=== PATIENT | female | born 1940 | race Caucasian/White ===

== ENCOUNTER → 2018-09-05 | Outpatient (CLI) | payer MEDICARE ==
[~2018-09-05] MED LIST: ASPI-586 PO; CATHETER FLUSH 10 ML SYR IV PRN; KETO10TA PO; ONDA4TAB8 PO; SULF1TAB35 PO
[2018-09-05 09:27] VITALS: BP 158/68
--- NOTE | 2018-09-05 15:13 | STRESS TEST ---
DATE OF SERVICE: 09/05/2018 AN EXERCISE MYOVIEW STRESS TEST REPORT Baseline heart rate is 63. Baseline blood pressure is 151/83. Baseline EKG is sinus rhythm with no ischemic changes. In summary, the patient was injected with 9.12 mCi of technetium-99 Myoview and the resting images were obtained. Then, the patient started exercising with a baseline heart rate, blood pressure and EKG mentioned above. The patient was able to exercise for 4 minutes on a standard Wong protocol. With peak exercise level, EKG was showing artifact with mild irregularity and no significant ischemia was noted on EKG. During recovery, heart rate and blood pressure returned to baseline. EKG returned to baseline. The resting and stress images were reviewed and compared in the short axis, horizontal long axis and vertical long axis views. Review of the images showed decreased uptake involving the whole apical area, anteroapical and inferoapical area with extracardiac attenuation affecting the quality of the images. SSS is 14 and SDS S8. TID value 0.84. On the gated images, the left ventricle appeared to be in normal size with normal contractility. Calculated ejection fraction is 66%. CONCLUSION: 1. Good exercise tolerance, total of 4 minutes on standard Wong protocol achieving 82% of maximum expected heart rate. 2. Appropriate heart rate and blood pressure response to exercise returned to baseline during recovery. 3. Minimal nondiagnostic EKG changes with exercise returned to baseline during recovery. 4. A fixed defect involving the true apex with mild ischemia involving the mid to apical anterior wall and mid to apical inferior wall. 5. Normal left ventricular size with normal contractility. Calculated ejection fraction is 66%. Job ID: [id number] DocumentID: [id number] Dictated Date: 09/05/2018 14:46:42 Sustainability Officer Date: 09/05/2018 15:12:17 Dictated By: DON SALDAÑA MD
== END ==
LOC: CARD 07:20
PROVIDERS: ATTEND Internal Medicine Cardiovascular Disease
DX: R07.89 Other chest pain (principal); R94.31 Abnormal electrocardiogram [ECG] [EKG]
CPT/HCPCS: 78452; 93017

== ENCOUNTER 2018-09-12 08:17 | Day surgery (SDC) | payer MEDICARE ==
[2018-09-12] VITALS (7 sets, daily range): BP systolic 115–143; BP diastolic 65–98
[~2018-09-12] VITALS: Ht 154.9 cm; Wt 47.6 kg
[~2018-09-12 08:17] MED LIST changes: -CATHETER FLUSH 10 ML SYR IV PRN
[2018-09-12] MEDS ORDERED: HEParin (CATH LAB) 2,000 ML IV ONE (08:29)
[2018-09-12] MEDS ORDERED: NS IV 1000 ML 1,000 ML ONE (08:29)
[2018-09-12] MEDS ORDERED: NS IV 1000 ML 1,000 ML IV SCH ×2 (08:44→13:29)
--- OUTSIDE RECORDS SUMMARY | 2018-09-12 08:51 | XMS REPORT | Continuity of Care Document ---
Author Author [facility] Organization [facility] Address Unknown Phone Unavailable Allergies Active Description Code Type Severity Reaction Onset Reported/Identified Relationship to Patient Clinical Status Yes No Known Drug Allergies [id number] Drug Allergy Unknown N/A 03/30/2016 Medications There is no data. Problems Date Dx Coded Attending Type Code Diagnosis Diagnosed By 03/30/2016 RAUDEL TAVERA DO Ot K57.93 DVTRCLI OF INTEST, PART UNSP, W/O PERF O 03/30/2016 AYSE DO RAUDEL K Ot K59.00 CONSTIPATION, UNSPECIFIED 03/30/2016 AYSE DO RAUDEL K Ot N20.1 CALCULUS OF URETER 03/30/2016 AYSE DO RAUDEL K Ot R93.5 ABN FINDINGS ON DX IMAGING OF ABD REGION 04/01/2016 AYSE DO RAUDEL K Ot K57.93 DVTRCLI OF INTEST, PART UNSP, W/O PERF O 04/01/2016 AYSE DO RAUDEL K Ot K59.00 CONSTIPATION, UNSPECIFIED 04/01/2016 AYSE DO, RAUDEL K Ot N20.1 CALCULUS OF URETER 04/01/2016 AYSE DO RAUDEL K Ot R93.5 ABN FINDINGS ON DX IMAGING OF ABD REGION 04/13/2016 RANDA FRANCE MD Ot N20.1 CALCULUS OF URETER 05/04/2016 RANDA FRANCE MD Ot N20.1 CALCULUS OF URETER 05/06/2016 AYSE DOELIZABETHA K Ot K57.93 DVTRCLI OF INTEST, PART UNSP, W/O PERF O 05/06/2016 AYSE DO RAUDEL K Ot K59.00 CONSTIPATION, UNSPECIFIED 05/06/2016 AYSE DO RAUDEL K Ot N20.1 CALCULUS OF URETER 05/06/2016 AYSE DO RAUDEL K Ot R93.5 ABN FINDINGS ON DX IMAGING OF ABD REGION 05/18/2016 EDILMA MD, RANDA A Ot N20.1 CALCULUS OF URETER 09/03/2018 RANDA FRANCE MD Ot N20.1 CALCULUS OF URETER 09/06/2018 DON SALDAÑA MD Ot R07.89 OTHER CHEST PAIN 09/06/2018 DON SALDAÑA MD Ot R94.31 ABNORMAL ELECTROCARDIOGRAM [ECG] [EKG] Procedures There is no data. Results There is no data. Encounters ACCT No. Visit Date/Time Discharge Status Pt. Type Provider Facility Loc./Unit Complaint [id number] 09/05/2018 07:20:00 09/05/2018 23:59:59 CLS Outpatient DON SALDAÑA MD [facility] CARD ANTERIOR CHEST WALL PAIN [id number] 04/07/2016 12:01:00 04/07/2016 23:59:59 CLS Outpatient RANDA FRANCE MD [facility] RAD LT UVJ STONE [id number] 03/30/2016 07:04:00 03/30/2016 10:16:00 DIS Emergency AYSE DORAUDEL [facility] ER LEFT FLANK PAIN [id number] 04/15/2013 08:08:00 04/15/2013 23:59:59 CLS Outpatient [id number] 04/08/2013 12:51:00 04/08/2013 23:59:59 CLS Outpatient [id number] 09/12/2018 11:00:00 PEN Preadmit DON SALDAÑA MD [facility] CATH ABN STRESS TEST,CHEST PAIN,HTN
--- NOTE | 2018-09-12 09:14 | Diagnostic Imaging Report ---
INDICATION: Evaluation prior to heart catheterization, abnormal myocardial imaging. TECHNIQUE: Single view chest 8:59 AM. CORRELATION STUDY: 03/30/2016 FINDINGS: The heart size, mediastinal configuration and pulmonary vascularity are within normal limits. Chronic-appearing change in the lung parenchyma without evidence for infiltrate. IMPRESSION: 1. No radiographic findings to suggest acute abnormality of the chest. Dictated by: Dictated on workstation # [id number]
[2018-09-12 09:21] LABS: HEMOGLOBIN 17.1 G/DL (11.5-16.0); MEAN PLATELET VOLUME 10.3 FL (7.4-10.4); RED BLOOD COUNT 5.25 10^6/uL (4.35-5.85); RED CELL DISTRIBUTION WIDTH 12.9 % (10.0-14.5); WHITE BLOOD COUNT 7.1 10^3/uL (4.3-11.0)
[2018-09-12 09:34] LABS: PROTHROMBIN TIME PATIENT 12.7 SEC (12.2-14.7)
[2018-09-12 09:43] LABS: ALANINE AMINOTRANSFERASE 25 U/L (0-55); ALBUMIN 5.1 GM/DL (3.2-4.5); ALKALINE PHOSPHATASE 109 U/L (40-136); BILIRUBIN,TOTAL 1.1 MG/DL (0.1-1.0); BUN/CREATININE RATIO 17; CALCIUM 10.6 MG/DL (8.5-10.1); CARBON DIOXIDE 23 MMOL/L (21-32); CHLORIDE 103 MMOL/L (98-107); CHOLESTEROL 246 MG/DL (< 200); CREATININE SERUM 1.03 MG/DL (0.60-1.30); GFR ESTIMATED 52; GLUCOSE 111 MG/DL (70-105); HDL CHOLESTEROL 91 MG/DL (40-60); POTASSIUM 4.7 MMOL/L (3.6-5.0); SODIUM 138 MMOL/L (135-145); TOTAL PROTEIN 8.8 GM/DL (6.4-8.2); TRIGLYCERIDES 74 MG/DL (<150); VLDL CHOLESTEROL 15 MG/DL (5-40)
[2018-09-12] MEDS ORDERED: LIDOCAINE 1% INJ 20 ML 20 ML VIAL ONE (10:43)
--- NOTE | 2018-09-12 12:04 | Cardiac Procedure Note-CS/ASA ---
Pre-Procedure Note Pre-Op Procedure Note H&P Reviewed The H&P was reviewed, patient examined and no changes noted. Date H&P Reviewed: Sep 12, 2018 Time H&P Reviewed: 12:04 Conscious Sedation Pre-Proced Time 12:04 ASA Score 3 For ASA 3 and 4: Consider anesthesia and medical clearance. Also, for patients with a history of failed moderate sedation consider anesthesia. Airway Lungs Heart ASA score ASA 1: a normal healthy patient ASA 2: a patient with a mild systemic disease (mid diabetes, controlled hypertension, obesity x ASA 3: a patient with a severe systemic disease that limits activity (angina , COPD, prior Myocardial infarction) ASA 4: a patient with an incapacitating disease that is a constant threat to life (CHF, renal failure) ASA 5: a moribund patient not expected to survive 24 hrs. (ruptured aneurysm) ASA 6: a declared brain patient whose organs are being harvested. For emergent operations, add the letter E after the classification Mallampati Classification Grade 3 Sedation Plan Analgesia, Amnesia, Plan communicated to team members, Discussed options with patient/fam, Discussed risks with patient/fam The patient is an appropriate candidate to undergo the planned procedure, sedation, and anesthesia. The patient immediately re-assessed prior to indication. DON SALDAÑA MD Sep 12, 2018 12:04
[2018-09-12] MEDS ORDERED: MIDAZOLAM 5 MG/5 ML (VERSED) VIAL ONE (12:16)
[2018-09-12] MEDS ORDERED: fentaNYL INJECTION 100 MCG/2 ML AMP ONE (12:16)
[2018-09-12] MEDS ORDERED: ADENOSINE 6 MG/2 ML (ADENOCARD) VIAL IV ONE ×2 (12:56→12:59)
[2018-09-12] MEDS ORDERED: meTOprolol 5 MG/5 ML (LOPRESSOR) VIAL ONE ×2 (12:59→13:08)
[2018-09-12] MEDS ORDERED: NITROGLYCERIN 0.4 MG SL TABS BTL 25'S SL ONE (13:08)
--- NOTE | 2018-09-12 13:28 | Cardiac Cath Report ---
Cardiac Cath Report Physician (s)/Fast Food Crew Lead (s) Physician DON SALDAÑA MD Pre-Procedure Diagnosis Pre-Procedure Diagnosis: Coronary artery disease Post-Procedure Note Procedure Start Date: Sep 12, 2018 Name of Procedure: Left heart catheterization Left ventriculogram Aortic arch angiogram Findings/Procedure Note PROCEDURE NOTE: After explaining the procedure to the patient, all pros and cons were explained , all questions were answered. The patient signed the consent and then she was placed on the cardiac catheterization laboratory. Groin was prepped SL fashion local anesthesia was used. Sheath placed in the right femoral artery. Anitra right and left catheter were used to access the coronary system. Pigtail was used to access the left ventricular cavity. Left ventriculogram was done, patient became tachycardic with supraventricular tachycardia, pullback LV to aorta was done, aortic arch angiogram was done then patient was given a Rin 6 mg IV then multiple doses of Lopressor IV, start Chest pain, given sublingual nitroglycerin At the end of the procedure the sheath was removed. Closure device was used FINDINGS: Hemodynamics LV 127/13, end-diastolic pressure of 13 Aorta 126/80 mean of 99 ANATOMY: Left Main is calcified with mild disease Left Anterior Descending is heavily calcified with severe stenosis at the long segment at the proximal and mid with 2 area of subtotal occlusion involving the first and second diagonal branches Left Circumflex is heavily calcified with mild to moderate disease Right Coronory Artery is heavily calcified with moderate disease at the midportion, severe disease of the right PDA LV Gram was done showing normal left ventricle size and systolic function estimated ejection fraction 60 percent Aorta evaluation showed heavily calcified thoracic aorta, hypertensive changes, no dissection or aneurysm, origin of the great neck vessels were normal CONCLUSION: 1. Severe multivessel coronary artery disease 2. Normal left ventricular size and systolic function estimated ejection fraction 60 percent 3. Hypertensive changes in the thoracic aorta DISCUSSION AND RECOMMENDATION: Patient will be transferred for evaluation for CABG Hospital course: Patient underwent cardiac catheterization showing multivessel coronary artery disease had transient episode of superventricular tachycardia, given 6 mg of IV adenosine which was successful then patient returned to sinus tachycardia, started to have chest pain, given 5 mg of IV Lopressor and 3 sublingual nitroglycerin then another 5 mg of IV Lopressor which relieved her chest pain. Arrangement to transfer the patient to [facility] for evaluation for CABG was made. Anesthesia Type: Conscious Sedation Estimated blood loss (mL): 20 ml Contrast Amount: 85 ml Total Radiation Dose: 253 mGy Post-Procedure Diagnosis Post-operative diagnosis: Unstable angina Coronary artery disease Hypertension Hyperlipidemia DON SALDAÑA MD Sep 12, 2018 13:28
[2018-09-12] MEDS ORDERED: PATIENT MAY USE OWN MEDS, ALL PO SCH (13:30)
--- NOTE | 2018-09-12 13:30 | Discharge Inst-Post CATH ---
Discharge Inst-CATH Post Cardiac Cath D/C Inst Follow Up/Plan Appointment with Dr. Feliciano's office in 4 weeks CARDIAC CATH DISCHARGE INSTRUCTIONS *Hold Metformin for 48 hours post heart cath. ACTIVITY * Go Home directly and rest. * Limit activity of the leg (or wrist if it was used) for 7 days including aerobics, swimming, jogging, bicycling, etc. * Restrict stair-climbing for 7 days if possible, if not, climb up with your non -cath leg, then bring together on the same step. * Avoid lifting, pushing, pulling or excessive movement of the affected extremity for 7 days. * Customary sexual activity may be resumed after 2 days-use caution not to use a position that strains or causes pain to the affected extremity. * No driving for 24 hours. * NO SMOKING. * Avoid straining for bowel movements for 7 days. * Gentle walking on level ground is allowed. * Returning to work will depend on the type of procedure and the results. Your doctor will discuss this with you. CALL YOUR DOCTOR FOR ANY OF THE FOLLOWING: *If bleeding from the puncture site occurs- Apply gentle pressure to site with clean cloth and call your doctor or EMS. * If a knot or lump forms under the skin, increases in size, or causes pain. * If bruising appears to be worsening or moving further down your leg instead of disappearing. * Temperature above 101 F. CARE OF YOUR GROIN INCISION; * Bruising or purple discoloration of the skin near the puncture site is common. * You may shower only, no bathtub bathing for 5 days. Be careful to avoid slipping as your leg may feel stiff. * If a closure device was used on your femoral artery, please see the attached guide regarding care of the device and your leg. * Leave the dressing on, until removed by office staff. CARE OF YOUR WRIST INCISION; * Bruising or purple discoloration of the skin near the puncture site is common. * You may shower. * DO NOT submerge wrist. * Leave dressing on, until removed by office staff.. DON FELICIANO MD Sep 12, 2018 13:30
[2018-09-12] MEDS ORDERED: ONDANSETRON 4 MG/2 ML (SDV) Z0FRAN ONE (13:32)
== END 2018-09-12 15:36 | disposition short-term general hospital (02) ==
LOC: CATH 08:17 → ICU 13:36 → CATH 15:36
PROVIDERS: ATTEND Internal Medicine Cardiovascular Disease
DX: I25.110 Atherosclerotic heart disease of native coronary artery with unstable angina pectoris (principal); I10 Essential (primary) hypertension; E78.5 Hyperlipidemia, unspecified; R07.89 Other chest pain; R94.39 Abnormal result of other cardiovascular function study; Z82.49 Family history of ischemic heart disease and other diseases of the circulatory system
CPT/HCPCS: 36221; 36415; 71045; 80053; 80061; 85027; 85610; 85730; 87081; 93458

== ENCOUNTER 2019-01-28 10:13 | Outpatient (RCR) | payer MEDICARE | END 2019-02-05 | disposition home or self-care (01) | LOC: CR 10:13 | PROVIDERS: ATTEND Internal Medicine Cardiovascular Disease | DX: Z48.812 Encounter for surgical aftercare following surgery on the circulatory system (principal); Z95.1 Presence of aortocoronary bypass graft | CPT/HCPCS: 93798 ==

== ENCOUNTER → 2019-07-02 | Outpatient (CLI) | payer MEDICARE | LOC: CARD 09:57 | PROVIDERS: ATTEND Physician Assistant | DX: I25.10 Atherosclerotic heart disease of native coronary artery without angina pectoris (principal); I10 Essential (primary) hypertension; E78.2 Mixed hyperlipidemia | CPT/HCPCS: 93306 ==

== ENCOUNTER → 2019-07-03 | Outpatient (CLI) | payer MEDICARE ==
[~2019-07-03] MED LIST changes: +CATHETER FLUSH 10 ML SYR IV PRN
[2019-07-03 09:12] VITALS: BP 138/86
--- NOTE | 2019-07-03 16:10 | STRESS TEST ---
DATE OF SERVICE: 07/03/2019 EXERCISE MYOVIEW STRESS TEST REPORT REFERRING PHYSICIAN: Dr. Hanley. Baseline heart rate is 47. Baseline blood pressure 149/83. Baseline EKG is sinus rhythm with no ischemic changes. In summary, the patient was injected with 10.74 mCi of technetium-99 Myoview and the resting images were obtained. Then, the patient started exercising with a baseline heart rate, blood pressure and EKG mentioned above. The patient was able to exercise for a total of 7 minutes on standard Wong protocol. With peak exercise level, EKG was showing no ischemic changes. Blood pressure was 173/73. During recovery, heart rate and blood pressure returned to baseline. EKG returned to baseline. The resting and stress images were reviewed and compared in the short axis, horizontal long axis, and vertical long axis views. Review of the images showed breast attenuation affecting the quality of the images. There was no significant ischemia or infarction. SSS is 0. TID value 0.91. On the gated images, the left ventricle appeared to be normal size with normal contractility. Calculated ejection fraction 74%. IN CONCLUSION: 1. Fair exercise tolerance, a total of 7 minutes on standard Wong protocol, 8.5 METS achieving 87% of maximum expected heart rate. 2. Minimal nondiagnostic EKG changes with exercise returned to baseline during recovery. 3. Breast attenuation with typical female pattern with no ischemia or infarction on SPECT images. 4. Normal left ventricular size with normal contractility. Calculated ejection fraction 74%. Job ID: [id number] DocumentID: [id number] Dictated Date: 07/03/2019 15:59:13 Firmware Developer Date: 07/03/2019 16:09:25 Dictated By: DON SALDAÑA MD
== END ==
LOC: CARD 07:18
PROVIDERS: ATTEND Physician Assistant
DX: I25.10 Atherosclerotic heart disease of native coronary artery without angina pectoris (principal); I10 Essential (primary) hypertension; E78.2 Mixed hyperlipidemia
CPT/HCPCS: 78452; 93017

== ENCOUNTER 2019-07-25 11:25 | Emergency (ER) | payer MEDICARE ==
[~2019-07-25] VITALS: Ht 157 cm; Wt 47.0 kg
[~2019-07-25 11:25] MED LIST changes: -CATHETER FLUSH 10 ML SYR IV PRN
--- NOTE | 2019-07-25 11:43 | ED General ---
General Chief Complaint: Fever-Adult/Adol Stated Complaint: FEVER Nursing Triage Note: FEVER STARTING YESTERDAY. DENIES ANY OTHER SX Nursing Sepsis Screen: No Definite Risk Source of Information: Patient Exam Limitations: No Limitations History of Present Illness Date Seen by Provider: Jul 25, 2019 Time Seen by Provider: 11:41 Initial Comments To ER with fever starting yesterday, fever was up to 101 at primary care office this morning, she presented there for nausea and poor appetite rhinorrhea sore throat. Timing/Duration: 1-2 Days Severity: Moderate Associated Systoms: Fever/Chills, Malaise, Nausea/Vomiting Allergies and Home Medications Allergies Coded Allergies: No Known Drug Allergies (Unverified , 03/30/16) Patient Home Medication List Home Medication List Reviewed: Yes Review of Systems Review of Systems Constitutional: see HPI, chills, fever, malaise, weakness EENTM: see HPI, nose congestion, throat pain Respiratory: no symptoms reported Cardiovascular: no symptoms reported Genitourinary: no symptoms reported Musculoskeletal: no symptoms reported Skin: no symptoms reported Psychiatric/Neurological: No Symptoms Reported Hematologic/Lymphatic: No Symptoms Reported Immunological/Allergic: no symptoms reported Past Yibfznk-Clnkfg-Kgdunc Hx Patient Social History Alcohol Use: Denies Use Recreational Drug Use: No Smoking Status: Never a Smoker Recent Foreign Travel: No Contact w/Someone Who Travel: No Recent Infectious Disease Expo: No Immunizations Up To Date Date of Pneumonia Vaccine: Aug 30, 2016 Date of Influenza Vaccine: Jul 30, 2018 Past Medical History Surgeries: Yes (ECTOPIC ) Abdominal Respiratory: No Currently Using CPAP: No Currently Using BIPAP: No Cardiac: No Neurological: No Reproductive Disorders: Yes (ECTOPIC ) 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 0.0oz. 47.008976gt; 19.00 BMI Method:Stated General Appearance: No Apparent Distress, WD/WN Eyes: Bilateral Eye Normal Inspection, Bilateral Eye PERRL, Bilateral Eye EOMI HEENT: PERRL/EOMI, TMs Normal Neck: Full Range of Motion, Normal Inspection Respiratory: Normal Breath Sounds, No Accessory Muscle Use, No Respiratory Distress Cardiovascular: Regular Rate, Rhythm, Normal Peripheral Pulses Gastrointestinal: Normal Bowel Sounds, Non Tender, Soft Extremity: Normal Capillary Refill, Normal Inspection Neurologic/Psychiatric: Alert, Oriented x3 Skin: Normal Color, Warm/Dry Progress/Results/Core Measures Suspected Sepsis Recent Fever Within 48 Hours: Yes Infection Criteria Present: Suspected New Infection New/Unexplained Altered Menta: No Sepsis Screen: No Definite Risk SIRS Temperature: Pulse: 76 Respiratory Rate: 16 Laboratory Tests 07/25/19 11:52: White Blood Count 11.4H Blood Pressure 159 /83 Mean: 108 Laboratory Tests 07/25/19 11:52: Creatinine 1.02, Platelet Count 240, Total Bilirubin 1.8H Results/Orders Lab Results Laboratory Tests Test 07/25/19 11:52 07/25/19 12:35 Range/Units White Blood Count 11.4 H 4.3-11.0 10^3/uL Red Blood Count 4.25 L 4.35-5.85 10^6/uL Hemoglobin 13.7 11.5-16.0 G/DL Hematocrit 40 35-52 % Mean Corpuscular Volume 95 80-99 FL Mean Corpuscular Hemoglobin 32 25-34 PG Mean Corpuscular Hemoglobin Concent 34 32-36 G/DL Red Cell Distribution Width 12.7 10.0-14.5 % Platelet Count 240 130-400 10^3/uL Mean Platelet Volume 9.5 7.4-10.4 FL Neutrophils (%) (Auto) 79 H 42-75 % Lymphocytes (%) (Auto) 14 12-44 % Monocytes (%) (Auto) 7 0-12 % Eosinophils (%) (Auto) 0 0-10 % Basophils (%) (Auto) 0 0-10 % Neutrophils # (Auto) 9.0 H 1.8-7.8 X 10^3 Lymphocytes # (Auto) 1.6 1.0-4.0 X 10^3 Monocytes # (Auto) 0.7 0.0-1.0 X 10^3 Eosinophils # (Auto) 0.0 0.0-0.3 10^3/uL Basophils # (Auto) 0.0 0.0-0.1 10^3/uL Sodium Level 132 L 135-145 MMOL/L Potassium Level 4.5 3.6-5.0 MMOL/L Chloride Level 101 98-107 MMOL/L Carbon Dioxide Level 26 21-32 MMOL/L Anion Gap 5 5-14 MMOL/L Blood Urea Nitrogen 12 7-18 MG/DL Creatinine 1.02 0.60-1.30 MG/DL Estimat Glomerular Filtration Rate 52 BUN/Creatinine Ratio 12 Glucose Level 135 H 70-105 MG/DL Calcium Level 9.3 8.5-10.1 MG/DL Corrected Calcium 9.1 8.5-10.1 MG/DL Total Bilirubin 1.8 H 0.1-1.0 MG/DL Aspartate Amino Transf (AST/SGOT) 28 5-34 U/L Alanine Aminotransferase (ALT/SGPT) 23 0-55 U/L Alkaline Phosphatase 75 40-136 U/L Total Protein 6.9 6.4-8.2 GM/DL Albumin 4.3 3.2-4.5 GM/DL Urine Color TATE H Urine Clarity CLEAR Urine pH 6 5-9 Urine Specific Orr 1.020 1.016-1.022 Urine Protein 2+ H NEGATIVE Urine Glucose (UA) NEGATIVE NEGATIVE Urine Ketones 1+ H NEGATIVE Urine Nitrite NEGATIVE NEGATIVE Urine Bilirubin NEGATIVE NEGATIVE Urine Urobilinogen NORMAL NORMAL MG/DL Urine Leukocyte Esterase 1+ H NEGATIVE Urine RBC (Auto) 2+ H NEGATIVE Urine RBC 25-50 H /HPF Urine WBC 2-5 /HPF Urine Squamous Epithelial Cells 2-5 /HPF Urine Crystals NONE /LPF Urine Bacteria FEW H /HPF Urine Casts NONE /LPF Urine Mucus MODERATE H /LPF Urine Culture Indicated NO Micro Results Microbiology 07/25/19 Influenza Types A,B Antigen (TEJAL) - Final, Complete My Orders Orders - MARY KAY DIAZ BROADCAST NEWS PRODUCER Cbc With Automated Diff (07/25/19 11:27) Ua Culture If Indicated (07/25/19 11:27) Comprehensive Metabolic Panel (07/25/19 11:27) Ed Iv/Invasive Line Start (07/25/19 11:27) Chest Pa/Lat (2 View) (07/25/19 11:27) Influenza A And B Antigens (07/25/19 11:27) Ibuprofen Tablet (Motrin Tablet) (07/25/19 11:45) Ns Iv 500 Ml (Sodium Chloride 0.9%) (07/25/19 13:00) Medications Given in ED Current Medications Medications Dose Ordered Sig/Allen Route Start Time Stop Time Status Last Admin Dose Admin Ibuprofen 800 mg ONCE ONCE PO 07/25/19 11:45 07/25/19 11:46 DC 07/25/19 12:10 800 MG Vital Signs/I&O 07/25/19 11:25 Temp 37.9 Pulse 76 Resp 16 B/P (MAP) 159/83 (108) Pulse Ox 99 O2 Delivery Room Air Capillary Refill : Less Than 3 Seconds Blood Pressure Mean: 108 Departure Communication (Admissions) [id number] to determine the cause of fever here, suspect influenza though her flu swab was negative. Patient is allowed to go home and she is agreeable with this plan as is the daughter. Impression Primary Impression: Fever Qualified Codes: R50.9 - Fever, unspecified Additional Impression: Influenza-like symptoms Disposition: HOME, SELF-CARE Condition: Stable Departure-Patient Inst. Decision time for Depature: 13:17 Referrals: DAPHNEY PAINTER MD (PCP/Family) Primary Care Physician Patient Instructions: Fever, Adult (DC) Add. Discharge Instructions: 1. Tylenol and ibuprofen for fever control 2. Return to ER for any concerns 3. Follow-up with your primary care provider later this week for recheck. All discharge instructions reviewed with patient and/or family. Voiced understanding. MARY KAY DIAZ APRN Jul 25, 2019 11:43
[2019-07-25] MEDS ORDERED: IBUPROFEN 800 MG (MOTRIN) TAB PO ONE (11:45)
[2019-07-25 11:58] LABS: BASOPHILS % (AUTO) 0 % (0-10); EOSINOPHILS % (AUTO) 0 % (0-10); HEMATOCRIT 40 % (35-52); HEMOGLOBIN 13.7 G/DL (11.5-16.0); LYMPHOCYTES # (AUTO) 1.6 X 10^3 (1.0-4.0); LYMPHOCYTES % (AUTO) 14 % (12-44); MEAN CORPUSCULAR HEMOGLOBIN 32 PG (25-34); MEAN CORPUSCULAR HGB CONC 34 G/DL (32-36); MEAN CORPUSCULAR VOLUME 95 FL (80-99); MEAN PLATELET VOLUME 9.5 FL (7.4-10.4); MONOCYTES # (AUTO) 0.7 X 10^3 (0.0-1.0); MONOCYTES % (AUTO) 7 % (0-12); NEUTROPHILS % (AUTO) 79 % (42-75); PLATELET COUNT 240 10^3/uL (130-400); RED CELL DISTRIBUTION WIDTH 12.7 % (10.0-14.5); WHITE BLOOD COUNT 11.4 10^3/uL (4.3-11.0)
[2019-07-25 12:15] LABS: ALBUMIN 4.3 GM/DL (3.2-4.5); BILIRUBIN,TOTAL 1.8 MG/DL (0.1-1.0); CALCIUM 9.3 MG/DL (8.5-10.1); CREATININE SERUM 1.02 MG/DL (0.60-1.30); POTASSIUM 4.5 MMOL/L (3.6-5.0); TOTAL PROTEIN 6.9 GM/DL (6.4-8.2)
--- NOTE | 2019-07-25 12:19 | Diagnostic Imaging Report ---
INDICATION: Fever. TIME OF EXAM: 12:01 p.m. Correlation is made with prior chest from 09/12/2018. FINDINGS: Changes of median sternotomy are noted. The heart size is stable. The lungs are clear. No infiltrate or effusion is seen. There is no pneumothorax. IMPRESSION: No acute cardiopulmonary process is detected. Dictated by: Dictated on workstation # [id number]
[2019-07-25 12:40] LABS: BILIRUBIN,URINE NEGATIVE (NEGATIVE); CLARITY,URINE CLEAR; COLOR,URINE AMBER; GLUCOSE, URINE (UA) NEGATIVE (NEGATIVE); KETONES,URINE 1+ (NEGATIVE); LEUKOCYTE ESTERASE ,URINE 1+ (NEGATIVE); NITRITE,URINE NEGATIVE (NEGATIVE); PH,URINE 6 (5-9); PROTEIN,URINE 2+ (NEGATIVE); UROBILINOGEN,URINE NORMAL (NORMAL)
[2019-07-25 12:47] LABS: BACTERIA,URINE FEW /HPF; RBC,URINE 25-50 /HPF
[2019-07-25] MEDS ORDERED: NS IV 500 ML 500 ML IV SCH (13:00)
[2019-07-25 13:43] VITALS: BP 145/86
[2019-07-26] MEDS ORDERED: RAMI2.5C2 PO (09:45)
[2019-07-26] MEDS ORDERED: ATOR10TA66 PO (09:45)
[2019-07-26] MEDS ORDERED: CARV3.122 PO (09:45)
[2019-07-26] MEDS ORDERED: CLOP75TA28 (09:45)
[2019-07-26] MEDS ORDERED: BROM5DRO3 (09:45)
== END 2019-07-25 13:45 | disposition home or self-care (01) ==
LOC: EDUNIT# 11:25 → ER 11:26
DX: R50.9 Fever, unspecified (principal); R09.89 Other specified symptoms and signs involving the circulatory and respiratory systems; Z87.442 Personal history of urinary calculi; Z82.49 Family history of ischemic heart disease and other diseases of the circulatory system
CPT/HCPCS: 36415; 71046; 80053; 81000; 85025; 87804

== ENCOUNTER 2019-07-26 09:10 | Observation (INO) | payer MEDICARE ==
[~2019-07-26] VITALS: Ht 147 cm; Wt 47.0 kg
[2019-07-26] MEDS ORDERED: RAMI2.5C2 PO (09:45)
[2019-07-26] MEDS ORDERED: BROM5DRO3 (09:45)
[2019-07-26] MEDS ORDERED: CLOP75TA28 (09:45)
[2019-07-26] MEDS ORDERED: ATOR10TA66 PO (09:45)
[2019-07-26] MEDS ORDERED: CARV3.122 PO (09:45)
--- NOTE | 2019-07-26 10:16 | ED General ---
General Chief Complaint: Fever-Adult/Adol Stated Complaint: N/V;WEAKNESS Nursing Triage Note: PT TO ROOM 5 PT CO OF FEVER, N/V/D, PT WAS SEEN IN ED YESTERDAY FOR SAME CO Nursing Sepsis Screen: Possible Sepsis Risk Source of Information: Patient, Family Exam Limitations: No Limitations History of Present Illness Date Seen by Provider: Jul 26, 2019 Time Seen by Provider: 10:13 Initial Comments This 78-year-old white female returns emergency department with continuation of her complaints for which she was evaluated yesterday. Patient has had vomiting and diarrhea with associated weakness and general malaise. Yesterday no distinct pathology was identified. The patient was instructed on a conservative course of home which has not improved the patient's symptoms. Patient returns with continued vomiting and diarrhea. There is been no blood in the emesis or stool. Patient denies severe or localized abdominal pain. Cindy ent has had no associated cough or shortness of breath. She denies chest pain or palpitations. She's had no triad of headache stiff neck and photophobia. Past medical history includes previous cardiac stents. Allergies and Home Medications Allergies Coded Allergies: No Known Drug Allergies (Unverified , 07/25/19) Patient Home Medication List Home Medication List Reviewed: Yes Review of Systems Review of Systems Constitutional: fever, malaise, weakness EENTM: No ear pain, No vision loss Respiratory: No cough, No short of breath Cardiovascular: No chest pain, No palpitations Gastrointestinal: No abdominal pain; diarrhea, nausea, vomiting Genitourinary: No dysuria, No frequency : No Musculoskeletal: No back pain Skin: No rash Psychiatric/Neurological: No Symptoms Reported Hematologic/Lymphatic: No Symptoms Reported Immunological/Allergic: no symptoms reported Past Pcqxtdy-Jchdza-Shybis Hx Past Med/Social Hx: Reviewed Nursing Past Med/Soc Hx Patient Social History Alcohol Use: Denies Use Recreational Drug Use: No Smoking Status: Never a Smoker Recent Foreign Travel: No Contact w/Someone Who Travel: No Recent Infectious Disease Expo: No Recent Hopitalizations: No Immunizations Up To Date Date of Pneumonia Vaccine: Aug 30, 2016 Date of Influenza Vaccine: Jul 30, 2018 Past Medical History Surgeries: Yes (ECTOPIC ) Abdominal Respiratory: No Currently Using CPAP: No Currently Using BIPAP: No Cardiac: No Neurological: No Reproductive Disorders: Yes (ECTOPIC ) 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 0.0oz. 47.517004kp; 21.00 BMI Method:Stated General Appearance: No Apparent Distress, WD/WN HEENT: Normal ENT Inspection Neck: Full Range of Motion, Normal Inspection, Non Tender, Supple Respiratory: Lungs Clear, Normal Breath Sounds Cardiovascular: Regular Rate, Rhythm, No Murmur Gastrointestinal: Normal Bowel Sounds, Non Tender, Soft Back: Normal Inspection Extremity: Normal Inspection, Normal Range of Motion Neurologic/Psychiatric: Alert, Oriented x3, No Motor/Sensory Deficits, Normal Mood/Affect Skin: Normal Color, Warm/Dry; No Rash Focused Exam Lactate Level 07/26/19 09:20: Lactic Acid Level 1.90 Lactic Acid Level Laboratory Tests Test 07/26/19 09:20 Lactic Acid Level 1.90 MMOL/L (0.50-2.00) Progress/Results/Core Measures Suspected Sepsis Recent Fever Within 48 Hours: Yes Infection Criteria Present: Suspected New Infection New/Unexplained Altered Menta: No Sepsis Screen: Possible Sepsis Risk SIRS Temperature: Pulse: 118 Respiratory Rate: 18 Laboratory Tests 07/26/19 09:20: White Blood Count 11.3H Blood Pressure 170 /102 Mean: 124 07/26/19 09:20: Lactic Acid Level 1.90 Laboratory Tests 07/26/19 09:20: Creatinine 0.99, Platelet Count 206, Total Bilirubin 1.7H Results/Orders Lab Results Laboratory Tests Test 07/26/19 09:20 Range/Units White Blood Count 11.3 H 4.3-11.0 10^3/uL Red Blood Count 4.13 L 4.35-5.85 10^6/uL Hemoglobin 13.5 11.5-16.0 G/DL Hematocrit 40 35-52 % Mean Corpuscular Volume 96 80-99 FL Mean Corpuscular Hemoglobin 33 25-34 PG Mean Corpuscular Hemoglobin Concent 34 32-36 G/DL Red Cell Distribution Width 12.7 10.0-14.5 % Platelet Count 206 130-400 10^3/uL Mean Platelet Volume 10.3 7.4-10.4 FL Neutrophils (%) (Auto) 86 H 42-75 % Lymphocytes (%) (Auto) 10 L 12-44 % Monocytes (%) (Auto) 4 0-12 % Eosinophils (%) (Auto) 0 0-10 % Basophils (%) (Auto) 0 0-10 % Neutrophils # (Auto) 9.7 H 1.8-7.8 X 10^3 Lymphocytes # (Auto) 1.1 1.0-4.0 X 10^3 Monocytes # (Auto) 0.5 0.0-1.0 X 10^3 Eosinophils # (Auto) 0.0 0.0-0.3 10^3/uL Basophils # (Auto) 0.0 0.0-0.1 10^3/uL Sodium Level 132 L 135-145 MMOL/L Potassium Level 4.2 3.6-5.0 MMOL/L Chloride Level 101 98-107 MMOL/L Carbon Dioxide Level 21 21-32 MMOL/L Anion Gap 10 5-14 MMOL/L Blood Urea Nitrogen 17 7-18 MG/DL Creatinine 0.99 0.60-1.30 MG/DL Estimat Glomerular Filtration Rate 54 BUN/Creatinine Ratio 17 Glucose Level 141 H 70-105 MG/DL Lactic Acid Level 1.90 0.50-2.00 MMOL/L Calcium Level 9.3 8.5-10.1 MG/DL Corrected Calcium 9.1 8.5-10.1 MG/DL Total Bilirubin 1.7 H 0.1-1.0 MG/DL Aspartate Amino Transf (AST/SGOT) 31 5-34 U/L Alanine Aminotransferase (ALT/SGPT) 23 0-55 U/L Alkaline Phosphatase 61 40-136 U/L Total Protein 6.8 6.4-8.2 GM/DL Albumin 4.3 3.2-4.5 GM/DL Lipase 49 8-78 U/L Micro Results Microbiology 07/26/19 Influenza Types A,B Antigen (TEJAL) - Final, Complete My Orders Orders - LINDA JACKSON MD Cbc With Automated Diff (07/26/19 10:10) Comprehensive Metabolic Panel (07/26/19 10:10) Ua Culture If Indicated (07/26/19 10:10) Blood Culture (07/26/19 10:10) Ct Abdomen/Pelvis W (07/26/19 10:10) Lipase (07/26/19 10:10) Lactic Acid Analyzer (07/26/19 10:10) Ns Iv 1000 Ml (Sodium Chloride 0.9%) (07/26/19 10:30) Ondansetron Injection (Zofran Injectio (07/26/19 10:30) Acetaminophen Tablet/Caplet (Tylenol T (07/26/19 10:30) Iohexol Injection (Omnipaque 350 Mg/Ml 1 (07/26/19 10:30) Received Contrast (Hold Metformin- Contr (07/26/19 10:30) Ns (Ivpb) (Sodium Chloride 0.9% Ivpb Bag (07/26/19 10:30) Influenza A And B Antigens (07/26/19 10:27) Chest 1 View, Ap/Pa Only (07/26/19 10:53) Medications Given in ED Current Medications Medications Dose Ordered Sig/Allen Route Start Time Stop Time Status Last Admin Dose Admin Acetaminophen 650 mg ONCE ONCE PO 07/26/19 10:30 07/26/19 10:31 DC 07/26/19 10:45 650 MG Iohexol 100 ml ONCE ONCE IV 07/26/19 10:30 07/26/19 10:31 DC 07/26/19 10:32 66 ML Ondansetron HCl 4 mg ONCE ONCE IVP 07/26/19 10:30 07/26/19 10:31 DC 07/26/19 10:53 4 MG Sodium Chloride 100 ml ONCE ONCE IV 07/26/19 10:30 07/26/19 10:31 DC 07/26/19 10:33 80 ML Vital Signs/I&O 07/26/19 09:20 Temp 39.9 Pulse 118 Resp 18 B/P (MAP) 170/102 (124) Pulse Ox 99 Capillary Refill : Less Than 3 Seconds Blood Pressure Mean: 124 Progress Note : Time: 10:58 Progress Note Patient's laboratory evaluation failed to demonstrate evidence of source for the patient's vomiting and diarrhea. Total without sedation was undertaken with Dr. Orantes who was kind enough to admit the patient to an observation bed for further evaluation. Departure Communication (Admissions) Time/Spoke to Admitting Phy: 10:59 Dr. Eastman. Impression Primary Impression: Fever Qualified Codes: R50.9 - Fever, unspecified Additional Impression: Vomiting and diarrhea Disposition: ADMITTED INPATIENT Condition: Improved Admissions Decision to Admit Reason: Admit from ER (General) Decision to Admit/Date: Jul 26, 2019 Time/Decision to Admit Time: 11:00 Departure-Patient Inst. Referrals: DAPHNEY PAINTER MD (PCP/Family) Primary Care Physician LINDA JACKSON MD Jul 26, 2019 10:16
[2019-07-26 10:24] LABS: BASOPHILS % (AUTO) 0 % (0-10); EOSINOPHILS % (AUTO) 0 % (0-10); HEMATOCRIT 40 % (35-52); HEMOGLOBIN 13.5 G/DL (11.5-16.0); LYMPHOCYTES # (AUTO) 1.1 X 10^3 (1.0-4.0); LYMPHOCYTES % (AUTO) 10 % (12-44); MEAN CORPUSCULAR HEMOGLOBIN 33 PG (25-34); MEAN CORPUSCULAR HGB CONC 34 G/DL (32-36); MEAN CORPUSCULAR VOLUME 96 FL (80-99); MEAN PLATELET VOLUME 10.3 FL (7.4-10.4); MONOCYTES # (AUTO) 0.5 X 10^3 (0.0-1.0); MONOCYTES % (AUTO) 4 % (0-12); NEUTROPHILS # (AUTO) 9.7 X 10^3 (1.8-7.8); NEUTROPHILS % (AUTO) 86 % (42-75); PLATELET COUNT 206 10^3/uL (130-400); RED CELL DISTRIBUTION WIDTH 12.7 % (10.0-14.5); WHITE BLOOD COUNT 11.3 10^3/uL (4.3-11.0)
--- NOTE | 2019-07-26 10:26 | NUR ---
DAUGHTER STATES HAS BEEN A LITTLE CONFUSED TODAY
[2019-07-26] MEDS ORDERED: NS IV 1000 ML 1,000 ML IV SCH (10:30)
[2019-07-26] MEDS ORDERED: HOLD METFORMIN - RECEIVED CONTRAST 20 ML VIAL IV SCH (10:30)
[2019-07-26] MEDS ORDERED: NS 100 ML (IVPB) BAG IV ONE (10:30)
[2019-07-26] MEDS ORDERED: ACETAMINOPHEN 325 MG TABLET PO ONE (10:30)
[2019-07-26] MEDS ORDERED: IOHEXOL 350 MG/ML 100 ML (OMNIPAQUE 350) VIAL IV ONE (10:30)
[2019-07-26] MEDS ORDERED: ONDANSETRON 4 MG/2 ML (SDV) Z0FRAN IVP ONE (10:30)
[2019-07-26 10:38] LABS: ALBUMIN 4.3 GM/DL (3.2-4.5); BILIRUBIN,TOTAL 1.7 MG/DL (0.1-1.0); CALCIUM 9.3 MG/DL (8.5-10.1); CREATININE SERUM 0.99 MG/DL (0.60-1.30); POTASSIUM 4.2 MMOL/L (3.6-5.0); TOTAL PROTEIN 6.8 GM/DL (6.4-8.2)
--- NOTE | 2019-07-26 10:59 | Diagnostic Imaging Report ---
PROCEDURE: CT abdomen and pelvis with contrast. TECHNIQUE: Multiple contiguous axial images were obtained through the abdomen and pelvis after administration of intravenous contrast. Auto Exposure Controls were utilized during the CT exam to meet ALARA standards for radiation dose reduction. INDICATION: Fever. COMPARISON: 04/07/2016 FINDINGS: Included portions of the lung bases show background air trapping consistent with underlying emphysematous disease. CT abdomen: There are a few scattered colonic diverticuli, but no CT evidence of acute diverticulitis. Small bowel loops are nondistended. Normal appendix cannot be adequately identified, but there is no pericecal inflammation. The kidneys show benign cyst on the right. Otherwise, kidneys, adrenal glands, spleen, pancreas, and liver have a normal CT appearance. There is no loculated fluid collection, free fluid, nor free air within the abdomen. No abnormal mesenteric or retroperitoneal adenopathy is seen. There is mild scattered calcified aortic and arterial atherosclerosis. Osseous structures show no acute abnormalities. CT pelvis: Urinary bladder is grossly unremarkable. Calcified uterine fibroid is noted. There is no loculated fluid collection, free fluid, nor free air within the pelvis. No abnormal lymph nodes are identified. Osseous structures show no acute abnormalities. IMPRESSION: 1. No acute abnormalities are seen within the abdomen or pelvis. 2. Colonic diverticulosis, but no CT evidence of acute diverticulitis. 3. Other nonemergent findings as described above. Dictated by: Dictated on workstation # [id number]
[2019-07-26 11:08] LABS: BILIRUBIN,URINE NEGATIVE (NEGATIVE); CLARITY,URINE CLEAR; COLOR,URINE YELLOW; GLUCOSE, URINE (UA) NEGATIVE (NEGATIVE); KETONES,URINE 2+ (NEGATIVE); LEUKOCYTE ESTERASE ,URINE NEGATIVE (NEGATIVE); NITRITE,URINE NEGATIVE (NEGATIVE); PH,URINE 7 (5-9); PROTEIN,URINE 2+ (NEGATIVE); UROBILINOGEN,URINE NORMAL (NORMAL)
[2019-07-26 11:14] LABS: WBC,URINE 0-2 /HPF
[2019-07-26 11:15] LABS: BACTERIA,URINE TRACE /HPF
[2019-07-26] MEDS: NS IV 1000 ML 1,000 ML IV SCH ×2 (12:15→21:43)
[2019-07-26] MEDS ORDERED: CATHETER FLUSH 10 ML SYR IV PRN (12:15)
[2019-07-26] MEDS ORDERED: ONDANSETRON 4 MG/2 ML (SDV) Z0FRAN IV PRN ×2 (12:15→20:00)
--- NOTE | 2019-07-26 12:15 | NUR ---
DACIA MENARD admitted to room 404-1, with an admitting diagnosis of N/V/D AND DEHYDRATION , on 07/26/19 from ED via W/C, accompanied by DAUGHTER AND ED STAFF. DACIA MENARD introduced to surroundings, call light, bed controls, phone, TV, temperature control, lights, meal times, smoking policy, visitor policy, side rail policy, bathrooms and showers. Patient Rights given to patient in the handbook. DACIA MENARD verbalizes understanding that [facility] is not responsible for the loss or damage to any personal effects or valuables that are kept in the patients possession during their hospitalization.
--- NOTE | 2019-07-26 12:47 | Diagnostic Imaging Report ---
CLINICAL INDICATION: Patient with fever. Possible pneumonia. EXAM: Portable chest x-ray, upright view. COMPARISONS: Chest x-ray dated 07/25/2019. FINDINGS: There is interval development of subtle airspace opacities involving the left upper lobe and right mid lung field region. Otherwise, lungs are clear. There is no pleural effusion or pneumothorax. Pulmonary vasculature and cardiac silhouette are within normal limits. Stable postop changes to the chest with sternotomy wires and mediastinal clips. There are degenerative spurs involving the thoracic spine. There is right curvature of the lumbar spine. IMPRESSION: 1: There is development of subtle airspace opacities in the left upper lobe and right mid lung field. This may represent lung infiltrates. Follow-up chest x-ray in 2-4 weeks is suggested to evaluate for interval resolution of this finding. 2: The remainder of this exam shows no significant interval change compared to the prior study of comparison. Dictated by: Dictated on workstation # [id number]
--- NOTE | 2019-07-26 15:02 | History & Physical-Hospitalist ---
History of Present Illness HPI/Chief Complaint Pt is a 78yoCF with a PMH of CAD s/p CABG who presented to the ER due to fever. She states she was seen in the ER yesterday for fever and diarrhea. She was tested for the flu and was sent home as it was negative. She continued to have fevers and this morning felt weak and overall just did not feel well. She returned for evaluation and was found to have a temp of 39.9. UA, CXR, and rapid flu were repeated and negative. She had a CT of her abdomen due to diarrhea which was also negative for infectious source. She was admitted for observation due to persistent fever. Her last BM was yesterday and her nausea has improved and she would like to order food. Source: patient Exam Limitations: no limitations Date Seen 07/26/19 Time Seen by a Provider: 14:57 Attending Physician Piedad Eastman MD PCP Taco Hanley MD Referring Physician Date of Admission Jul 26, 2019 at 11:08 Home Medications & Allergies Home Medications Reviewed patient Home Medication Reconciliation performed by pharmacy medication reconciliations career guidance technician and/or nursing. Patients Allergies have been reviewed. Allergies Allergies Coded Allergies No Known Drug Allergies (Unverified07/25/19) Past Phbbixr-Qxgcgg-Bvdhmb Hx Past Med/Social Hx: Reviewed Nursing Past Med/Soc Hx Patient Social History Alcohol Use: Denies Use Recreational Drug Use: No Smoking Status: Never a Smoker Recent Foreign Travel: No Contact w/other who traveled: No Recent Hopitalizations: No Recent Infectious Disease Expo: No Immunizations Up To Date Date of Pneumonia Vaccine: Aug 30, 2016 Date of Influenza Vaccine: Jul 30, 2018 Past Medical History Surgeries: Abdominal, CABG Currently Using CPAP: No Currently Using BIPAP: No Cardiac: Coronary Artery Disease, Hypertension Reproductive: Yes (ECTOPIC ) Menopausal Genitourinary: Kidney Stones History of Blood Disorders: No Family History Reviewed Nursing Family Hx No Pertinent Family Hx, CVA Review of Systems Constitutional: fever, malaise, weakness EENTM: no symptoms reported Respiratory: No cough, No phlegm, No short of breath Cardiovascular: No chest pain, No palpitations Gastrointestinal: No abdominal pain; diarrhea; No loss of appetite; nausea, vomiting Musculoskeletal: muscle weakness Skin: no symptoms reported Psychiatric/Neurological: No Symptoms Reported Physical Exam Physical Exam Vital Signs Vital Signs - First Documented 07/26/19 09:20 Temp 39.9 Pulse 118 Resp 18 B/P (MAP) 170/102 (124) Pulse Ox 99 Capillary Refill : Less Than 3 Seconds Height, Weight, BMI Height: 5'1.00" Weight: 105lbs. 0.0oz. 47.057861ov; 21.00 BMI Method:Stated General Appearance: No Apparent Distress, WD/WN HEENT: Moist Mucous Membranes; No Scleral Icterus (L), No Scleral Icterus (R) Neck: Normal Inspection, Supple Respiratory: Lungs Clear, No Accessory Muscle Use, No Respiratory Distress Cardiovascular: Regular Rate, Rhythm, No Murmur Gastrointestinal: Normal Bowel Sounds, Non Tender, Soft Extremity: Normal Capillary Refill, No Calf Tenderness, No Pedal Edema Neurologic/Psychiatric: Alert, Oriented x3, Normal Mood/Affect Skin: Normal Color, Warm/Dry Results Results/Procedures Labs Laboratory Tests 07/26/19 09:20 Patient resulted labs reviewed. Imaging: Reviewed Imaging Report Assessment/Plan Admission Diagnosis Fever Admission Status: Observation Assessment and Plan Fever Likely viral etiology Await cultures C diff and stool cultures ordered if she has another loose stool Symptomatic management Likely can DC home tomorrow if symptoms improved CAD s/p CABG Not on ASA or Plavix as a baseline? Continue home meds as BP tolerates Diagnosis/Problems Diagnosis/Problems (1) Fever Status: Acute Qualifiers: Fever type: unspecified Qualified Codes: R50.9 - Fever, unspecified (2) Vomiting and diarrhea Status: Acute (3) CAD (coronary artery disease) Status: Chronic Qualifiers: Coronary Disease-Associated Artery/Lesion type: bypass graft [place] vs. transplanted heart: [place] heart Associated angina: without angina Qualified Codes: I25.810 - Atherosclerosis of coronary artery bypass graft(s) without angina pectoris (4) Essential (primary) hypertension Status: Chronic Clinical Quality Measures DVT/VTE Risk/Contraindication: Risk Factor Score Per Nursin RFS Level Per Nursing on Admit: 4+=Very High PIEDAD EASTMAN MD Jul 26, 2019 15:02
[2019-07-26 15:31] VITALS: BP 116/53
[2019-07-26 19:57] VITALS: BP 101/46
[2019-07-26] MEDS ORDERED: MELATONIN 3 MG TABLET PO PRN (20:00)
[2019-07-26] MEDS ORDERED: MILK OF MAGNESIA 400 MG/5 ML 30 ML UDC PO PRN (20:00)
[2019-07-26] MEDS ORDERED: ANTACID SUSP 30 ML UDC (MYLANTA) PO PRN (20:00)
[2019-07-26 23:50] VITALS: BP 131/49
[2019-07-27 04:26] VITALS: BP 138/61
[2019-07-27 05:00] LABS: BASOPHILS % (AUTO) 0 % (0-10); EOSINOPHILS % (AUTO) 0 % (0-10); HEMATOCRIT 34 % (35-52); HEMOGLOBIN 11.4 G/DL (11.5-16.0); LYMPHOCYTES # (AUTO) 1.5 X 10^3 (1.0-4.0); LYMPHOCYTES % (AUTO) 15 % (12-44); MEAN CORPUSCULAR HEMOGLOBIN 33 PG (25-34); MEAN CORPUSCULAR HGB CONC 34 G/DL (32-36); MEAN CORPUSCULAR VOLUME 97 FL (80-99); MEAN PLATELET VOLUME 10.5 FL (7.4-10.4); MONOCYTES # (AUTO) 0.9 X 10^3 (0.0-1.0); MONOCYTES % (AUTO) 9 % (0-12); NEUTROPHILS # (AUTO) 7.4 X 10^3 (1.8-7.8); NEUTROPHILS % (AUTO) 76 % (42-75); PLATELET COUNT 172 10^3/uL (130-400); RED CELL DISTRIBUTION WIDTH 12.9 % (10.0-14.5); WHITE BLOOD COUNT 9.7 10^3/uL (4.3-11.0)
[2019-07-27 05:22] LABS: ALANINE AMINOTRANSFERASE 16 U/L (0-55); ALBUMIN 3.3 GM/DL (3.2-4.5); ALKALINE PHOSPHATASE 54 U/L (40-136); BILIRUBIN,TOTAL 1.2 MG/DL (0.1-1.0); BUN/CREATININE RATIO 15; CALCIUM 8.1 MG/DL (8.5-10.1); CARBON DIOXIDE 20 MMOL/L (21-32); CHLORIDE 109 MMOL/L (98-107); CREATININE SERUM 0.87 MG/DL (0.60-1.30); GFR ESTIMATED > 60; GLUCOSE 128 MG/DL (70-105); POTASSIUM 3.6 MMOL/L (3.6-5.0); SODIUM 137 MMOL/L (135-145); TOTAL PROTEIN 5.2 GM/DL (6.4-8.2)
[2019-07-27 07:45] VITALS: BP 144/74
[2019-07-27] MEDS: ACETAMINOPHEN 325 MG TABLET PO PRN (08:08)
--- NOTE | 2019-07-27 09:15 | Diagnostic Imaging Report ---
Indication: Fever. Comparison made with prior examination of 07/26/2019. Findings: Heart size is normal. There is mild venous congestion. There has been a previous median sternotomy. Mediastinum is unremarkable. No pleural effusion or pneumothorax. Impression: Mild central pulmonary venous congestion. Dictated by: Dictated on workstation # [id number]
[2019-07-27] MEDS ORDERED: KETOROLAC 30 MG/ML VIAL IVP ONE (09:30)
--- NOTE | 2019-07-27 10:19 | Progress Note - Hospitalist ---
Subjective HPI/CC On Admission Date Seen by Provider: Jul 27, 2019 Time Seen by Provider: 10:18 Pt is a 78yoCF with a PMH of CAD s/p CABG who presented to the ER due to fever. She states she was seen in the ER yesterday for fever and diarrhea. She was tested for the flu and was sent home as it was negative. She continued to have fevers and this morning felt weak and overall just did not feel well. She returned for evaluation and was found to have a temp of 39.9. UA, CXR, and rapid flu were repeated and negative. She had a CT of her abdomen due to diarrhea which was also negative for infectious source. She was admitted for observation due to persistent fever. Her last BM was yesterday and her nausea has improved and she would like to order food. Subjective/Events-last exam Pt reports still not feeling well. Has headache. Focused Exam Lactate Level 07/26/19 09:20: Lactic Acid Level 1.90 Objective Exam Vital Signs Vital Signs Date Time Temp Pulse Resp B/P (MAP) Pulse Ox O2 Delivery O2 Flow Rate FiO2 07/27/19 08:08 38.7 07/27/19 08:00 Room Air 07/27/19 07:45 55 20 144/74 (97) 94 Capillary Refill : Less Than 3 Seconds General Appearance: No Apparent Distress, Thin Respiratory: Lungs Clear, No Accessory Muscle Use, No Respiratory Distress Cardiovascular: Regular Rate, Rhythm, No Murmur Gastrointestinal: Normal Bowel Sounds, Non Tender, Soft Neurologic/Psychiatric: Alert, Oriented x3, Normal Mood/Affect Results/Procedures Lab Laboratory Tests 07/27/19 04:22 Patient resulted labs reviewed. Imaging: Reviewed Imaging Report Assessment/Plan Assessment and Plan Assess & Plan/Chief Complaint Fever Likely viral etiology Cultures NGTD Symptomatic management Still intermittently febrile, continue symptomatic management CAD s/p CABG Not on ASA or Plavix as a baseline? Continue home meds as BP tolerates Diagnosis/Problems Diagnosis/Problems (1) Fever Status: Acute Qualifiers: Fever type: unspecified Qualified Codes: R50.9 - Fever, unspecified (2) Vomiting and diarrhea Status: Acute (3) CAD (coronary artery disease) Status: Chronic Qualifiers: Coronary Disease-Associated Artery/Lesion type: bypass graft [place] vs. transplanted heart: [place] heart Associated angina: without angina Qualified Codes: I25.810 - Atherosclerosis of coronary artery bypass graft(s) without angina pectoris (4) Essential (primary) hypertension Status: Chronic Clinical Quality Measures DVT/VTE Risk/Contraindication: Risk Factor Score Per Nursin RFS Level Per Nursing on Admit: 4+=Very High PIEDAD LOZA MD Jul 27, 2019 10:19
[2019-07-27] MEDS ORDERED: PATIENT MAY USE OWN MEDS, ALL MC SCH (10:30)
[2019-07-27] MEDS ORDERED: IBUPROFEN 600 MG (MOTRIN) TAB PO PRN (10:30)
[2019-07-27 11:25] VITALS: BP 126/65
[2019-07-27 15:31] VITALS: BP 134/65
[2019-07-27 19:23] VITALS: BP 128/72
[2019-07-27] MEDS ORDERED: CARVEDILOL 3.125 MG (COREG) TABLET PO SCH (21:00)
--- NOTE | 2019-07-27 21:51 | NUR ---
held Coreg 3.125mg at HS due to pulse 56
[2019-07-28] VITALS: BP 151/65
[2019-07-28 05:32] LABS: BASOPHILS % (AUTO) 0 % (0-10); EOSINOPHILS % (AUTO) 0 % (0-10); HEMATOCRIT 36 % (35-52); HEMOGLOBIN 12.2 G/DL (11.5-16.0); LYMPHOCYTES # (AUTO) 1.3 X 10^3 (1.0-4.0); LYMPHOCYTES % (AUTO) 16 % (12-44); MEAN CORPUSCULAR HEMOGLOBIN 32 PG (25-34); MEAN CORPUSCULAR HGB CONC 34 G/DL (32-36); MEAN CORPUSCULAR VOLUME 94 FL (80-99); MEAN PLATELET VOLUME 10.6 FL (7.4-10.4); MONOCYTES % (AUTO) 13 % (0-12); NEUTROPHILS # (AUTO) 5.8 X 10^3 (1.8-7.8); NEUTROPHILS % (AUTO) 72 % (42-75); PLATELET COUNT 184 10^3/uL (130-400); RED CELL DISTRIBUTION WIDTH 12.4 % (10.0-14.5); WHITE BLOOD COUNT 8.1 10^3/uL (4.3-11.0)
[2019-07-28 06:08] LABS: BUN/CREATININE RATIO 12; CALCIUM 8.1 MG/DL (8.5-10.1); CARBON DIOXIDE 20 MMOL/L (21-32); CHLORIDE 105 MMOL/L (98-107); CREATININE SERUM 0.82 MG/DL (0.60-1.30); GFR ESTIMATED > 60; GLUCOSE 93 MG/DL (70-105); POTASSIUM 3.1 MMOL/L (3.6-5.0); SODIUM 133 MMOL/L (135-145)
[2019-07-28 07:45] VITALS: BP 155/70
[2019-07-28] MEDS: RAMIPRIL 2.5 MG (ALTACE) CAP PO SCH (10:21)
--- NOTE | 2019-07-28 11:17 | Consultation-Cardiology ---
HPI-Cardiology Cardiology Consultation: Date of Consultation 07/28/19 Date of Admission Attending Physician Nelsy Eastman MD Admitting Physician Taco Hanley MD Consulting Physician Annamaria ALLEN MD HPI: Time Seen by a Provider: 10:30 Chief Complaint: Bradycardia This is a 78-year-old lady with history of CAD, CABG. She follows with Dr. Feliciano. She presented to the ER on 07/26/2019 with fever. She also complains of diarrhea. Flu was negative. She is significant febrile. She denies any cardiac complaints. She has occasional dizziness. She was found to be in bradycardia. Carvedilol has been held however heart rate is still in the 40s and 50s. Review of Systems-Cardiology Review of Systems Constitutional: As described under HPI; No As described under HPI, No no symptoms reported, No chills; fever; No lightheadedness Eyes: No As described under HPI, No no symptoms reported, No blindness, No blurred vision, No contact lenses, No drainage, No decreased acuity, No foreign body sensation, No pain, No vision change Ears/Nose/Throat: No As described under HPI, No no symptoms reported, No chronic hearing loss, No ear discharge, No ear pain, No nasal drainage, No ulcerations Respiratory: No no symptoms reported; As described under HPI; No As described under HPI, No cough, No orthopnea, No shortness of breath, No SOB with excertion Cardiovascular: No no symptoms reported; As described under HPI; No As described under HPI, No chest pain, No edema, No irregular heart rate, No lightheadedness, No palpitations Gastrointestinal: No no symptoms reported, No As described under HPI, No abdomen distended, No abdominal pain, No blood streaked bowels, No constipation, No diarrhea, No nausea, No vomiting; nausea/vomiting/diarrhea; No stool coloration changes Genitourinary: No As described under HPI, No burning, No dysuria, No discharge, No frequency, No flank pain, No hematuria, No urgency : No Skin: No rash, No skin related problems, No ulcerations Psychiatric/Neurological: No anxiety, No depression, No seizure, No focal weakness, No syncope Hematologic: No bleeding abnormalities MGP-Eknmu[place] Hx Patient Social History Alcohol Use: Denies Use Recreational Drug Use: No Smoking Status: Never a Smoker Recent Foreign Travel: No Recent Infectious Disease Expo: No Hospitalization with Isolation: Denies Immunizations Up To Date Date of Pneumonia Vaccine: Aug 30, 2016 Date of Influenza Vaccine: Jul 30, 2018 Past Medical History PMH As described under Assessment. Allergies and Home Medications Allergies Coded Allergies: No Known Drug Allergies (Unverified , 07/25/19) Home Medications Atorvastatin Calcium 10 Mg Tablet, 10 MG PO HS, (Reported) Carvedilol 3.125 Mg Tablet, 3.125 MG PO BID, (Reported) Ramipril 2.5 Mg Capsule, 2.5 MG PO DAILY, (Reported) Patient Home Medication List Home Medication List Reviewed: Yes Physical Exam-Cardiology Physical Exam Vital Signs/I&O 07/28/19 07/28/19 07:45 08:00 Temp 38.1 Pulse 48 Resp 20 B/P (MAP) 155/70 (98) Pulse Ox 94 O2 Delivery Room Air Room Air 07/28/19 00:00 Intake Total 2550 ml Output Total 450 ml Balance 2100 ml Capillary Refill : Less Than 3 Seconds Constitutional: appears stated age, AAO x 3; No apparent distress; well- developed, well-nourished HEENT: PERRL; No discharge; hearing is well preserved, oral hygience is good; No ulceration, No xanthelasmas are seen Neck: No carotid bruit; carotid pulses are 2 + bilaterally Respiratory: chest is bilaterally symmetric, lungs clear to auscultation Cardiovascular: regular rate-rhythm, bradycardia, S1 and S2 Gastrointestinal: soft, round, audible bowel sounds; No spleenomegaly Rectal: deferred Extremities: normal range of motion, non-tender, normal inspection; No clubbing, No cyanosis; no lower extremity edema bilateral; No significant edema Neurologic/Psychiatric: no motor/sensory deficits, alert, normal mood/affect, power is 5/5 both on sides Skin: normal color, warm/dry; No rash, No ulcerations Data Review Labs Laboratory Tests 07/28/19 04:35: Sodium Level 133L, Potassium Level 3.1L, Chloride Level 105, Carbon Dioxide Level 20L, Anion Gap 8, Blood Urea Nitrogen 10, Creatinine 0.82, Estimat Glomerular Filtration Rate > 60, BUN/Creatinine Ratio 12, Glucose Level 93, Calcium Level 8.1L 07/28/19 04:55: White Blood Count 8.1, Red Blood Count 3.79L, Hemoglobin 12.2, Hematocrit 36, Mean Corpuscular Volume 94, Mean Corpuscular Hemoglobin 32, Mean Corpuscular Hemoglobin Concent 34, Red Cell Distribution Width 12.4, Platelet Count 184, Mean Platelet Volume 10.6H, Neutrophils (%) (Auto) 72, Lymphocytes (%) (Auto) 16, Monocytes (%) (Auto) 13H, Eosinophils (%) (Auto) 0, Basophils (%) (Auto) 0, Neutrophils # (Auto) 5.8, Lymphocytes # (Auto) 1.3, Monocytes # (Auto) 1.0, Eosinophils # (Auto) 0.0, Basophils # (Auto) 0.0 Microbiology 07/26/19 Blood Culture - Preliminary, Resulted No growth 07/26/19 Influenza Types A,B Antigen (TEJAL) - Final, Complete A/P-Cardiology Assessment/Admission Diagnosis Fever, diarrhea, viral illness, CAD, CABG, Bradycardia Plan - Defer treatment of fever and diarrhea to Dr. Eastman. - CAD/CABG, continue atorvastatin, aspirin. Hold beta sheldon. - Sinus bradycardia, beta sheldon held for over 24 hours. Heart rate still in the late 40s and 50s. Patient will likely require an event monitor as an outpatient. Dr. Feliciano to take over care tomorrow. Thank you for your consultation. Please call me if you have any questions. Isacc Allen MD, FACP, FACC, FSCAI, FHRS, CCDS Interventional Cardiology Cardiac Electrophysiology Vascular Medicine and Endovascular Interventions Clinical Quality Measures DVT/VTE Risk/Contraindication: Risk Factor Score Per Nursin RFS Level Per Nursing on Admit: 4+=Very High Annamaria ALLEN MD Jul 28, 2019 11:17
--- NOTE | 2019-07-28 12:54 | Progress Note - Hospitalist ---
Subjective HPI/CC On Admission Date Seen by Provider: Jul 28, 2019 Time Seen by Provider: 11:30 Pt is a 78yoCF with a PMH of CAD s/p CABG who presented to the ER due to fever. She states she was seen in the ER yesterday for fever and diarrhea. She was tested for the flu and was sent home as it was negative. She continued to have fevers and this morning felt weak and overall just did not feel well. She returned for evaluation and was found to have a temp of 39.9. UA, CXR, and rapid flu were repeated and negative. She had a CT of her abdomen due to diarrhea which was also negative for infectious source. She was admitted for observation due to persistent fever. Her last BM was yesterday and her nausea has improved and she would like to order food. Subjective/Events-last exam Pt reports still not feeling well. Has developed bradycardia despite coreg being held. Febrile this AM as well. Focused Exam Lactate Level 07/26/19 09:20: Lactic Acid Level 1.90 Objective Exam Vital Signs Vital Signs Date Time Temp Pulse Resp B/P (MAP) Pulse Ox O2 Delivery O2 Flow Rate FiO2 07/28/19 08:00 Room Air 07/28/19 07:45 38.1 48 20 155/70 (98) 94 Capillary Refill : Less Than 3 Seconds General Appearance: No Apparent Distress, WD/WN Respiratory: Lungs Clear, No Accessory Muscle Use, No Respiratory Distress Cardiovascular: No Murmur, Bradycardia Gastrointestinal: Normal Bowel Sounds, Soft Neurologic/Psychiatric: Alert, Oriented x3 Results/Procedures Lab Laboratory Tests 07/28/19 04:35 07/28/19 04:55 Patient resulted labs reviewed. Imaging: Reviewed Imaging Report Assessment/Plan Assessment and Plan Assess & Plan/Chief Complaint Fever- persistent Likely viral etiology Cultures NGTD Still intermittently febrile, continue symptomatic management Bradycardia Persistent despite not BB since before admission Cardiology consulted, appreciate recs Discussed with Dr Allen who will see today and evaluate for potential pacemaker if symptomatic with ambulation CAD s/p CABG Not on ASA or Plavix as a baseline? Continue home meds as BP/heart rate tolerate Diagnosis/Problems Diagnosis/Problems (1) Fever Status: Acute Qualifiers: Fever type: unspecified Qualified Codes: R50.9 - Fever, unspecified (2) Vomiting and diarrhea Status: Resolved Resolution Date/Time: 07/28/19 @ 12:53 (3) CAD (coronary artery disease) Status: Chronic Qualifiers: Coronary Disease-Associated Artery/Lesion type: bypass graft [place] vs. transplanted heart: [place] heart Associated angina: without angina Qualified Codes: I25.810 - Atherosclerosis of coronary artery bypass graft(s) without angina pectoris (4) Essential (primary) hypertension Status: Chronic (5) Bradycardia Status: Acute Clinical Quality Measures DVT/VTE Risk/Contraindication: Risk Factor Score Per Nursin RFS Level Per Nursing on Admit: 4+=Very High PIEDAD LOZA MD Jul 28, 2019 12:54
[2019-07-28 15:35] VITALS: BP 135/73
[2019-07-28] MEDS: ACETAMINOPHEN 325 MG TABLET PO PRN (20:58)
[2019-07-29] VITALS: BP 145/72
[2019-07-29 07:58] LABS: BUN/CREATININE RATIO 12; CALCIUM 8.4 MG/DL (8.5-10.1); CARBON DIOXIDE 21 MMOL/L (21-32); CHLORIDE 108 MMOL/L (98-107); CREATININE SERUM 0.78 MG/DL (0.60-1.30); GFR ESTIMATED > 60; GLUCOSE 93 MG/DL (70-105); MAGNESIUM 2.1 MG/DL (1.6-2.4); POTASSIUM 3.1 MMOL/L (3.6-5.0); SODIUM 138 MMOL/L (135-145)
[2019-07-29 08:00] VITALS: BP 127/71
--- NOTE | 2019-07-29 09:02 | Cardiology Progress Note ---
Subjective Date Seen by Provider: Jul 29, 2019 Time Seen by Provider: 13:10 Subjective/Events-last exam Patient was seen and evaluated, sitting in a chair, visiting with her family, no chest pain. Review of Systems General: No Chills, No Night Sweats, No Fatigue, No Malaise, No Appetite, No Other HEENT: No Head Aches, No Visual Changes, No Eye Pain, No Ear Pain, No Dysphasia, No Sinus Congestion, No Post Nasal Drip, No Sore Throat, No Other Pulmonary: No Dyspnea, No Cough, No Pleuritic Chest Pain, No Other Cardiovascular: No: Chest Pain, Palpitations, Orthopnea, Paroxysmal Noc. Dyspnea, Edema, Lt Headedness, Other Focused Exam Lactate Level Objective-Cardiology Exam Last Set of Vital Signs Vital Signs 07/29/19 08:00 Temp 36.2 Pulse 68 Resp 16 B/P (MAP) 127/71 (89) Pulse Ox 98 O2 Delivery Room Air Capillary Refill : Less Than 3 Seconds I&O Intake and Output 07/29/19 00:00 Intake Total 1190 ml Output Total 1375 ml Balance -185 ml Intake Oral 1190 ml Output Urine Total 1375 ml # Voids 2 General: Alert, Oriented X3, Cooperative HEENT: Atraumatic, PERRLA Neck: Supple, No JVD, No Thyromegaly Lungs: Clear to Auscultation, Normal Air Movement Heart: Regular Rate, Normal S1, Normal S2, No Murmurs Abdomen: Normal Bowel Sounds, Soft, No Tenderness, No Hepatosplenomegaly, No Masses Extremities: No Clubbing, No Cyanosis, No Edema, Normal Pulses, No Tenderne ss/Swelling Skin: No Rashes, No Breakdown, No Significant Lesion Neuro: Normal Gait, Normal Speech, Strength at 5/5 X4 Ext, Normal Tone, Sensation Intact Psych/Mental Status: Mental Status NL, Mood NL Results Lab Laboratory Tests 07/29/19 07:30 A/P-Cardiology Admission Diagnosis Fever and diarrhea Bradycardia CAD HTN Assessment/Plan Fever/diarrhea, likely viral etiology, Dr. Eastman managing, continue to monitor. Bradycardia, asymptomatic. Coreg discontinued over 48 hours ago, still having HR in the 40's and 50's, asymptomatic. Consider event monitor as outpatient. Coronary artery disease, cardiac catheterization done on September 12, 2018, had CABG 2 done on September 14, 2018 using MCCONNELL to LAD and vein graft to the right coronary artery. Stress test and 2D Echo done Jun 2019 revealed no ischemia or infarct with normal EF. Hypokalemia- replace and continue to monitor. Hypertension, controlled, continue to monitor blood pressure/heart rate. Hyperlipidemia, controlled, lipid/LFTs due again in February 2020 Family history of heart disease Patient was seen and evaluated, denied any chest pain, radiating to go home, on examination lungs were clear to auscultation, heart is regular EKG showed no acute abnormality, discussed the findings of her cardiac catheterization, reporting improvement, we'll continue to monitor, she is asymptomatic with her bradycardia. Clinical Quality Measures DVT/VTE Risk/Contraindication: Risk Factor Score Per Nursin RFS Level Per Nursing on Admit: 4+=Very High MAHSA HA Jul 29, 2019 9:02 am DON SALDAÑA MD Jul 29, 2019 1:11 pm
[2019-07-29] MEDS ORDERED: KCL 20 MEQ TAB (K-DUR) PO NR (09:15)
[2019-07-29] MEDS: RAMIPRIL 2.5 MG (ALTACE) CAP PO SCH (10:46)
--- NOTE | 2019-07-29 11:25 | Physical Therapy Evaluation ---
PT Evaluation-General Medical Diagnosis Admission Date Jul 26, 2019 at 11:08 Medical Diagnosis: fever, vomiting Onset Date: Jul 26, 2019 Therapy Diagnosis Therapy Diagnosis: debility/weakness Height/Weight Height (Feet): 5 Height (Inches): 1.00 Weight (Pounds): 105 Weight (Ounces): 0.0 Precautions Precautions/Isolations: Standard Precautions Weight Bear Status Right Lower Extremity: Right Weight Bearing/Tolerated Left Lower Extremity: Left Weight Bearing/Tolerated Referral Physician: Riaz Reason for Referral: Evaluation/Treatment Medical History Pertinent Medical History: CABG, CAD, HTN Current History ER with fever, N/V Reviewed History: Yes Social History Home: Single Level Current Living Status: Alone Entry Into Home: Stairs With Railing PT Steps Into Home: 3 Prior/Core FIM Prior Level of Function Therapy Code Descriptions/Definitions Functional [place] Measure: 0=Not Assessed/NA 4=Minimal Assistance 1=Total Assistance 5=Supervision or Setup 2=Maximal Assistance 6=Modified [place] 3=Moderate Assistance 7=Complete [place] Therapy Quality Codes: 6 Independent with activity with or without an assistive device 5 Patient requires set up or clean up by helper. Patient completes activity by themselves 4 Supervision or touching assist (CGA). [place] provide cues , steadying assist 3 The helper provides less than half the effort to complete the activity 2 The helper provides more than half the effort to complete the activity 1 Dependent. The helper does all the effort to complete an activity 7 Patient refused to complete or attempt activity 9 The patient did not perform the activity before the current illness or injury 88 Not attempted due to Medical conditions or safety concerns Functional Abilities and Goals: Independent: Patient completed the activities by him/herself, with or without an assistive device, with no assistance from a helper. Needed Some Help: Patient needed partial assistance from another person to complete activities. Dependent: A helper completed the activities for the patient. Unknown: Not Applicable: Bed Mobility: 7 Transfers (B,C,W/C) (FIM): 7 Gait: 7 Stairs: 7 Indoor Mobility (Ambulation): Independent Stairs: Independent Prior Devices Use: None PT Evaluation-Current Subjective Patient agrees to PT. She c/o fatigue Pain Numeric Pain Scale: 0-No Pain Location: No Pain Reported Objective Patient Orientation: Normal For Age Problem Solving: Good ROM/Strength ROM Lower Extremities bilateral LE WFL Strength Lower Extremities 4/5 grossly bilateral LE Integumentary/Posture Integumentary refer to nursing notes Bowel Incontinence: No Bladder Incontinence: No Posture WFL Neuromuscular (Tone, Coordination, Reflexes) grossly intact Sensory Vision: Functional Hearing: Functional Sensation Right Lower Extremit: Intact Sensation Left Lower Extremity: Intact Transfers Therapy Code Descriptions/Definitions Functional [place] Measure: 0=Not Assessed/NA 4=Minimal Assistance 1=Total Assistance 5=Supervision or Setup 2=Maximal Assistance 6=Modified [place] 3=Moderate Assistance 7=Complete [place] Transfers (B, C, W/C) (FIM): 7 Scootin Rollin Supine to/from Sit: 7 Sit to/from Stand: 7 Gait Mode of Locomotion: Walk Anticipated Mode of Locomotion: Walk Gait (FIM): 7 Distance (FIM): 3=150 ft Distance: 300' x 2 Gait Level of Assist: 7 Gait Assistive Device: None Comments/Gait Description safe and functional Stairs Stairs (FIM): 2 #of Steps: 3 Level of Assist: 5 Balance Sitting Static: Normal Sitting Dynamic: Normal Standing Static: Normal Standing Dynamic: Normal Assessment/Needs 78 y.o. female, is currently at [facility] with all gross motor skills and does not require skilled therapy intervention at this time. Thank you for this referral. Rehab Potential: Fair PT Plan Treatment/Plan Treatment Plan: Discontinue PT, goals met Treatment Plan: Other Treatment Duration: Jul 29, 2019 Frequency: 1 time per week Estimated Hrs Per Day: .25 hour per day Patient and/or Family Agrees t: Yes Discharge Recommendations Therapy Discharge Recommendati: Post Acute PT (home health) Time/GCodes Time In: 1025 Time Out: 1034 Total Billed Treatment Time: 9 Total Billed Treatment 1 visit EVLowC 9 min LI RITCHIE PT Jul 29, 2019 11:25
--- NOTE | 2019-07-29 12:33 | Discharge Summary ---
Discharge Summary Hospital Course Problems/Dx: (1) Fever Status: Acute Qualifiers: Qualified Codes: R50.9 - Fever, unspecified (2) Vomiting and diarrhea Status: Resolved (3) CAD (coronary artery disease) Status: Chronic Qualifiers: Qualified Codes: I25.810 - Atherosclerosis of coronary artery bypass graft(s) without angina pectoris (4) Essential (primary) hypertension Status: Chronic (5) Bradycardia Status: Acute Hospital Course Date of Admission: Jul 26, 2019 at 11:08 Admission Diagnosis : Viral gastroenteritis Family Physician/Provider: Taco Hanley MD Date of Discharge: 07/29/19 Discharge Diagnosis: Viral gastroenteritis Hospital Course: Debbie Nieto is a 78yoF who presented with fever, vomiting, and diarrhea and was admitted with viral gastroenteritis. Her symptoms resolved with supportive care. During her stay she also had asymptomatic bradycardia in the 40s. Cardiology was consulted and her bradycardia persisted despite discontinuation of her Coreg. She will follow up with cardiology as an outpatient in about two weeks. Labs and Pending Lab Test: Laboratory Tests 07/29/19 07:30: Sodium Level 138, Potassium Level 3.1L, Chloride Level 108H, Carbon Dioxide Level 21, Anion Gap 9, Blood Urea Nitrogen 9, Creatinine 0.78, Estimat Glomerular Filtration Rate > 60, BUN/Creatinine Ratio 12, Glucose Level 93, Calcium Level 8.4L, Magnesium Level 2.1 Microbiology 07/26/19 Blood Culture - Preliminary, Resulted No growth 07/26/19 Influenza Types A,B Antigen (TEJAL) - Final, Complete Home Meds Active Reported Atorvastatin Calcium 10 Mg Tablet 10 Mg PO HS Carvedilol 3.125 Mg Tablet 3.125 Mg PO BID Ramipril 2.5 Mg Capsule 2.5 Mg PO DAILY Assessment/Pt Instructions Take medications as prescribed. Stop taking Coreg. Follow up with cardiology in about two weeks. Discharge Planning: <30 minutes discharge planning Discharge Instructions Discharge Diet: No Restrictions Activity as Tolerated: Yes Consultations Cardiology Discharge Physical Examination Vital Signs Vital Signs Date Time Temp Pulse Resp B/P (MAP) Pulse Ox O2 Delivery O2 Flow Rate FiO2 07/29/19 08:00 36.2 68 16 127/71 (89) 98 Room Air General Appearance: No Apparent Distress, WD/WN HEENT: PERRL/EOMI, Pharynx Normal Respiratory: Lungs Clear, Normal Breath Sounds, No Respiratory Distress Cardiovascular: Regular Rate, Rhythm, No Edema, No Murmur Gastrointestinal: Normal Bowel Sounds, Non Tender, Soft Extremity: Normal Inspection, No Pedal Edema Skin: Normal Color, Warm/Dry Neurologic/Psychiatric: Alert, Oriented x3, Normal Mood/Affect Allergies: Coded Allergies: No Known Drug Allergies (Unverified , 07/25/19) Discharge Summary Date of Admission Jul 26, 2019 at 11:08 Date of Discharge Discharge Date: Jul 29, 2019 Discharge Time: 09:30 Admission Diagnosis Fever Consults/Procedures Consulations Cardiology Discharge Diagnosis (1) Fever Status: Acute Qualifiers: Qualified Codes: R50.9 - Fever, unspecified (2) Vomiting and diarrhea Status: Resolved (3) CAD (coronary artery disease) Status: Chronic Qualifiers: Qualified Codes: I25.810 - Atherosclerosis of coronary artery bypass graft(s) without angina pectoris (4) Essential (primary) hypertension Status: Chronic (5) Bradycardia Status: Acute Clinical Quality Measures DVT/VTE Risk/Contraindication: Risk Factor Score Per Nursin RFS Level Per Nursing on Admit: 4+=Very High MARIEL SHOEMAKER MD Jul 29, 2019 12:33
--- NOTE | 2019-07-29 12:39 | D/C HH Face to Face Order ---
D/C Face to Face Orders Reconcile Patient Problems Problems Reviewed?: Yes Instructions for Patient [employer], Patient Instructions/FollowUp: Take medications as precribed. Follow up with cardiology in about two weeks. Physician to follow Patient: Dayan Discharge Diet for Home: No Restrictions Patient Data-Allergies,Ht & Wt Patient Allergies: Coded Allergies: No Known Drug Allergies (Unverified , 07/25/19) Height (Feet): 5 Height (Inches): 1.00 Weight (Pounds): 105 Weight (Ounces): 0.0 Home Health Need/Face to Face Date of Face to Face: Jul 29, 2019 Clinical Findings: Instability, Muscle weakness, Unsteady gait I have seen Pt [id number]: Yes Discharged To: Home Diagnosis/Conditions: Debility Patient is Homebound due to: Ellie fall risk due to instabilty, Muscle weakness Homebound Status Due to the above stated illness, injury or surgical procedure (medical condition or diagnosis) and associated clinical findings, the patient is homebound because of his/her inability to leave home except with aid of a supportive device and/or person AND leaving the home requires a considerable and taxing effort or is medically contraindicated. Pt req the following assistanc: Aid of another person, Walker Home Health Nursing Orders Home Health Services Order: Nursing Services, Physical Therapy-Evaluate & Treat Home Health Infusion Therapy Line Start Date: Jul 27, 2019 Therapy Orders Therapy Orders: Physical Therapy, PT to assess for OT Therapy Specific Orders: Eval assistive deivces, Gait training, Increase strength/endurance Certify Stmt I certify that this patient is under my care and that I, a nurse practitioner or a physician; a surgical dental assistant working with me, had a face to face encounter that - meets the physician face to face encounter requirements with this patient as dated. MARIEL SHOEMAKER MD Jul 29, 2019 12:39
--- NOTE | 2019-07-29 13:38 | Occupational Therapy Eval ---
OT Evaluation-General/PLF Medical Diagnosis Admission Date Jul 26, 2019 at 11:08 Medical Diagnosis: fever, vomiting Onset Date: Jul 26, 2019 Therapy Diagnosis Therapy Diagnosis: impaired ADLs and mobility Height/Weight Height (Feet): 5 Height (Inches): 1.00 Weight (Pounds): 105 Weight (Ounces): 0.0 Precautions Precautions/Isolations: Standard Precautions Safety Interventions: None Referral Physician: Riaz Referral Reason: Activity Tolerance, Self Care, Evaluation/Treatment, Strengthening/ROM Medical History Pertinent Medical History: CABG, CAD, HTN Current History Per H&P: "Pt is a 78yoCF with a PMH of CAD s/p CABG who presented to the ER due to fever. She states she was seen in the ER yesterday for fever and diarrhea. She was tested for the flu and was sent home as it was negative. She continued to have fevers and this morning felt weak and overall just did not feel well. Valentín lindo returned for evaluation and was found to have a temp of 39.9. UA, CXR, and rapid flu were repeated and negative. She had a CT of her abdomen due to diarrhea which was also negative for infectious source. She was admitted for observation due to persistent fever. Her last BM was yesterday and her nausea has improved and she would like to order food." Reviewed History: Yes Social History Home: Single Level Current Living Status: Alone Entry Into Home: Stairs With Railing Steps Into Home: 3 ADL-Prior Level of Function Therapy Code Descriptions/Definitions Functional [place] Measure: 0=Not Assessed/NA 4=Minimal Assistance 1=Total Assistance 5=Supervision or Setup 2=Maximal Assistance 6=Modified [place] 3=Moderate Assistance 7=Complete [place] Therapy Quality Codes: 6 Independent with activity with or without an assistive device 5 Patient requires set up or clean up by helper. Patient completes activity by themselves 4 Supervision or touching assist (CGA). Aulander provide cues , steadying assist 3 The helper provides less than half the effort to complete the activity 2 The helper provides more than half the effort to complete the activity 1 Dependent. The helper does all the effort to complete an activity 7 Patient refused to complete or attempt activity 9 The patient did not perform the activity before the current illness or injury 88 Not attempted due to Medical conditions or safety concerns Functional Abilities and Goals: Independent: Patient completed the activities by him/herself, with or without an assistive device, with no assistance from a helper. Needed Some Help: Patient needed partial assistance from another person to complete activities. Dependent: A helper completed the activities for the patient. Unknown: Not Applicable: ADL PLOF Comments pt reports she was independent with ADLs prior to hospitalization, pt denied using any AE for ADLs. Self Care: Independent Functional Cognition: Independent DME/Equipment: Tub/Shower (Pt takes baths, seated at the bottom of bath tub.) DME/Equipment Comments none Drive Self: Yes OT Current Status Subjective Pt upright in recliner during session, providing information for OT evaluation. Pt did not report any pain this tx. Mental Status/Objective Patient Orientation: Person, Place, Time, Situation Current Glasses/Contacts: Yes Hearing Aids: No Dentures/Partials: No Hand Dominance: Right Upper Extremity ROM WFL BUE Upper Extremity Coordination WFL thumb opposition to each finger BUE Upper Extremity Sensation intact to light touch BUE Upper Extremity Strength 4/5 MMT BUE Edema: none noted ADL-Treatment Therapy Code Descriptions/Definitions Functional [place] Measure: 0=Not Assessed/NA 4=Minimal Assistance 1=Total Assistance 5=Supervision or Setup 2=Maximal Assistance 6=Modified [place] 3=Moderate Assistance 7=Complete [place] Therapy Quality Codes: 6 Independent with activity with or without an assistive device 5 Patient requires set up or clean up by helper. Patient completes activity by themselves 4 Supervision or touching assist (CGA). Aulander provide cues , steadying assist 3 The helper provides less than half the effort to complete the activity 2 The helper provides more than half the effort to complete the activity 1 Dependent. The helper does all the effort to complete an activity 7 Patient refused to complete or attempt activity 9 The patient did not perform the activity before the current illness or injury 88 Not attempted due to Medical conditions or safety concerns Lower Body Dressing (FIM): 7 (Pt doffed/donned BLE shoes without assistance, no LOB noted.) Other Treatments Pt seated in recliner this session, provided information for OT evaluation. Pt denied any concerns about her current level of function, stating she thinks she will be okay when she goes home. Pt doffed/donned bilateral shoes independently. OT encouraged pt to perform functional mobility, pt pleasantly declined task. Post OT session, pt seated upright in recliner, call light in reach and all needs met. Education OT Patient Education: Correct positioning, Energy conservation, Modified ADL techniques Teaching Recipient: Patient Teaching Methods: Demonstration Response to Teaching: Verbalize Understanding OT Short Term Goals Short Term Goals 1=Demonstrate adherence to instructed precautions during ADL tasks. 2=Patient will verbalize/demonstrate understanding of assistive devices/modifications for ADL. 3=Patient will improve strength/tolerance for activity to enable patient to perform ADL's. OT Telemetry Registered Nurse Goals Telemetry Registered Nurse Goals 1=Demonstrate adherence to instructed precautions during ADL tasks. 2=Patient will verbalize/demonstrate understanding of assistive devices/modifications for ADL. 3=Patient will improve strength/tolerance for activity to enable patient to perform ADL's. OT Education/Plan Problem List/Assessment Assessment: No Skilled OT Needs ID'd No skilled OT services indicated at this time secondary to pt's report of being at independent PLOF. Per PT report and pt, pt is independent in ambulation/functional mobility, pt stated she has no concerns and that she is at PLOF. d/c OT at this time secondary to pt being at PLOF. Discharge Recommendations Plan/Recommendations: Discharge/Goals Met Treatment Plan/Plan of Care Treatment,Training & Education: Yes Treatment Duration: Jul 29, 2019 Frequency: 1 time per week (eval only) Estimated Hrs Per Day: .25 hour per day (eval only) Agreement: Yes Rehab Potential: Fair Time/GCodes Start Time: 12:35 Stop Time: 12:43 Total Time Billed (hr/min): 8 Billed Treatment Time 1, EVL x8min JEANE JOHNSON OT Jul 29, 2019 13:38
--- NOTE | 2019-07-29 14:10 | NUR ---
LAST/EDUARDO spoke with patient and patients daughter about having Home Health services set up. The patient states she agrees and has not had Home Health previously in the home. LAST/SS gave the patient and daughter information on Home Health companies in the area. The patient chose [facility] and choice form was signed. [facility] was contacted and medical records have been sent over. No other needs at this time. Addendum: 07/29/19 at 1415 by RACHEL FERNANDEZ reviewed / approved
[2019-07-29 16:00] VITALS: BP 122/68
[2019-07-29 16:10] VITALS: BP 122/68
--- NOTE | 2019-07-29 16:11 | NUR ---
DACIA MENARD demonstrates understanding of discharge instructions and accurately returns instructions upon questioning. Copy of Post-Discharge Instructions and Medication Discharge Instructions given to patient and family. DACIA MENARD is able to manage continuing needs after discharge. Patients belongings returned to patient. Skin dry and intact; no breakdown noted. Patient discharged from 404-1 on at 1612. DACIA MENARD left floor via wheelchair, accompanied by staff.
== END 2019-07-29 12:28 | disposition home health service (06) ==
LOC: EDUNIT# 09:10 → ER 09:11 → UNDOADMOB 11:08 → 4TH 11:08 → UNDODISOB 07-29 16:08
PROVIDERS: ADMIT Family Medicine; ATTEND Family Medicine
DX: R50.9 Fever, unspecified (principal); I25.810 Atherosclerosis of coronary artery bypass graft(s) without angina pectoris; I10 Essential (primary) hypertension; R19.7 Diarrhea, unspecified; R00.1 Bradycardia, unspecified
CPT/HCPCS: 36415; 71045; 74177; 80048; 80053; 81000; 83605; 83690; 83735; 85025; 87040; 87804; 93005; 96361; 96374; G0378

== ENCOUNTER 2020-10-24 11:47 | Inpatient (IN) | payer MEDICARE ==
[~2020-10-24] VITALS: Ht 155 cm; Wt 62.4 kg
[~2020-10-24 11:47] MED LIST changes: +ATOR10TA66 PO; +BROM5DRO3; +CARV3.122 PO; +CLOP75TA28; +RAMI2.5C2 PO
[2020-10-24] MEDS ORDERED: LACTATED RINGERS 1,000 ML IV ONE (11:55)
[2020-10-24] MEDS ORDERED: NOREPINEPHRINE 4 MG/250 ML 0 ML IV ONE (11:55)
[2020-10-24] MEDS ORDERED: fentaNYL INJECTION 100 MCG/2 ML AMP ONE ×2 (12:02→15:26)
[2020-10-24] MEDS: fentaNYL INJECTION 100 MCG/2 ML AMP IVP PRN (12:04)
--- NOTE | 2020-10-24 12:28 | ED General ---
General Stated Complaint: SOA Source of Information: EMS Exam Limitations: No Limitations History of Present Illness Date Seen by Provider: Oct 24, 2020 Time Seen by Provider: 12:23 Initial Comments To ER by EMS with reports with oxygen saturation of 70% on room air upon EMS arrival. She began feeling short of breath last night and significantly more so this morning. She has not had fevers or chills. When asked about CODE STATUS she states that she does not want to be resuscitated if her heart stops unexpectedly. She does report abdominal pain. Timing/Duration: 1-2 Days Severity: Severe Allergies and Home Medications Allergies Coded Allergies: No Known Drug Allergies (Unverified , 07/25/19) Home Medications Atorvastatin Calcium 10 Mg Tablet, 10 MG PO HS, (Reported) Ramipril 2.5 Mg Capsule, 2.5 MG PO DAILY, (Reported) Patient Home Medication List Home Medication List Reviewed: Yes Review of Systems Review of Systems Constitutional: see HPI EENTM: see HPI Respiratory: see HPI, short of breath Cardiovascular: no symptoms reported Gastrointestinal: abdominal pain, nausea, vomiting Musculoskeletal: no symptoms reported Skin: no symptoms reported Psychiatric/Neurological: No Symptoms Reported Past Ymhwxqu-Cyxkeo-Libnhr Hx Patient Social History Recent Hopitalizations: No Immunizations Up To Date Date of Pneumonia Vaccine: Aug 30, 2016 Date of Influenza Vaccine: Jul 30, 2018 Past Medical History Surgeries: Yes (ECTOPIC ) Abdominal, CABG Respiratory: No Currently Using CPAP: No Currently Using BIPAP: No Cardiac: No Coronary Artery Disease, Hypertension Neurological: No Reproductive Disorders: Yes (ECTOPIC ) DOPEMAN History: Menopausal Kidney Stones Gastrointestinal: No Musculoskeletal: No Endocrine: No Cancer: No Psychosocial: No Integumentary: No Blood Disorders: No Family Medical History No Pertinent Family Hx, CVA Physical Exam Vital Signs Vital Signs - First Documented 10/24/20 11:48 Temp 34.6 Pulse 107 Resp 31 B/P (MAP) 139/109 (119) Pulse Ox 100 O2 Delivery OxyMask O2 Flow Rate 15.00 Capillary Refill : Height, Weight, BMI Height: 5'1.00" Weight: 105lbs. 0.0oz. 47.148242tt; 21.75 BMI Method:Stated General Appearance: Thin (frail, unable to obtain blood pressure. There is no palpable radial or brachial pulse. She does have a palpable femoral pulse. Heart rate is 110 sinus, oxygen using a nose clip is 100% on nonrebreather. Respiratory rate is 16. Extremities are mottled.) Respiratory: No Accessory Muscle Use, No Respiratory Distress, Decreased Breath Sounds Cardiovascular: Regular Rate, Rhythm, Normal Peripheral Pulses Gastrointestinal: Non Tender, Soft Extremity: Other (Extremities are mottled and cyanotic) Neurologic/Psychiatric: Alert, Oriented x3 Skin: Normal Color, Warm/Dry Focused Exam Lactate Level 10/24/20 12:13: Lactic Acid Level 10.14*H Lactic Acid Level Laboratory Tests Test 10/24/20 12:13 Lactic Acid Level 10.14 MMOL/L (0.50-2.00) *H Procedures/Interventions Lumen: triple Position: internal jugular (R) Anesthesia: local Volume Anesthetic (ccs): 5 Post Position: sutured, good blood return, position confirmed w/ CXR Progress/Results/Core Measures Suspected Sepsis SIRS Temperature: Pulse: Respiratory Rate: Laboratory Tests 10/24/20 12:13: White Blood Count 18.3H Blood Pressure / Mean: 10/24/20 12:13: Lactic Acid Level 10.14*H Laboratory Tests 10/24/20 12:13: Creatinine 1.80H, Platelet Count 181, Total Bilirubin 1.0 Results/Orders Lab Results Laboratory Tests Test 10/24/20 11:58 10/24/20 12:13 10/24/20 12:20 10/24/20 12:21 Range/Units Coronavirus 2019 (TINY) Negative Negative White Blood Count 18.3 H 4.3-11.0 10^3/uL Red Blood Count 5.52 H 3.80-5.11 10^6/uL Hemoglobin 18.0 H 11.5-16.0 g/dL Hematocrit 55 H 35-52 % Mean Corpuscular Volume 100 H 80-99 fL Mean Corpuscular Hemoglobin 33 25-34 pg Mean Corpuscular Hemoglobin Concent 33 32-36 g/dL Red Cell Distribution Width 12.8 10.0-14.5 % Platelet Count 181 130-400 10^3/uL Mean Platelet Volume 11.0 9.0-12.2 fL Immature Granulocyte % (Auto) 1 % Neutrophils (%) (Auto) 86 H 42-75 % Lymphocytes (%) (Auto) 8 L 12-44 % Monocytes (%) (Auto) 6 0-12 % Eosinophils (%) (Auto) 0 0-10 % Basophils (%) (Auto) 0 0-10 % Neutrophils # (Auto) 15.6 H 1.8-7.8 10^3/uL Lymphocytes # (Auto) 1.4 1.0-4.0 10^3/uL Monocytes # (Auto) 1.0 0.0-1.0 10^3/uL Eosinophils # (Auto) 0.0 0.0-0.3 10^3/uL Basophils # (Auto) 0.0 0.0-0.1 10^3/uL Immature Granulocyte # (Auto) 0.1 0.0-0.1 10^3/uL Neutrophils % (Manual) 77 % Lymphocytes % (Manual) 8 % Monocytes % (Manual) 3 % Band Neutrophils 12 % Toxic Granulation 1+ Blood Morphology Comment NORMAL D-Dimer 5.40 H 0.00-0.49 UG/ML Sodium Level 140 135-145 MMOL/L Potassium Level 3.9 3.6-5.0 MMOL/L Chloride Level 106 98-107 MMOL/L Carbon Dioxide Level 12 L 21-32 MMOL/L Anion Gap 22 H 5-14 MMOL/L Blood Urea Nitrogen 26 H 7-18 MG/DL Creatinine 1.80 H 0.60-1.30 MG/DL Estimat Glomerular Filtration Rate 27 BUN/Creatinine Ratio 14 Glucose Level 301 H 70-105 MG/DL Lactic Acid Level 10.14 *H 0.50-2.00 MMOL/L Calcium Level 8.8 8.5-10.1 MG/DL Corrected Calcium 9.0 8.5-10.1 MG/DL Total Bilirubin 1.0 0.1-1.0 MG/DL Aspartate Amino Transf (AST/SGOT) 32 5-34 U/L Alanine Aminotransferase (ALT/SGPT) 20 0-55 U/L Alkaline Phosphatase 89 40-136 U/L Troponin I < 0.028 <0.028 NG/ML Total Protein 6.4 6.4-8.2 GM/DL Albumin 3.7 3.2-4.5 GM/DL Urine Color YELLOW Urine Clarity CLEAR Urine pH 6.0 5-9 Urine Specific [place] 1.025 H 1.016-1.022 Urine Protein 1+ H NEGATIVE Urine Glucose (UA) TRACE H NEGATIVE Urine Ketones NEGATIVE NEGATIVE Urine Nitrite NEGATIVE NEGATIVE Urine Bilirubin NEGATIVE NEGATIVE Urine Urobilinogen 0.2 < = 1.0 MG/DL Urine Leukocyte Esterase NEGATIVE NEGATIVE Urine RBC (Auto) NEGATIVE NEGATIVE Urine RBC NONE /HPF Urine WBC NONE /HPF Urine Crystals NONE /LPF Urine Bacteria NEGATIVE /HPF Urine Casts NONE /LPF Urine Mucus NEGATIVE /LPF Urine Culture Indicated NO Blood Gas Puncture Site LFT RAD Blood Gas Patient Temperature 94.2 Arterial Blood pH 7.31 *L 7.37-7.43 Arterial Blood Partial Pressure CO2 25 L 35-45 MMHG Arterial Blood Partial Pressure O2 240 H 79-93 MMHG Arterial Blood HCO3 12 *L 23-27 MMOL/L Arterial Blood Total CO2 13.3 L 21.0-31.0 MMOL/L Arterial Blood Oxygen Saturation 100 94-100 % Arterial Blood Base Excess -13.1 L -2.5-2.5 MMOL/L Magnus Test POS Blood Gas Ventilator Setting NO Blood Gas Inspired Oxygen 15L My Orders Orders - MARY KAY DIAZ APRN Cbc With Automated Diff (10/24/20 12:22) Comprehensive Metabolic Panel (10/24/20 12:22) Ua Culture If Indicated (10/24/20 12:22) Fibrin Degradation Products (10/24/20 12:22) Blood Culture (10/24/20 12:22) Lactic Acid Analyzer (10/24/20 12:22) Ct Chest/Abdomen/Pelvis Wo (10/24/20 12:22) Chest 1 View, Ap/Pa Only (10/24/20 12:22) Arterial Blood Gas (10/24/20 12:26) Ekg Tracing (10/24/20 12:28) Troponin I (10/24/20 12:28) Lipase (10/24/20 12:28) Fentanyl Injection (Sublimaze Injection (10/24/20 12:45) Manual Differential (10/24/20 12:13) Labetalol Injection (Normodyne Injection (10/24/20 13:00) Lactated Ringers (Lr 1000 Ml Iv Solution (10/24/20 13:00) Piperacillin Sodium/Tazobactam (Zosyn Vi (10/24/20 13:45) Fentanyl Injection (Sublimaze Injection (10/24/20 13:45) Fentanyl Injection (Sublimaze Injection (10/24/20 13:45) Consult Hospitalist (10/24/20 14:05) Medications Given in ED Current Medications Medications Dose Ordered Sig/Allen Route Start Time Stop Time Status Last Admin Dose Admin Fentanyl Citrate 25 mcg ONCE PRN IVP 10/24/20 12:45 10/24/20 12:04 25 MCG Fentanyl Citrate 50 mcg ONCE ONCE IVP 10/24/20 13:45 10/24/20 13:47 DC 10/24/20 12:42 50 MCG Fentanyl Citrate 50 mcg ONCE ONCE IVP 10/24/20 13:45 10/24/20 13:47 DC 10/24/20 13:42 50 MCG Piperacillin Sod/ Tazobactam Sod 4.5 gm/Sodium Chloride 100 ml @ 200 mls/hr ONCE ONCE IV 10/24/20 13:45 10/24/20 14:14 10/24/20 14:07 200 MLS/HR Vital Signs/I&O 10/24/20 11:48 Temp 34.6 Pulse 107 Resp 31 B/P (MAP) 139/109 (119) Pulse Ox 100 O2 Delivery OxyMask O2 Flow Rate 15.00 Capillary Refill : Diagnostic Imaging Diagonstic Imaging: Xray Plain Films/CT/US/NM/MRI: chest Comments NAME: DACIA MENARD [facility] REC#: [id number] PT STATUS: REG ER : 1940 PHYSICIAN: MARY KAY DIAZ APRN ADMIT DATE: 10/24/20/ER Draft Date of Exam:10/24/20 CHEST 1 VIEW, AP/PA ONLY EXAMINATION: Chest radiograph, portable AP view. DATE: 10/24/2020 12:32 PM INDICATION: 80-year-old female, shortness of breath. COMPARISON: July 27, 2019. FINDINGS: There is a right-sided central venous line with tip near the level of the cavoatrial junction. Stable overall appearance of the cardia mediastinal silhouette. There is no identified pneumothorax. There is no large pleural effusion. There is no identified focal airspace consolidation. IMPRESSION: 1. Newly placed right internal jugular central venous line tip is at the level of the cavoatrial junction. 2. No identified interval acute cardiopulmonary abnormality. Dictated on workstation # [id number] Dict: 10/24/20 1235 Trans: 10/24/20 1240 [facility] [id number] Interpreted by: BRIAN WEST MD Electronically signed by: NAME: DACIA MENARD [facility] REC#: [id number] PT STATUS: REG ER : 1940 PHYSICIAN: MARY KAY DIAZ APRN ADMIT DATE: 10/24/20/ER Draft Date of Exam:10/24/20 CT CHEST/ABDOMEN/PELVIS WO PROCEDURE: CT chest, abdomen, and pelvis without contrast. TECHNIQUE: Multiple contiguous axial images were obtained through the chest, abdomen, and pelvis without the use of intravenous contrast. Auto Exposure Controls were utilized during the CT exam to meet ALARA standards for radiation dose reduction. DATE: October 24, 2020. COMPARISON: Chest radiograph October 24, 2020. CT abdomen pelvis July 26, 2019. INDICATION: 80-year-old female, abdominal pain. Low oxygen saturations. FINDINGS: There are limitations for evaluation of the abdominal organs, neoplastic processes, abscess, and limited evaluation of the vasculature relating to the lack of intravenous contrast. There is mild dependent atelectasis in the right lower lobe. There is a 3 mm left lower lobe noncalcified nodule on axial image 33. There is no lung mass. There is no additional focal airspace consolidation. There is no pneumothorax. There is no pleural effusion. The central airways are patent. The heart is not enlarged. There are coronary artery calcifications and additional areas of atherosclerotic disease. There is no pericardial effusion. There is no identified abnormally enlarged mediastinal or axillary lymph node meeting CT size criteria for adenopathy. The liver is unremarkable in size and contour. There is a 6 mm low-attenuation lesion in the left lobe of the liver on axial image 47 which is too small to characterize. There is abnormal high attenuation in the gallbladder which may relate to stones, sludge, or vicarious excretion of recently administered contrast. There is no identified biliary ductal dilation. The main pancreatic duct is not grossly dilated. There is limited evaluation of the pancreas given the noncontrast imaging technique as well as presence of moderate to large volume ascites. There is no clearly identified disruption of pancreatic parenchymal architecture. The spleen is normal in size. The adrenal glands are unremarkable. There is a low-attenuation right renal lesion on axial image 62 measuring 1.8 cm in size with internal attenuation diagnostic for a benign cyst. The urinary collecting systems are not distended. There is no identified renal or ureteral stone. There is a Galeano catheter in the urinary bladder. There is no obvious urinary bladder wall thickening. There is calcified intrauterine lesion compatible with a degenerating uterine leiomyoma included in the calcifications adjacent to the uterus likely relating to an exophytic degenerating uterine leiomyoma. There is diverticulosis without evidence to suggest acute diverticulitis. There does appear to be nonspecific wall thickening of the second portion of duodenum. There is prominent abnormal wall thickening of the distal esophagus. There is additional abnormal small bowel wall thickening. There are no distended segments of the intestinal tract. There is no identified free intraperitoneal air. There is no identified focal drainable fluid collection. There are atherosclerotic calcifications. There is no identified abnormally enlarged lymph node in the abdomen or pelvis meeting CT size criteria for adenopathy. There are median sternotomy wires. There is no identified acute bony abnormality. There is scoliosis. IMPRESSION: CT CHEST, ABDOMEN, AND PELVIS. 1. Moderate to large volume ascites of uncertain exact cause of etiology. 2. Abnormal wall thickening of the distal esophagus which could relate to esophagitis or malignancy. 3. Nonspecific areas of abnormal small bowel wall thickening including involvement of the duodenum and additional small bowel segments. Considerations would include a nonspecific enteritis. Infiltrative processes of bowel would also be in the differential diagnosis although perhaps less likely. 4. The pancreas is poorly evaluated on this study. 5. No identified acute cardiopulmonary abnormality. Dictated on workstation # [id number] Dict: 10/24/20 1329 Trans: 10/24/20 1357 [facility] [id number] Interpreted by: BRIAN WEST MD Electronically signed by: Departure Communication (Admissions) Time/Spoke to Admitting Phy: 14:05 Lung sounds are diminished throughout. Oxygen saturation 100% on nose clamp. Unable to obtain blood pressure or IV access so started a central line. IV fluids infusing. 1259-the radial pulses are palpable bilaterally now but they are very very faint. Despite this her pressure continues to rise currently at 191/131. This has been consistent amongst blood pressure checks from both arms. 1402-with Dr. Díaz, he will be on to take patient to the operating room. Current blood pressure 184/124 heart rate 112 oxygen is 99% on room air. Her o xygen has been turned off. This is using a nose clip to measure and now that we have the oximeter on some tissue that is being perfused her oxygen is fine. I suspect that EMS initial hypoxia was related to poor perfusion of the fingertips which were cyanotic. I did discuss the case with the patient's daughter Liban at [phone]. She is appreciative of the phone call and would like any updates we can offer. Impression Primary Impression: Severe sepsis Additional Impression: Perforated abdominal viscus Disposition: ADMITTED INPATIENT Condition: Critical Admissions Decision to Admit Reason: Admit from ER (General) Decision to Admit/Date: Oct 24, 2020 Time/Decision to Admit Time: 13:41 Departure-Patient Inst. Referrals: DAPHNEY PAINTER MD (PCP/Family) Primary Care Physician MARY KAY DIAZ APRN Oct 24, 2020 12:27
[2020-10-24 12:36] LABS: ABG BASE EXCESS -13.1 MMOL/L (-2.5-2.5); ABG OXYGEN SATURATION 100 % (94-100); ABG PCO2 25 MMHG (35-45); ABG PO2 240 MMHG (79-93); ABG TCO2 13.3 MMOL/L (21.0-31.0)
[2020-10-24 12:39] LABS: BILIRUBIN,URINE NEGATIVE (NEGATIVE); CLARITY,URINE CLEAR; COLOR,URINE YELLOW; GLUCOSE, URINE (UA) TRACE (NEGATIVE); KETONES,URINE NEGATIVE (NEGATIVE); LEUKOCYTE ESTERASE ,URINE NEGATIVE (NEGATIVE); NITRITE,URINE NEGATIVE (NEGATIVE); PROTEIN,URINE 1+ (NEGATIVE)
[2020-10-24 12:40] LABS: ABG PH 7.31 (7.37-7.43)
[2020-10-24 12:40] LABS: BASOPHILS % (AUTO) 0 % (0-10); EOSINOPHILS % (AUTO) 0 % (0-10); HEMATOCRIT 55 % (35-52); LYMPHOCYTES # (AUTO) 1.4 10^3/uL (1.0-4.0); LYMPHOCYTES % (AUTO) 8 % (12-44); MEAN CORPUSCULAR HEMOGLOBIN 33 pg (25-34); MEAN CORPUSCULAR HGB CONC 33 g/dL (32-36); MEAN CORPUSCULAR VOLUME 100 fL (80-99); MONOCYTES % (AUTO) 6 % (0-12); NEUTROPHILS # (AUTO) 15.6 10^3/uL (1.8-7.8); NEUTROPHILS % (AUTO) 86 % (42-75); PLATELET COUNT 181 10^3/uL (130-400); WHITE BLOOD COUNT 18.3 10^3/uL (4.3-11.0)
--- NOTE | 2020-10-24 12:40 | Diagnostic Imaging Report ---
EXAMINATION: Chest radiograph, portable AP view. DATE: 10/24/2020 12:32 PM INDICATION: 80-year-old female, shortness of breath. COMPARISON: July 27, 2019. FINDINGS: There is a right-sided central venous line with tip near the level of the cavoatrial junction. Stable overall appearance of the cardia mediastinal silhouette. There is no identified pneumothorax. There is no large pleural effusion. There is no identified focal airspace consolidation. IMPRESSION: 1. Newly placed right internal jugular central venous line tip is at the level of the cavoatrial junction. 2. No identified interval acute cardiopulmonary abnormality. Dictated by: Dictated on workstation # [id number]
[2020-10-24 12:41] LABS: ALLENS TEST POS; INSPIRED O2 15L; PATIENT TEMP 94.2; VENTILATOR NO
--- NOTE | 2020-10-24 12:42 | NUR ---
50 mcg of fentanyl given at this time
[2020-10-24 12:46] LABS: BACTERIA,URINE NEGATIVE /HPF
[2020-10-24 12:49] LABS: BAND NEUTROPHILS 12 %; LYMPHOCYTES % (MANUAL) 8 %; MONOCYTES % (MANUAL) 3 %; NEUTROPHILS % (MANUAL) 77 %; RBC MORPH NORMAL
[2020-10-24 12:50] LABS: ALBUMIN 3.7 GM/DL (3.2-4.5); CHLORIDE 106 MMOL/L (98-107); POTASSIUM 3.9 MMOL/L (3.6-5.0); SODIUM 140 MMOL/L (135-145); TOXIC GRANULATION/VACUOLAZATIO 1+
[2020-10-24 12:51] LABS: CALCIUM 8.8 MG/DL (8.5-10.1)
[2020-10-24 12:53] LABS: GLUCOSE 301 MG/DL (70-105); TOTAL PROTEIN 6.4 GM/DL (6.4-8.2)
[2020-10-24 12:54] LABS: CARBON DIOXIDE 12 MMOL/L (21-32)
[2020-10-24 12:56] LABS: ALKALINE PHOSPHATASE 89 U/L (40-136); GFR ESTIMATED 27
[2020-10-24 12:57] LABS: BUN/CREATININE RATIO 14
[2020-10-24 12:59] LABS: ALANINE AMINOTRANSFERASE 20 U/L (0-55)
[2020-10-24] MEDS ORDERED: LACTATED RINGERS 1,000 ML IV SCH (13:00)
[2020-10-24] MEDS ORDERED: LABETALOL HCL 20 MG/4 ML VIAL IV ONE (13:00)
[2020-10-24] MEDS ORDERED: PIPERACILLIN SODIUM/TAZOBACTAM 4.5 GM in NS (IVPB) 100 ML IV ONE (13:45)
[2020-10-24] MEDS ORDERED: fentaNYL INJECTION 100 MCG/2 ML AMP IVP ONE ×2 (13:45)
--- NOTE | 2020-10-24 13:57 | Diagnostic Imaging Report ---
PROCEDURE: CT chest, abdomen, and pelvis without contrast. TECHNIQUE: Multiple contiguous axial images were obtained through the chest, abdomen, and pelvis without the use of intravenous contrast. Auto Exposure Controls were utilized during the CT exam to meet ALARA standards for radiation dose reduction. DATE: October 24, 2020. COMPARISON: Chest radiograph October 24, 2020. CT abdomen pelvis July 26, 2019. INDICATION: 80-year-old female, abdominal pain. Low oxygen saturations. FINDINGS: There are limitations for evaluation of the abdominal organs, neoplastic processes, abscess, and limited evaluation of the vasculature relating to the lack of intravenous contrast. There is mild dependent atelectasis in the right lower lobe. There is a 3 mm left lower lobe noncalcified nodule on axial image 33. There is no lung mass. There is no additional focal airspace consolidation. There is no pneumothorax. There is no pleural effusion. The central airways are patent. The heart is not enlarged. There are coronary artery calcifications and additional areas of atherosclerotic disease. There is no pericardial effusion. There is no identified abnormally enlarged mediastinal or axillary lymph node meeting CT size criteria for adenopathy. The liver is unremarkable in size and contour. There is a 6 mm low-attenuation lesion in the left lobe of the liver on axial image 47 which is too small to characterize. There is abnormal high attenuation in the gallbladder which may relate to stones, sludge, or vicarious excretion of recently administered contrast. There is no identified biliary ductal dilation. The main pancreatic duct is not grossly dilated. There is limited evaluation of the pancreas given the noncontrast imaging technique as well as presence of moderate to large volume ascites. There is no clearly identified disruption of pancreatic parenchymal architecture. The spleen is normal in size. The adrenal glands are unremarkable. There is a low-attenuation right renal lesion on axial image 62 measuring 1.8 cm in size with internal attenuation diagnostic for a benign cyst. The urinary collecting systems are not distended. There is no identified renal or ureteral stone. There is a Galeano catheter in the urinary bladder. There is no obvious urinary bladder wall thickening. There is calcified intrauterine lesion compatible with a degenerating uterine leiomyoma included in the calcifications adjacent to the uterus likely relating to an exophytic degenerating uterine leiomyoma. There is diverticulosis without evidence to suggest acute diverticulitis. There does appear to be nonspecific wall thickening of the second portion of duodenum. There is prominent abnormal wall thickening of the distal esophagus. There is additional abnormal small bowel wall thickening. There are no distended segments of the intestinal tract. There is no identified free intraperitoneal air. There is no identified focal drainable fluid collection. There are atherosclerotic calcifications. There is no identified abnormally enlarged lymph node in the abdomen or pelvis meeting CT size criteria for adenopathy. There are median sternotomy wires. There is no identified acute bony abnormality. There is scoliosis. IMPRESSION: CT CHEST, ABDOMEN, AND PELVIS. 1. Moderate to large volume ascites of uncertain exact cause of etiology. 2. Abnormal wall thickening of the distal esophagus which could relate to esophagitis or malignancy. 3. Nonspecific areas of abnormal small bowel wall thickening including involvement of the duodenum and additional small bowel segments. Considerations would include a nonspecific enteritis. Infiltrative processes of bowel would also be in the differential diagnosis although perhaps less likely. 4. The pancreas is poorly evaluated on this study. 5. No identified acute cardiopulmonary abnormality. Dictated by: Dictated on workstation # [id number]
[2020-10-24] MEDS ORDERED: proPOfol 200 MG/20 ML (DIPRIVAN) VIAL IV ONE (14:42)
[2020-10-24] MEDS ORDERED: LIDOCAINE PF 2% 5 ML (XYLOCAINE) VIAL ONE (14:42)
[2020-10-24] MEDS ORDERED: LIDOCAINE/EPI 1%-1:100,000 (XYLOCAINE) 50 ML ONE (14:49)
--- NOTE | 2020-10-24 14:53 | Consultation - Surgery ---
History of Present Illness History of Present Illness Patient Consulted On(minesh/time) 10/24/20 14:46 Time Seen by Provider: 14:21 History of Present Illness Surgery asked to consult regarding abd pain. HPI per ED: To ER by EMS with reports with oxygen saturation of 70% on room air upon EMS arrival. She began feeling short of breath last night and significantly more so this morning. She has not had fevers or chills. When asked about CODE STATUS she states that she does not want to be resuscitated if her heart stops unexpectedly. She does report abdominal pain. Timing/Duration: 1-2 Days Severity: Severe When I spoke to pt I had received more info on pt; she was septic, cool extremities and CT showed large amount of free fluid and small amount of free air. Pt appeared comfortable and was able to answer most of my questions; she did have some confusion and couldn't answer all questions. She stated she was having trouble breathing and thought she was getting the flu; but her abdomen started last night. Now her pain is maybe a 4-5 out of 10. She has never had anything like this before and can't remember when she had colonoscopy. Movement makes pain worse and she has not been hungry. Movement makes pain worse and laying still makes it better. Allergies and Home Medications Allergies Coded Allergies: No Known Drug Allergies (Unverified , 07/25/19) Home Medications Atorvastatin Calcium 10 Mg Tablet, 10 MG PO HS, (Reported) Ramipril 2.5 Mg Capsule, 2.5 MG PO DAILY, (Reported) Patient Home Medication List Home Medication List Reviewed: Yes Past Nxwnvlv-[id number]-[id number] Hx Patient Social History Alcohol Use: Denies Use Recreational Drug Use: No Smoking Status: Never a Smoker Recent Foreign Travel: No Contact w/Someone Who Travel: No Recent Infectious Disease Expo: No Recent Hopitalizations: No Immunizations Up To Date Tetanus Booster (TDap): Unknown Date of Pneumonia Vaccine: Aug 30, 2016 Date of Influenza Vaccine: Jul 30, 2018 Surgeries History of Surgeries: Yes (ECTOPIC ) Surgeries: Abdominal, CABG Respiratory History of Respiratory Disorde: No Cardiovascular History of Cardiac Disorders: Yes Cardiac Disorders: Coronary Artery Disease, Hypertension Neurological History of Neurological Disord: No Reproductive System : No Hx Reproductive Disorders: Yes (ECTOPIC ) 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 Genitourinary History of Genitourinary Disor: Yes Genitourinary Disorders: Kidney Stones Gastrointestinal History of Gastrointestinal Di: No Musculoskeletal History of Musculoskeletal Dis: No Endocrine History of Endocrine Disorders: No HEENT Loss of Vision: Denies Hearing Impairment: Hard of Hearing Cancer History of Cancer: No Psychosocial History of Psychiatric Problem: No Integumentary History of Skin or Integumenta: No Blood Transfusions History of Blood Disorders: No Family Medical History Significant Family History: Heart Disease (both parents), Cancer (Denies any cancer in her family), CVA Review of Systems-General Constitutional: chills, dizziness, malaise, weakness EENTM: No blurred vision, No mouth pain, No mouth swelling, No epistaxis, No throat swelling Respiratory: dyspnea on exertion; No hemoptysis, No phlegm; short of breath Cardiovascular: No chest pain, No edema; Hx of Intervention; No palpitations Gastrointestinal: abdominal pain; No hematemesis; loss of appetite, nausea; No vomiting Genitourinary: No dysuria, No frequency, No hematuria Musculoskeletal: joint pain, joint swelling, muscle stiffness Skin: No change in color, No change in hair/nails Psychiatric/Neurological: Denies Anxiety, Denies Depressed, Denies Seizure, Denies Tremors Other pt denies any hx of abnormal bleeding or bruising Physical Exam-General Problems Physical Exam Vital Signs Vital Signs - First Documented 10/24/20 11:48 Temp 34.6 Pulse 107 Resp 31 B/P (MAP) 139/109 (119) Pulse Ox 100 O2 Delivery OxyMask O2 Flow Rate 15.00 Capillary Refill : Greater Than 3 Seconds General Appearance: mild distress, thin Eyes: Bilateral Eye PERRL, Bilateral Eye EOMI HEENT: No scleral icterus (R), No scleral icterus (L); other (pharynx slightly dry. ) Neck: non-tender, supple, other (Pt has Central line in RIJ) Respiratory: lungs clear, normal breath sounds, no respiratory distress, no accessory muscle use Cardiovascular: no murmur, tachycardia Gastrointestinal: soft, distended; No guarding; rebound (very mild), tenderness (with deep palpation) Rectal: deferred Back: no CVA tenderness, no vertebral tenderness Extremities: normal range of motion, no pedal edema, no calf tenderness, normal capillary refill Neurologic/Psychiatric: hat model II-XII nml as tested, alert, normal mood/affect Skin: normal color, warm/dry Lymphatic: no adenopathy (neck, axilla or groin) Data Review Labs Laboratory Tests 10/24/20 11:58: Coronavirus 2019 (TINY) Negative 10/24/20 12:13: White Blood Count 18.3H, Red Blood Count 5.52H, Hemoglobin 18.0H, Hematocrit 55H , Mean Corpuscular Volume 100H, Mean Corpuscular Hemoglobin 33, Mean Corpuscular Hemoglobin Concent 33, Red Cell Distribution Width 12.8, Platelet Count 181, Mean Platelet Volume 11.0, Immature Granulocyte % (Auto) 1, Neutrophils (%) (Auto) 86H, Lymphocytes (%) (Auto) 8L, Monocytes (%) (Auto) 6, Eosinophils (%) (Auto) 0, Basophils (%) (Auto) 0, Neutrophils # (Auto) 15.6H, Lymphocytes # (Auto) 1.4, Monocytes # (Auto) 1.0, Eosinophils # (Auto) 0.0, Basophils # (Auto) 0.0, Immature Granulocyte # (Auto) 0.1, Neutrophils % (Manual) 77, Lymphocytes % (Manual) 8, Monocytes % (Manual) 3, Band Neutrophils 12, Toxic Granulation 1+, Blood Morphology Comment NORMAL, D-Dimer 5.40H, Sodium Level 140, Potassium Level 3.9, Chloride Level 106, Carbon Dioxide Level 12L, Anion Gap 22H, Blood Urea Nitrogen 26H, Creatinine 1.80H, Estimat Glomerular Filtration Rate 27, BUN/Creatinine Ratio 14, Glucose Level 301H, Lactic Acid Level 10.14*H, Calcium Level 8.8, Corrected Calcium 9.0, Total Bilirubin 1.0, Aspartate Amino Transf (AST/SGOT) 32, Alanine Aminotransferase (ALT/SGPT) 20, Alkaline Phosphatase 89, Troponin I < 0.028, Total Protein 6.4, Albumin 3.7 10/24/20 12:20: Urine Color YELLOW, Urine Clarity CLEAR, Urine pH 6.0, Urine Specific [place] 1.025H, Urine Protein 1+H, Urine Glucose (UA) TRACEH, Urine Ketones NEGATIVE, Urine Nitrite NEGATIVE, Urine Bilirubin NEGATIVE, Urine Urobilinogen 0.2, Urine Leukocyte Esterase NEGATIVE, Urine RBC (Auto) NEGATIVE, Urine RBC NONE, Urine WBC NONE, Urine Crystals NONE, Urine Bacteria NEGATIVE, Urine Casts NONE, Urine Mucus NEGATIVE, Urine Culture Indicated NO 10/24/20 12:21: Blood Gas Puncture Site LFT RAD, Blood Gas Patient Temperature 94.2, Arterial Blood pH 7.31*L, Arterial Blood Partial Pressure CO2 25L, Arterial Blood Partial Pressure O2 240H, Arterial Blood HCO3 12*L, Arterial Blood Total CO2 13.3L, Arterial Blood Oxygen Saturation 100, Arterial Blood Base Excess -13.1L, Magnus Test POS, Blood Gas Ventilator Setting NO, Blood Gas Inspired Oxygen 15L Radiology Date of Exam:10/24/20 CT CHEST/ABDOMEN/PELVIS WO PROCEDURE: CT chest, abdomen, and pelvis without contrast. TECHNIQUE: Multiple contiguous axial images were obtained through the chest, abdomen, and pelvis without the use of intravenous contrast. Auto Exposure Controls were utilized during the CT exam to meet ALARA standards for radiation dose reduction. DATE: October 24, 2020. COMPARISON: Chest radiograph October 24, 2020. CT abdomen pelvis July 26, 2019. INDICATION: 80-year-old female, abdominal pain. Low oxygen saturations. FINDINGS: There are limitations for evaluation of the abdominal organs, neoplastic processes, abscess, and limited evaluation of the vasculature relating to the lack of intravenous contrast. There is mild dependent atelectasis in the right lower lobe. There is a 3 mm left lower lobe noncalcified nodule on axial image 33. There is no lung mass. There is no additional focal airspace consolidation. There is no pneumothorax. There is no pleural effusion. The central airways are patent. The heart is not enlarged. There are coronary artery calcifications and additional areas of atherosclerotic disease. There is no pericardial effusion. There is no identified abnormally enlarged mediastinal or axillary lymph node meeting CT size criteria for adenopathy. The liver is unremarkable in size and contour. There is a 6 mm low-attenuation lesion in the left lobe of the liver on axial image 47 which is too small to characterize. There is abnormal high attenuation in the gallbladder which may relate to stones, sludge, or vicarious excretion of recently administered contrast. There is no identified biliary ductal dilation. The main pancreatic duct is not grossly dilated. There is limited evaluation of the pancreas given the noncontrast imaging technique as well as presence of moderate to large volume ascites. There is no clearly identified disruption of pancreatic parenchymal architecture. The spleen is normal in size. The adrenal glands are unremarkable. There is a low-attenuation right renal lesion on axial image 62 measuring 1.8 cm in size with internal attenuation diagnostic for a benign cyst. The urinary collecting systems are not distended. There is no identified renal or ureteral stone. There is a Galeano catheter in the urinary bladder. There is no obvious urinary bladder wall thickening. There is calcified intrauterine lesion compatible with a degenerating uterine leiomyoma included in the calcifications adjacent to the uterus likely relating to an exophytic degenerating uterine leiomyoma. There is diverticulosis without evidence to suggest acute diverticulitis. There does appear to be nonspecific wall thickening of the second portion of duodenum. There is prominent abnormal wall thickening of the distal esophagus. There is additional abnormal small bowel wall thickening. There are no distended segments of the intestinal tract. There is no identified free intraperitoneal air. There is no identified focal drainable fluid collection. There are atherosclerotic calcifications. There is no identified abnormally enlarged lymph node in the abdomen or pelvis meeting CT size criteria for adenopathy. There are median sternotomy wires. There is no identified acute bony abnormality. There is scoliosis. IMPRESSION: CT CHEST, ABDOMEN, AND PELVIS. 1. Moderate to large volume ascites of uncertain exact cause of etiology. 2. Abnormal wall thickening of the distal esophagus which could relate to esophagitis or malignancy. 3. Nonspecific areas of abnormal small bowel wall thickening including involvement of the duodenum and additional small bowel segments. Considerations would include a nonspecific enteritis. Infiltrative processes of bowel would also be in the differential diagnosis although perhaps less likely. 4. The pancreas is poorly evaluated on this study. 5. No identified acute cardiopulmonary abnormality. Dictated by: Dictated on workstation # [id number] Dict: 10/24/20 1329 Trans: 10/24/[address] [facility] [id number] Interpreted by: BRIAN WEST MD Electronically signed by: BRIAN WEST MD 10/24/20 1416 Assessment/Plan Assessment/Plan Assessment/Plan Pneumoperitoneum with free fluid Leukocytosis Lactic Acidosis Abdominal pain CAD Acute Renal Failure Pt has an acute abdomen, unsure etiology; but I believe there is perforated viscous. I reviewed the CT myself and see a lot of thickened bowel and I believe free air down in the pelvis. Pt is probably very dehydrated and some of her labs will improve with fluids; however, my main concern is the free fluid and air in abdomen. I had discussion with pt regarding this and went over options; IV ABX and watching or surgery to get di agnosis and repair problem. I told her I think surgery is what she needs; even though she is a DNR she stated she wanted to have surgery to fix the problem. She is at increased risk of problems because of her CAD. Plan is to do a diagnostic laparoscopy to see if we can determine where hole is (gastric vs. intestinal) and then probable Laparotomy to fix. I did mention that it is possible she will need a colostomy, but it would hopefully be temporary. All questions answered to her satisfaction and we will go to the OR. MAIKEL SAEED DO Oct 24, 2020 14:53
[2020-10-24 15:01] LABS: LIPASE 4585 U/L (8-78)
[2020-10-24] MEDS: LACTATED RINGERS 1,000 ML IV PRN ×2 (15:05→16:05)
[2020-10-24] MEDS ORDERED: morphine INJ 10 MG/ML 1ML (SYR OR VIAL) ONE (16:11)
--- NOTE | 2020-10-24 16:12 | Progress Note-Post Operative ---
Post-Operative Progess Note Surgeon (s)/Solution Make Up Operator (s) Surgeon MAIKEL SAEED DO Solution Make Up Operator: Carlita Pre-Operative Diagnosis Pneumoperitoneum, Hydroperitoneum, Leukocytosis, Acute renal failure Post-Operative Diagnosis same plus Hemorrhagic/necrotizing Pancreatitis Procedure & Operative Findings Date of Procedure 10/24/20 Procedure Performed/Findings Diagnostic Laparoscopy with Washout and Drainage; placement of Cuong drain Anesthesia Type GET Estimated Blood Loss Estimated blood loss (mL): scant Specimens/Packing Specimens Removed none MAIKEL SAEED DO Oct 24, 2020 16:12
[2020-10-24] MEDS ORDERED: SEVOFLURANE (ULTANE) 15 ML INHAL SOLN ONE (16:16)
[2020-10-24] MEDS ORDERED: GLYCOPYRROLATE 0.2 MG/ML (ROBINUL) 2 ML VIAL ONE (16:17)
[2020-10-24] MEDS ORDERED: NEOSTIGMINE 3 MG/3 ML VIAL ONE (16:17)
[2020-10-24] MEDS ORDERED: ROCURONIUM 10 MG/ML 5 ML SYRINGE IV ONE (16:18)
[2020-10-24] MEDS ORDERED: SUCCINYLCHOLINE INJ 100 MG/5 ML SYR/VIAL ONE (16:18)
[2020-10-24 16:29] VITALS: BP 144/88
[2020-10-24 16:40] VITALS: BP 145/97
[2020-10-24 16:50] VITALS: BP 142/97
[2020-10-24] MEDS: LACTATED RINGERS 1,000 ML IV SCH (16:57)
[2020-10-24 17:00] VITALS: BP 127/99
[2020-10-24] MEDS ORDERED: morphine INJ 10 MG/ML 1ML (SYR OR VIAL) IVP ONE (17:00)
[2020-10-24 17:10] VITALS: BP 128/78
[2020-10-24 17:20] VITALS: BP 134/96
[2020-10-24] MEDS ORDERED: PHENYLEPHRINE 100 MCG/ML 10 ML (ANESTHESIA) SYR ONE (17:37)
[2020-10-24] MEDS ORDERED: inSUlin ASPART (NovoLOG) 1 UNIT/0.01 ML (CHARGE PER UNIT) SC SCH (17:45)
--- NOTE | 2020-10-24 20:03 | Anesthesia-General Post-Op ---
General Patient Condition Mental Status/LOC: Same as Preop Cardiovascular: Satisfactory Nausea/Vomiting: Absent Respiratory: Satisfactory Pain: Controlled Complications: Absent Post Op Complications Complications None Follow Up Care/Instructions Patient Instructions None needed. Anesthesia/Patient Condition Patient Condition Patient is doing well, no complaints, stable vital signs, no apparent adverse anesthesia problems. No complications reported per nursing. JIM PARRA CRNA Oct 24, 2020 20:03
[2020-10-24] MEDS: PIPERACILLIN/TAZOBACTAM (BULK) 4.5 GM in NS (IVPB) 100 ML IV SCH (20:10)
--- NOTE | 2020-10-24 20:21 | OPERATIVE REPORT ---
DATE OF SERVICE: 10/24/2020 PREOPERATIVE DIAGNOSES: Pneumoperitoneum, hydroperitoneum, leukocytosis, lactic acidosis, abdominal pain, coronary artery disease, acute renal failure. POSTOPERATIVE DIAGNOSES: Pneumoperitoneum, hydroperitoneum, leukocytosis, lactic acidosis, abdominal pain, coronary artery disease, acute renal failure, hemorrhagic/necrotizing pancreatitis with cholelithiasis. PROCEDURE: Diagnostic laparoscopy with washout and drainage and placement of Cuong drain. SURGEON: Jv Díaz DO SPECIALIST WOUND CARE: Raul Zazueta DO. ANESTHESIA: General endotracheal tube. SPECIMENS: None. BLOOD LOSS: Scant. FLUIDS: Per anesthesia. POSTOPERATIVE CONDITION: Stable. INDICATION FOR PROCEDURE: The patient is an 80-year-old female who is having abdominal pain, difficulty breathing and thought she was getting a flu, but her pain got worse, came to the emergency room. Initially, they thought she was hypoxic, but her extremities were cold and when they put a probe on her nose, it came up. She had a CT scan, which showed lot of fluid and what I thought was some free air, thought there was a perforated viscus and needed diagnostic laparoscopy. FINDINGS: The patient had hemorrhagic fluid and what looked like a necrotic area on the pancreas, did not appear to be any hollow viscus injury, did see a large stone in the gallbladder, but the gallbladder was not distended or erythematous. PROCEDURE NOTE: After informed consent was obtained, the patient was brought to the operating room, placed on the table in supine position. She was sterilely prepped and draped in normal fashion. We made an incision above the umbilicus with #11 blade, carried down through the skin into subcutaneous tissue, then deepened down to subcutaneous tissue with Bovie electrocautery down to the fascia. Fascia was incised with Bovie electrocautery, then bluntly entered the abdomen, swept a finger around, placed an 11-mm trocar port under direct visualization. Created pneumoperitoneum. Upon entry, noted hemorrhagic fluid, looked around, did not see anything obvious. Started looking, thought saw something on the duodenum but was not there and then removed the liver and then saw what looked like a necrotic area on the pancreas. This looked like maybe the fluid was hemorrhagic pancreatitis. Nothing leaking out. No obvious bleeding at this time. 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 Had placed another 5 mm port in the right upper quadrant using local lidocaine, 11 blade for stab incision and VersaStep system, all done under direct visualization. Used a suction application spec to suction out some of this fluid. Then used the application spec to lift the liver to see this necrotic spot on the pancreas looked around at the small intestine and some of the large intestine, I was not able to move all of it, but did not see anything else, did not see any succuss, no purulent fluid, looked like it was just hemorrhagic fluid and when we moved the gallbladder, there was a large stone in it. There may be more stones, but it was not erythematous or distended, did not look like an acute cholecystitis. At this point, copiously irrigated with normal saline, suctioned this out. I elected to place a 19-[place] Cuong drain, pushed this through the 10 mm port and then pushed the drain under the liver above the stomach above the pancreas and then out in the right pericolic gutter and then grasped this through the right upper quadrant port and pulled this out, sutured this in place with 3-0 silk suture. Looked with the camera, it was in good position. At this point, then removed the camera, allowed the pneumoperitoneum to escape, closed supraumbilical incision, closed the fascia with 0 Vicryl [id number] suture, then irrigated and dried the incision, then closed with 4-0 undyed Monocryl. Area was cleaned and dried, dressings placed. The patient tolerated the procedure. She was transferred to recovery room in stable condition. Sponge, instrument and needle count correct at the end of the case. Dr. Zazueta assisted in this case helping to make incisions, close incisions, identify anatomy, hold anatomy out of the way. Job ID: [id number] DocumentID: [id number] Dictated Date: 10/24/2020 17:31:56 Payroll Representative Date: 10/24/2020 20:20:10 Dictated By: DO LUIS ARMANDO
[2020-10-25] MEDS: ONDANSETRON 4 MG/2 ML (SDV) Z0FRAN IVP PRN ×3 (00:18→20:14)
[2020-10-25] MEDS: morphine INJ 10 MG/ML 1ML (SYR OR VIAL) IVP PRN ×4 (00:18→20:15)
[2020-10-25] MEDS: LACTATED RINGERS 1,000 ML IV SCH ×4 (00:26→18:41)
[2020-10-25 03:17] LABS: BASOPHILS # (AUTO) 0.1 10^3/uL (0.0-0.1); BASOPHILS % (AUTO) 0 % (0-10); EOSINOPHILS % (AUTO) 0 % (0-10); HEMATOCRIT 52 % (35-52); HEMOGLOBIN 17.4 g/dL (11.5-16.0); LYMPHOCYTES # (AUTO) 1.2 10^3/uL (1.0-4.0); LYMPHOCYTES % (AUTO) 9 % (12-44); MEAN CORPUSCULAR HEMOGLOBIN 32 pg (25-34); MEAN CORPUSCULAR HGB CONC 33 g/dL (32-36); MEAN CORPUSCULAR VOLUME 97 fL (80-99); MEAN PLATELET VOLUME 10.6 fL (9.0-12.2); MONOCYTES % (AUTO) 7 % (0-12); NEUTROPHILS # (AUTO) 11.1 10^3/uL (1.8-7.8); NEUTROPHILS % (AUTO) 83 % (42-75); PLATELET COUNT 155 10^3/uL (130-400); WHITE BLOOD COUNT 13.3 10^3/uL (4.3-11.0)
[2020-10-25 03:37] LABS: POTASSIUM 4.5 MMOL/L (3.6-5.0)
[2020-10-25 03:38] LABS: CALCIUM 7.8 MG/DL (8.5-10.1)
[2020-10-25 03:40] LABS: TOTAL PROTEIN 5.2 GM/DL (6.4-8.2)
[2020-10-25 03:41] LABS: BILIRUBIN,TOTAL 1.3 MG/DL (0.1-1.0)
[2020-10-25 03:43] LABS: CREATININE SERUM 1.37 MG/DL (0.60-1.30)
[2020-10-25] MEDS: PIPERACILLIN/TAZOBACTAM (BULK) 4.5 GM in NS (IVPB) 100 ML IV SCH ×3 (03:44→20:07)
--- NOTE | 2020-10-25 07:26 | Diagnostic Imaging Report ---
INDICATION: Postop bowel. Comparison made with prior examination from 10/24/2020. FINDINGS: The heart size is normal. There has been a previous median sternotomy. Central venous catheter has its tip at the cavoatrial junction. There is no pleural effusion, pneumothorax or pneumonia. IMPRESSION: No acute cardiopulmonary abnormality. Dictated by: Dictated on workstation # [id number]
[2020-10-25] MEDS ORDERED: LACTATED RINGERS 1,000 ML IV SCH (08:00)
[2020-10-25] MEDS: PANTOPRAZOLE 40 MG (PROTONIX) VIAL IVP SCH (08:22)
[2020-10-25] MEDS ORDERED: NS IV 500 ML 500 ML ONE (09:55)
--- NOTE | 2020-10-25 11:50 | Progress Note - Surgery ---
Subjective Time Seen by a Provider: 09:07 Subjective/Events-last exam Pt seen and examined, states she is feeling ok but still has some midepigastric pain. Denies nausea and vomiting. Review of Systems General: Fatigue, Malaise Pulmonary: No Dyspnea, No Cough Cardiovascular: No: Chest Pain, Palpitations Gastrointestinal: Abdominal Pain; No: Nausea, Vomiting Focused Exam Lactate Level 10/25/20 02:47: Lactic Acid Level 4.47*H 10/25/20 05:43: Lactic Acid Level 4.82*H 10/25/20 08:35: Lactic Acid Level 5.00*H Lactic Acid Level Laboratory Tests Test 10/25/20 08:35 Lactic Acid Level 5.00 MMOL/L (0.50-2.00) *H Objective Exam Vital Signs Date Time Temp Pulse Resp B/P (MAP) Pulse Ox O2 Delivery O2 Flow Rate FiO2 10/25/20 10:53 122 35 83/53 (63) 95 Room Air 10/25/20 10:00 122 34 132/70 (101) 98 Room Air 10/25/20 09:00 118 32 120/79 (93) 98 Room Air 10/25/20 08:35 94 Room Air 10/25/20 08:00 36.8 122 31 110/84 (93) 97 Room Air 10/25/20 07:00 121 10/25/20 07:00 112 28 151/103 (119) 97 Room Air 10/25/20 06:00 120 25 140/94 (109) 97 Room Air 10/25/20 05:00 120 27 151/95 (113) 97 Room Air 10/25/20 04:00 120 30 142/94 (110) 96 Room Air 10/25/20 04:00 96 Room Air 10/25/20 03:00 120 31 149/99 (116) 97 Room Air 10/25/20 02:00 118 27 128/98 (108) 97 Room Air 10/25/20 01:00 112 20 149/90 (109) 97 Room Air 10/25/20 01:00 115 10/25/20 00:00 112 24 126/87 (100) 97 Room Air 10/25/20 00:00 96 Room Air 10/24/20 23:00 103 20 135/101 (112) 98 Room Air 10/24/20 22:00 105 20 131/99 (110) 99 Room Air 10/24/20 21:00 103 22 134/92 (106) 96 Room Air 10/24/20 20:00 96 Room Air 10/24/20 20:00 93 19 130/91 (104) 99 Room Air 10/24/20 19:00 87 19 137/103 (114) 99 Room Air 10/24/20 19:00 86 10/24/20 17:20 35.8 79 25 134/96 (103) 99 Room Air 10/24/20 17:20 Room Air 10/24/20 17:20 36.4 18 134/96 (109) 96 Room Air 10/24/20 17:19 Room Air 10/24/20 17:10 82 12 128/78 (99) 91 Room Air 10/24/20 17:10 18 128/78 (95) 98 Room Air 10/24/20 17:09 Room Air 10/24/20 17:02 OxyMask 2 10/24/20 17:00 18 127/99 (108) 95 OxyMask 2 10/24/20 17:00 85 22 127/99 (112) 88 Room Air 10/24/20 16:56 OxyMask 6 10/24/20 16:50 18 142/97 (112) 100 OxyMask 6 10/24/20 16:50 89 16 142/97 (117) 100 Room Air 10/24/20 16:45 OxyMask 6 10/24/20 16:40 96 28 145/97 (118) 100 Room Air 10/24/20 16:40 18 145/97 (113) 100 OxyMask 6 10/24/20 16:29 36.2 18 144/88 (106) 98 OxyMask 6 10/24/20 16:29 OxyMask 6 10/24/20 14:24 96 22 145/97 99 Room Air 10/24/20 11:48 34.6 107 31 139/109 (119) 100 OxyMask 15.00 I & O 10/25/20 07:00 Intake Total 2100 ml Output Total 1495 ml Balance 605 ml Capillary Refill : Greater Than 3 Seconds General Appearance: No Apparent Distress, Thin (frail, unable to obtain blood pressure. There is no palpable radial or brachial pulse. She does have a palpable femoral pulse. Heart rate is 110 sinus, oxygen using a nose clip is 100% on nonrebreather. Respiratory rate is 16. Extremities are mottled.) Respiratory: No Accessory Muscle Use, No Respiratory Distress, Decreased Breath Sounds Cardiovascular: Regular Rate, Rhythm, Normal Peripheral Pulses Gastrointestinal: soft, distended; No guarding; rebound (very mild), tenderness (with deep palpation) Extremity: Other (Extremities are mottled and cyanotic) Neurologic/Psychiatric: Alert, Oriented x3 Skin: Normal Color, Warm/Dry Results Lab Laboratory Tests 10/24/20 11:58: Coronavirus 2019 (TINY) Negative 10/24/20 12:13: White Blood Count 18.3H, Red Blood Count 5.52H, Hemoglobin 18.0H, Hematocrit 55H , Mean Corpuscular Volume 100H, Mean Corpuscular Hemoglobin 33, Mean Corpuscular Hemoglobin Concent 33, Red Cell Distribution Width 12.8, Platelet Count 181, Mean Platelet Volume 11.0, Immature Granulocyte % (Auto) 1, Neutrophils (%) (Auto) 86H, Lymphocytes (%) (Auto) 8L, Monocytes (%) (Auto) 6, Eosinophils (%) (Auto) 0, Basophils (%) (Auto) 0, Neutrophils # (Auto) 15.6H, Lymphocytes # (Auto) 1.4, Monocytes # (Auto) 1.0, Eosinophils # (Auto) 0.0, Basophils # (Auto) 0.0, Immature Granulocyte # (Auto) 0.1, Neutrophils % (Manual) 77, Lymphocytes % (Manual) 8, Monocytes % (Manual) 3, Band Neutrophils 12, Toxic Granulation 1+, Blood Morphology Comment NORMAL, D-Dimer 5.40H, Sodium Level 140, Potassium Le hunter 3.9, Chloride Level 106, Carbon Dioxide Level 12L, Anion Gap 22H, Blood Urea Nitrogen 26H, Creatinine 1.80H, Estimat Glomerular Filtration Rate 27, BUN/Creatinine Ratio 14, Glucose Level 301H, Lactic Acid Level 10.14*H, Calcium Level 8.8, Corrected Calcium 9.0, Total Bilirubin 1.0, Aspartate Amino Transf (AST/SGOT) 32, Alanine Aminotransferase (ALT/SGPT) 20, Alkaline Phosphatase 89, Troponin I < 0.028, Total Protein 6.4, Albumin 3.7, Lipase 4585H, Procalcitonin 0.28H 10/24/20 12:20: Urine Color YELLOW, Urine Clarity CLEAR, Urine pH 6.0, Urine Specific Grace 1.025H, Urine Protein 1+H, Urine Glucose (UA) TRACEH, Urine Ketones NEGATIVE, Urine Nitrite NEGATIVE, Urine Bilirubin NEGATIVE, Urine Urobilinogen 0.2, Urine Leukocyte Esterase NEGATIVE, Urine RBC (Auto) NEGATIVE, Urine RBC NONE, Urine WBC NONE, Urine Crystals NONE, Urine Bacteria NEGATIVE, Urine Casts NONE, Urine Mucus NEGATIVE, Urine Culture Indicated NO 10/24/20 12:21: Blood Gas Puncture Site LFT RAD, Blood Gas Patient Temperature 94.2, Arterial Blood pH 7.31*L, Arterial Blood Partial Pressure CO2 25L, Arterial Blood Partial Pressure O2 240H, Arterial Blood HCO3 12*L, Arterial Blood Total CO2 13.3L, Arterial Blood Oxygen Saturation 100, Arterial Blood Base Excess -13.1L, Magnus Test POS, Blood Gas Ventilator Setting NO, Blood Gas Inspired Oxygen 15L 10/24/20 12:30: 10/24/20 22:27: Lactic Acid Level 3.78*H 10/24/20 22:38: Glucometer 153H 10/25/20 00:10: Lactic Acid Level 3.83*H 10/25/20 02:47: White Blood Count 13.3H, Red Blood Count 5.42H, Hemoglobin 17.4H, Hematocrit 52, Mean Corpuscular Volume 97, Mean Corpuscular Hemoglobin 32, Mean Corpuscular Hemoglobin Concent 33, Red Cell Distribution Width 12.9, Platelet Count 155, Mean Platelet Volume 10.6, Immature Granulocyte % (Auto) 0, Neutrophils (%) (Auto) 83H, Lymphocytes (%) (Auto) 9L, Monocytes (%) (Auto) 7, Eosinophils (%) (Auto) 0, Basophils (%) (Auto) 0, Neutrophils # (Auto) 11.1H, Lymphocytes # (Auto) 1.2, Monocytes # (Auto) 1.0, Eosinophils # (Auto) 0.0, Basophils # (Auto) 0.1, Immature Granulocyte # (Auto) 0.1, Sodium Level 139, Potassium Level 4.5, Chloride Level 107, Carbon Dioxide Level 18L, Anion Gap 14, Blood Urea Nitrogen 31H, Creatinine 1.37H, Estimat Glomerular Filtration Rate 37, BUN/Creatinine Ratio 23, Glucose Level 143H, Lactic Acid Level 4.47*H, Calcium Level 7.8L, Corrected Calcium 8.6, Total Bilirubin 1.3H, Aspartate Amino Transf (AST/SGOT) 54H, Alanine Aminotransferase (ALT/SGPT) 33, Alkaline Phosphatase 58, Total Protein 5.2L, Albumin 3.0L, Amylase Level 1703H, Lipase 2358H 10/25/20 05:43: Lactic Acid Level 4.82*H 10/25/20 06:14: Glucometer 138H 10/25/20 08:35: Lactic Acid Level 5.00*H 10/25/20 10:51: Glucometer 119H Assessment/Plan Assessment/Plan Assessment/Plan Hemorrhagic Pancreatitis Bloody fluid in abdomen Leukocytosis Lactic Acidosis Abdominal pain CAD Acute Renal Failure Pt had a spot on pancreas that looked necrotic and had a lot of blood tinged fluid in abdomen, no perforated viscous. We were unable to pass an NGT last night and the stomach was very distended; in addition the CT showed thickened esophagus. Plan for EGD this am. Pt still appears to be very dehydrated and will increase her IV fluids. Pt WBC is better but still has elevated lactic acid. Diag Lap did not show any necrotic bowel. Continue to monitor labs. Clinical Quality Measures DVT/VTE Risk/Contraindication: Risk Factor Score Per Nursin RFS Level Per Nursing on Admit: 4+=Very High Other: RISK FOR FURTHER BLEEDING IN ABDOMEN MAIKEL SAEED DO Oct 25, 2020 11:50
--- NOTE | 2020-10-25 11:55 | Progress Note-Post Operative ---
Post-Operative Progess Note Surgeon (s)/Fish Cutter (s) Surgeon MAIKEL SAEED DO Fish Cutter: none Pre-Operative Diagnosis Hematemesis, Gastric Distention, Thickened Esophagus Post-Operative Diagnosis Esophageal ulcer Hiatal hernia Ulceration of pharynx Procedure & Operative Findings Date of Procedure 10/25/20 Procedure Performed/Findings EGD Anesthesia Type IV sedation by HANNAH Estimated Blood Loss Estimated blood loss (mL): none Specimens/Packing Specimens Removed none MAIKEL SAEED DO Oct 25, 2020 11:55
--- NOTE | 2020-10-25 17:49 | NUR ---
1215 DR SAEED ON FLOOR THIS RN INFORMED OF PTS LOW URINE OUTPUT. ORDERS RECEIVED TO GIVE 500 ML BOLUS IF URINE OUTPUT LESS THAN 100 CC IN 4 HOURS.
--- NOTE | 2020-10-25 19:01 | NUR ---
LATE ENTRY: 1015 THIS RN ALONG WITH Zainab PRINCE RN TURNED PT, PT NOTED TO BECOME UNRESPONSIVE FOR APPROXIMATELY 5-10 SECONDS, VITAL SIGNS REMAINED STABLE. PT WOKE UP AND CONTINUED CONVERSATION WITH THIS RN, DOESN'T RECALL WHAT HAPPENED. DR SAEED ON FLOOR AND NOTIFIED. WILL CONTINUE TO MONITOR.
--- NOTE | 2020-10-25 19:25 | OPERATIVE REPORT ---
DATE OF SERVICE: PREOPERATIVE DIAGNOSES: Hematemesis, gastric distention and thickened esophagus seen esophagus on CT. POSTOPERATIVE DIAGNOSES: Esophageal ulcer, hiatal hernia, ulceration of the posterior oropharynx. PROCEDURE PERFORMED: Esophagogastroduodenoscopy. SURGEON: Jv Díaz DO INTERN RETAIL: None. ANESTHESIA: IV sedation by the BODY DESIGNER. SPECIMENS: None. BLOOD LOSS: None. FLUIDS: Per Anesthesia. POSTOPERATIVE CONDITION: Stable. INDICATION FOR PROCEDURE: The patient is an 80-year-old female who has had an elevated lactic acidosis, has hemorrhagic pancreatitis and had some hematemesis basically seen when while trying to place a NG tube. She had gastric distention and thickened esophagus that was seen on CT. FINDINGS: The patient had an esophageal ulcer just above the GE junction, almost like a hole. A picture was taken. She also had a lot of ulceration or maceration in the posterior oropharynx and she had a large hiatal hernia about 3 cm. PROCEDURE NOTE: After informed consent was obtained, the patient was in her bed in the ICU, Anesthesia gave her medication to sedate and then monitored her vitals - heart rate, blood pressure and pulse oximeter and placed the scope down the mouth through the esophagus and at the base of the esophagus, I saw what looked like a hole, did not appear to be leaking out, but it was very deep ulceration, picture was taken, pushed into the stomach. Stomach looked fine. There was no bleeding and no thickening, pushing the duodenum and then pushed all the way to the third portion of the duodenum. Duodenum looked fine, took a picture, did not see any bleeding, no ulcerations, pulled back, took a picture of the antrum and pylorus, pyloric opening. Retroflexed scope saw a large hiatal hernia and then pulled the scope into the GE junction, took a picture of the hiatal hernia and then just above this again saw this ulceration or almost like a hole, pushed back into the stomach, suctioned all this air out and then pulled the scope up the esophagus. Rest of the esophagus looked okay and then pulled back and just behind the epiglottis in the vallecular area, there is lot of ulceration, some old blood clots and scabbing, took a picture of this, did not see any active bleeding and at this point then pulled the scope out. The patient tolerated the procedure. She was recovered room in the ICU. Job ID: [id number] DocumentID: [id number] Dictated Date: 10/25/2020 11:56:32 Reception Centre Manager Date: 10/25/2020 19:25:05 Dictated By: JV DÍAZ DO
[2020-10-25] MEDS ORDERED: LACTATED RINGERS 1,000 ML IV PRN (21:00)
--- NOTE | 2020-10-25 22:31 | Consultation - Hospitalist ---
HPI History of Present Illness: HPI/Chief Complaint Debbie Nieto is an 80 year old female with PMH HTN, HLD, who presented with shortness of breath and abdominal pain. She reports that this all started on the evening of 10/23. She was having abdominal pain in the center of her abdomen. She reports that her belly was becoming more and more distended. She denies nausea and vomiting. She did have diarrhea. She denies fevers and chills. She denies cough. She denies chest pain. She does not smoke or drink alcohol. She has no history of pancreatitis. She thinks she still has her gallbladder. Her initial workup in the ER found a large amount of abdominal ascites. Her lactic acid was significantly elevated. There was concern for perforation and she was taken to the OR. There was no identified colon perforation. She was found to have a hemorrhagic/necrotizing pancreatitis. An intraabdominal drain was placed. The hospitalist service has been consulted for medical comanagement. Source: patient Exam Limitations: no limitations Date Seen 10/25/20 Attending Physician Jv Díaz John D MD Referring Physician Date of Admission Oct 24, 2020 at 16:12 Home Medications & Allergies Home Medications Reviewed patient Home Medication Reconciliation performed by pharmacy medication reconciliations lead pharmacy technician and/or nursing. Patients Allergies have been reviewed. Allergies Allergies Coded Allergies No Known Drug Allergies (Unverified07/25/19) Past Exhdotq-Dyymnw-Hyllqr Hx Past Med/Social Hx: Reviewed Nursing Past Med/Soc Hx Patient Social History Alcohol Use: Denies Use Recreational Drug Use: No Smoking Status: Never a Smoker Recent Foreign Travel: No Contact w/other who traveled: No Recent Hopitalizations: No Recent Infectious Disease Expo: No Immunizations Up To Date Tetanus Booster (TDap): Unknown Date of Pneumonia Vaccine: Aug 30, 2016 Date of Influenza Vaccine: Jul 30, 2018 Past Medical History Surgeries: Abdominal, CABG Currently Using CPAP: No Currently Using BIPAP: No Cardiac: Coronary Artery Disease, Hypertension : No Reproductive: Yes (ECTOPIC ) Menopausal Genitourinary: Kidney Stones Loss of Vision: Denies Hearing Impairment: Hard of Hearing History of Blood Disorders: No Family History Heart Disease (both parents), Cancer (Denies any cancer in her family), CVA Review of Systems Constitutional: malaise EENTM: no symptoms reported Respiratory: short of breath Cardiovascular: no symptoms reported Gastrointestinal: abdominal pain, diarrhea Genitourinary: no symptoms reported Musculoskeletal: no symptoms reported Skin: no symptoms reported Psychiatric/Neurological: No Symptoms Reported Physical Exam Physical Exam Vital Signs Vital Signs - First Documented 10/24/20 11:48 Temp 34.6 Pulse 107 Resp 31 B/P (MAP) 139/109 (119) Pulse Ox 100 O2 Delivery OxyMask O2 Flow Rate 15.00 Capillary Refill : Greater Than 3 Seconds Height, Weight, BMI Height: 5'1.00" Weight: 105lbs. 0.0oz. [id number]; 20.39 BMI Method:Stated General Appearance: No Apparent Distress, Thin Eyes: Bilateral Eye PERRL, Bilateral Eye EOMI HEENT: PERRL/EOMI, Pharynx Normal Neck: Normal Inspection, Supple Respiratory: Lungs Clear, Normal Breath Sounds, No Respiratory Distress Cardiovascular: No Murmur, Normal Peripheral Pulses, Tachycardia (regular rhythm) Gastrointestinal: Soft, Abnormal Bowel Sounds (decreased), Tenderness Extremity: Normal Inspection, Non Tender, No Pedal Edema Neurologic/Psychiatric: Alert, Oriented x3, No Motor/Sensory Deficits, Normal Mood/Affect Skin: Normal Color, Warm/Dry Results Results/Procedures Labs Laboratory Tests 10/24/20 12:13 10/25/20 02:47 Patient resulted labs reviewed. Imaging: Reviewed Imaging Report Assessment/Plan Assessment and Plan Assess & Plan/Chief Complaint Hemorrhagic pancreatitis Ascites Acute kidney injury Lactic acidosis Polycythemia Goals of care discussion Lipase/Amylase significantly elevated CT Abdomen with poor visualization of pancreas Intraoperatively visualized hemorrhagic/necrotizing pancreatitis Intraabdominal drain in place, serosanguinous output Lactic acid significantly elevated at 10 on arrival, remains elevated at 5, trend Cr 1.8 on arrival, improved to 1.3 this morning Hgb 18 on arrival, 17 today, possibly hemoconcentration due to third spacing Increase fluids to LR 200 ml/hr Started on Zosyn DNR/DNI EGD 10/25 showed ulcer of pharynx, ulcer of esophagus, hiatal hernia DVT prophylaxis: held due to hemorrhagic pancreatitis Diagnosis/Problems Diagnosis/Problems (1) Acute hemorrhagic pancreatitis Status: Acute (2) Lactic acidosis Status: Acute (3) WHITNEY (acute kidney injury) Status: Acute (4) Ascites Status: Acute (5) Polycythemia Status: Acute (6) Goals of care, counseling/discussion Status: Acute (7) Esophageal ulcer Status: Acute (8) Ulcer of pharynx Status: Acute (9) Hiatal hernia Status: Acute Clinical Quality Measures DVT/VTE Risk/Contraindication: Risk Factor Score Per Nursin RFS Level Per Nursing on Admit: 4+=Very High Other: RISK FOR FURTHER BLEEDING IN ABDOMEN MARIEL SHOEMAKER MD Oct 25, 2020 22:31
[2020-10-26] MEDS: LACTATED RINGERS 1,000 ML IV SCH ×6 (00:21→21:37)
[2020-10-26 02:44] LABS: EOSINOPHILS % (AUTO) 0 % (0-10); HEMOGLOBIN 15.4 g/dL (11.5-16.0)
[2020-10-26 02:45] LABS: BASOPHILS # (AUTO) 0.1 10^3/uL (0.0-0.1); BASOPHILS % (AUTO) 1 % (0-10); HEMATOCRIT 45 % (35-52); LYMPHOCYTES # (AUTO) 0.8 10^3/uL (1.0-4.0); LYMPHOCYTES % (AUTO) 6 % (12-44); MEAN CORPUSCULAR HEMOGLOBIN 33 pg (25-34); MEAN CORPUSCULAR HGB CONC 34 g/dL (32-36); MEAN CORPUSCULAR VOLUME 96 fL (80-99); MEAN PLATELET VOLUME 11.1 fL (9.0-12.2); MONOCYTES # (AUTO) 0.9 10^3/uL (0.0-1.0); MONOCYTES % (AUTO) 7 % (0-12); NEUTROPHILS # (AUTO) 11.4 10^3/uL (1.8-7.8); NEUTROPHILS % (AUTO) 86 % (42-75); PLATELET COUNT 126 10^3/uL (130-400); WHITE BLOOD COUNT 13.2 10^3/uL (4.3-11.0)
[2020-10-26 03:05] LABS: ALBUMIN 2.2 GM/DL (3.2-4.5); BILIRUBIN,TOTAL 1.5 MG/DL (0.1-1.0); CALCIUM 7.6 MG/DL (8.5-10.1); CREATININE SERUM 1.53 MG/DL (0.60-1.30); MAGNESIUM 1.8 MG/DL (1.6-2.4); PHOSPHORUS 3.9 MG/DL (2.3-4.7); POTASSIUM 4.5 MMOL/L (3.6-5.0); TOTAL PROTEIN 4.5 GM/DL (6.4-8.2)
[2020-10-26] MEDS: PIPERACILLIN/TAZOBACTAM (BULK) 4.5 GM in NS (IVPB) 100 ML IV SCH ×3 (03:31→20:15)
--- NOTE | 2020-10-26 06:55 | Diagnostic Imaging Report ---
INDICATION: Abdominal pain. Comparison made with prior examination 10/25/2020 FINDINGS: The heart size is normal. 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 There has been previous median sternotomy. Lungs are clear. There is no pleural fusion or pneumothorax. Right internal jugular central venous catheter has its tip at the cavoatrial junction. IMPRESSION: No acute cardiopulmonary abnormality. Ectasia of the thoracic aorta. Dictated by: Dictated on workstation # [id number]
--- NOTE | 2020-10-26 08:19 | Progress Note - Surgery ---
MEGANBRI MED STUDENT 10/26/20 0819: Subjective Date Seen by a Provider: Oct 26, 2020 Time Seen by a Provider: 07:00 Subjective/Events-last exam Pt seen and examined. She was laying in bed in NAD. She had her gown almost completely off, and didn't know why when questioned. She continues to have pain/tenderness to the R side of her abd. CHRISTA drain in place to RUQ, that has been draining large amounts per nursing. Review of Systems General: No Chills HEENT: No Head Aches Pulmonary: No Dyspnea Cardiovascular: No: Chest Pain, Palpitations, Lt Headedness Gastrointestinal: Abdominal Pain; No: Nausea, Vomiting Genitourinary: No Dysuria Neurological: No: Numbness Focused Exam Lactate Level 10/25/20 05:43: Lactic Acid Level 4.82*H 10/25/20 08:35: Lactic Acid Level 5.00*H 10/26/20 02:30: Lactic Acid Level 2.84*H Objective Exam Vital Signs Date Time Temp Pulse Resp B/P (MAP) Pulse Ox O2 Delivery O2 Flow Rate FiO2 10/26/20 08:05 36.2 10/26/20 06:00 116 23 131/79 (96) 94 Room Air 10/26/20 05:00 121 20 123/86 (98) 95 Room Air 10/26/20 04:00 114 25 122/89 (100) 95 Room Air 10/26/20 03:00 78 20 115/97 (103) 94 Room Air 10/26/20 02:00 117 23 125/73 (90) 95 Room Air 10/26/20 01:00 111 10/26/20 01:00 111 23 122/88 (99) 94 Room Air 10/26/20 00:20 35.7 10/26/20 00:11 94 Nasal Cannula 2.00 10/26/20 00:00 112 20 134/80 (98) 93 Room Air 10/25/20 23:00 109 21 121/81 (94) 94 Room Air 10/25/20 22:00 112 21 121/78 (92) 94 Room Air 10/25/20 21:00 112 16 119/70 (86) 94 Room Air 10/25/20 20:08 Room Air 10/25/20 20:00 123 12 115/72 (86) 100 Room Air 10/25/20 20:00 94 Room Air 10/25/20 19:27 35.8 10/25/20 19:00 113 10/25/20 19:00 112 27 108/91 (97) 96 Room Air 10/25/20 18:00 108 21 121/50 (73) 94 Room Air 10/25/20 17:00 113 23 127/36 (66) 98 Room Air 10/25/20 16:00 110 30 127/82 (97) 99 Room Air 10/25/20 15:00 112 34 106/77 (87) 97 Room Air 10/25/20 14:00 118 31 100/74 (83) 87 Room Air 10/25/20 13:45 111 31 111/72 (85) 87 10/25/20 13:30 111 41 104/70 (89) 10/25/20 13:15 115 32 101/85 (91) 10/25/20 13:00 121 40 63/44 (49) Room Air 10/25/20 12:50 126 10/25/20 12:45 120 34 110/74 (87) 91 10/25/20 12:15 120 24 110/74 (92) 93 10/25/20 12:00 120 30 90/68 (81) 96 Room Air 10/25/20 11:30 126 28 126/60 (83) 100 Room Air 10/25/20 11:00 123 34 87/63 (72) 96 Room Air 10/25/20 10:53 122 35 83/53 (63) 95 Room Air 10/25/20 10:00 122 34 132/70 (101) 98 Room Air 10/25/20 09:00 118 32 120/79 (93) 98 Room Air 10/25/20 08:35 94 Room Air I & O 10/26/20 07:00 Intake Total 2120 ml Output Total 1765 ml Balance 355 ml Capillary Refill : Greater Than 3 Seconds General Appearance: No Apparent Distress, Thin HEENT: PERRL/EOMI Neck: Full Range of Motion, Normal Inspection, Supple Respiratory: Chest Non Tender, Lungs Clear, Normal Breath Sounds, No Accessory Muscle Use, No Respiratory Distress, Other (mild tachypnea) Cardiovascular: No Murmur, Normal Peripheral Pulses, Tachycardia (regular rhythm) Gastrointestinal: normal bowel sounds, soft, distended (mild); No guarding; tenderness (RUQ) Extremity: Normal Inspection, Non Tender, No Pedal Edema Neurologic/Psychiatric: Alert, Oriented x3, No Motor/Sensory Deficits, Normal Mood/Affect Skin: Warm/Dry, Erythema (around lap site above umbilicus) Results Lab Laboratory Tests 10/25/20 08:35: Lactic Acid Level 5.00*H 10/25/20 10:51: Glucometer 119H 10/25/20 17:46: Glucometer 87 10/25/20 23:55: Glucometer 95 10/26/20 02:30: White Blood Count 13.2H, Red Blood Count 4.70, Hemoglobin 15.4, Hematocrit 45, M kaylen Corpuscular Volume 96, Mean Corpuscular Hemoglobin 33, Mean Corpuscular Hemoglobin Concent 34, Red Cell Distribution Width 13.2, Platelet Count 126L, Mean Platelet Volume 11.1, Immature Granulocyte % (Auto) 1, Neutrophils (%) (Auto) 86H, Lymphocytes (%) (Auto) 6L, Monocytes (%) (Auto) 7, Eosinophils (%) (Auto) 0, Basophils (%) (Auto) 1, Neutrophils # (Auto) 11.4H, Lymphocytes # (Auto) 0.8L, Monocytes # (Auto) 0.9, Eosinophils # (Auto) 0.0, Basophils # (Auto) 0.1, Immature Granulocyte # (Auto) 0.1, Sodium Level 141, Potassium Level 4.5, Chloride Level 109H, Carbon Dioxide Level 21, Anion Gap 11, Blood Urea Nitrogen 37H, Creatinine 1.53H, Estimat Glomerular Filtration Rate 33, BUN/Creatinine Ratio 24, Glucose Level 107H, Lactic Acid Level 2.84*H, Calcium Level 7.6L, Corrected Calcium 9.0, Phosphorus Level 3.9, Magnesium Level 1.8, Total Bilirubin 1.5H, Aspartate Amino Transf (AST/SGOT) 40H, Alanine Aminotransferase (ALT/SGPT) 21, Alkaline Phosphatase 43, Total Protein 4.5L, Albumin 2.2L Microbiology 10/24/20 Blood Culture - Preliminary, Resulted No growth Assessment/Plan Assessment/Plan Assessment/Plan Hemorrhagic Pancreatitis - Bloody fluid in abdomen per diagnostic laparoscopy 10/24 Leukocytosis - 13.2 Lactic Acidosis - 2.84; improving Hiatal hernia GE ulcer Abdominal pain CAD Acute Renal Failure Diagnostic laparoscopy 10/24 showed a necrotic spot on her pancreas and large amount of blood tinged fluid in abdomen, no perforated viscus. EGD 10/25 showed hiatal hernia, and an ulcer above the GE junction. Continue IV fluids for dehydration, monitor VS/labs Clinical Quality Measures DVT/VTE Risk/Contraindication: Risk Factor Score Per Nursin RFS Level Per Nursing on Admit: 4+=Very High Other: RISK FOR FURTHER BLEEDING IN ABDOMEN SANTOS ZAZUETA DO 10/26/202036: Subjective Subjective/Events-last exam Patient laying in bed. States her abdomen is little bit tender but slowly improving. CHRISTA drain serosanguineous. Lactic still elevated but down. N.p.o. Objective Exam General Appearance: No Apparent Distress, Thin HEENT: PERRL/EOMI Neck: Normal Inspection, Supple Respiratory: Chest Non Tender, No Accessory Muscle Use, No Respiratory Distress Cardiovascular: No JVD, Tachycardia (regular rhythm) Gastrointestinal: distended (mild); No guarding; tenderness (RUQ) Extremity: Normal Inspection, Non Tender Neurologic/Psychiatric: Alert, Oriented x3, Normal Mood/Affect Skin: Normal Color, Warm/Dry; No Erythema Lymphatic: No Adenopathy Assessment/Plan Assessment/Plan Assessment/Plan Hemorrhagic Pancreatitis - Bloody fluid in abdomen per diagnostic laparoscopy 10/24 Leukocytosis - 13.2 Lactic Acidosis - 2.84; improving Hiatal hernia GE ulcer Abdominal pain CAD Acute Renal Failure Diagnostic laparoscopy 10/24 showed a necrotic spot on her pancreas and large amount of blood tinged fluid in abdomen, no perforated viscus. EGD 10/25 showed hiatal hernia, and an ulcer above the GE junction. Continue aggressive IV fluids, monitor VS/labs Continue protonix bowel rest abx Supervisory-Addendum Brief Verification & Attestation Participated in pt care: history, MDM, physical Personally performed: exam, history, MDM, supervision of care Care discussed with: Medical Student Procedures: n/a Results interpretation: Verified all documentation Verification and Attestation of Medical Student E/M Service A medical student performed and documented this service in my presence. I reviewed and verified all information documented by the medical student and made modifications to such information, when appropriate. I personally performed the physical exam and medical decision making. Santos Zazueta, Oct 26, 2020,20:41 BRI GUZMAN MED STUDENT Oct 26, 2020 08:19 SANTOS ZAZUETA DO Oct 26, 2020 20:37
--- NOTE | 2020-10-26 08:33 | Progress Note - Hospitalist ---
Subjective HPI/CC On Admission Date Seen by Provider: Oct 26, 2020 Time Seen by Provider: 08:28 Debbie Nieto is an 80 year old female with PMH HTN, HLD, who presented with shortness of breath and abdominal pain. She reports that this all started on the evening of 10/23. She was having abdominal pain in the center of her abdomen. S he reports that her belly was becoming more and more distended. She denies nausea and vomiting. She did have diarrhea. She denies fevers and chills. She denies cough. She denies chest pain. She does not smoke or drink alcohol. She has no history of pancreatitis. She thinks she still has her gallbladder. Her initial workup in the ER found a large amount of abdominal ascites. Her lactic acid was significantly elevated. There was concern for perforation and she was taken to the OR. There was no identified colon perforation. She was found to have a hemorrhagic/necrotizing pancreatitis. An intraabdominal drain was placed. The hospitalist service has been consulted for medical comanagement. Subjective/Events-last exam Pt reports feeling ok. Some soreness in abdomen. No other complaints. Focused Exam Lactate Level 10/25/20 05:43: Lactic Acid Level 4.82*H 10/25/20 08:35: Lactic Acid Level 5.00*H 10/26/20 02:30: Lactic Acid Level 2.84*H Objective Exam Vital Signs Vital Signs Date Time Temp Pulse Resp B/P (MAP) Pulse Ox O2 Delivery O2 Flow Rate FiO2 10/26/20 08:05 36.2 10/26/20 06:00 116 23 131/79 (96) 94 Room Air 10/26/20 00:11 2.00 Capillary Refill : Greater Than 3 Seconds General Appearance: No Apparent Distress, Thin Respiratory: Lungs Clear, No Respiratory Distress Cardiovascular: Regular Rate, Rhythm, No Murmur Gastrointestinal: Tenderness (appropriate, no guarding), Other (CHRISTA drain in place with sanguinous output, surgical dressing in) Genital/Rectal: Other (lara in place) Extremity: No Calf Tenderness, No Pedal Edema Neurologic/Psychiatric: Alert, Oriented x3 (but slow responses) Results/Procedures Lab Laboratory Tests 10/26/20 02:30 Patient resulted labs reviewed. Imaging: Reviewed Imaging Report Assessment/Plan Assessment and Plan Assess & Plan/Chief Complaint Hemorrhagic pancreatitis Ascites Acute kidney injury- stable Lactic acidosis- improving but persistent Polycythemia Goals of care discussion Lipase/Amylase down to [address] Abdomen with poor visualization of pancreas Intraoperatively visualized hemorrhagic/necrotizing pancreatitis Intraabdominal drain in place, sanguinous output Lactic acid down to 2.84 from 10 Cr 1.5 today Hgb 18 on arrival, down to 15 but BP going down slightly this AM- will check H&H to make sure not dropping significantly LR 200 ml/hr Contnue Zosyn EGD 10/25 showed ulcer of pharynx, ulcer of esophagus, hiatal hernia DVT prophylaxis: held due to hemorrhagic pancreatitis Diagnosis/Problems Diagnosis/Problems (1) Pancreas hemorrhage (2) WHITNEY (acute kidney injury) Status: Acute (3) Ulcer of pharynx Status: Acute (4) Esophageal ulcer Status: Acute (5) Ascites Status: Acute (6) Polycythemia Status: Acute (7) Lactic acidosis Status: Acute (8) Acute hemorrhagic pancreatitis Status: Acute Clinical Quality Measures DVT/VTE Risk/Contraindication: Risk Factor Score Per Nursin RFS Level Per Nursing on Admit: 4+=Very High Other: RISK FOR FURTHER BLEEDING IN ABDOMEN PIEDAD LOZA MD Oct 26, 2020 08:33
[2020-10-26] MEDS: PANTOPRAZOLE 40 MG (PROTONIX) VIAL IVP SCH (08:51)
[2020-10-26 08:57] LABS: HEMOGLOBIN 14.9 g/dL (11.5-16.0)
[2020-10-26] MEDS: fentaNYL INJECTION 100 MCG/2 ML AMP IVP PRN (14:02)
--- NOTE | 2020-10-26 17:07 | NUR ---
Note pt is currently NPO x2d. Note pt has ulcer above GE junction, per chart review. Would not recommend TF at this time. Pt would be a candidate for TPN if plan of care would be this route. Would recommend TPN formula that provides 1375 kcal (25 kcal/kg); and 66 g Pro (1.2 g Pro/kg). Will continue to follow and reassess as pt needs, intake, and status change. Dina Villalpando, MS RD LD [phone] cell
[2020-10-27] MEDS: LACTATED RINGERS 1,000 ML IV SCH ×3 (02:53→21:59)
[2020-10-27 03:04] LABS: BASOPHILS # (AUTO) 0.1 10^3/uL (0.0-0.1); BASOPHILS % (AUTO) 1 % (0-10); EOSINOPHILS % (AUTO) 0 % (0-10); HEMATOCRIT 40 % (35-52); HEMOGLOBIN 13.5 g/dL (11.5-16.0); LYMPHOCYTES # (AUTO) 0.6 10^3/uL (1.0-4.0); LYMPHOCYTES % (AUTO) 5 % (12-44); MEAN CORPUSCULAR HEMOGLOBIN 32 pg (25-34); MEAN CORPUSCULAR HGB CONC 34 g/dL (32-36); MEAN CORPUSCULAR VOLUME 96 fL (80-99); MEAN PLATELET VOLUME 10.7 fL (9.0-12.2); MONOCYTES # (AUTO) 0.6 10^3/uL (0.0-1.0); MONOCYTES % (AUTO) 5 % (0-12); NEUTROPHILS # (AUTO) 11.5 10^3/uL (1.8-7.8); NEUTROPHILS % (AUTO) 89 % (42-75); PLATELET COUNT 138 10^3/uL (130-400); WHITE BLOOD COUNT 12.9 10^3/uL (4.3-11.0)
[2020-10-27] MEDS: PIPERACILLIN/TAZOBACTAM (BULK) 4.5 GM in NS (IVPB) 100 ML IV SCH ×3 (03:06→19:50)
[2020-10-27 03:26] LABS: ALBUMIN 2.2 GM/DL (3.2-4.5); BILIRUBIN,TOTAL 1.3 MG/DL (0.1-1.0); CALCIUM 8.2 MG/DL (8.5-10.1); CREATININE SERUM 1.4 MG/DL (0.60-1.30); MAGNESIUM 2.1 MG/DL (1.6-2.4); PHOSPHORUS 3.5 MG/DL (2.3-4.7); TOTAL PROTEIN 4.7 GM/DL (6.4-8.2)
[2020-10-27] MEDS: morphine INJ 10 MG/ML 1ML (SYR OR VIAL) IVP PRN (05:44)
--- NOTE | 2020-10-27 07:45 | Progress Note - Surgery ---
BRI GUZMAN MED STUDENT 10/27/20 0745: Subjective Date Seen by a Provider: Oct 27, 2020 Time Seen by a Provider: 07:00 Subjective/Events-last exam Pt seen and examined. She was laying in bed resting, NAD. She still has some pain/tenderness to her RUQ. No complaints of N/V, chest pain, SOB. Review of Systems General: No Chills HEENT: No Head Aches Pulmonary: No Dyspnea Cardiovascular: No: Chest Pain, Palpitations, Lt Headedness Gastrointestinal: Abdominal Pain; No: Nausea, Vomiting Genitourinary: No Dysuria Neurological: No: Numbness Focused Exam Lactate Level 10/25/20 05:43: Lactic Acid Level 4.82*H 10/25/20 08:35: Lactic Acid Level 5.00*H 10/26/20 02:30: Lactic Acid Level 2.84*H Objective Exam Vital Signs Date Time Temp Pulse Resp B/P (MAP) Pulse Ox O2 Delivery O2 Flow Rate FiO2 10/27/20 06:00 101 19 129/84 (99) 94 Room Air 10/27/20 05:00 109 23 131/99 (110) Room Air 10/27/20 04:00 103 27 133/66 (88) Room Air 10/27/20 03:00 91 21 127/69 (88) 87 Room Air 10/27/20 02:00 96 23 128/85 (104) 88 Room Air 10/27/20 01:00 99 21 118/77 (91) Room Air 10/27/20 01:00 99 10/27/20 00:20 101 27 120/71 (81) Room Air 10/26/20 23:40 36.4 10/26/20 23:00 106 25 129/74 (99) 90 Room Air 10/26/20 22:00 93 20 123/71 (90) 87 Room Air 10/26/20 21:00 107 25 115/74 (77) Room Air 10/26/20 20:13 108 19 97/60 (77) Room Air 10/26/20 20:00 36.3 10/26/20 20:00 91 Room Air 10/26/20 19:00 111 20 120/70 (92) Room Air 10/26/20 19:00 111 10/26/20 18:00 116 23 95/68 (77) 97 Room Air 10/26/20 17:00 112 23 115/64 (81) 94 Room Air 10/26/20 16:00 114 18 114/70 (85) 95 Room Air 10/26/20 16:00 122 27 114/70 (88) 96 Room Air 10/26/20 15:50 37.2 10/26/20 15:00 106 18 111/75 (86) 96 Room Air 10/26/20 15:00 112 18 111/75 (87) 97 Room Air 10/26/20 14:00 99 26 122/84 (95) 91 Room Air 10/26/20 14:00 112 24 122/84 (97) 91 Room Air 10/26/20 13:30 120 30 91 Room Air 10/26/20 13:00 109 21 112/79 (88) 93 Room Air 10/26/20 13:00 121 25 112/79 (90) 95 Room Air 10/26/20 12:41 126 10/26/20 12:30 107 28 93 Room Air 10/26/20 12:00 36.4 10/26/20 12:00 115 23 114/84 (94) 94 Room Air 10/26/20 12:00 26 114/84 (96) 93 Room Air 10/26/20 11:30 114 23 92 Room Air 10/26/20 11:00 109 21 118/78 (91) 92 Room Air 10/26/20 11:00 121 26 118/78 (94) 94 Room Air 10/26/20 10:00 110 24 117/75 (83) 95 Room Air 10/26/20 10:00 121 28 117/75 (89) 92 Room Air 10/26/20 09:00 112 23 102/84 (90) 92 Room Air 10/26/20 09:00 116 28 102/84 (90) 94 Room Air 10/26/20 08:16 112 28 106/84 (89) 94 Room Air 10/26/20 08:05 36.2 10/26/20 08:00 93 Room Air 10/26/20 08:00 103 16 106/84 (91) 95 Room Air 10/26/20 08:00 115 29 92 Room Air I & O 10/27/20 07:00 Intake Total 3360 ml Output Total 1420 ml Balance 1940 ml Capillary Refill : Greater Than 3 Seconds General Appearance: No Apparent Distress, Chronically ill, Thin HEENT: PERRL/EOMI Neck: Normal Inspection, Non Tender, Supple Respiratory: Chest Non Tender, Lungs Clear, Normal Breath Sounds, No Accessory Muscle Use, No Respiratory Distress Cardiovascular: No JVD, Normal Peripheral Pulses, Irregularly Irregular, Tachycardia Gastrointestinal: distended, tenderness Extremity: Normal Inspection, Non Tender Neurologic/Psychiatric: Alert, Oriented x3, No Motor/Sensory Deficits, Normal Mood/Affect Skin: Normal Color, Warm/Dry, Other (CHRISTA drain to RUQ, supraumbilical lap site, no s/s infection) Lymphatic: No Adenopathy Results Lab Laboratory Tests 10/26/20 08:45: Hemoglobin 14.9, Hematocrit 44 10/26/20 11:27: Glucometer 90 10/26/20 15:19: Glucometer 81 10/26/20 23:10: Glucometer 72 10/27/20 02:54: White Blood Count 12.9H, Red Blood Count 4.21, Hemoglobin 13.5, Hematocrit 40, Mean Corpuscular Volume 96, Mean Corpuscular Hemoglobin 32, Mean Corpuscular Hemoglobin Concent 34, Red Cell Distribution Width 13.2, Platelet Count 138, Mean Platelet Volume 10.7, Immature Granulocyte % (Auto) 1, Neutrophils (%) (Auto) 89H, Lymphocytes (%) (Auto) 5L, Monocytes (%) (Auto) 5, Eosinophils (%) (Auto) 0, Basophils (%) (Auto) 1, Neutrophils # (Auto) 11.5H, Lymphocytes # (Auto) 0.6L, Monocytes # (Auto) 0.6, Eosinophils # (Auto) 0.0, Basophils # (Auto) 0.1, Immature Granulocyte # (Auto) 0.1, Sodium Level 141, Potassium Level 4.0, Chloride Level 108H, Carbon Dioxide Level 24, Anion Gap 9, Blood Urea Nitrogen 35H, Creatinine 1.40H, Estimat Glomerular Filtration Rate 36, BUN/Creatinine Ratio 25, Glucose Level 93, Calcium Level 8.2L, Corrected Calcium 9.6, Phosphorus Level 3.5, Magnesium Level 2.1, Total Bilirubin 1.3H, Aspartate Amino Transf (AST/SGOT) 31, Alanine Aminotransferase (ALT/SGPT) 17, Alkaline Phosphatase 43, Total Protein 4.7L, Albumin 2.2L Microbiology 10/24/20 Blood Culture - Preliminary, Resulted No growth Assessment/Plan Assessment/Plan Assessment/Plan Hemorrhagic Pancreatitis - Bloody fluid in abdomen per diagnostic laparoscopy 10/24 Leukocytosis - 12.9 Lactic Acidosis - 2.84 yesterday, today pending Hiatal hernia GE ulcer Abdominal pain CAD Acute Renal Failure Diagnostic laparoscopy 10/24 showed a necrotic spot on her pancreas and large amount of blood tinged fluid in abdomen, no perforated viscus. EGD 10/25 showed hiatal hernia, and an ulcer above the GE junction. Continue aggressive IV fluids, monitor VS/labs, IV nutrition Continue protonix bowel rest, abx Clinical Quality Measures DVT/VTE Risk/Contraindication: Risk Factor Score Per Nursin RFS Level Per Nursing on Admit: 4+=Very High Other: RISK FOR FURTHER BLEEDING IN ABDOMEN SANTOS ZAZUETA DO 10/27/20 1644: Subjective Subjective/Events-last exam Patient feeling a little better today. Wanting food. WBC trending down. Urine output okay. No n/v Pain right upper quadrant. Drain serosang. Small amount of flatus. Objective Exam General Appearance: No Apparent Distress, Chronically ill, Thin HEENT: PERRL/EOMI Neck: Normal Inspection, Non Tender, Supple Respiratory: Chest Non Tender, No Accessory Muscle Use, No Respiratory Distress Cardiovascular: No JVD, Tachycardia Gastrointestinal: soft, distended (drain serosang minimal distention), tenderness (incisional) Extremity: Normal Inspection, Non Tender Neurologic/Psychiatric: Alert, Oriented x3 Skin: Normal Color, Warm/Dry Lymphatic: No Adenopathy Assessment/Plan Assessment/Plan Assessment/Plan Hemorrhagic Pancreatitis - Bloody fluid in abdomen per diagnostic laparoscopy 10/24 Leukocytosis - 12.9 Lactic Acidosis Hiatal hernia GE ulcer Abdominal pain CAD Acute Renal Failure Diagnostic laparoscopy 10/24 showed a necrotic spot on her pancreas and large amount of blood tinged fluid in abdomen, no perforated viscus. EGD 10/25 showed hiatal hernia, and an ulcer above the GE junction. IV fluids, monitor VS/labs Continue protonix start clears zosyn Supervisory-Addendum Brief Verification & Attestation Participated in pt care: history, MDM, physical Personally performed: exam, history, MDM, supervision of care Care discussed with: Medical Student Procedures: n/a Results interpretation: Verified all documentation Verification and Attestation of Medical Student E/M Service A medical student performed and documented this service in my presence. I reviewed and verified all information documented by the medical student and made modifications to such information, when appropriate. I personally performed the physical exam and medical decision making. Santos Zazueta, Oct 27, 2020,16:44 BRI GUZMAN MED STUDENT Oct 27, 2020 07:45 SANTOS ZAZUETA DO Oct 27, 2020 16:44
--- NOTE | 2020-10-27 08:09 | Diagnostic Imaging Report ---
INDICATION: Post bowel surgery. TECHNIQUE: Single view chest 2:56 AM. CORRELATION STUDY: 10/26/2020 FINDINGS: Poststernotomy changes. Right IJ central line tip over the high right atrium. Heart size and mediastinum are stable. Calcification of the aortic arch. Vasculature is slightly increased. Opacities at both lung bases, left significantly greater than right, likely a combination of infiltrate and/or atelectasis along with effusion. Presumed drainage tubing over the upper abdomen. IMPRESSION: 1. Bibasilar areas of atelectasis and/or infiltrate along with effusion left significantly greater than right, adversely changed from prior. Vasculature also appears to be increased with some early congestion present. Dictated by: Dictated on workstation # [id number]
[2020-10-27] MEDS: PANTOPRAZOLE 40 MG (PROTONIX) VIAL IVP SCH (08:23)
--- NOTE | 2020-10-27 14:23 | NUR ---
Note pt is currently NPO x3d, per chart review. Would recommend diet advancement to Clear Liquid to determine if pt can tolerate PO intake. If pt fails to tolerate diet, pt may benefit from enteral or parenteral nutrition to meet needs and reduce risk of malnutrition. Will continue to follow and reassess as pt needs, intake, and status change. Dina Villalpando MS RD LD [phone] cell
[2020-10-27] MEDS ORDERED: FUROSEMIDE 40 MG/4 ML INJ (LASIX) IVP NR (15:30)
--- NOTE | 2020-10-27 15:32 | Progress Note - Hospitalist ---
Subjective HPI/CC On Admission Date Seen by Provider: Oct 27, 2020 Time Seen by Provider: 15:28 Debbie Nieto is an 80 year old female with PMH HTN, HLD, who presented with shortness of breath and abdominal pain. She reports that this all started on the evening of 10/23. She was having abdominal pain in the center of her abdomen. S he reports that her belly was becoming more and more distended. She denies nausea and vomiting. She did have diarrhea. She denies fevers and chills. She denies cough. She denies chest pain. She does not smoke or drink alcohol. She has no history of pancreatitis. She thinks she still has her gallbladder. Her initial workup in the ER found a large amount of abdominal ascites. Her lactic acid was significantly elevated. There was concern for perforation and she was taken to the OR. There was no identified colon perforation. She was found to have a hemorrhagic/necrotizing pancreatitis. An intraabdominal drain was placed. The hospitalist service has been consulted for medical comanagement. Subjective/Events-last exam Pt reports doing better today. No complaints. No flatus or BM yet. Focused Exam Lactate Level 10/25/20 05:43: Lactic Acid Level 4.82*H 10/25/20 08:35: Lactic Acid Level 5.00*H 10/26/20 02:30: Lactic Acid Level 2.84*H Objective Exam Vital Signs Vital Signs Date Time Temp Pulse Resp B/P (MAP) Pulse Ox O2 Delivery O2 Flow Rate FiO2 10/27/20 15:00 107 25 118/78 (91) 88 Nasal Cannula 2.00 10/27/20 11:48 35.8 Capillary Refill : Greater Than 3 Seconds General Appearance: No Apparent Distress, Thin Respiratory: Decreased Breath Sounds; No Rhonci, No Wheezing; Other (on 2lpm NC) Cardiovascular: Regular Rate, Rhythm, No Murmur Gastrointestinal: Non Tender, Soft, Abnormal Bowel Sounds (quiet) Extremity: No Calf Tenderness, No Pedal Edema Neurologic/Psychiatric: Alert, Oriented x3 (mentation much improved from yes terday), Normal Mood/Affect Results/Procedures Lab Laboratory Tests 10/27/20 02:54 Patient resulted labs reviewed. Imaging: Reviewed Imaging Report Assessment/Plan Assessment and Plan Assess & Plan/Chief Complaint Hemorrhagic pancreatitis Ascites Acute kidney injury- stable Lactic acidosis- improving but persistent Polycythemia Goals of care discussion Lipase/Amylase down to [address] Abdomen with poor visualization of pancreas Intraoperatively visualized hemorrhagic/necrotizing pancreatitis Intraabdominal drain in place, sanguinous output but less so than yesterday Cr 1.4 today Hgb 18 on arrival, down to 15 but BP going down slightly this AM- will check H&H to make sure not dropping significantly Contnue Zosyn EGD 10/25 showed ulcer of pharynx, ulcer of esophagus, hiatal hernia Hypoxia CXR with vasculr congestion noted Will do 1 dose IV lasix Will DC IVF If hypoxia increase may need CTA if creatinine improves as has not been on Lovenox due to hemorrhagic pancreatitis DVT prophylaxis: held due to hemorrhagic pancreatitis Diagnosis/Problems Diagnosis/Problems (1) Pancreas hemorrhage (2) WHITNEY (acute kidney injury) Status: Acute (3) Ulcer of pharynx Status: Acute (4) Esophageal ulcer Status: Acute (5) Ascites Status: Acute (6) Polycythemia Status: Acute (7) Lactic acidosis Status: Acute (8) Acute hemorrhagic pancreatitis Status: Acute Clinical Quality Measures DVT/VTE Risk/Contraindication: Risk Factor Score Per Nursin RFS Level Per Nursing on Admit: 4+=Very High Other: RISK FOR FURTHER BLEEDING IN ABDOMEN PIEDAD LOZA MD Oct 27, 2020 15:32
[2020-10-27] MEDS: fentaNYL INJECTION 100 MCG/2 ML AMP IVP PRN ×3 (18:25→23:07)
--- NOTE | 2020-10-27 21:42 | NUR ---
CONTACTED DR. LLANES AT THIS TIME. INFORMED HIM OF CHANGING THE CHRISTA DRAIN DRESSING X2, SINCE ARRIVAL. 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 DISCUSSED PAIN REGIME. CHANGE PRN PAIN MEDICATION, SEE EMAR. DISCUSSED FLUIDS, ORDERS TO CHANGE, SEE EMAR.
[2020-10-27] MEDS ORDERED: fentaNYL INJECTION 100 MCG/2 ML AMP ONE (21:50)
[2020-10-27] MEDS ORDERED: LACTATED RINGERS 1,000 ML IV ONE (21:50)
[2020-10-28] MEDS: PIPERACILLIN/TAZOBACTAM (BULK) 4.5 GM in NS (IVPB) 100 ML IV SCH ×3 (02:56→20:15)
[2020-10-28] MEDS: fentaNYL INJECTION 100 MCG/2 ML AMP IVP PRN ×7 (02:57→22:59)
[2020-10-28 03:10] LABS: BASOPHILS # (AUTO) 0.1 10^3/uL (0.0-0.1); BASOPHILS % (AUTO) 1 % (0-10); EOSINOPHILS # (AUTO) 0.1 10^3/uL (0.0-0.3); EOSINOPHILS % (AUTO) 0 % (0-10); HEMATOCRIT 37 % (35-52); HEMOGLOBIN 12.3 g/dL (11.5-16.0); LYMPHOCYTES # (AUTO) 0.8 10^3/uL (1.0-4.0); LYMPHOCYTES % (AUTO) 6 % (12-44); MEAN CORPUSCULAR HEMOGLOBIN 32 pg (25-34); MEAN CORPUSCULAR HGB CONC 34 g/dL (32-36); MEAN CORPUSCULAR VOLUME 96 fL (80-99); MEAN PLATELET VOLUME 10.4 fL (9.0-12.2); MONOCYTES # (AUTO) 0.8 10^3/uL (0.0-1.0); MONOCYTES % (AUTO) 6 % (0-12); NEUTROPHILS # (AUTO) 11.3 10^3/uL (1.8-7.8); NEUTROPHILS % (AUTO) 85 % (42-75); PLATELET COUNT 139 10^3/uL (130-400); WHITE BLOOD COUNT 13.2 10^3/uL (4.3-11.0)
[2020-10-28 03:19] LABS: ALBUMIN 2.1 GM/DL (3.2-4.5)
[2020-10-28 03:20] LABS: POTASSIUM 3.5 MMOL/L (3.6-5.0)
[2020-10-28 03:21] LABS: CALCIUM 7.9 MG/DL (8.5-10.1)
[2020-10-28 03:22] LABS: TOTAL PROTEIN 4.4 GM/DL (6.4-8.2)
[2020-10-28 03:24] LABS: BILIRUBIN,TOTAL 0.8 MG/DL (0.1-1.0)
[2020-10-28 03:26] LABS: CREATININE SERUM 1.33 MG/DL (0.60-1.30)
[2020-10-28 03:28] LABS: MAGNESIUM 2.1 MG/DL (1.6-2.4)
[2020-10-28] MEDS: POTASSIUM CL 10MEQ/50ML IVPB 50 ML IV SCH ×3 (04:35→08:03)
[2020-10-28] MEDS: PANTOPRAZOLE 40 MG (PROTONIX) VIAL IVP SCH (08:00)
[2020-10-28] MEDS: KCL 20 MEQ TAB (K-DUR) PO SCH (08:01)
[2020-10-28] MEDS: LACTATED RINGERS 1,000 ML IV SCH ×2 (08:02→17:39)
[2020-10-28] MEDS: MAGNESIUM 1 GM/100 ML IVPB 100 ML IV SCH (08:02)
--- NOTE | 2020-10-28 08:04 | Progress Note - Surgery ---
BRI GUZMAN MED STUDENT 10/28/20 0804: Subjective Date Seen by a Provider: Oct 28, 2020 Time Seen by a Provider: 06:50 Subjective/Events-last exam Pt seen and examined. She was laying in bed resting, NAD. She has no complaints this morning. Denies chest pain, SOB, N/V. VALERIO drain has been draining moderate amounts around the insertion site rather than into the drain. Mild abd tenderness. Review of Systems General: No Chills HEENT: No Head Aches Pulmonary: No Dyspnea Cardiovascular: No: Chest Pain, Palpitations, Lt Headedness Gastrointestinal: Abdominal Pain; No: Nausea, Vomiting Genitourinary: No Dysuria Neurological: Weakness; No: Numbness Focused Exam Lactate Level 10/25/20 08:35: Lactic Acid Level 5.00*H 10/26/20 02:30: Lactic Acid Level 2.84*H Objective Exam Vital Signs Date Time Temp Pulse Resp B/P (MAP) Pulse Ox O2 Delivery O2 Flow Rate FiO2 10/28/20 07:33 36.3 10/28/20 06:00 83 14 148/91 (110) 94 Nasal Cannula 3.00 10/28/20 05:45 Nasal Cannula 3.00 10/28/20 05:00 81 24 150/86 (107) 95 Nasal Cannula 4.00 10/28/20 04:00 89 14 135/84 (101) 99 Nasal Cannula 4.00 10/28/20 03:00 100 18 135/84 (102) Nasal Cannula 4.00 10/28/20 02:00 85 19 142/89 (114) 100 Nasal Cannula 4.00 10/28/20 01:00 96 10/28/20 01:00 96 32 121/70 (83) 97 Nasal Cannula 4.00 10/28/20 00:00 86 12 142/83 (104) 100 Nasal Cannula 4.00 10/27/20 23:45 36.1 Nasal Cannula 4.00 10/27/20 23:00 97 14 128/85 (99) 89 Nasal Cannula 4.00 10/27/20 22:05 Nasal Cannula 4.00 10/27/20 22:00 95 18 115/77 (86) 93 Nasal Cannula 2.00 10/27/20 21:00 96 16 127/82 (91) 92 Nasal Cannula 2.00 10/27/20 20:00 97 17 131/83 (97) 94 Nasal Cannula 2.00 10/27/20 19:57 Nasal Cannula 2.00 10/27/20 19:52 94 Nasal Cannula 2.00 10/27/20 19:10 35.6 10/27/20 19:00 116 10/27/20 19:00 116 24 113/77 (90) 91 2.00 10/27/20 18:00 88 25 115/84 (94) Nasal Cannula 2.00 10/27/20 17:00 93 15 139/80 (99) 95 Nasal Cannula 2.00 10/27/20 16:38 35.8 10/27/20 16:00 79 15 142/76 (98) 94 Nasal Cannula 2.00 10/27/20 15:00 107 25 118/78 (91) 88 Nasal Cannula 2.00 10/27/20 14:00 88 18 134/73 (93) 96 Nasal Cannula 2.00 10/27/20 13:00 93 22 140/82 (101) 94 Nasal Cannula 2.00 10/27/20 12:41 96 10/27/20 12:00 101 28 137/77 (97) 95 Nasal Cannula 2.00 10/27/20 11:48 35.8 10/27/20 11:00 101 17 141/74 (96) 92 Nasal Cannula 2.00 10/27/20 10:00 96 18 147/100 (116) 92 Nasal Cannula 2.00 10/27/20 09:00 91 17 140/85 (103) 94 Nasal Cannula 2.00 10/27/20 08:15 Nasal Cannula 2.00 10/27/20 08:00 94 Nasal Cannula 2.00 10/27/20 08:00 35.7 10/27/20 08:00 96 18 140/79 (99) 94 Room Air I & O 10/28/20 07:00 Intake Total 425 ml Output Total 1845 ml Balance -1420 ml Capillary Refill : Greater Than 3 Seconds General Appearance: No Apparent Distress, Chronically ill, Thin HEENT: PERRL/EOMI Neck: Normal Inspection, Non Tender, Supple Respiratory: Chest Non Tender, Lungs Clear, Normal Breath Sounds, No Accessory Muscle Use, No Respiratory Distress Cardiovascular: Regular Rate, Rhythm, No Gallop, No JVD, No Murmur, Normal Peripheral Pulses Gastrointestinal: soft, abnormal bowel sounds (hypoactive x4), distended (drain serosang minimal distention); No guarding, No rebound; tenderness (incisional) Extremity: Normal Inspection, Non Tender, No Pedal Edema Neurologic/Psychiatric: Alert, Oriented x3, No Motor/Sensory Deficits, Normal Mood/Affect Skin: Normal Color, Warm/Dry Lymphatic: No Adenopathy Results Lab Laboratory Tests 10/27/20 11:48: Glucometer 69L 10/27/20 17:54: Glucometer 53*L 10/27/20 18:29: Glucometer 84 10/27/20 22:32: Glucometer 102 10/28/20 03:01: White Blood Count 13.2H, Red Blood Count 3.81, Hemoglobin 12.3, Hematocrit 37, Mean Corpuscular Volume 96, Mean Corpuscular Hemoglobin 32, Mean Corpuscular Hemoglobin Concent 34, Red Cell Distribution Width 13.2, Platelet Count 139, Mean Platelet Volume 10.4, Immature Granulocyte % (Auto) 2, Neutrophils (%) (Auto) 85H, Lymphocytes (%) (Auto) 6L, Monocytes (%) (Auto) 6, Eosinophils (%) (Auto) 0, Basophils (%) (Auto) 1, Neutrophils # (Auto) 11.3H, Lymphocytes # (Auto) 0.8L, Monocytes # (Auto) 0.8, Eosinophils # (Auto) 0.1, Basophils # (Auto) 0.1, Immature Granulocyte # (Auto) 0.2H, Sodium Level 142, Potassium Level 3.5L, Chloride Level 110H, Carbon Dioxide Level 24, Anion Gap 8, Blood Urea Nitrogen 35H, Creatinine 1.33H, Estimat Glomerular Filtration Rate 38, BUN/Creatinine Ratio 26, Glucose Level 131H, Calcium Level 7.9L, Corrected Calcium 9.4, Phosphorus Level 3.0, Magnesium Level 2.1, Total Bilirubin 0.8, Aspartate Amino Transf (AST/SGOT) 25, Alanine Aminotransferase (ALT/SGPT) 17, Alkaline Phosphatase 46, Total Protein 4.4L, Albumin 2.1L Microbiology 10/24/20 Blood Culture - Preliminary, Resulted No growth Assessment/Plan Assessment/Plan Assessment/Plan Hemorrhagic Pancreatitis - Bloody fluid in abdomen per diagnostic laparoscopy 10/24 Leukocytosis - 13.2, 12.9 yesterday Lactic Acidosis Hiatal hernia GE ulcer Abdominal pain CAD Acute Renal Failure Diagnostic laparoscopy 10/24 showed a necrotic spot on her pancreas and large amount of blood tinged fluid in abdomen, no perforated viscus. EGD 10/25 showed hiatal hernia, and an ulcer above the GE junction. VALERIO drain to RUQ draining more around the insertion site Tolerating clears IV fluids, monitor VS/labs Continue protonix, zosyn Clinical Quality Measures DVT/VTE Risk/Contraindication: Risk Factor Score Per Nursin RFS Level Per Nursing on Admit: 4+=Very High Other: RISK FOR FURTHER BLEEDING IN ABDOMEN SANTOS ZAZUETA DO 10/29/20 1425: Subjective Subjective/Events-last exam Laying in bed. Passing flatus. Mild abdominal pain. VALERIO serosang. Lots of fluid draining around valerio. Denies n/v fever sweats chills shortness of breath or chest pain. Objective Exam General Appearance: No Apparent Distress, Chronically ill, Thin HEENT: PERRL/EOMI, Normal ENT Inspection Neck: Normal Inspection, Non Tender, Supple Respiratory: Chest Non Tender, No Accessory Muscle Use, No Respiratory Distress Cardiovascular: Regular Rate, Rhythm, No JVD Gastrointestinal: distended (drain serosang minimal distention); No guarding, No rebound; tenderness (incisional) Extremity: Normal Inspection, Non Tender Neurologic/Psychiatric: Alert, Oriented x3, Normal Mood/Affect Skin: Normal Color, Warm/Dry Lymphatic: No Adenopathy Assessment/Plan Assessment/Plan Assessment/Plan Hemorrhagic Pancreatitis - Bloody fluid in abdomen per diagnostic laparoscopy 10/24 Leukocytosis - 13.2, 12.9 yesterday Lactic Acidosis Hiatal hernia GE ulcer Abdominal pain CAD Acute Renal Failure Diagnostic laparoscopy 10/24 showed a necrotic spot on her pancreas and large amount of blood tinged fluid in abdomen, no perforated viscus. EGD 10/25 showed hiatal hernia, and an ulcer above the GE junction. VALERIO drain to RUQ draining more around the insertion site serosang clears IV fluids, monitor VS/labs Continue protonix, zosyn Supervisory-Addendum Brief Verification & Attestation Participated in pt care: history, MDM, physical Personally performed: exam, history, MDM, supervision of care Care discussed with: Medical Student Procedures: n/a Results interpretation: Verified all documentation Verification and Attestation of Medical Student E/M Service A medical student performed and documented this service in my presence. I reviewed and verified all information documented by the medical student and made modifications to such information, when appropriate. I personally performed the physical exam and medical decision making. Santos Zazueta, Oct 28, 2020,14:27 BRI GUZMAN MED STUDENT Oct 28, 2020 08:04 SANTOS ZAZUETA DO Oct 29, 2020 14:25
--- NOTE | 2020-10-28 08:06 | Diagnostic Imaging Report ---
INDICATION: Abdominal surgery AP view of the chest is obtained with comparison made to study one day earlier. There is continued bilateral airspace disease and blunting of left costophrenic sulcus. No pneumothorax identified. There is gaseous distention of the stomach and esophagus. IMPRESSION: Continued basilar infiltrates and pleural fluid. Note is made of gaseous distention of stomach and esophagus. Dictated by: Dictated on workstation # [id number]
--- NOTE | 2020-10-28 08:56 | Progress Note - Hospitalist ---
Subjective HPI/CC On Admission Date Seen by Provider: Oct 28, 2020 Time Seen by Provider: 08:52 Debbie Nieto is an 80 year old female with PMH HTN, HLD, who presented with shortness of breath and abdominal pain. She reports that this all started on the evening of 10/23. She was having abdominal pain in the center of her abdomen. S he reports that her belly was becoming more and more distended. She denies nausea and vomiting. She did have diarrhea. She denies fevers and chills. She denies cough. She denies chest pain. She does not smoke or drink alcohol. She has no history of pancreatitis. She thinks she still has her gallbladder. Her initial workup in the ER found a large amount of abdominal ascites. Her lactic acid was significantly elevated. There was concern for perforation and she was taken to the OR. There was no identified colon perforation. She was found to have a hemorrhagic/necrotizing pancreatitis. An intraabdominal drain was placed. The hospitalist service has been consulted for medical comanagement. Subjective/Events-last exam Pt reports doing well. Passed some flatus yesterday. Tolerating clears well. No other complaints. Focused Exam Lactate Level 10/26/20 02:30: Lactic Acid Level 2.84*H Objective Exam Vital Signs Vital Signs Date Time Temp Pulse Resp B/P (MAP) Pulse Ox O2 Delivery O2 Flow Rate FiO2 10/28/20 13:07 95 10/28/20 13:00 28 131/82 (98) 90 Nasal Cannula 3.00 10/28/20 12:50 36.5 Capillary Refill : Greater Than 3 Seconds General Appearance: No Apparent Distress, Thin Respiratory: Lungs Clear, No Accessory Muscle Use, Other (on 3lpm NC) Cardiovascular: Regular Rate, Rhythm, No Murmur Gastrointestinal: Abnormal Bowel Sounds (quiet) Extremity: No Pedal Edema Neurologic/Psychiatric: Alert, Oriented x3 Results/Procedures Lab Laboratory Tests 10/28/20 03:01 Patient resulted labs reviewed. Imaging: Reviewed Imaging Report Assessment/Plan Assessment and Plan Assess & Plan/Chief Complaint Hemorrhagic pancreatitis Ascites Acute kidney injury- stable Lactic acidosis- improving but persistent Polycythemia Goals of care discussion Lipase/Amylase down to [address] Abdomen with poor visualization of pancreas Intraoperatively visualized hemorrhagic/necrotizing pancreatitis Intraabdominal drain in place, sanguinous output but less so than yesterday Cr 1.33 today Hgb 18 on arrival, down to 12 today but hemodynamically stable, monitor closely Contnue Zosyn EGD 10/25 showed ulcer of pharynx, ulcer of esophagus, hiatal hernia Hypoxia CXR with vascular congestion noted yesterday, received lasix COVID negative On Zosyn If hypoxia increases may need CTA if creatinine improves as has not been on Lovenox due to hemorrhagic pancreatitis DVT prophylaxis: held due to hemorrhagic pancreatitis Diagnosis/Problems Diagnosis/Problems (1) Pancreas hemorrhage (2) WHITNEY (acute kidney injury) Status: Acute (3) Ulcer of pharynx Status: Acute (4) Esophageal ulcer Status: Acute (5) Ascites Status: Acute (6) Polycythemia Status: Acute (7) Lactic acidosis Status: Acute (8) Acute hemorrhagic pancreatitis Status: Acute Clinical Quality Measures DVT/VTE Risk/Contraindication: Risk Factor Score Per Nursin RFS Level Per Nursing on Admit: 4+=Very High Other: RISK FOR FURTHER BLEEDING IN ABDOMEN PIEDAD LOZA MD Oct 28, 2020 08:56
--- NOTE | 2020-10-28 14:26 | NUR ---
"RD ASSESSMENT PMHx: HTN; HLD; CAD; PT INTERACTION: Note pt currently in COVID isolation, per chart review. Note all diet information for nutrition assessment is per Daniel RN, or per chart review. Daniel states current appetite appears good. Note pt recently advanced to Clear Liquid diet and is tolerating well, per Daniel. Note avg PO intake 75% x2meal, per chart review. Daniel states no issues with nausea, vomiting, or diarrhea that he is aware. Daniel states pt may have some issues with constipation, but it could be from poor PO intake prior to diet advancement. Note no BM has been recorded, and pt not currently on bowel regimen per chart review. ABNORMAL NUTRITION-RELATED LAB VALUES LOW: K 3.5; Ca 7.9; Pro 4.4; alb 2.1; HIGH: Cl 110; BUN 35; cr 1.33; glu 131; Est. kcal needs: 9592-9677 kcal | 25-30 kcal/kg Est. Pro needs: 59-70 g Pro | 1.0-1.2 g Pro/kg PES STATEMENT: Given current PO intake, no nutrition diagnosis at this time (NO-1.1). INTERVENTION: Continue with current diet order of Clear Liquid diet. Pt may benefit from diet advancement, when medically able and as tolerated. Continue with current supplementation order of Ensure Clear, for increased kcal intake. Provides 250 kcal and 8 g Pro per serving. Will continue to follow and reassess as pt needs, intake, and status change. Charla DAVIDSON, MS RD LD [phone] cell"
--- NOTE | 2020-10-28 15:57 | Physical Therapy Evaluation ---
PT Evaluation-General Medical Diagnosis Admission Date Oct 24, 2020 at 16:12 Medical Diagnosis: hemorrhagic/necrotizing pancreatitis Onset Date: Oct 24, 2020 Therapy Diagnosis Therapy Diagnosis: impaired mobility, strength, endurance Height/Weight Height (Feet): 5 Height (Inches): 1.00 Weight (Pounds): 105 Weight (Ounces): 0.0 Precautions Precautions/Isolations: Fall Prevention, Standard Precautions Referral Physician: Carlita Reason for Referral: Evaluation/Treatment Medical History Pertinent Medical History: CABG, CAD, HTN Additional Medical History Past Medical History Surgeries: Yes (ECTOPIC ) Abdominal, CABG Respiratory: No Currently Using CPAP: No Currently Using BIPAP: No Cardiac: No Coronary Artery Disease, Hypertension Neurological: No Reproductive Disorders: Yes (ECTOPIC ) [employer] 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 4-Dzukrfvwlp-lpiuqwi completes the activity by him/herself with no assistance from a helper. 5-Set-up or Clean-up Assistance-helper sets up or cleans up; patient completes activity. [place] assists only prior to or following the activity. 4-Supervision or Touching Assistance-helper provides verbal cues and/or touching/steadying and/or contact guard assistance as patient completes activity. Assistance may be provided throughout the activity or intermittently. 3-Partial/Moderate Assistance-helper does LESS THAN HALF the effort. [place] lifts, holds or supports trunk or limbs, but provides less than half the effort. 2-Substantial/Maximal Assistance-helper does MORE THAN HALF the effort. [place] lifts or holds trunk or limbs and provides more than half the effort. 2-Myzavzcyl-xznqxl does ALL the effort. Patient does none of the effort to co mplete the activity. Or, the assistance of 2 or more helpers is required for the patient to complete the activity. If activity was not attempted, code reason: 7-Patient Refused. 9-Not Applicable-not attempted and the patient did not perform the activity before the current illness, exacerbation or injury. 10-Not Attempted due to Environmental Limitations-(lack of equipment, weather restraints, etc.). 88-Not Attempted due to Medical Conditions or Safety Concerns. Bed Mobility: 6 Transfers (B,C,W/C): 6 Gait: 6 Stairs: 6 Indoor Mobility (Ambulation): Independent Stairs: Independent PT Evaluation-Current Subjective Patient in bed pre tx, agrees to PT, has 2/10 pain in her abdomen. Pt/Family Goals none stated Objective Patient Orientation: Person, Place, Situation Attachments: Oxygen, Drains, IV ROM/Strength ROM Lower Extremities WNL Strength Lower Extremities 4/5 gross BLE Sensory Hearing: Functional Sensation Right Lower Extremit: Intact Sensation Left Lower Extremity: Intact Transfers Roll Left to Right (QC): 3 Sit to Lying (QC): 3 Lying to Sitting/Side of Bed(Q: 3 Sit to Stand (QC): 3 Chair/Pge-cz-Lhnwl Xfer(QC): 3 Patient sits to the side of the bed with min assist, stands with min assist, starts having a BM and she quickly ambulates a few feet to the commode in the IC U room, she slowly declines when sitting on the commode, legs are shaking, and says she isn't sure if she can make it back. However, she does stand with min assist, therapy wipes her, and she is able to ambulate a few feet back to the bed with min assist and lay down with mod assist. Patient's O2 goes down into the 80's and comes back up to 90 after a few minutes and cues for purse lip breathing. Gait Does the Patient Walk?: Yes Mode of Locomotion: Walk Anticipated Mode of Locomotion: Walk Distance: 3'x2 Gait Assistive Device: FWW Balance Sitting Static: Fair Sitting Dynamic: Fair Standing Static: Poor Standing Dynamic: Poor Assessment/Needs Patient has impaired mobility, strength, endurance. She a somewhat impulsive with movement but she also had to urgently use the commode. Patient's O2 drops with activity. Rehab Potential: Fair PT Detention Goals Detention Goals PT Diesel Inspector Goals Time Frame: Nov 04, 2020 Roll Left & Right (QC): 4 Sit to Lying (QC): 4 Lying-Sitting on Side/Bed(QC): 4 Sit to Stand (QC): 4 Chair/Hyg-jj-Yxudy Xfer(QC): 4 Walk 10 feet (QC): 4 Walk 50ft with 2 Turns (QC): 4 PT Plan Problem List Problem List: Activity Tolerance, Functional Strength, Safety, Balance, Gait, Transfer, Bed Mobility, ROM Treatment/Plan Treatment Plan: Continue Plan of Care Treatment Plan: Bed Mobility, Education, Functional Activity Yan[place], Functional Strength, Gait, Safety, Therapeutic Exercise, Transfers Treatment Duration: Nov 04, 2020 Frequency: 6 times per week Estimated Hrs Per Day: .25 hour per day Patient and/or Family Agrees t: Yes Safety Risks/Education Patient Education: Gait Training, Transfer Techniques, Correct Positioning, Safety Issues Teaching Recipient: Patient Teaching Methods: Demonstration, Discussion Response to Teaching: Reinforcement Needed Discharge Recommendations Plan Patient will perform bed mobility and transfer training, balance and endurance training, functional strengthening, stair training, gait training, and education, to improve functional mobility and independence at home. Therapy Discharge Recommendati: Scheduled Assistance, Home & Family Time/GCodes Time In: 1521 Time Out: 1546 Total Billed Treatment Time: 25 Total Billed Treatment 1 visit MELA 15' FA 10' KRISHNA GUERRIER PT Oct 28, 2020 15:57
--- NOTE | 2020-10-28 16:03 | Occupational Therapy Eval ---
OT Evaluation-General/PLF Medical Diagnosis Admission Date Oct 24, 2020 at 16:12 Medical Diagnosis: Hemorrhagic/necrotizing pancreatitis Onset Date: Oct 23, 2020 Therapy Diagnosis Therapy Diagnosis: Weakness Height/Weight Height (Feet): 5 Height (Inches): 1.00 Weight (Pounds): 105 Weight (Ounces): 0.0 Precautions Precautions/Isolations: Fall Prevention, Standard Precautions Weight Bear Status Weight Bearing Restriction: Weight Bearing/Tolerated Referral Physician: Dr. Zazueta Referral Reason: Activity Tolerance, Self Care, Evaluation/Treatment, Strengthening/ROM Medical History Pertinent Medical History: CABG, CAD, HTN Current History Pt. began having nausea and abdominal pain and swelling. Came to ER. Pt. found to have ascitis and drain placed. Reviewed History: Yes Social History Home: Single Level Current Living Status: Alone Entry Into Home: Level Entry ADL-Prior Level of Function SCALE: Activities may be completed with or without assistive devices. 3-Zqaiwazvez-wvtmghs completes the activity by him/herself with no assistance from a helper. 5-Set-up or Clean-up Assistance-helper sets up or cleans up; patient completes activity. Pledger assists only prior to or following the activity. 4-Supervision or Touching Assistance-helper provides verbal cues and/or touching/steadying and/or contact guard assistance as patient completes activity. Assistance may be provided throughout the activity or intermittently. 3-Partial/Moderate Assistance-helper does LESS THAN HALF the effort. Pledger lifts, holds or supports trunk or limbs, but provides less than half the effort. 2-Substantial/Maximal Assistance-helper does MORE THAN HALF the effort. Pledger lifts or holds trunk or limbs and provides more than half the effort. 9-Jzyycqtkn-ghtffv does ALL the effort. Patient does none of the effort to complete the activity. Or, the assistance of 2 or more helpers is required for the patient to complete the activity. If activity was not attempted, code reason: 7-Patient Refused. 9-Not Applicable-not attempted and the patient did not perform the activity before the current illness, exacerbation or injury. 10-Not Attempted due to Environmental Limitations-(lack of equipment, weather restraints, etc.). 88-Not Attempted due to Medical Conditions or Safety Concerns. ADL PLOF Comments Pt. was independent prior to this hospitalization. Pt. does not use an assistive device. Pt. lives alone but has a very supportive family that lives close by. Self Care: Independent Functional Cognition: Independent OT Current Status Subjective Pt. reports 5/10 pain, but grimaces with any movement. Nursing to give pt. pain medication. Appearance Pt. in bed. Agrees to work with OT/PT. Mental Status/Objective Patient Orientation: Person, Place Attachments: Drains, Galeano Catheter, IV, Oxygen, Telemetry Current Glasses/Contacts: Yes Upper Extremity ROM WFL ADL-Treatment On/Off Footwear (QC): 1 (OT donned pt's socks prior to transfer.) Toileting Hygiene (QC): 1 Other Treatments Pt. seen for co-treatment from PT/OT. Pt. requires assistance of two skilled clinicians due to pain, fatigue. PT focused on transfers while OT assessed ADL skills. Pt. transferred supine-sit with min assist. Pt. became incontinent of stool on side of bed. Stood and ambulated approximately 5 feet with walker and mod assist x 2 to toilet. After toileting. Pt. requires max x 2 for sit-stand, and OT cleansed rear shirley area. Pt. requires mod/max x 2 to take steps back to bed with walker. Pt. indicates she feels very shaky and unable to stand much longer. Pt. assisted back to bed with max assistance. Sats monitored and were at 79%. Encouraged pt. to deep breathe, and they did eventually come to 94%. Pt. on 3.5 L 02. All needs met. Nursing notified and giving pt. pain medication. Education OT Patient Education: Correct positioning, Modified ADL techniques, Progress toward Goal/Update tx plan, Purpose of tx/functional activities, Reviewed precautions, Rehab process, Transfer techniques Teaching Recipient: Patient Teaching Methods: Demonstration, Discussion Response to Teaching: Verbalize Understanding, Return Demonstration, Reinforcement Needed OT Short Term Goals Short Term Goals Time Frame: Nov 04, 2020 Eatin Oral hygiene: 4 Toileting hygiene: 3 Upper body dressin Lower body dressin Putting on/taking off footwear: 3 OT Half-Way Goals Production Trainer Goals Time Frame: Nov 11, 2020 Eating (QC): 6 Oral Hygiene (QC): 6 Toileting Hygiene (QC): 4 Shower/Bathe Self (QC): 4 Upper Body Dressing (QC): 5 Lower Body Dressing (QC): 4 On/Off Footwear (QC): 4 Additional Goals: 1-Demonstrate ADL Tasks, 2-Verbalize Understanding, 3-ImproveStrength/Yanick 1=Demonstrate adherence to instructed precautions during ADL tasks. 2=Patient will verbalize/demonstrate understanding of assistive devices/modifications for ADL. 3=Patient will improve strength/tolerance for activity to enable patient to perform ADL's. OT Education/Plan Problem List/Assessment Assessment: Decreased Activ Tolerance, Dependent Transfers, Impaired Bed Mobility, Impaired Funct Balance, Impaired I ADL's, Impaired Self-Care Skills Discharge Recommendations Plan/Recommendations: Continue POC Therapy Discharge Recommendati: Post Acute OT Treatment Plan/Plan of Care Treatment,Training & Education: Yes Patient would benefit from OT for education, treatment and training to promote independence in ADL's, mobility, safety and/or upper extremity function for ADL's. Plan of Care: ADL Retraining, Functional Mobility, UE Funct Exercise/Act Treatment Duration: Nov 11, 2020 Frequency: 5 times per week Estimated Hrs Per Day: .25 hour per day Agreement: Yes Rehab Potential: Good Time/GCodes Start Time: 15:21 Stop Time: 15:46 Total Time Billed (hr/min): 25 Billed Treatment Time 1, EVH Co-treatment with PT. Please see above note for designated roles. YUNIEL MEJIAS OT Oct 28, 2020 16:03
--- NOTE | 2020-10-28 20:00 | NUR ---
DRESSING AROUND RIGHT LOWER QUADRANT CHRISTA DRAIN SATURATED AT THIS TIME WITH CLEAR DRAINAGE. NEW DRAIN SPONGES, 4X4 GAUZE AND ABD X2 APPLIED. NO REDNESS NOTED AROUND CHRISTA SITE.
--- NOTE | 2020-10-29 00:09 | NUR ---
DRESSING AROUND RIGHT LOWER QUADRANT CHRISTA DRAIN SATURATED AT THIS TIME WITH CLEAR DRAINAGE. NEW DRAIN SPONGES, 4X4 GAUZE AND ABD X2 APPLIED. NO REDNESS NOTED AROUND CHRISTA SITE. 70 ML DRAINED FROM CHRISTA AT THIS TIME; CHRISTA SET BACK TO SUCTION AND PT'S GOWN CHANGED.
[2020-10-29] MEDS: fentaNYL INJECTION 100 MCG/2 ML AMP IVP PRN ×5 (02:17→21:50)
[2020-10-29 02:47] LABS: BASOPHILS # (AUTO) 0.1 10^3/uL (0.0-0.1); BASOPHILS % (AUTO) 1 % (0-10); EOSINOPHILS % (AUTO) 0 % (0-10); HEMATOCRIT 35 % (35-52); HEMOGLOBIN 11.5 g/dL (11.5-16.0); LYMPHOCYTES # (AUTO) 0.9 10^3/uL (1.0-4.0); LYMPHOCYTES % (AUTO) 6 % (12-44); MEAN CORPUSCULAR HEMOGLOBIN 32 pg (25-34); MEAN CORPUSCULAR HGB CONC 33 g/dL (32-36); MEAN CORPUSCULAR VOLUME 97 fL (80-99); MEAN PLATELET VOLUME 10.8 fL (9.0-12.2); MONOCYTES # (AUTO) 0.8 10^3/uL (0.0-1.0); MONOCYTES % (AUTO) 5 % (0-12); NEUTROPHILS # (AUTO) 13.8 10^3/uL (1.8-7.8); NEUTROPHILS % (AUTO) 87 % (42-75); PLATELET COUNT 129 10^3/uL (130-400); WHITE BLOOD COUNT 15.9 10^3/uL (4.3-11.0)
[2020-10-29] MEDS: LACTATED RINGERS 1,000 ML IV SCH ×2 (03:05→13:43)
[2020-10-29 03:06] LABS: ALBUMIN 1.9 GM/DL (3.2-4.5); BILIRUBIN,TOTAL 0.6 MG/DL (0.1-1.0); CALCIUM 7.7 MG/DL (8.5-10.1); CREATININE SERUM 1.08 MG/DL (0.60-1.30); MAGNESIUM 2.3 MG/DL (1.6-2.4); PHOSPHORUS 1.8 MG/DL (2.3-4.7); POTASSIUM 3.5 MMOL/L (3.6-5.0); TOTAL PROTEIN 4.1 GM/DL (6.4-8.2)
[2020-10-29] MEDS: MAGNESIUM 1 GM/100 ML IVPB 100 ML IV SCH (03:21)
[2020-10-29] MEDS: KCL 20 MEQ TAB (K-DUR) PO SCH (03:21)
[2020-10-29] MEDS: POTASSIUM CL 10MEQ/50ML IVPB 50 ML IV SCH ×2 (03:21→09:25)
[2020-10-29] MEDS ORDERED: PIPERACILLIN/TAZO 4.5 GM VIAL (ZOSYN) IV ONE (04:01)
[2020-10-29] MEDS ORDERED: NS (IVPB) 100 ML ONE (04:01)
[2020-10-29] MEDS: PIPERACILLIN/TAZOBACTAM (BULK) 4.5 GM in NS (IVPB) 100 ML IV SCH (04:13)
--- NOTE | 2020-10-29 06:15 | NUR ---
DRESSING AROUND RIGHT LOWER QUADRANT CHRISTA DRAIN SATURATED AT THIS TIME WITH CLEAR DRAINAGE. NEW DRAIN SPONGES, 4X4 GAUZE AND ABD X2 APPLIED.
--- NOTE | 2020-10-29 07:28 | Progress Note - Surgery ---
BRI GUZMAN MED STUDENT 10/29/20 0728: Subjective Date Seen by a Provider: Oct 29, 2020 Time Seen by a Provider: 07:00 Subjective/Events-last exam Pt seen and examined. She was resting in bed, NAD. She had no complaints of abd pain, but per nursing she was having abd pain throughout the night requiring Fentanyl every 1-2hrs. She is draining copious amounts of serous fluid from her VALERIO drain around the insertion site, with minimal drainage into the drain. She denies N/V, chest pain. Complains of some SOB. Review of Systems General: No Chills HEENT: No Head Aches Pulmonary: Dyspnea Cardiovascular: No: Chest Pain, Palpitations, Lt Headedness Gastrointestinal: Abdominal Pain; No: Nausea, Vomiting Genitourinary: No Dysuria Neurological: Weakness; No: Numbness Objective Exam Vital Signs Date Time Temp Pulse Resp B/P (MAP) Pulse Ox O2 Delivery O2 Flow Rate FiO2 10/29/20 06:00 102 20 141/87 (105) 96 Nasal Cannula 3.00 10/29/20 05:00 90 17 139/82 (101) 99 Nasal Cannula 3.00 10/29/20 04:00 90 21 151/89 (109) 93 Nasal Cannula 3.00 10/29/20 04:00 36.0 10/29/20 03:00 91 20 151/98 (115) 93 Nasal Cannula 3.00 10/29/20 02:00 91 20 152/88 (109) 93 Nasal Cannula 3.00 10/29/20 01:00 99 10/29/20 01:00 99 27 145/87 (106) 95 Nasal Cannula 3.00 10/29/20 00:00 98 23 137/92 (107) 91 Nasal Cannula 3.00 10/28/20 23:34 36.2 10/28/20 23:00 100 28 149/87 (107) 91 Nasal Cannula 3.00 10/28/20 22:00 96 18 150/81 (104) 96 Nasal Cannula 3.00 10/28/20 21:00 Nasal Cannula 3.00 10/28/20 21:00 104 21 150/86 (107) 94 Nasal Cannula 3.00 10/28/20 20:28 36.7 10/28/20 20:00 95 Nasal Cannula 3.00 10/28/20 20:00 101 26 147/89 (108) 94 Nasal Cannula 3.00 10/28/20 19:00 104 10/28/20 19:00 104 30 146/93 (110) 94 Nasal Cannula 3.00 10/28/20 18:00 107 37 148/89 (108) 92 Nasal Cannula 3.00 10/28/20 17:00 90 37 139/81 (100) 94 Nasal Cannula 3.00 10/28/20 16:19 36.6 10/28/20 16:00 104 34 153/92 (112) 92 Nasal Cannula 3.00 10/28/20 15:00 100 30 139/81 (100) 95 Nasal Cannula 3.00 10/28/20 14:00 103 42 88 Nasal Cannula 3.00 10/28/20 13:07 95 10/28/20 13:00 81 28 131/82 (98) 90 Nasal Cannula 3.00 10/28/20 12:50 36.5 10/28/20 12:00 94 20 151/131 (138) 96 Nasal Cannula 3.00 10/28/20 11:00 94 22 137/90 (106) 97 Nasal Cannula 3.00 10/28/20 10:00 97 26 122/82 (95) 93 Nasal Cannula 3.00 10/28/20 09:00 100 27 113/76 (88) 91 Nasal Cannula 3.00 10/28/20 08:00 94 21 130/75 (93) 87 Nasal Cannula 3.00 10/28/20 08:00 96 Nasal Cannula 3.00 10/28/20 07:33 36.3 I & O 10/29/20 07:00 Intake Total 600 ml Output Total 1380 ml Balance -780 ml Capillary Refill : Greater Than 3 Seconds General Appearance: No Apparent Distress, Chronically ill, Thin HEENT: PERRL/EOMI Neck: Full Range of Motion, Normal Inspection, Non Tender, Supple Respiratory: Chest Non Tender, Lungs Clear, No Accessory Muscle Use, No Respiratory Distress, Other (on 3lpm NC) Cardiovascular: Regular Rate, Rhythm, No Edema, No Gallop, No JVD, No Murmur, Normal Peripheral Pulses Gastrointestinal: soft, abnormal bowel sounds (hypoactive x4), distended (drain serosang, minimal distention); No guarding, No rebound; tenderness (incisional to VALERIO site) Extremity: Normal Capillary Refill, Normal Inspection, Normal Range of Motion, Non Tender, No Pedal Edema Neurologic/Psychiatric: Alert, Oriented x3, No Motor/Sensory Deficits, Normal Mood/Affect Skin: Normal Color, Warm/Dry Lymphatic: No Adenopathy Results Lab Laboratory Tests 10/28/20 12:58: Glucometer 153H 10/28/20 17:15: Glucometer 215H 10/29/20 02:40: White Blood Count 15.9H, Red Blood Count 3.56L, Hemoglobin 11.5, Hematocrit 35, Mean Corpuscular Volume 97, Mean Corpuscular Hemoglobin 32, Mean Corpuscular Hemoglobin Concent 33, Red Cell Distribution Width 13.3, Platelet Count 129L, Mean Platelet Volume 10.8, Immature Granulocyte % (Auto) 2, Neutrophils (%) (Auto) 87H, Lymphocytes (%) (Auto) 6L, Monocytes (%) (Auto) 5, Eosinophils (%) (Auto) 0, Basophils (%) (Auto) 1, Neutrophils # (Auto) 13.8H, Lymphocytes # (Auto) 0.9L, Monocytes # (Auto) 0.8, Eosinophils # (Auto) 0.0, Basophils # (Auto) 0.1, Immature Granulocyte # (Auto) 0.3H, Sodium Level 140, Potassium Level 3.5L, Chloride Level 111H, Carbon Dioxide Level 22, Anion Gap 7, Blood Urea Nitrogen 26H, Creatinine 1.08, Estimat Glomerular Filtration Rate 49, BUN /Creatinine Ratio 24, Glucose Level 160H, Calcium Level 7.7L, Corrected Calcium 9.4, Phosphorus Level 1.8L, Magnesium Level 2.3, Total Bilirubin 0.6, Aspartate Amino Transf (AST/SGOT) 24, Alanine Aminotransferase (ALT/SGPT) 17, Alkaline Phosphatase 56, Total Protein 4.1L, Albumin 1.9L Microbiology 10/24/20 Blood Culture - Preliminary, Resulted No growth Assessment/Plan Assessment/Plan Assessment/Plan Hemorrhagic Pancreatitis - Bloody fluid in abdomen per diagnostic laparoscopy 10/24 Leukocytosis - trending up; 15.9 today , 12.9 yesterday Lactic Acidosis Hiatal hernia GE ulcer Abdominal pain CAD Acute Renal Failure Diagnostic laparoscopy 10/24 showed a necrotic spot on her pancreas and large amount of blood tinged fluid in abdomen, no perforated viscus. EGD 10/25 showed hiatal hernia, and an ulcer above the GE junction. VALERIO drain to RUQ draining more around the insertion site, serosanguinous Tolerating clears IV fluids, monitor VS/labs/urine output Continue protonix, zosyn Clinical Quality Measures DVT/VTE Risk/Contraindication: Risk Factor Score Per Nursin RFS Level Per Nursing on Admit: 4+=Very High Other: RISK FOR FURTHER BLEEDING IN ABDOMEN SANTOS ZAZUETA DO 10/29/20 1446: Subjective Subjective/Events-last exam Laying in bed. Minimal abdominal pain. Passing flauts. Tolerating liquids. No n/v. Having shortness of breath. Leaking around VALERIO serous fluid. CTA 1. No evidence of pulmonary embolism or thoracic aortic dissection.2. Moderate to large bilateral pleural effusions with bilateral lower lobe consolidation.3. Moderate esophageal fluid filled distention.4. Upper abdominal ascites. There is fluid adjacent to the pancreas and pancreatitis cannot be entirely excluded. Objective Exam General Appearance: No Apparent Distress, Chronically ill, Thin HEENT: PERRL/EOMI, Normal ENT Inspection Neck: Full Range of Motion, Non Tender Respiratory: Chest Non Tender, No Accessory Muscle Use, No Respiratory Distress, Other (minimally labored with talking) Cardiovascular: Regular Rate, Rhythm, No JVD Gastrointestinal: soft, distended (drain serosang, minimal distention); No guarding, No rebound; tenderness (incisional valerio more serous) Extremity: Normal Capillary Refill, Normal Inspection, Non Tender Neurologic/Psychiatric: Alert, Oriented x3, No Motor/Sensory Deficits, Normal Mood/Affect Skin: Normal Color, Warm/Dry Lymphatic: No Adenopathy Assessment/Plan Assessment/Plan Assessment/Plan Hemorrhagic Pancreatitis - Bloody fluid in abdomen per diagnostic laparoscopy 10/24 Leukocytosis - trending up; 15.9 today , 12.9 yesterday Lactic Acidosis Dyspnea B/l pleural effusion Hiatal hernia GE ulcer Abdominal pain CAD Acute Renal Failure Leukocytosis Diagnostic laparoscopy 10/24 showed a necrotic spot on her pancreas and large amount of blood tinged fluid in abdomen, no perforated viscus. EGD 10/25 showed hiatal hernia, and an ulcer above the GE junction. VALERIO drain bulb suction b/l thoracentesis Clear liquids, advance if continues to tolerate and no abdominal pain IV fluids, monitor VS/labs/urine output Continue protonix, Zosyn changed to Meropenem Supervisory-Addendum Brief Verification & Attestation Participated in pt care: history, MDM, physical Personally performed: exam, history, MDM, supervision of care Care discussed with: Medical Student Procedures: n/a Results interpretation: Verified all documentation Verification and Attestation of Medical Student E/M Service A medical student performed and documented this service in my presence. I reviewed and verified all information documented by the medical student and made modifications to such information, when appropriate. I personally performed the physical exam and medical decision making. Santos Zazueta, Oct 29, 2020,14:50 BRI GUZMAN MED STUDENT Oct 29, 2020 07:28 SANTOS ZAZUETA DO Oct 29, 2020 14:46
--- NOTE | 2020-10-29 07:56 | Diagnostic Imaging Report ---
INDICATION: Pleural effusion, coronary artery disease COMPARISON: 10/28/2020 FINDINGS: Single view chest demonstrates slightly increased bilateral pleural effusions with dependent atelectasis and infiltrate. The heart remains prominent. There is no pneumothorax. The right IJ catheter stable. Sternal wires midline. IMPRESSION: Slightly increased bilateral pleural effusions. Dictated by: Dictated on workstation # [id number]
[2020-10-29] MEDS ORDERED: NS 100 ML (IVPB) BAG IV ONE (08:00)
[2020-10-29] MEDS ORDERED: HOLD METFORMIN - RECEIVED CONTRAST 20 ML VIAL IV SCH (08:00)
[2020-10-29] MEDS ORDERED: IOHEXOL 350 MG/ML 100 ML (OMNIPAQUE 350) VIAL IV ONE (08:00)
[2020-10-29] MEDS ORDERED: CATHETER FLUSH 10 ML SYR IV PRN (08:00)
--- NOTE | 2020-10-29 08:20 | Progress Note - Hospitalist ---
Subjective HPI/CC On Admission Date Seen by Provider: Oct 29, 2020 Time Seen by Provider: 08:15 Debbie Nieto is an 80 year old female with PMH HTN, HLD, who presented with shortness of breath and abdominal pain. She reports that this all started on the evening of 10/23. She was having abdominal pain in the center of her abdomen. S he reports that her belly was becoming more and more distended. She denies nausea and vomiting. She did have diarrhea. She denies fevers and chills. She denies cough. She denies chest pain. She does not smoke or drink alcohol. She has no history of pancreatitis. She thinks she still has her gallbladder. Her initial workup in the ER found a large amount of abdominal ascites. Her lactic acid was significantly elevated. There was concern for perforation and she was taken to the OR. There was no identified colon perforation. She was found to have a hemorrhagic/necrotizing pancreatitis. An intraabdominal drain was placed. The hospitalist service has been consulted for medical comanagement. Subjective/Events-last exam Pt reports doing ok but having some abdominal pain. No other complaints. Objective Exam Vital Signs Vital Signs Date Time Temp Pulse Resp B/P (MAP) Pulse Ox O2 Delivery O2 Flow Rate FiO2 10/29/20 07:35 37.0 10/29/20 07:00 98 10/29/20 06:00 20 141/87 (105) 96 Nasal Cannula 3.00 Capillary Refill : Greater Than 3 Seconds General Appearance: No Apparent Distress, WD/WN Respiratory: No Accessory Muscle Use, Decreased Breath Sounds, Other (on 3lpm NC) Cardiovascular: Regular Rate, Rhythm, No Murmur Gastrointestinal: Soft, Abnormal Bowel Sounds (quiet), Tenderness (mild, diffuse) Extremity: No Calf Tenderness, No Pedal Edema Neurologic/Psychiatric: Alert, Oriented x3, Normal Mood/Affect Results/Procedures Lab Laboratory Tests 10/29/20 02:40 Patient resulted labs reviewed. Imaging: Reviewed Imaging Report Assessment/Plan Assessment and Plan Assess & Plan/Chief Complaint Hemorrhagic pancreatitis Ascites Acute kidney injury- stable Lactic acidosis- improving but persistent Polycythemia Goals of care discussion Lipase/Amylase down to [address] Abdomen with poor visualization of pancreas Intraoperatively visualized hemorrhagic/necrotizing pancreatitis Cr 1.08 today Hgb 18 on arrival, down to 11.5 today but hemodynamically stable, monitor closely Contnue Alliesyn EGD 10/25 showed ulcer of pharynx, ulcer of esophagus, hiatal hernia Hypoxia CXR with vascular congestion noted previously and received lasix COVID negative On Zosyn Did not respond to Lasix and is still on oxygen, has not been on Lovenox so will get CTA of chest to evaluate for PE DVT prophylaxis: held due to hemorrhagic pancreatitis Diagnosis/Problems Diagnosis/Problems (1) Pancreas hemorrhage (2) WHITNEY (acute kidney injury) Status: Acute (3) Ulcer of pharynx Status: Acute (4) Esophageal ulcer Status: Acute (5) Ascites Status: Acute (6) Polycythemia Status: Acute (7) Lactic acidosis Status: Acute (8) Acute hemorrhagic pancreatitis Status: Acute Clinical Quality Measures DVT/VTE Risk/Contraindication: Risk Factor Score Per Nursin RFS Level Per Nursing on Admit: 4+=Very High Other: RISK FOR FURTHER BLEEDING IN ABDOMEN PIEDAD LOZA MD Oct 29, 2020 08:20
--- NOTE | 2020-10-29 08:36 | Diagnostic Imaging Report ---
PROCEDURE: CT angiography of the chest with contrast. TECHNIQUE: Multiple contiguous axial images were obtained through the chest after uneventful bolus administration of intravenous contrast. 3D reconstructed CTA MIP acquisitions were also performed. Auto Exposure Controls were utilized during the CT exam to meet ALARA standards for radiation dose reduction. INDICATION: Status post surgery with low oxygen. FINDINGS: Evaluation of pulmonary arterial system is without evidence of thromboembolism. No definite filling defects are seen within central, lobar segmental branches. Thoracic aorta is normal caliber. No dissection is seen. There is no pericardial fluid. There are moderate-sized bilateral pleural effusions. Moderate distention to the esophagus which appears to be a fluid-filled is seen. There are areas of consolidation bilateral lower lobes consistent with compressive atelectasis or pneumonia. Upper abdomen again demonstrates ascites. Surgical drains in the upper abdomen are noted. There is fluid adjacent to the pancreatic body and tail and pancreatitis cannot be entirely excluded. IMPRESSION: 1. No evidence of pulmonary embolism or thoracic aortic dissection. 2. Moderate to large bilateral pleural effusions with bilateral lower lobe consolidation. 3. Moderate esophageal fluid filled distention. 4. Upper abdominal ascites. There is fluid adjacent to the pancreas and pancreatitis cannot be entirely excluded. Dictated by: Dictated on workstation # [id number]
[2020-10-29] MEDS: MEROPENEM 500 MG/SWFI 10 ML IV PUSH IV SCH ×6 (09:25→21:29)
[2020-10-29] MEDS: HYDROcodone/APAP 5 MG/325 MG (LORTAB) TAB PO PRN (09:26)
[2020-10-29] MEDS: PANTOPRAZOLE 40 MG (PROTONIX) VIAL IVP SCH (09:26)
--- NOTE | 2020-10-29 10:44 | Occupational Ther Daily Note ---
OT Current Status-Daily Note Subjective Nursing states pt OK for therapy to pt's tolerance. Pt agreeable to OT Tx, stating she feels like she has had a BM and needs cleaned up. ADL-Treatment Therapy Code Descriptions/Definitions Functional [place] Measure: 0=Not Assessed/NA 4=Minimal Assistance 1=Total Assistance 5=Supervision or Setup 2=Maximal Assistance 6=Modified [place] 3=Moderate Assistance 7=Complete IndependenceSCALE: Activities may be completed with or without assistive devices. 9-Uflopgckkp-uojihoa completes the activity by him/herself with no assistance from a helper. 5-Set-up or Clean-up Assistance-helper sets up or cleans up; patient completes activity. [place] assists only prior to or following the activity. 4-Supervision or Touching Assistance-helper provides verbal cues and/or touching/steadying and/or contact guard assistance as patient completes activity. Assistance may be provided throughout the activity or intermittently. 3-Partial/Moderate Assistance-helper does LESS THAN HALF the effort. [place] lifts, holds or supports trunk or limbs, but provides less than half the effort. 2-Substantial/Maximal Assistance-helper does MORE THAN HALF the effort. [place] lifts or holds trunk or limbs and provides more than half the effort. 6-Frpszsmxx-mnavfl does ALL the effort. Patient does none of the effort to complete the activity. Or, the assistance of 2 or more helpers is required for the patient to complete the activity. If activity was not attempted, code reason: 7-Patient Refused. 9-Not Applicable-not attempted and the patient did not perform the activity before the current illness, exacerbation or injury. 10-Not Attempted due to Environmental Limitations-(lack of equipment, weather restraints, etc.). 88-Not Attempted due to Medical Conditions or Safety Concerns. Toileting Hygiene (QC): 1 (Pt had BM at bed level, requiring min A rolling side to side. OT dependently performed hygiene.) Other Treatment Pt laying in bed, states she has had a BM. Pt agreeable to rolling side to side in bed as OT performed hygiene. Pt rolled onto L side, OT performed hygiene and changed drop sheet, pt starts having another BM. After pt finishes, OT performs hygiene again and changes drop sheet. Pt then rolls towards R side, OT removed soiled sheet and performed hygiene. Pt returned to her back. Pt's O2 dropped to low 80%'s during session, with cues for diaphramatic breathing, O2 sat returned to 90%'s within a few seconds. Pt states fatigue after rolling. Post tx, pt laying in bed, call light in reach and all needs met. Education OT Patient Education: Correct positioning, Modified ADL techniques, Progress toward Goal/Update tx plan, Purpose of tx/functional activities Teaching Recipient: Patient Teaching Methods: Discussion Response to Teaching: Verbalize Understanding OT Short Term Goals Short Term Goals Time Frame: Nov 04, 2020 Eatin Oral hygiene: 4 Toileting hygiene: 3 Upper body dressin Lower body dressin Putting on/taking off footwear: 3 OT Usp Goals Usp Goals Time Frame: Nov 11, 2020 Eating (QC): 6 Oral Hygiene (QC): 6 Toileting Hygiene (QC): 4 Shower/Bathe Self (QC): 4 Upper Body Dressing (QC): 5 Lower Body Dressing (QC): 4 On/Off Footwear (QC): 4 Additional Goals: 1-Demonstrate ADL Tasks, 2-Verbalize Understanding, 3- ImproveStrength/[place] 1=Demonstrate adherence to instructed precautions during ADL tasks. 2=Patient will verbalize/demonstrate understanding of assistive devices/modifications for ADL. 3=Patient will improve strength/tolerance for activity to enable patient to perform ADL's. OT Education/Plan Problem List/Assessment Assessment: Decreased Activ Tolerance, Decreased UE Strength, Impaired Funct Balance, Impaired I ADL's, Restricted Funct UE ROM Discharge Recommendations Plan/Recommendations: Continue POC Treatment Plan/Plan of Care Patient would benefit from OT for education, treatment and training to promote independence in ADL's, mobility, safety and/or upper extremity function for ADL's. Plan of Care: ADL Retraining, Functional Mobility, UE Funct Exercise/Act Treatment Duration: Nov 11, 2020 Frequency: 5 times per week Estimated Hrs Per Day: .25 hour per day Agreement: Yes Rehab Potential: Good Time/GCodes Start Time: 10:09 Stop Time: 10:24 Total Time Billed (hr/min): 15 Billed Treatment Time 1, ADL JEANE GUERRA OT Oct 29, 2020 10:44
[2020-10-29] MEDS: inSUlin ASPART (NovoLOG) 1 UNIT/0.01 ML (CHARGE PER UNIT) SC SCH ×2 (11:00→16:33)
--- NOTE | 2020-10-29 11:46 | Physical Therapy Progress Note ---
Therapy Progress Note Patient on hold per RN due to decline in status. PT will attempt in LI Haynes PT Oct 29, 2020 11:46
--- NOTE | 2020-10-29 12:31 | Diagnostic Imaging Report ---
Clinical indications: Patient is post thoracentesis. Exam: Portable chest x-ray upright view. Comparisons: CT angiogram of the chest dated 10/29/2020. Findings: There is no definite pneumothorax seen. There is air shadows overlying the right side of the upper mid mediastinal region. Patient was noted to have a patulous and air fluid filled esophagus on the prior CT scan which involves a similar area of these currently seen areas. There is no definite right pleural effusion seen. There is a small left pleural effusion seen. There is mild bibasilar atelectasis versus infiltrate. Cardiac silhouette is within normal limits. Pulmonary vasculature is within normal limits. Right IJ central line again seen which is in the cavoatrial junction region. Sternotomy wires are seen. IMPRESSION: 1: There is no definite pneumothorax seen. There is a small left pleural effusion seen and no significant right pleural effusion seen. 2: There is mild bibasilar atelectasis versus infiltrate. Dictated by: Dictated on workstation # [id number]
[2020-10-29] MEDS: APAP 325 MG/10.15 ML LIQ (TYLENOL) UDC PO PRN (21:29)
[2020-10-30] MEDS: LACTATED RINGERS 1,000 ML IV SCH ×3 (00:13→19:45)
[2020-10-30] MEDS: inSUlin ASPART (NovoLOG) 1 UNIT/0.01 ML (CHARGE PER UNIT) SC SCH ×5 (00:16→23:37)
[2020-10-30 02:26] LABS: BASOPHILS # (AUTO) 0.1 10^3/uL (0.0-0.1); BASOPHILS % (AUTO) 1 % (0-10); EOSINOPHILS # (AUTO) 0.1 10^3/uL (0.0-0.3); EOSINOPHILS % (AUTO) 0 % (0-10); HEMATOCRIT 33 % (35-52); LYMPHOCYTES # (AUTO) 1.1 10^3/uL (1.0-4.0); LYMPHOCYTES % (AUTO) 6 % (12-44); MEAN CORPUSCULAR HEMOGLOBIN 32 pg (25-34); MEAN CORPUSCULAR HGB CONC 33 g/dL (32-36); MEAN CORPUSCULAR VOLUME 96 fL (80-99); MEAN PLATELET VOLUME 10.7 fL (9.0-12.2); MONOCYTES # (AUTO) 0.6 10^3/uL (0.0-1.0); MONOCYTES % (AUTO) 3 % (0-12); NEUTROPHILS # (AUTO) 17.9 10^3/uL (1.8-7.8); NEUTROPHILS % (AUTO) 89 % (42-75); PLATELET COUNT 126 10^3/uL (130-400); WHITE BLOOD COUNT 20.2 10^3/uL (4.3-11.0)
[2020-10-30 02:35] LABS: ALBUMIN 1.8 GM/DL (3.2-4.5); CHLORIDE 110 MMOL/L (98-107); POTASSIUM 3.2 MMOL/L (3.6-5.0); SODIUM 138 MMOL/L (135-145)
[2020-10-30 02:36] LABS: CALCIUM 7.6 MG/DL (8.5-10.1)
[2020-10-30 02:37] LABS: GLUCOSE 133 MG/DL (70-105)
[2020-10-30 02:38] LABS: TOTAL PROTEIN 3.7 GM/DL (6.4-8.2)
[2020-10-30 02:39] LABS: BILIRUBIN,TOTAL 0.5 MG/DL (0.1-1.0); CARBON DIOXIDE 20 MMOL/L (21-32)
[2020-10-30 02:41] LABS: ALKALINE PHOSPHATASE 64 U/L (40-136); CREATININE SERUM 0.83 MG/DL (0.60-1.30); GFR ESTIMATED > 60; PHOSPHORUS 1.8 MG/DL (2.3-4.7)
[2020-10-30 02:42] LABS: BUN/CREATININE RATIO 20
[2020-10-30 02:44] LABS: ALANINE AMINOTRANSFERASE 20 U/L (0-55); MAGNESIUM 1.8 MG/DL (1.6-2.4)
[2020-10-30 03:04] LABS: BAND NEUTROPHILS 12 %; LYMPHOCYTES % (MANUAL) 5 %; METAMYELOCYTES % 3 %; MONOCYTES % (MANUAL) 3 %; MYELOCYTES % 1 %; NEUTROPHILS % (MANUAL) 76 %; RBC MORPH NORMAL
[2020-10-30] MEDS: MEROPENEM 500 MG/SWFI 10 ML IV PUSH IV SCH ×6 (04:58→23:37)
[2020-10-30] MEDS: fentaNYL INJECTION 100 MCG/2 ML AMP IVP PRN ×4 (04:58→14:10)
[2020-10-30] MEDS: POTASSIUM CL 10MEQ/50ML IVPB 50 ML IV SCH ×5 (05:21→10:05)
[2020-10-30] MEDS: KCL 20 MEQ TAB (K-DUR) PO SCH (06:47)
[2020-10-30] MEDS: MAGNESIUM 1 GM/100 ML IVPB 100 ML IV SCH (06:47)
[2020-10-30] MEDS: HYDROcodone/APAP 5 MG/325 MG (LORTAB) TAB PO PRN ×2 (06:48→14:10)
--- NOTE | 2020-10-30 07:49 | Diagnostic Imaging Report ---
Indication: Bilateral pleural effusions. Procedure was performed at the patient's blood bedside. With patient sitting upright on the edge of the bed slightly leaning forward, ultrasound imaging over the right and left posterior thorax was performed to evaluate appropriate entry site. This was marked on the patient's skin. These areas were prepped and draped in usual sterile fashion. A small amount of 1% lidocaine was utilized for local anesthesia. Thoracentesis catheter was advanced into the left posterior pleural space. This was hooked to vacuum bottles and a total of 800 ml of fluid was removed. Catheter was withdrawn and hemostasis was obtained. Next, a thoracentesis catheter was advanced into the right posterior pleural space. Approximately 600 ml of fluid was removed. Catheter was then withdrawn and hemostasis was obtained. Dressings were applied. Patient tolerated procedure well. Postprocedure chest x-ray demonstrates significant reduction in bilateral pleural effusions. No significant pneumothorax is present. Impression: Bilateral ultrasound-guided thoracentesis obtaining 800 L of fluid on the left and 600 mL of fluid on the right. Patient tolerated the procedure well. Dictated by: Dictated on workstation # [id number]
--- NOTE | 2020-10-30 08:36 | Diagnostic Imaging Report ---
INDICATION: Pleural effusion, post bowel operation. TECHNIQUE: Single view chest 3:32 AM. CORRELATION STUDY: 10/29/2020 FINDINGS: Right IJ central line remains in place. There has been placement of a right upper extremity central line. Tip obscured but appears to be likely over the SVC. Prior sternotomy changes. Heart size and mediastinum are generally stable. What appears to be likely some component of pneumomediastinum appears diminished. Small effusions with minimal atelectasis and/or infiltrate at both lung bases. IMPRESSION: 1. Placement of right upper extremity central line tip over the SVC. 2. Small effusions with bibasilar atelectasis or infiltrate persisting. Dictated by: Dictated on workstation # [id number]
--- NOTE | 2020-10-30 08:59 | Progress Note - Hospitalist ---
Subjective HPI/CC On Admission Date Seen by Provider: Oct 30, 2020 Time Seen by Provider: 08:52 Debbie Nieto is an 80 year old female with PMH HTN, HLD, who presented with shortness of breath and abdominal pain. She reports that this all started on the evening of 10/23. She was having abdominal pain in the center of her abdomen. Sh e reports that her belly was becoming more and more distended. She denies nausea and vomiting. She did have diarrhea. She denies fevers and chills. She denies cough. She denies chest pain. She does not smoke or drink alcohol. She has no history of pancreatitis. She thinks she still has her gallbladder. Her initial workup in the ER found a large amount of abdominal ascites. Her lactic acid was significantly elevated. There was concern for perforation and she was taken to the OR. There was no identified colon perforation. She was found to have a hemorrhagic/necrotizing pancreatitis. An intraabdominal drain was placed. The hospitalist service has been consulted for medical comanagement. Subjective/Events-last exam Pt reports having abdominal pain. Had thoracentesis yesterday. States breathing is better but abdominal pain is her main concern. Focused Exam Lactate Level 10/30/20 10:05: Lactic Acid Level 2.38*H Lactic Acid Level Laboratory Tests Test 10/30/20 10:05 Lactic Acid Level 2.38 MMOL/L (0.50-2.00) *H Objective Exam Vital Signs Vital Signs Date Time Temp Pulse Resp B/P (MAP) Pulse Ox O2 Delivery O2 Flow Rate FiO2 10/30/20 12:00 96 15 123/103 (110) 94 Nasal Cannula 3.00 10/30/20 11:13 36.4 Capillary Refill : Greater Than 3 Seconds General Appearance: No Apparent Distress, WD/WN Respiratory: Lungs Clear, No Respiratory Distress Cardiovascular: Regular Rate, Rhythm, No Murmur Gastrointestinal: Abnormal Bowel Sounds (quiet), Tenderness (appropriate ) Neurologic/Psychiatric: Alert, Oriented x3 Results/Procedures Lab Laboratory Tests 10/30/20 02:05 Patient resulted labs reviewed. Imaging: Reviewed Imaging Report Assessment/Plan Assessment and Plan Assess & Plan/Chief Complaint Hemorrhagic pancreatitis Ascites Acute kidney injury- stable Lactic acidosis- improving but persistent Polycythemia Goals of care discussion CT Abdomen with poor visualization of pancreas on arrival Intraoperatively visualized hemorrhagic/necrotizing pancreatitis Cr 0.83 today Hgb 18 on arrival, down to 11.0 today but hemodynamically stable, monitor closely Contnue Zosyn EGD 10/25 showed ulcer of pharynx, ulcer of esophagus, hiatal hernia Fever Hypoxia COVID negative On Zosyn s/p thoracentesis yesterday for pleural effusions by radiology Fevered overnight and WBC up today Add vanc and eraxis for fever and increasing WBC TeleICU consulted CTA negative for PE DVT prophylaxis: held due to hemorrhagic pancreatitis Diagnosis/Problems Diagnosis/Problems (1) Pancreas hemorrhage (2) WHITNEY (acute kidney injury) Status: Acute (3) Ulcer of pharynx Status: Acute (4) Esophageal ulcer Status: Acute (5) Ascites Status: Acute (6) Polycythemia Status: Acute (7) Lactic acidosis Status: Acute (8) Acute hemorrhagic pancreatitis Status: Acute Clinical Quality Measures DVT/VTE Risk/Contraindication: Risk Factor Score Per Nursin RFS Level Per Nursing on Admit: 4+=Very High Other: RISK FOR FURTHER BLEEDING IN ABDOMEN PIEDAD LOZA MD Oct 30, 2020 08:59
[2020-10-30] MEDS: PANTOPRAZOLE 40 MG (PROTONIX) VIAL IVP SCH (09:02)
--- NOTE | 2020-10-30 09:05 | Physical Therapy Progress Note ---
Therapy Progress Note Patient on hold from PT today per nursing due to medical issues. KRISHNA GUERRIER PT Oct 30, 2020 09:05
[2020-10-30] MEDS ORDERED: ANIDULAFUNGIN INJECTION 200 MG in NS (IVPB) 250 ML IV ONE (09:15)
--- NOTE | 2020-10-30 09:18 | Occ Therapy Progress Note ---
Therapy Progress Note Patient on hold from OT today per nursing due to medical issues. JEANE GUERRA OT Oct 30, 2020 09:18
[2020-10-30] MEDS ORDERED: VANCOMYCIN INJECTION 1,250 MG in NS (IVPB) 250 ML IV NR (10:00)
--- NOTE | 2020-10-30 10:01 | NUR ---
VANCOMYCIN DOSING SCR 0.83 (USED 1.0); ADJ BW 53 KG; CRCL ~ 37; BOLUS VANC 20 MG/KG X 62 KG ~ 1250 MG THEN VANC 15 MG/KG ~ 750 MG Q24H CHECK TROUGH BEFORE THE 3RD DOSE 11/01 0900 HOLD DOSE AND CONTACT PHARMACY IF LEVEL IS GREATER THAN 20 Addendum: 11/01/20 at 1007 by VENKAT ARREGUIN [facility] Trough 11/01 @ 09 - 6.9. Give additional 250mg Vancomycin x 1 over 1 hour now, then 1gm every 12 hours thereafter.
--- NOTE | 2020-10-30 12:20 | Progress Note ---
Subjective Date Seen by a Provider: Oct 30, 2020 Time Seen by a Provider: 10:20 Subjective/Events-last exam Patient seen with Dr. Corea. Patient reports some abdominal pain but is tolerable with pain meds. Denies any N/V. Reports that she has had BMs and has currently had one in the bed. Reports tolerating diet. Focused Exam Lactate Level 10/30/20 10:05: Lactic Acid Level 2.38*H Lactic Acid Level Laboratory Tests Test 10/30/20 10:05 Lactic Acid Level 2.38 MMOL/L (0.50-2.00) *H Objective Exam Vital Signs Date Time Temp Pulse Resp B/P (MAP) Pulse Ox O2 Delivery O2 Flow Rate FiO2 10/30/20 11:13 36.4 10/30/20 08:00 95 Nasal Cannula 3.00 10/30/20 07:32 36.1 10/30/20 06:55 Nasal Cannula 3.00 10/30/20 06:01 73 18 119/83 (95) 96 Nasal Cannula 4.00 10/30/20 05:36 77 17 112/68 (83) 92 Nasal Cannula 4.00 10/30/20 04:00 36.7 10/30/20 03:38 119 10/30/20 03:00 123 19 128/105 (113) 98 Nasal Cannula 4.00 10/30/20 02:00 84 28 147/92 (110) 100 Nasal Cannula 4.00 10/30/20 01:00 93 23 121/77 (92) 97 Nasal Cannula 4.00 10/30/20 01:00 96 10/30/20 00:13 36.7 10/30/20 00:00 93 23 121/77 (92) 97 Nasal Cannula 4.00 10/29/20 23:00 90 17 126/77 (93) 96 Nasal Cannula 4.00 10/29/20 22:00 105 26 128/80 (96) 100 Nasal Cannula 4.00 10/29/20 21:59 36.5 10/29/20 21:42 36.5 10/29/20 21:29 38.3 10/29/20 21:00 105 130/77 (94) Nasal Cannula 4.00 10/29/20 20:30 38.3 10/29/20 20:23 38.0 10/29/20 20:00 102 22 132/70 (90) 96 Nasal Cannula 4.00 10/29/20 20:00 Nasal Cannula 4.00 10/29/20 20:00 95 Nasal Cannula 4.00 10/29/20 19:19 37.5 10/29/20 19:00 104 20 123/66 (85) 95 Nasal Cannula 4.00 10/29/20 19:00 104 10/29/20 18:00 98 23 131/88 (114) 93 Nasal Cannula 4.00 10/29/20 17:43 Nasal Cannula 4.00 10/29/20 17:00 104 29 141/76 (127) 96 Nasal Cannula 3.00 10/29/20 16:00 98 12 132/80 (103) 92 10/29/20 15:22 37.0 10/29/20 15:00 97 18 111/75 (87) 95 Nasal Cannula 3.00 10/29/20 14:00 95 19 126/72 (85) 95 Nasal Cannula 3.00 10/29/20 13:00 97 12 113/85 (93) 98 Nasal Cannula 3.00 10/29/20 12:37 97 I & O 10/30/20 07:00 Intake Total 3075 ml Output Total 1380 ml Balance 1695 ml Capillary Refill : Greater Than 3 Seconds General Appearance: No Apparent Distress, WD/WN Neck: Normal Inspection, Supple Respiratory: Normal Breath Sounds, No Accessory Muscle Use, No Respiratory Distress Cardiovascular: Regular Rate, Rhythm, No Edema Gastrointestinal: normal bowel sounds, distended (Mild), tenderness, other (Right CHRISTA drain with clear serous fluid) Extremity: Normal Capillary Refill, Normal Inspection Neurologic/Psychiatric: Alert, Oriented x3 Skin: Normal Color, Warm/Dry, Other (Abdominal incision C/D/I with no redness, erythema, or drainage.) Results Lab Laboratory Tests 10/29/20 16:23: Glucometer 142H 10/29/20 20:21: Glucometer 227H 10/30/20 00:15: Glucometer 157H 10/30/20 02:05: White Blood Count 20.2H, Red Blood Count 3.43L, Hemoglobin 11.0L, Hematocrit 33L , Mean Corpuscular Volume 96, Mean Corpuscular Hemoglobin 32, Mean Corpuscular Hemoglobin Concent 33, Red Cell Distribution Width 13.2, Platelet Count 126L, Mean Platelet Volume 10.7, Immature Granulocyte % (Auto) 2, Neutrophils (%) (Auto) 89H, Lymphocytes (%) (Auto) 6L, Monocytes (%) (Auto) 3, Eosinophils (%) (Auto) 0, Basophils (%) (Auto) 1, Neutrophils # (Auto) 17.9H, Lymphocytes # (Auto) 1.1, Monocytes # (Auto) 0.6, Eosinophils # (Auto) 0.1, Basophils # (Auto) 0.1, Immature Granulocyte # (Auto) 0.5H, Neutrophils % (Manual) 76, Lymphocytes % (Manual) 5, Monocytes % (Manual) 3, Metamyelocytes % 3, Myelocytes % 1, Band Neutrophils 12, Blood Morphology Comment NORMAL, Sodium Level 138, Potassium Level 3.2L, Chloride Level 110H, Carbon Dioxide Level 20L, Anion Gap 8, Blood Urea Nitrogen 17, Creatinine 0.83, Estimat Glomerular Filtration Rate > 60, BUN/Creatinine Ratio 20, Glucose Level 133H, Calcium Level 7.6L, Corrected Calc ium 9.4, Phosphorus Level 1.8L, Magnesium Level 1.8, Total Bilirubin 0.5, Aspartate Amino Transf (AST/SGOT) 24, Alanine Aminotransferase (ALT/SGPT) 20, Alkaline Phosphatase 64, Total Protein 3.7L, Albumin 1.8L 10/30/20 10:05: Lactic Acid Level 2.38*H 10/30/20 11:12: Glucometer 93 Microbiology 10/24/20 Blood Culture - Final, Complete No growth Assessment/Plan Assessment/Plan Assess & Plan/Chief Complaint Hemorrhagic Pancreatitis - Bloody fluid in abdomen per diagnostic laparoscopy 10/24 Leukocytosis - trending up; 20.2 today , 15.9 yesterday Lactic Acidosis Dyspnea B/l pleural effusion Hiatal hernia GE ulcer Abdominal pain CAD Acute Renal Failure Leukocytosis Diagnostic laparoscopy 10/24 showed a necrotic spot on her pancreas and large amount of blood tinged fluid in abdomen, no perforated viscus. EGD 10/25 showed hiatal hernia, and an ulcer above the GE junction. CHRISTA drain bulb suction - clear serous b/l thoracentesis Clear liquids, advance if continues to tolerate and no abdominal pain IV fluids, monitor VS/labs/urine output Continue protonix, Zosyn changed to Meropenem Vanco and Eraxis added Clinical Quality Measures DVT/VTE Risk/Contraindication: Risk Factor Score Per Nursin RFS Level Per Nursing on Admit: 4+=Very High Other: RISK FOR FURTHER BLEEDING IN ABDOMEN TAMERA BENJAMIN [employer] Oct 30, 2020 12:20
[2020-10-30] MEDS: ONDANSETRON 4 MG/2 ML (SDV) Z0FRAN IVP PRN (14:20)
[2020-10-30] MEDS: APAP 325 MG/10.15 ML LIQ (TYLENOL) UDC PO PRN (15:43)
--- NOTE | 2020-10-30 19:30 | NUR ---
DRESSING AROUND RIGHT LOWER QUADRANT CHRISTA DRAIN SATURATED AT THIS TIME WITH CLEAR DRAINAGE. NEW DRAIN SPONGES, 4X4 GAUZE AND ABD X2 APPLIED. PT ALSO INCONTINENT OF STOOL. PT CLEANED AND BED BATH PROVIDED. NEW GOWN AND LINENS APPLIED.
[2020-10-31] MEDS: HYDROcodone/APAP 5 MG/325 MG (LORTAB) TAB PO PRN ×4 (00:21→20:20)
--- NOTE | 2020-10-31 02:30 | NUR ---
DRESSING AROUND RIGHT LOWER QUADRANT CHRISTA DRAIN SATURATED AT THIS TIME WITH CLEAR DRAINAGE. NEW DRAIN SPONGES, 4X4 GAUZE AND ABD X2 APPLIED.
[2020-10-31] MEDS: fentaNYL INJECTION 100 MCG/2 ML AMP IVP PRN ×2 (02:33→21:38)
[2020-10-31 05:37] LABS: BASOPHILS # (AUTO) 0.2 10^3/uL (0.0-0.1); BASOPHILS % (AUTO) 1 % (0-10); EOSINOPHILS # (AUTO) 0.1 10^3/uL (0.0-0.3); EOSINOPHILS % (AUTO) 0 % (0-10); HEMATOCRIT 33 % (35-52); HEMOGLOBIN 11.1 g/dL (11.5-16.0); LYMPHOCYTES % (AUTO) 4 % (12-44); MEAN CORPUSCULAR HEMOGLOBIN 32 pg (25-34); MEAN CORPUSCULAR HGB CONC 33 g/dL (32-36); MEAN CORPUSCULAR VOLUME 96 fL (80-99); MEAN PLATELET VOLUME 10.9 fL (9.0-12.2); MONOCYTES # (AUTO) 0.7 10^3/uL (0.0-1.0); MONOCYTES % (AUTO) 3 % (0-12); NEUTROPHILS # (AUTO) 25.3 10^3/uL (1.8-7.8); NEUTROPHILS % (AUTO) 91 % (42-75); PLATELET COUNT 147 10^3/uL (130-400); WHITE BLOOD COUNT 27.8 10^3/uL (4.3-11.0)
[2020-10-31 05:45] LABS: ALBUMIN 1.8 GM/DL (3.2-4.5); CHLORIDE 111 MMOL/L (98-107); POTASSIUM 3.7 MMOL/L (3.6-5.0); SODIUM 138 MMOL/L (135-145)
[2020-10-31 05:47] LABS: CALCIUM 7.7 MG/DL (8.5-10.1)
[2020-10-31 05:48] LABS: GLUCOSE 79 MG/DL (70-105); TOTAL PROTEIN 3.8 GM/DL (6.4-8.2)
[2020-10-31 05:49] LABS: CARBON DIOXIDE 22 MMOL/L (21-32)
[2020-10-31 05:50] LABS: BILIRUBIN,TOTAL 0.5 MG/DL (0.1-1.0)
[2020-10-31 05:51] LABS: ALKALINE PHOSPHATASE 72 U/L (40-136); PHOSPHORUS 1.9 MG/DL (2.3-4.7)
[2020-10-31 05:52] LABS: CREATININE SERUM 0.69 MG/DL (0.60-1.30)
[2020-10-31] MEDS: POTASSIUM CL 10MEQ/50ML IVPB 50 ML IV SCH (05:52)
[2020-10-31] MEDS: KCL 20 MEQ TAB (K-DUR) PO SCH (05:52)
[2020-10-31] MEDS: inSUlin ASPART (NovoLOG) 1 UNIT/0.01 ML (CHARGE PER UNIT) SC SCH ×3 (05:52→16:49)
[2020-10-31] MEDS: MAGNESIUM 1 GM/100 ML IVPB 100 ML IV SCH (05:52)
[2020-10-31 05:53] LABS: BUN/CREATININE RATIO 17
[2020-10-31 05:54] LABS: ALANINE AMINOTRANSFERASE 26 U/L (0-55)
[2020-10-31 05:55] LABS: MAGNESIUM 1.7 MG/DL (1.6-2.4)
[2020-10-31] MEDS: LACTATED RINGERS 1,000 ML IV SCH ×2 (05:59→16:49)
[2020-10-31] MEDS: MEROPENEM 500 MG/SWFI 10 ML IV PUSH IV SCH ×6 (05:59→21:34)
[2020-10-31 06:15] LABS: GFR ESTIMATED > 60
--- NOTE | 2020-10-31 06:15 | NUR ---
DRESSING AROUND RIGHT LOWER QUADRANT CHRISTA DRAIN SATURATED AT THIS TIME WITH CLEAR DRAINAGE. NEW DRAIN SPONGES, 4X4 GAUZE AND ABD X2 APPLIED.
--- NOTE | 2020-10-31 07:48 | Progress Note - Hospitalist ---
Subjective HPI/CC On Admission Date Seen by Provider: Oct 31, 2020 Time Seen by Provider: 07:44 Debbie Nieto is an 80 year old female with PMH HTN, HLD, who presented with shortness of breath and abdominal pain. She reports that this all started on the evening of 10/23. She was having abdominal pain in the center of her abdomen. Sh e reports that her belly was becoming more and more distended. She denies nausea and vomiting. She did have diarrhea. She denies fevers and chills. She denies cough. She denies chest pain. She does not smoke or drink alcohol. She has no history of pancreatitis. She thinks she still has her gallbladder. Her initial workup in the ER found a large amount of abdominal ascites. Her lactic acid was significantly elevated. There was concern for perforation and she was taken to the OR. There was no identified colon perforation. She was found to have a hemorrhagic/necrotizing pancreatitis. An intraabdominal drain was placed. The hospitalist service has been consulted for medical comanagement. Subjective/Events-last exam Pt reports doing better today. Pain improved. Breathing better. Was able to get some sleep last night. Focused Exam Lactate Level 10/30/20 10:05: Lactic Acid Level 2.38*H Objective Exam Vital Signs Vital Signs Date Time Temp Pulse Resp B/P (MAP) Pulse Ox O2 Delivery O2 Flow Rate FiO2 10/31/20 06:56 112 26 96 Nasal Cannula 2.00 10/30/20 19:39 37.6 Capillary Refill : Greater Than 3 Seconds General Appearance: No Apparent Distress, Thin Respiratory: Decreased Breath Sounds; No Rhonci, No Wheezing; Other (on 2lpm NC) Cardiovascular: Regular Rate, Rhythm, No Murmur Gastrointestinal: Normal Bowel Sounds, Non Tender, Soft Neurologic/Psychiatric: Alert, Oriented x3 Results/Procedures Lab Laboratory Tests 10/31/20 05:15 Patient resulted labs reviewed. Imaging: Reviewed Imaging Report Assessment/Plan Assessment and Plan Assess & Plan/Chief Complaint Hemorrhagic pancreatitis Ascites Acute kidney injury- stable Lactic acidosis- improving but persistent Polycythemia Goals of care discussion CT Abdomen with poor visualization of pancreas on arrival Intraoperatively visualized hemorrhagic/necrotizing pancreatitis Cr 0.69 today Hgb 18 on arrival, now stable around 11 Contnue Zosyn, Vanc, Eraxis EGD 10/25 showed ulcer of pharynx, ulcer of esophagus, hiatal hernia Fever Hypoxia COVID negative On Zosyn, Vanc, Eraxis s/p thoracentesis 10/29 for pleural effusions by radiology WBC going up again today TeleICU consulted CTA negative for PE May need CT abdomen DVT prophylaxis: held due to hemorrhagic pancreatitis Diagnosis/Problems Diagnosis/Problems (1) Pancreas hemorrhage (2) WHITNEY (acute kidney injury) Status: Acute (3) Ulcer of pharynx Status: Acute (4) Esophageal ulcer Status: Acute (5) Ascites Status: Acute (6) Polycythemia Status: Acute (7) Lactic acidosis Status: Acute (8) Acute hemorrhagic pancreatitis Status: Acute Clinical Quality Measures DVT/VTE Risk/Contraindication: Risk Factor Score Per Nursin RFS Level Per Nursing on Admit: 4+=Very High Other: RISK FOR FURTHER BLEEDING IN ABDOMEN PIEDAD LOZA MD Oct 31, 2020 07:48
--- NOTE | 2020-10-31 07:50 | Diagnostic Imaging Report ---
INDICATION: Pleural effusion, post bowel surgery. TECHNIQUE: Single view chest 2:25 AM. CORRELATION STUDY: 10/30/2020 FINDINGS: Right IJ and right upper extremity central lines remain in place. Patient is poststernotomy. Heart size mediastinum are stable. Bilateral pleural effusions left slightly greater than right are present. May be slightly more prominent. There appears to be slight increasing opacity at the lung bases. IMPRESSION: 1. Slight increasing opacities lung bases likely underlying effusions left slightly greater than right. Superimposed minimal atelectasis or infiltrate not excluded. Dictated by: Dictated on workstation # [id number]
[2020-10-31] MEDS: ANIDULAFUNGIN INJECTION 100 MG in NS (IVPB) 100 ML IV SCH (08:33)
[2020-10-31] MEDS: VANCOMYCIN 750 MG/NS 250 ML IVPB IV SCH ×2 (08:33)
[2020-10-31] MEDS: PANTOPRAZOLE 40 MG (PROTONIX) VIAL IVP SCH (08:33)
--- NOTE | 2020-10-31 09:04 | Physical Therapy Daily Note ---
PT Daily Note-Current Subjective Patient in bed pre tx, agrees to PT, has no complaints of pain. Nurse gives ok to work with patient, she has been on hold the last couple of days. Appearance Patient in bed post tx with nurse call, phone, tray, all needs met. Mental Status Patient Orientation: Person, Confused, Situation Attachments: Oxygen, Drains, [place]ale[place] Catheter, IV Transfers SCALE: Activities may be completed with or without assistive devices. 1-[id number]-[id number] completes the activity by him/herself with no assistance from a helper. 5-Set-up or Clean-up Assistance-helper sets up or cleans up; patient completes activity. [place] assists only prior to or following the activity. 4-Supervision or Touching Assistance-helper provides verbal cues and/or touching/steadying and/or contact guard assistance as patient completes activity. Assistance may be provided throughout the activity or intermittently. 3-Partial/Moderate Assistance-helper does LESS THAN HALF the effort. [place] lifts, holds or supports trunk or limbs, but provides less than half the effort. 2-Substantial/Maximal Assistance-helper does MORE THAN HALF the effort. [place] lifts or holds trunk or limbs and provides more than half the effort. 9-Xolcjrnin-rksozp does ALL the effort. Patient does none of the effort to complete the activity. Or, the assistance of 2 or more helpers is required for the patient to complete the activity. If activity was not attempted, code reason: 7-Patient Refused. 9-Not Applicable-not attempted and the patient did not perform the activity before the current illness, exacerbation or injury. 10-Not Attempted due to Environmental Limitations-(lack of equipment, weather restraints, etc.). 88-Not Attempted due to Medical Conditions or Safety Concerns. Roll Left & Right (QC): 3 Sit to Lying (QC): 3 Lying to Sitting/Side of Bed(Q: 3 mod assist for supine <-> sit, patient is able to sit for about 5 min and perform LE exercise, mod assist to lay down and patient can scoot up in bed herself with proper limb placement and cues for direction Exercises Seated Therapy Exercises: Ankle pumps, Long arc quads Seated Reps: 20 Treatments bed mobility, sitting, LE exercise Assessment Current Status: Poor Progress decline in functional mobility, patient is confused, talking about being in the basement and seeing bugs on the ceiling PT Milieu Technician Goals Milieu Technician Goals PT Milieu Technician Goals Time Frame: Nov 04, 2020 Roll Left & Right (QC): 4 Sit to Lying (QC): 4 Lying-Sitting on Side/Bed(QC): 4 Sit to Stand (QC): 4 Chair/Ifp-fn-Yggqs Xfer(QC): 4 Walk 10 feet (QC): 4 Walk 50ft with 2 Turns (QC): 4 PT Plan Problem List Problem List: Activity Tolerance, Functional Strength, Safety, Balance, Gait, Transfer, Bed Mobility, ROM Treatment/Plan Treatment Plan: Continue Plan of Care Treatment Plan: Bed Mobility, Education, Functional Activity [place], Functional Strength, Gait, Safety, Therapeutic Exercise, Transfers Treatment Duration: Nov 04, 2020 Frequency: 6 times per week Estimated Hrs Per Day: .25 hour per day Patient and/or Family Agrees t: Yes Safety Risks/Education Patient Education: Correct Positioning, Safety Issues Teaching Recipient: Patient Teaching Methods: Demonstration, Discussion Response to Teaching: Reinforcement Needed Time/GCodes Time In: 0830 Time Out: 0844 Total Billed Treatment Time: 14 Total Billed Treatment 1 visit FA KRISHNA BUCKLEY PT Oct 31, 2020 09:04
--- NOTE | 2020-10-31 11:33 | Progress Note ---
Subjective Date Seen by a Provider: Oct 31, 2020 Time Seen by a Provider: 11:00 Subjective/Events-last exam clinically feeling better but increase WBC. no cough/sputum. no fever/chills. minimal abd pain. tried dys diet yesterday however abd distention and likely ileus. Focused Exam Lactate Level 10/30/20 10:05: Lactic Acid Level 2.38*H Objective Exam Vital Signs Date Time Temp Pulse Resp B/P (MAP) Pulse Ox O2 Delivery O2 Flow Rate FiO2 10/31/20 11:00 110 15 116/68 (84) 96 Nasal Cannula 2.00 10/31/20 10:00 101 23 137/87 (104) 95 Nasal Cannula 2.00 10/31/20 09:00 97 32 128/82 (97) Nasal Cannula 2.00 10/31/20 08:00 94 Nasal Cannula 3.00 10/31/20 08:00 99 20 129/86 (100) 98 Nasal Cannula 2.00 10/31/20 07:00 107 10/31/20 07:00 105 14 139/90 (106) 96 Nasal Cannula 2.00 10/31/20 06:56 112 26 96 Nasal Cannula 2.00 10/31/20 06:10 109 15 () 99 Room Air 10/31/20 06:00 122 15 137/82 (100) 99 Nasal Cannula 3.00 10/31/20 05:00 96 22 136/88 (104) 98 Nasal Cannula 3.00 10/31/20 04:00 102 16 145/88 (107) 95 Nasal Cannula 3.00 10/31/20 03:00 99 13 149/92 (115) 94 Nasal Cannula 3.00 10/31/20 02:00 90 20 136/89 (110) 97 Nasal Cannula 3.00 10/31/20 01:00 99 10/31/20 01:00 99 22 147/83 (115) 97 Nasal Cannula 3.00 10/31/20 00:00 84 13 141/91 (108) 99 Nasal Cannula 3.00 10/30/20 23:00 92 21 143/101 (115) 90 Nasal Cannula 3.00 10/30/20 22:24 Nasal Cannula 3.00 10/30/20 22:00 94 17 140/97 (121) 99 Nasal Cannula 3.00 10/30/20 21:00 92 15 151/94 (135) 99 Nasal Cannula 3.00 10/30/20 20:00 102 17 145/104 (123) 98 Nasal Cannula 3.00 10/30/20 20:00 94 Nasal Cannula 3.00 10/30/20 19:39 37.6 10/30/20 19:00 93 10/30/20 19:00 93 16 141/84 (110) 97 Nasal Cannula 3.00 10/30/20 18:00 96 15 136/83 (100) 99 Nasal Cannula 3.00 10/30/20 17:00 95 15 144/89 (107) 98 Nasal Cannula 3.00 10/30/20 16:00 89 17 138/94 (109) 100 Nasal Cannula 3.00 10/30/20 16:00 38.2 10/30/20 15:00 98 35 144/87 (106) 100 Nasal Cannula 3.00 10/30/20 14:00 92 17 146/81 (102) Nasal Cannula 3.00 10/30/20 13:00 95 19 145/83 (103) 88 Nasal Cannula 3.00 10/30/20 12:48 101 10/30/20 12:00 96 15 123/103 (110) 94 Nasal Cannula 3.00 I & O 10/31/20 07:00 Intake Total 600 ml Output Total 1095 ml Balance -495 ml Capillary Refill : Greater Than 3 Seconds General Appearance: No Apparent Distress HEENT: PERRL/EOMI Neck: Full Range of Motion Respiratory: Decreased Breath Sounds Cardiovascular: Regular Rate, Rhythm Gastrointestinal: soft, tenderness Extremity: Normal Capillary Refill Neurologic/Psychiatric: Alert, Oriented x3 Skin: Normal Color Lymphatic: No Adenopathy Results Lab Laboratory Tests 10/30/20 15:31: Glucometer 131H 10/30/20 19:06: Glucometer 110 10/31/20 05:15: White Blood Count 27.8H, Red Blood Count 3.48L, Hemoglobin 11.1L, Hematocrit 33L , Mean Corpuscular Volume 96, Mean Corpuscular Hemoglobin 32, Mean Corpuscular Hemoglobin Concent 33, Red Cell Distribution Width 13.2, Platelet Count 147, Mean Platelet Volume 10.9, Immature Granulocyte % (Auto) 2, Neutrophils (%) (Auto) 91H, Lymphocytes (%) (Auto) 4L, Monocytes (%) (Auto) 3, Eosinophils (%) (Auto) 0, Basophils (%) (Auto) 1, Neutrophils # (Auto) 25.3H, Lymphocytes # (Auto) 1.0, Monocytes # (Auto) 0.7, Eosinophils # (Auto) 0.1, Basophils # (Auto) 0.2H, Immature Granulocyte # (Auto) 0.5H, Sodium Level 138, Potassium Level 3.7, Chloride Level 111H, Carbon Dioxide Level 22, Anion Gap 5, Blood Urea Nitrogen 12, Creatinine 0.69, Estimat Glomerular Filtration Rate > 60, BUN/Creatinine Ratio 17, Glucose Level 79, Calcium Level 7.7L, Corrected Calcium 9.5, Phosphorus Level 1.9L, Magnesium Level 1.7, Total Bilirubin 0.5, Aspartate Amino Transf (AST/SGOT) 32, Alanine Aminotransferase (ALT/SGPT) 26, Alkaline Phosphatase 72, Total Protein 3.8L, Albumin 1.8L Microbiology 10/24/20 Blood Culture - Final, Complete No growth Assessment/Plan Assessment/Plan Assess & Plan/Chief Complaint acute pancreatitis with ileus and atelectasis. will check repeat u/a. cont abx and antifungal. if clinically worsens or increase WBC then will get CT chest abd and pelvis. Clinical Quality Measures DVT/VTE Risk/Contraindication: Risk Factor Score Per Nursin RFS Level Per Nursing on Admit: 4+=Very High Other: RISK FOR FURTHER BLEEDING IN ABDOMEN CINDY REYES MD Oct 31, 2020 11:33
[2020-10-31 12:51] LABS: BILIRUBIN,URINE NEGATIVE (NEGATIVE); CLARITY,URINE CLEAR; COLOR,URINE YELLOW; GLUCOSE, URINE (UA) NEGATIVE (NEGATIVE); KETONES,URINE NEGATIVE (NEGATIVE); LEUKOCYTE ESTERASE ,URINE NEGATIVE (NEGATIVE); NITRITE,URINE NEGATIVE (NEGATIVE); PH,URINE 6.5 (5-9); PROTEIN,URINE 1+ (NEGATIVE)
[2020-10-31 13:00] LABS: BACTERIA,URINE TRACE /HPF
[2020-11-01] MEDS: inSUlin ASPART (NovoLOG) 1 UNIT/0.01 ML (CHARGE PER UNIT) SC SCH ×4 (00:10→18:19)
[2020-11-01] MEDS: LACTATED RINGERS 1,000 ML IV SCH ×2 (02:59→20:25)
[2020-11-01 03:22] LABS: BASOPHILS # (AUTO) 0.1 10^3/uL (0.0-0.1); BASOPHILS % (AUTO) 1 % (0-10); EOSINOPHILS # (AUTO) 0.2 10^3/uL (0.0-0.3); EOSINOPHILS % (AUTO) 1 % (0-10); HEMATOCRIT 32 % (35-52); HEMOGLOBIN 10.7 g/dL (11.5-16.0); LYMPHOCYTES # (AUTO) 1.4 10^3/uL (1.0-4.0); LYMPHOCYTES % (AUTO) 5 % (12-44); MEAN CORPUSCULAR HEMOGLOBIN 32 pg (25-34); MEAN CORPUSCULAR HGB CONC 34 g/dL (32-36); MEAN CORPUSCULAR VOLUME 96 fL (80-99); MEAN PLATELET VOLUME 10.8 fL (9.0-12.2); MONOCYTES % (AUTO) 4 % (0-12); NEUTROPHILS % (AUTO) 88 % (42-75); PLATELET COUNT 196 10^3/uL (130-400); WHITE BLOOD COUNT 26.2 10^3/uL (4.3-11.0)
[2020-11-01 03:43] LABS: ALBUMIN 1.8 GM/DL (3.2-4.5); CHLORIDE 110 MMOL/L (98-107); POTASSIUM 3.9 MMOL/L (3.6-5.0); SODIUM 138 MMOL/L (135-145)
[2020-11-01] MEDS: POTASSIUM CL 10MEQ/50ML IVPB 50 ML IV SCH (03:43)
[2020-11-01 03:44] LABS: CALCIUM 7.7 MG/DL (8.5-10.1)
[2020-11-01] MEDS: KCL 20 MEQ TAB (K-DUR) PO SCH (03:44)
[2020-11-01 03:45] LABS: GLUCOSE 87 MG/DL (70-105); TOTAL PROTEIN 3.8 GM/DL (6.4-8.2)
[2020-11-01 03:46] LABS: CARBON DIOXIDE 23 MMOL/L (21-32)
[2020-11-01 03:47] LABS: BILIRUBIN,TOTAL 0.5 MG/DL (0.1-1.0)
[2020-11-01 03:48] LABS: ALKALINE PHOSPHATASE 82 U/L (40-136); PHOSPHORUS 1.9 MG/DL (2.3-4.7)
[2020-11-01 03:49] LABS: GFR ESTIMATED > 60
[2020-11-01 03:50] LABS: BUN/CREATININE RATIO 17
[2020-11-01 03:51] LABS: MAGNESIUM 1.7 MG/DL (1.6-2.4)
[2020-11-01 03:52] LABS: ALANINE AMINOTRANSFERASE 26 U/L (0-55)
[2020-11-01] MEDS: MAGNESIUM 1 GM/100 ML IVPB 100 ML IV SCH ×3 (03:54→05:50)
--- NOTE | 2020-11-01 04:24 | Progress Note - Hospitalist ---
Subjective HPI/CC On Admission Date Seen by Provider: Nov 01, 2020 Time Seen by Provider: 04:21 Debbie Nieto is an 80 year old female with PMH HTN, HLD, who presented with shortness of breath and abdominal pain. She reports that this all started on the evening of 10/23. She was having abdominal pain in the center of her abdomen. Sh e reports that her belly was becoming more and more distended. She denies nausea and vomiting. She did have diarrhea. She denies fevers and chills. She denies cough. She denies chest pain. She does not smoke or drink alcohol. She has no history of pancreatitis. She thinks she still has her gallbladder. Her initial workup in the ER found a large amount of abdominal ascites. Her lactic acid was significantly elevated. There was concern for perforation and she was taken to the OR. There was no identified colon perforation. She was found to have a hemorrhagic/necrotizing pancreatitis. An intraabdominal drain was placed. The hospitalist service has been consulted for medical comanagement. Subjective/Events-last exam Pt reports having some abdominal pain. Rates it as a 5. Otherwise no concerns. Focused Exam Lactate Level 10/30/20 10:05: Lactic Acid Level 2.38*H Objective Exam Vital Signs Vital Signs Date Time Temp Pulse Resp B/P (MAP) Pulse Ox O2 Delivery O2 Flow Rate FiO2 11/01/20 01:00 105 11/01/20 01:00 21 136/83 (100) 93 Room Air 11/01/20 00:00 36.9 10/31/20 23:00 2.00 Capillary Refill : Greater Than 3 Seconds General Appearance: No Apparent Distress, Chronically ill Respiratory: Lungs Clear, No Accessory Muscle Use, No Respiratory Distress Cardiovascular: No Murmur, Tachycardia Gastrointestinal: Normal Bowel Sounds, Non Tender, Soft Neurologic/Psychiatric: Alert, Oriented x3 Results/Procedures Lab Laboratory Tests 10/31/20 05:15 11/01/20 02:55 Patient resulted labs reviewed. Imaging: Reviewed Imaging Report Assessment/Plan Assessment and Plan Assess & Plan/Chief Complaint Hemorrhagic pancreatitis Ascites Acute kidney injury- stable Lactic acidosis- improving but persistent Polycythemia Goals of care discussion CT Abdomen with poor visualization of pancreas on arrival Intraoperatively visualized hemorrhagic/necrotizing pancreatitis Cr 0.7 today Hgb 18 on arrival, stabilized 10.7 Contnue Zosyn, Vanc, Eraxis EGD 10/25 showed ulcer of pharynx, ulcer of esophagus, hiatal hernia Fever Hypoxia COVID negative On Zosyn, Vanc, Eraxis s/p thoracentesis 10/29 for pleural effusions by radiology WBC going up again today TeleICU consulted CTA negative for PE May need CT abdomen per surgery note DVT prophylaxis: held due to hemorrhagic pancreatitis Diagnosis/Problems Diagnosis/Problems (1) Pancreas hemorrhage (2) WHITNEY (acute kidney injury) Status: Acute (3) Ulcer of pharynx Status: Acute (4) Esophageal ulcer Status: Acute (5) Ascites Status: Acute (6) Polycythemia Status: Acute (7) Lactic acidosis Status: Acute (8) Acute hemorrhagic pancreatitis Status: Acute Clinical Quality Measures DVT/VTE Risk/Contraindication: Risk Factor Score Per Nursin RFS Level Per Nursing on Admit: 4+=Very High Other: RISK FOR FURTHER BLEEDING IN ABDOMEN PIEDAD LOZA MD Nov 01, 2020 04:24
[2020-11-01] MEDS: HYDROcodone/APAP 5 MG/325 MG (LORTAB) TAB PO PRN ×3 (04:39→20:26)
--- NOTE | 2020-11-01 05:46 | Diagnostic Imaging Report ---
EXAMINATION: Portable erect AP chest at 1253 AM INDICATION: Respiratory distress, pleural effusion In the interval since the prior exam of 10/31/2020, the central venous catheter overlying the internal jugular vein on the right has been removed. The right-sided PICC line seen previously is again evident and no different. The appearance of the chest itself has worsened since the prior study as the density in each lung base has increased. This does suggest that there is greater involvement of each lower lobe by pneumonia/atelectasis and fluid. The upper lungs are relatively clear. The heart is stable in size. The sternotomy wires and surgical clips noted previously are again evident and no different. The osseous structures are intact. IMPRESSION: 1. The appearance of the chest has worsened as there is greater involvement of both lung bases by pneumonia/atelectasis and fluid. 2. The central venous catheter overlying the internal jugular vein on the right seen previously has been removed without apparent complication. Dictated by: Dictated on workstation # [id number]
[2020-11-01] MEDS: MEROPENEM 500 MG/SWFI 10 ML IV PUSH IV SCH ×6 (05:52→22:30)
[2020-11-01] MEDS ORDERED: TROUGH ORDER-PHARMACY XX SCH (09:00)
[2020-11-01] MEDS: ANIDULAFUNGIN INJECTION 100 MG in NS (IVPB) 100 ML IV SCH (09:06)
[2020-11-01] MEDS: fentaNYL INJECTION 100 MCG/2 ML AMP IVP PRN (09:06)
[2020-11-01] MEDS: PANTOPRAZOLE 40 MG (PROTONIX) VIAL IVP SCH (09:06)
[2020-11-01] MEDS: VANCOMYCIN 750 MG/NS 250 ML IVPB IV SCH ×2 (09:07)
--- NOTE | 2020-11-01 10:04 | Progress Note ---
Subjective Date Seen by a Provider: Nov 01, 2020 Time Seen by a Provider: 09:30 Subjective/Events-last exam up in chair today. still has nausea with PO liquids however no vomiting. slight decrease WBC. CXR worse and leukocytosis likely due to pneumonia. Focused Exam Lactate Level 10/30/20 10:05: Lactic Acid Level 2.38*H Objective Exam Vital Signs Date Time Temp Pulse Resp B/P (MAP) Pulse Ox O2 Delivery O2 Flow Rate FiO2 11/01/20 09:00 112 22 146/101 (116) 97 Room Air 11/01/20 08:00 101 24 92 Room Air 11/01/20 08:00 94 High Flow N/C 3.00 11/01/20 07:00 105 12 168/108 (128) 92 Room Air 11/01/20 07:00 104 11/01/20 06:00 100 21 159/102 (121) 95 Room Air 11/01/20 05:00 101 19 143/93 (110) 91 Room Air 11/01/20 04:00 94 22 148/84 (105) 93 Room Air 11/01/20 03:00 101 19 133/84 (100) 95 Room Air 11/01/20 02:00 93 21 136/78 (97) 93 Room Air 11/01/20 01:00 105 11/01/20 01:00 102 21 136/83 (100) 93 Room Air 11/01/20 00:00 36.9 11/01/20 00:00 101 20 142/74 (96) 92 Room Air 10/31/20 23:00 101 20 135/106 (116) 92 Nasal Cannula 2.00 10/31/20 22:00 112 19 129/87 (101) 93 Nasal Cannula 2.00 10/31/20 21:00 109 26 145/87 (106) 94 Nasal Cannula 2.00 10/31/20 20:00 92 High Flow N/C 2.00 10/31/20 20:00 36.8 10/31/20 20:00 106 24 139/83 (101) 92 Nasal Cannula 2.00 10/31/20 19:00 117 23 147/89 (108) 94 Nasal Cannula 2.00 10/31/20 19:00 114 10/31/20 18:00 108 19 148/87 (107) Nasal Cannula 2.00 10/31/20 17:00 120 150/101 (117) Nasal Cannula 2.00 10/31/20 16:00 110 15 92 Nasal Cannula 2.00 10/31/20 15:00 108 22 95 Nasal Cannula 2.00 10/31/20 14:00 109 19 92 Nasal Cannula 2.00 10/31/20 13:00 112 18 Nasal Cannula 2.00 10/31/20 12:33 100 10/31/20 12:00 105 9 136/86 (103) 91 Nasal Cannula 2.00 10/31/20 11:00 110 15 116/68 (84) 96 Nasal Cannula 2.00 I & O 11/01/20 06:59 Intake Total 1010 ml Output Total 1750 ml Balance -740 ml Capillary Refill : Greater Than 3 Seconds General Appearance: No Apparent Distress HEENT: PERRL/EOMI Neck: Full Range of Motion Respiratory: Decreased Breath Sounds, Rhonci Cardiovascular: Regular Rate, Rhythm Gastrointestinal: soft Extremity: Normal Capillary Refill Neurologic/Psychiatric: Alert, Oriented x3 Skin: Normal Color Lymphatic: No Adenopathy Results Lab Laboratory Tests 10/31/20 11:55: Glucometer 57*L 10/31/20 12:40: Urine Color YELLOW, Urine Clarity CLEAR, Urine pH 6.5, Urine Specific [place] 1.020, Urine Protein 1+H, Urine Glucose (UA) NEGATIVE, Urine Ketones NEGATIVE, Urine Nitrite NEGATIVE, Urine Bilirubin NEGATIVE, Urine Urobilinogen 0.2, Urine Leukocyte Esterase NEGATIVE, Urine RBC (Auto) 1+H, Urine RBC 5-10H, Urine WBC 2- 5, Urine Squamous Epithelial Cells 2-5, Urine Crystals NONE, Urine Bacteria TRACE, Urine Casts NONE, Urine Mucus SMALLH, Urine Culture Indicated NO 10/31/20 16:46: Glucometer 64L 10/31/20 23:57: Glucometer 115H 11/01/20 02:55: White Blood Count 26.2H, Red Blood Count 3.32L, Hemoglobin 10.7L, Hematocrit 32L , Mean Corpuscular Volume 96, Mean Corpuscular Hemoglobin 32, Mean Corpuscular Hemoglobin Concent 34, Red Cell Distribution Width 13.1, Platelet Count 196, Mean Platelet Volume 10.8, Immature Granulocyte % (Auto) 2, Neutrophils (%) (Auto) 88H, Lymphocytes (%) (Auto) 5L, Monocytes (%) (Auto) 4, Eosinophils (%) (Auto) 1, Basophils (%) (Auto) 1, Neutrophils # (Auto) 23.0H, Lymphocytes # (Auto) 1.4, Monocytes # (Auto) 1.0, Eosinophils # (Auto) 0.2, Basophils # (Auto) 0.1, Immature Granulocyte # (Auto) 0.5H, Sodium Level 138, Potassium Level 3.9, Chloride Level 110H, Carbon Dioxide Level 23, Anion Gap 5, Blood Urea Nitrogen 12, Creatinine 0.70, Estimat Glomerular Filtration Rate > 60, BUN/Creatinine Ratio 17, Glucose Level 87, Calcium Level 7.7L, Corrected Calcium 9.5, Phosphorus Level 1.9L, Magnesium Level 1.7, Total Bilirubin 0.5, Aspartate Amino Transf (AST/SGOT) 34, Alanine Aminotransferase (ALT/SGPT) 26, Alkaline Phosphatase 82, Total Protein 3.8L, Albumin 1.8L 11/01/20 09:15: B-Type Natriuretic Peptide 292.1H, Vancomycin Level Trough 6.9L Microbiology 10/30/20 Blood Culture - Preliminary, Resulted No growth Assessment/Plan Assessment/Plan Assess & Plan/Chief Complaint acute pancreatitis with ileus and atelectasis. will check repeat u/a. cont abx and antifungal. if clinically worsens or increase WBC then will get CT chest abd and pelvis. worsening CXR with atelectasis and basilar pneumonia. will start breathing treatments. Clinical Quality Measures DVT/VTE Risk/Contraindication: Risk Factor Score Per Nursin RFS Level Per Nursing on Admit: 4+=Very High Other: RISK FOR FURTHER BLEEDING IN ABDOMEN CINDY REYES MD Nov 01, 2020 10:04
[2020-11-01] MEDS ORDERED: VANCOMYCIN INJECTION 250 MG in NS (IVPB) 100 ML IV NR (10:30)
[2020-11-01] MEDS: RT-ALBUTEROL SULF 2.5 MG/3 ML PRE-MIX VIAL INH SCH ×2 (15:56→23:01)
[2020-11-01] MEDS: VANCOMYCIN 1 GM/NS 250 ML IVPB IV SCH ×2 (20:25)
[2020-11-02] MEDS: HYDROcodone/APAP 5 MG/325 MG (LORTAB) TAB PO PRN ×4 (02:19→23:18)
[2020-11-02] MEDS: inSUlin ASPART (NovoLOG) 1 UNIT/0.01 ML (CHARGE PER UNIT) SC SCH ×5 (02:19→23:18)
[2020-11-02 02:37] LABS: BASOPHILS # (AUTO) 0.1 10^3/uL (0.0-0.1); BASOPHILS % (AUTO) 0 % (0-10); EOSINOPHILS # (AUTO) 0.3 10^3/uL (0.0-0.3); EOSINOPHILS % (AUTO) 2 % (0-10); HEMATOCRIT 30 % (35-52); HEMOGLOBIN 9.9 g/dL (11.5-16.0); LYMPHOCYTES # (AUTO) 1.4 10^3/uL (1.0-4.0); LYMPHOCYTES % (AUTO) 7 % (12-44); MEAN CORPUSCULAR HEMOGLOBIN 32 pg (25-34); MEAN CORPUSCULAR HGB CONC 33 g/dL (32-36); MEAN CORPUSCULAR VOLUME 97 fL (80-99); MEAN PLATELET VOLUME 10.4 fL (9.0-12.2); MONOCYTES # (AUTO) 0.9 10^3/uL (0.0-1.0); MONOCYTES % (AUTO) 4 % (0-12); NEUTROPHILS # (AUTO) 17.2 10^3/uL (1.8-7.8); NEUTROPHILS % (AUTO) 85 % (42-75); PLATELET COUNT 224 10^3/uL (130-400); WHITE BLOOD COUNT 20.1 10^3/uL (4.3-11.0)
[2020-11-02 02:56] LABS: BUN/CREATININE RATIO 19; CALCIUM 7.7 MG/DL (8.5-10.1); CARBON DIOXIDE 22 MMOL/L (21-32); CHLORIDE 111 MMOL/L (98-107); CREATININE SERUM 0.63 MG/DL (0.60-1.30); GFR ESTIMATED > 60; GLUCOSE 95 MG/DL (70-105); MAGNESIUM 2.2 MG/DL (1.6-2.4); PHOSPHORUS 2.2 MG/DL (2.3-4.7); POTASSIUM 3.7 MMOL/L (3.6-5.0); SODIUM 139 MMOL/L (135-145)
[2020-11-02] MEDS: POTASSIUM CL 10MEQ/50ML IVPB 50 ML IV SCH (05:13)
[2020-11-02] MEDS: MAGNESIUM 1 GM/100 ML IVPB 100 ML IV SCH (05:13)
[2020-11-02] MEDS: KCL 20 MEQ TAB (K-DUR) PO SCH (05:14)
[2020-11-02] MEDS: MEROPENEM 500 MG/SWFI 10 ML IV PUSH IV SCH ×6 (05:26→20:14)
[2020-11-02] MEDS: RT-ALBUTEROL SULF 2.5 MG/3 ML PRE-MIX VIAL INH SCH ×3 (07:31→22:30)
--- NOTE | 2020-11-02 07:52 | Diagnostic Imaging Report ---
INDICATION: Pleural effusion, post bowel surgery. TECHNIQUE: Single view chest 2:13 AM. CORRELATION STUDY: 11/01/2020 FINDINGS: Poststernotomy change. Right upper extremity central line tip over the right atrium. Cardiac enlargement. Increasing vascular congestion overall perihilar edema. Increasing opacities particularly in the mid and lower lung alexandra, likely component of edema versus infiltrate along with moderate bilateral pleural effusions. IMPRESSION: 1. Adverse changes at follow-up. There appears to be increasing pulmonary vascular congestion and overall perihilar edema. 2. Increasing opacities throughout both lung alexandra may be reflective of underlying edema versus infiltrate along with presence of increasing size of pleural effusions. Dictated by: Dictated on workstation # [id number]
[2020-11-02] MEDS: VANCOMYCIN 1 GM/NS 250 ML IVPB IV SCH ×4 (07:53→20:14)
[2020-11-02] MEDS: PANTOPRAZOLE 40 MG (PROTONIX) VIAL IVP SCH (07:54)
[2020-11-02] MEDS: ANIDULAFUNGIN INJECTION 100 MG in NS (IVPB) 100 ML IV SCH (07:54)
[2020-11-02] MEDS ORDERED: FUROSEMIDE 40 MG/4 ML INJ (LASIX) IVP ONE (09:30)
--- NOTE | 2020-11-02 09:32 | Progress Note - Surgery ---
BROOKS MARIN MED STUDENT 11/02/20 0932: Subjective Date Seen by a Provider: Nov 02, 2020 Time Seen by a Provider: 08:15 Subjective/Events-last exam Debbie was lethargic and having difficulty maintaining O2 today. The drain tube had some serous drainage. Had not had a BM yet today and had minimally swollen lower extremities. Complained of some pain in her abdomen. Review of Systems General: Fatigue Pulmonary: Dyspnea Focused Exam Lactate Level 10/30/20 10:05: Lactic Acid Level 2.38*H Time of Focused Exam: 08:15 Respiratory: Chest Non Tender, Rhonci Cardiovascular: Regular Rate, Rhythm, No Edema, No JVD, No Murmur, Normal Peripheral Pulses Skin: normal color, warm/dry Objective Exam Vital Signs Date Time Temp Pulse Resp B/P (MAP) Pulse Ox O2 Delivery O2 Flow Rate FiO2 11/02/20 08:02 36.0 11/02/20 08:01 94 High Flow N/C 5.00 11/02/20 07:31 94 Nasal Cannula 2.00 11/02/20 06:00 92 16 164/100 (121) 97 Nasal Cannula 4.00 11/02/20 05:00 86 14 134/87 (92) 94 Nasal Cannula 4.00 11/02/20 04:00 77 13 123/67 (83) 95 Nasal Cannula 4.00 11/02/20 04:00 36.8 Nasal Cannula 4.00 11/02/20 03:00 80 14 129/78 (88) 93 Nasal Cannula 4.00 11/02/20 02:10 Nasal Cannula 4.00 11/02/20 02:00 82 15 123/62 (91) 91 Nasal Cannula 3.00 11/02/20 01:00 92 14 145/75 (99) 95 Nasal Cannula 3.00 11/02/20 01:00 92 11/02/20 00:00 93 14 136/76 (97) 95 Nasal Cannula 3.00 11/01/20 23:29 36.9 Nasal Cannula 3.00 11/01/20 23:01 98 Nasal Cannula 5.00 11/01/20 23:00 60 13 138/86 (103) 97 High Flow N/C 5.00 11/01/20 22:00 90 14 138/81 (104) 98 High Flow N/C 5.00 11/01/20 21:00 86 15 136/86 (104) 100 High Flow N/C 5.00 11/01/20 20:00 94 High Flow N/C 5.00 11/01/20 20:00 96 18 160/84 (125) High Flow N/C 5.00 11/01/20 20:00 37.2 11/01/20 19:00 101 11/01/20 19:00 101 21 150/106 (132) 95 High Flow N/C 5.00 11/01/20 18:00 98 21 98 High Flow N/C 5.00 11/01/20 17:00 101 21 100 High Flow N/C 5.00 11/01/20 16:00 100 36 138/102 (114) 93 High Flow N/C 5.00 11/01/20 16:00 37.2 11/01/20 15:00 101 33 133/100 (111) 100 High Flow N/C 5.00 11/01/20 14:00 90 28 150/81 (104) 93 High Flow N/C 5.00 11/01/20 13:00 101 24 150/81 (104) Room Air 11/01/20 12:19 93 11/01/20 12:00 98 11 167/98 (121) Room Air 11/01/20 11:00 92 12 144/91 (108) Room Air 11/01/20 10:00 100 12 141/91 (108) 97 Room Air I & O 11/02/20 07:00 Intake Total 2300.0 ml Output Total 1230 ml Balance 1070.0 ml Capillary Refill : Greater Than 3 Seconds General Appearance: Mild Distress HEENT: PERRL/EOMI Neck: Full Range of Motion Respiratory: Chest Non Tender, Decreased Breath Sounds, Rhonci Cardiovascular: Regular Rate, Rhythm, No Edema, No Gallop, No JVD, No Murmur, Normal Peripheral Pulses Gastrointestinal: soft Extremity: Normal Capillary Refill, Swelling Neurologic/Psychiatric: Alert, Oriented x3, No Motor/Sensory Deficits Skin: Normal Color, Warm/Dry Lymphatic: No Adenopathy Results Lab Laboratory Tests 11/01/20 11:33: Glucometer 70 11/01/20 15:15: Glucometer 120H 11/01/20 20:26: Glucometer 81 11/02/20 02:30: White Blood Count 20.1H, Red Blood Count 3.06L, Hemoglobin 9.9L, Hematocrit 30L, Mean Corpuscular Volume 97, Mean Corpuscular Hemoglobin 32, Mean Corpuscular Hemoglobin Concent 33, Red Cell Distribution Width 13.1, Platelet Count 224, Mean Platelet Volume 10.4, Immature Granulocyte % (Auto) 1, Neutrophils (%) (Auto) 85H, Lymphocytes (%) (Auto) 7L, Monocytes (%) (Auto) 4, Eosinophils (%) (Auto) 2, Basophils (%) (Auto) 0, Neutrophils # (Auto) 17.2H, Lymphocytes # (Auto) 1.4, Monocytes # (Auto) 0.9, Eosinophils # (Auto) 0.3, Basophils # (Auto) 0.1, Immature Granulocyte # (Auto) 0.3H, Sodium Level 139, Potassium Level 3.7, Chloride Level 111H, Carbon Dioxide Level 22, Anion Gap 6, Blood Urea Nitrogen 12, Creatinine 0.63, Estimat Glomerular Filtration Rate > 60, BUN/Creatinine Ratio 19, Glucose Level 95, Calcium Level 7.7L, Phosphorus Level 2.2L, Magnesium Level 2.2 Microbiology 10/31/20 Catheter Tip Culture - Preliminary, Resulted No growth Assessment/Plan Assessment/Plan Admission Diagonsis hemorrhagic pancreatitis Assessment/Plan acute pancreatitis with ileus and atelectasis. will check repeat u/a. cont abx and antifungal. if clinically worsens or increase WBC then will get CT chest abd and pelvis. worsening CXR with atelectasis and basilar pneumonia. will start breathing treatments. possible Lasix for swollen lower extremities continue breathing treatment Diagnosis/Problems Diagnosis/Problems (1) Acute hemorrhagic pancreatitis Status: Acute Clinical Quality Measures DVT/VTE Risk/Contraindication: Risk Factor Score Per Nursin RFS Level Per Nursing on Admit: 4+=Very High Other: RISK FOR FURTHER BLEEDING IN ABDOMEN Supervisory-Addendum Brief Verification & Attestation Participated in pt care: history, physical Personally performed: exam, history Care discussed with: Medical Student Procedures: n/a SANTOS ZAZUETA DO 11/02/20 0350: Subjective Subjective/Events-last exam Patient some abdominal pain minimal to mild, but tolerable. Having some flatus and bm's yesterday. Drain serous in appearance. Some shortness of air at times. WBC coming down. Denies nausea or emesis. Tolerating liquids. Objective Exam General Appearance: Chronically ill, Thin HEENT: PERRL/EOMI, Normal ENT Inspection Neck: Full Range of Motion, Non Tender, Supple Respiratory: Chest Non Tender, Decreased Breath Sounds, Rhonci Cardiovascular: Regular Rate, Rhythm, No JVD Gastrointestinal: soft, tenderness (diffuse minimal), other (incisions c/d/i no significant pain with palpation) Extremity: Swelling (b/l lower ext) Neurologic/Psychiatric: Alert, Oriented x3, No Motor/Sensory Deficits Skin: Normal Color, Warm/Dry Lymphatic: No Adenopathy Assessment/Plan Assessment/Plan Assessment/Plan Hemorrhagic Pancreatitis - Bloody fluid in abdomen per diagnostic laparoscopy 10/24 Leukocytosis decreasing conitnue abx Lactic Acidosis Hiatal hernia GE ulcer Abdominal pain diffuse minimal CAD Acute Renal Failure CHRISTA minor serous continue to bulb suction wbc trending down, continue abx has bowel function, keep on clears today if pain worsens would consider repeat ct Supervisory-Addendum Brief Verification & Attestation Participated in pt care: history, MDM, physical Personally performed: exam, history, MDM, supervision of care Care discussed with: Medical Student Procedures: n/a Results interpretation: Verified all documentation Verification and Attestation of Medical Student E/M Service A medical student performed and documented this service in my presence. I reviewed and verified all information documented by the medical student and made modifications to such information, when appropriate. I personally performed the physical exam and medical decision making. Santos Zazueta, Nov 02, 2020,21:49 BROOKS MARIN MED STUDENT Nov 02, 2020 09:32 SANTOS ZAZUETA DO Nov 02, 2020 21:50
--- NOTE | 2020-11-02 11:18 | Physical Therapy Daily Note ---
PT Daily Note-Current Subjective Patient states, "I just don't have any energy or strength. It's all gone." Mental Status Patient Orientation: Normal For Age Attachments: Oxygen, Drains, Galeano Catheter, IV Transfers SCALE: Activities may be completed with or without assistive devices. 2-Xgmiyrqanv-eukygii completes the activity by him/herself with no assistance from a helper. 5-Set-up or Clean-up Assistance-helper sets up or cleans up; patient completes activity. Isabella assists only prior to or following the activity. 4-Supervision or Touching Assistance-helper provides verbal cues and/or touching/steadying and/or contact guard assistance as patient completes activity. Assistance may be provided throughout the activity or intermittently. 3-Partial/Moderate Assistance-helper does LESS THAN HALF the effort. Isabella lifts, holds or supports trunk or limbs, but provides less than half the effort. 2-Substantial/Maximal Assistance-helper does MORE THAN HALF the effort. Isabella lifts or holds trunk or limbs and provides more than half the effort. 5-Vebtqgfys-wevhba does ALL the effort. Patient does none of the effort to complete the activity. Or, the assistance of 2 or more helpers is required for the patient to complete the activity. If activity was not attempted, code reason: 7-Patient Refused. 9-Not Applicable-not attempted and the patient did not perform the activity before the current illness, exacerbation or injury. 10-Not Attempted due to Environmental Limitations-(lack of equipment, weather restraints, etc.). 88-Not Attempted due to Medical Conditions or Safety Concerns. Lying to Sitting/Side of Bed(Q: 4 Sit to Stand (QC): 2 Chair/Gsr-yh-Vrwas Xfer(QC): 2 Toilet Transfer (QC): 2 minimal assist with sit to stand and SPT x 2 sets Exercises Supine Ex: Ankle pumps, Quad Set Supine Reps: 10 Seated Therapy Exercises: Long arc quads Seated Reps: 12 Assessment Patient incontinent BM during session requiring assist to cleanse. Patient tolerates minimal activity and is up in recliner with RN present for dressing change. PT to increase activity as tolerated by patient. PT Long-Term Goals Long-Term Goals PT Fiber Technician Goals Time Frame: Nov 04, 2020 Roll Left & Right (QC): 4 Sit to Lying (QC): 4 Lying-Sitting on Side/Bed(QC): 4 Sit to Stand (QC): 4 Chair/Uci-iz-Jzbcw Xfer(QC): 4 Walk 10 feet (QC): 4 Walk 50ft with 2 Turns (QC): 4 PT Plan Treatment/Plan Treatment Plan: Continue Plan of Care Treatment Plan: Bed Mobility, Education, Functional Activity Yanick, Functional Strength, Gait, Safety, Therapeutic Exercise, Transfers Treatment Duration: Nov 04, 2020 Frequency: 6 times per week Estimated Hrs Per Day: .25 hour per day Patient and/or Family Agrees t: Yes Time/GCodes Time In: 1047 Time Out: 1102 Total Billed Treatment Time: 15 Total Billed Treatment 1 visit FA 15 min LI RITCHIE PT Nov 02, 2020 11:18
--- NOTE | 2020-11-02 14:10 | Occupational Ther Daily Note ---
OT Current Status-Daily Note Subjective Pt alert, sitting in recliner. Pt asking about glasses and purse. Pt states that joints just ache and she can't do much. Mental Status/Objective Patient Orientation: Person, Place, Time, Situation Attachments: Drains, Galeano Catheter, IV, Oxygen, Telemetry ADL-Treatment Pt able to complete upper body bathing and shampooing hair with cap, SBA after set up. Pt SOA with exertion and c/o pain with movement (joints). Pt takes increased time to complete each task due to weakness and debility. B hands continue to have edema. After session, pt sitting in recliner with feet elevated. Call light/phone in reach. All needs met in room. Therapy Code Descriptions/Definitions Functional Wake Measure: 0=Not Assessed/NA 4=Minimal Assistance 1=Total Assistance 5=Supervision or Setup 2=Maximal Assistance 6=Modified Wake 3=Moderate Assistance 7=Complete IndependenceSCALE: Activities may be completed with or without assistive devices. 2-Dqwrwrcqah-rzpkabt completes the activity by him/herself with no assistance f rom a helper. 5-Set-up or Clean-up Assistance-helper sets up or cleans up; patient completes activity. Selma assists only prior to or following the activity. 4-Supervision or Touching Assistance-helper provides verbal cues and/or touching/steadying and/or contact guard assistance as patient completes activity. Assistance may be provided throughout the activity or intermittently. 3-Partial/Moderate Assistance-helper does LESS THAN HALF the effort. Selma lifts, holds or supports trunk or limbs, but provides less than half the effort. 2-Substantial/Maximal Assistance-helper does MORE THAN HALF the effort. Selma lifts or holds trunk or limbs and provides more than half the effort. 3-Jwgrjzlnq-qmhdtl does ALL the effort. Patient does none of the effort to complete the activity. Or, the assistance of 2 or more helpers is required for the patient to complete the activity. If activity was not attempted, code reason: 7-Patient Refused. 9-Not Applicable-not attempted and the patient did not perform the activity before the current illness, exacerbation or injury. 10-Not Attempted due to Environmental Limitations-(lack of equipment, weather restraints, etc.). 88-Not Attempted due to Medical Conditions or Safety Concerns. OT Short Term Goals Short Term Goals Time Frame: Nov 04, 2020 Eatin Oral hygiene: 4 Toileting hygiene: 3 Upper body dressin Lower body dressin Putting on/taking off footwear: 3 OT Frame Runner Goals Long-Term Goals Time Frame: Nov 11, 2020 Eating (QC): 6 Oral Hygiene (QC): 6 Toileting Hygiene (QC): 4 Shower/Bathe Self (QC): 4 Upper Body Dressing (QC): 5 Lower Body Dressing (QC): 4 On/Off Footwear (QC): 4 Additional Goals: 1-Demonstrate ADL Tasks, 2-Verbalize Understanding, 3- ImproveStrength/Yanick 1=Demonstrate adherence to instructed precautions during ADL tasks. 2=Patient will verbalize/demonstrate understanding of assistive devices/mod ifications for ADL. 3=Patient will improve strength/tolerance for activity to enable patient to perform ADL's. OT Education/Plan Problem List/Assessment Assessment: Decreased Activ Tolerance, Decreased Safety Aware, Decreased UE Strength, Impaired Cognition, Impaired Coordination, Impaired Funct Balance, Impaired Self-Care Skills Discharge Recommendations Plan/Recommendations: Continue POC Treatment Plan/Plan of Care Patient would benefit from OT for education, treatment and training to promote independence in ADL's, mobility, safety and/or upper extremity function for ADL's. Plan of Care: ADL Retraining, Functional Mobility, UE Funct Exercise/Act Treatment Duration: Nov 11, 2020 Frequency: 5 times per week Estimated Hrs Per Day: .25 hour per day Agreement: Yes Rehab Potential: Good Time/GCodes Start Time: 13:40 Stop Time: 13:04 Total Time Billed (hr/min): 24 Billed Treatment Time 1 visit-ADL 2 (24 min) ANSON CARBAJAL Nov 02, 2020 14:10
--- NOTE | 2020-11-02 17:03 | Progress Note - Hospitalist ---
Subjective HPI/CC On Admission Date Seen by Provider: Nov 02, 2020 Time Seen by Provider: 09:05 Debbie Nieto is an 80 year old female with PMH HTN, HLD, who presented with shortness of breath and abdominal pain. She reports that this all started on the evening of 10/23. She was having abdominal pain in the center of her abdomen. Sh e reports that her belly was becoming more and more distended. She denies nausea and vomiting. She did have diarrhea. She denies fevers and chills. She denies cough. She denies chest pain. She does not smoke or drink alcohol. She has no history of pancreatitis. She thinks she still has her gallbladder. Her initial workup in the ER found a large amount of abdominal ascites. Her lactic acid was significantly elevated. There was concern for perforation and she was taken to the OR. There was no identified colon perforation. She was found to have a hemorrhagic/necrotizing pancreatitis. An intraabdominal drain was placed. The hospitalist service has been consulted for medical comanagement. Subjective/Events-last exam she reports some abdominal pain. She reports shortness of breath. She denies cough. She denies fever. Focused Exam Time of Focused Exam: 08:15 Objective Exam Vital Signs Vital Signs Date Time Temp Pulse Resp B/P (MAP) Pulse Ox O2 Delivery O2 Flow Rate FiO2 11/02/20 16:00 37.7 11/02/20 15:00 90 16 137/80 (99) 94 Nasal Cannula 4.00 Capillary Refill : Greater Than 3 Seconds General Appearance: No Apparent Distress, WD/WN Respiratory: Crackles, Respiratory Distress (tachypnea) Cardiovascular: Regular Rate, Rhythm, No Murmur Gastrointestinal: Normal Bowel Sounds, Non Tender, Soft Extremity: Normal Inspection, Non Tender, Pedal Edema Neurologic/Psychiatric: Alert, Oriented x3, Normal Mood/Affect Skin: Normal Color, Warm/Dry Results/Procedures Lab Laboratory Tests 11/02/20 02:30 Patient resulted labs reviewed. Imaging: Reviewed Imaging Report Assessment/Plan Assessment and Plan Assess & Plan/Chief Complaint Hemorrhagic pancreatitis Ascites CT Abdomen with poor visualization of pancreas on arrival Intraoperatively visualized hemorrhagic/necrotizing pancreatitis Contnue Vanc, Merrem, Eraxis EGD 10/25 showed ulcer of pharynx, ulcer of esophagus, hiatal hernia Consider repeat CT Abdomen Acute respiratory failure with hypoxia Fluid overload COVID negative s/p thoracentesis 10/29 for pleural effusions by radiology TeleICU consulted CTA negative for PE Chest xray consistent with fluid overload Lasix ordered DVT prophylaxis: held due to hemorrhagic pancreatitis Acute kidney injury, resolved Lactic acidosis, resolved Polycythemia, resolved Diagnosis/Problems Diagnosis/Problems (1) Acute hemorrhagic pancreatitis Status: Acute (2) Ascites Status: Acute (3) Esophageal ulcer Status: Acute (4) Ulcer of pharynx Status: Acute (5) Hiatal hernia Status: Acute (6) Lactic acidosis Status: Resolved Resolution Date/Time: 11/02/20 @ 17:02 (7) WHITNEY (acute kidney injury) Status: Resolved Resolution Date/Time: 11/02/20 @ 17:02 (8) Polycythemia Status: Resolved Resolution Date/Time: 11/02/20 @ 17:03 Clinical Quality Measures DVT/VTE Risk/Contraindication: Risk Factor Score Per Nursin RFS Level Per Nursing on Admit: 4+=Very High Other: RISK FOR FURTHER BLEEDING IN ABDOMEN MARIEL SHOEMAKER MD Nov 02, 2020 17:03
--- NOTE | 2020-11-02 17:33 | NUR ---
During care rounds, it was noted that avg PO intake 50-75% x2d. Would recommend continue with current diet order of Clear Liquid diet, and current supplementation order of Ensure Clear with meals TID. Will continue to follow and reassess as pt needs, intake, and status change. Dina Villalpando, MS RD LD
[2020-11-02] MEDS ORDERED: MEROPENEM 500 MG VIAL (MERREM) IV ONE (19:56)
[2020-11-02] MEDS ORDERED: WATER (STERILE) FOR INJECTION 10 ML ONE (19:56)
--- NOTE | 2020-11-02 23:36 | NUR ---
RLQ CHRISTA DRESSING SATURATED C SEROUS FLUID AT THIS TIME. DRESSING REMOVED, AREA CLEANSED C SOAP AND SALINE, DRAIN SPONGE, 4X4 GAUZE, ABD PAD AND MEDIPORE TAPE APPLIED. WILL CONTINUE TO MONITOR.
[2020-11-03] MEDS: LACTATED RINGERS 1,000 ML IV SCH (02:10)
[2020-11-03 02:25] LABS: BASOPHILS # (AUTO) 0.1 10^3/uL (0.0-0.1); BASOPHILS % (AUTO) 0 % (0-10); EOSINOPHILS # (AUTO) 0.2 10^3/uL (0.0-0.3); EOSINOPHILS % (AUTO) 1 % (0-10); HEMATOCRIT 30 % (35-52); HEMOGLOBIN 10.1 g/dL (11.5-16.0); LYMPHOCYTES # (AUTO) 1.5 10^3/uL (1.0-4.0); LYMPHOCYTES % (AUTO) 8 % (12-44); MEAN CORPUSCULAR HEMOGLOBIN 32 pg (25-34); MEAN CORPUSCULAR HGB CONC 34 g/dL (32-36); MEAN CORPUSCULAR VOLUME 95 fL (80-99); MEAN PLATELET VOLUME 10.4 fL (9.0-12.2); MONOCYTES # (AUTO) 0.9 10^3/uL (0.0-1.0); MONOCYTES % (AUTO) 5 % (0-12); NEUTROPHILS % (AUTO) 84 % (42-75); PLATELET COUNT 278 10^3/uL (130-400); WHITE BLOOD COUNT 17.8 10^3/uL (4.3-11.0)
[2020-11-03 03:04] LABS: ALBUMIN 1.7 GM/DL (3.2-4.5); CHLORIDE 108 MMOL/L (98-107); POTASSIUM 3.6 MMOL/L (3.6-5.0); SODIUM 138 MMOL/L (135-145)
[2020-11-03 03:05] LABS: CALCIUM 7.6 MG/DL (8.5-10.1)
[2020-11-03 03:06] LABS: GLUCOSE 103 MG/DL (70-105); TOTAL PROTEIN 3.9 GM/DL (6.4-8.2)
[2020-11-03 03:07] LABS: CARBON DIOXIDE 24 MMOL/L (21-32)
[2020-11-03 03:08] LABS: BILIRUBIN,TOTAL 0.4 MG/DL (0.1-1.0)
[2020-11-03 03:09] LABS: PHOSPHORUS 2.2 MG/DL (2.3-4.7)
[2020-11-03 03:10] LABS: ALKALINE PHOSPHATASE 87 U/L (40-136); CREATININE SERUM 0.59 MG/DL (0.60-1.30); GFR ESTIMATED > 60
[2020-11-03 03:11] LABS: BUN/CREATININE RATIO 19
[2020-11-03 03:12] LABS: MAGNESIUM 1.9 MG/DL (1.6-2.4)
[2020-11-03 03:13] LABS: ALANINE AMINOTRANSFERASE 19 U/L (0-55)
[2020-11-03] MEDS ORDERED: WATER (STERILE) FOR INJECTION 10 ML ONE ×3 (03:56→20:19)
[2020-11-03] MEDS ORDERED: MEROPENEM 500 MG VIAL (MERREM) IV ONE ×3 (03:56→20:19)
[2020-11-03] MEDS: HYDROcodone/APAP 5 MG/325 MG (LORTAB) TAB PO PRN ×2 (04:22→12:23)
[2020-11-03] MEDS: MAGNESIUM 1 GM/100 ML IVPB 100 ML IV SCH (04:25)
[2020-11-03] MEDS: KCL 20 MEQ TAB (K-DUR) PO SCH (04:25)
[2020-11-03] MEDS: POTASSIUM CL 10MEQ/50ML IVPB 50 ML IV SCH (04:25)
[2020-11-03] MEDS: inSUlin ASPART (NovoLOG) 1 UNIT/0.01 ML (CHARGE PER UNIT) SC SCH ×3 (04:25→16:21)
[2020-11-03] MEDS: MEROPENEM 500 MG/SWFI 10 ML IV PUSH IV SCH ×6 (05:21→21:26)
[2020-11-03] MEDS: RT-ALBUTEROL SULF 2.5 MG/3 ML PRE-MIX VIAL INH SCH ×3 (06:56→22:08)
[2020-11-03] MEDS ORDERED: FUROSEMIDE 40 MG/4 ML INJ (LASIX) IVP NR (07:00)
--- NOTE | 2020-11-03 07:25 | History & Physical-Surgical ---
BROOKS MARIN MED STUDENT 11/03/20 0725: History of Present Illness History of Present Illness Reason for visit/HPI Patient was alert and oriented today to questions. She was moved yesterday to [facility] and seemed to be in a much clear state of mind. She described epigastric pain in the afternoon that is hard to control with pain medication. There was minimal serous fluid in her drain tube. She began to become frustrated as Date of Admission Oct 24, 2020 at 16:12 Date Seen by a Provider: Nov 03, 2020 Time Seen by a Provider: 07:00 I consulted on this patient on 11/03/20 07:20 Attending Physician Jv Díaz DO Admitting Physician Taco Hanley MD Consult Allergies and Home Medications Allergies Coded Allergies: No Known Drug Allergies (Unverified , 07/25/19) Home Medications Atorvastatin Calcium 10 Mg Tablet, 10 MG PO HS, (Reported) Ramipril 2.5 Mg Capsule, 2.5 MG PO DAILY, (Reported) Past Tzsumhc-Wfeucm-Tfbrwo Hx Patient Social History Alcohol Use: Denies Use Recreational Drug Use: No Smoking Status: Never a Smoker Recent Foreign Travel: No Contact w/Someone Who Travel: No Recent Infectious Disease Expo: No Recent Hopitalizations: No Immunizations Up To Date Tetanus Booster (TDap): Unknown Date of Pneumonia Vaccine: Aug 30, 2016 Date of Influenza Vaccine: Jul 30, 2018 Surgeries History of Surgeries: Yes (ECTOPIC ) Surgeries: Abdominal, CABG Respiratory History of Respiratory Disorde: No Cardiovascular History of Cardiac Disorders: Yes Cardiac Disorders: Coronary Artery Disease, Hypertension Neurological History of Neurological Disord: No Reproductive System : No Hx Reproductive Disorders: Yes (ECTOPIC ) 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 Genitourinary History of Genitourinary Disor: Yes Genitourinary Disorders: Kidney Stones Gastrointestinal History of Gastrointestinal Di: No Musculoskeletal History of Musculoskeletal Dis: No Endocrine History of Endocrine Disorders: No HEENT Loss of Vision: Denies Hearing Impairment: Hard of Hearing Cancer History of Cancer: No Psychosocial History of Psychiatric Problem: No Integumentary History of Skin or Integumenta: No Blood Transfusions History of Blood Disorders: No Family Medical History Significant Family History: Heart Disease (both parents), Cancer (Denies any cancer in her family), CVA Physical Exam Vital Signs Vital Signs - First Documented 10/28/20 10/28/20 00:00 07:33 Temp 36.3 Pulse 86 Resp 12 B/P (MAP) 142/83 (104) Pulse Ox 100 O2 Delivery Nasal Cannula O2 Flow Rate 4.00 Capillary Refill : Greater Than 3 Seconds Height, Weight, BMI Height: 5'1.00" Weight: 105lbs. 0.0oz. [id number]; 20.39 BMI Method:Stated Data Review Labs Laboratory Tests 11/02/20 11:06: Glucometer 111H 11/02/20 15:09: Glucometer 92 11/03/20 02:10: White Blood Count 17.8H, Red Blood Count 3.12L, Hemoglobin 10.1L, Hematocrit 30L , Mean Corpuscular Volume 95, Mean Corpuscular Hemoglobin 32, Mean Corpuscular Hemoglobin Concent 34, Red Cell Distribution Width 13.2, Platelet Count 278, Mean Platelet Volume 10.4, Immature Granulocyte % (Auto) 1, Neutrophils (%) (Auto) 84H, Lymphocytes (%) (Auto) 8L, Monocytes (%) (Auto) 5, Eosinophils (%) (Auto) 1, Basophils (%) (Auto) 0, Neutrophils # (Auto) 15.0H, Lymphocytes # (Auto) 1.5, Monocytes # (Auto) 0.9, Eosinophils # (Auto) 0.2, Basophils # (Auto) 0.1, Immature Granulocyte # (Auto) 0.2H, Sodium Level 138, Potassium Level 3.6, Chloride Level 108H, Carbon Dioxide Level 24, Anion Gap 6, Blood Urea Nitrogen 11, Creatinine 0.59L, Estimat Glomerular Filtration Rate > 60, BUN/Creatinine Ratio 19, Glucose Level 103, Calcium Level 7.6L, Corrected Calcium 9.4, Phosphorus Level 2.2L, Magnesium Level 1.9, Total Bilirubin 0.4, Aspartate Amino Transf (AST/SGOT) 30, Alanine Aminotransferase (ALT/SGPT) 19, Alkaline Phosphat ase 87, Total Protein 3.9L, Albumin 1.7L Microbiology 10/31/20 Catheter Tip Culture - Preliminary, Resulted No growth Assessment/Plan Assessment/Plan Assessment/Plan Hemorrhagic Pancreatitis - Bloody fluid in abdomen per diagnostic laparoscopy 10/24 Leukocytosis decreasing conitnue abx Lactic Acidosis Hiatal hernia GE ulcer Abdominal pain diffuse minimal CAD Acute Renal Failure CHRISTA gaxiola serous continue to bulb suction wbc trending down, continue abx has bowel function, keep on clears today if pain worsens would consider repeat ct Diagnosis/Problems Diagnosis/Problems (1) Acute hemorrhagic pancreatitis Status: Acute Clinical Quality Measures DVT/VTE Risk/Contraindication: Risk Factor Score Per Nursin RFS Level Per Nursing on Admit: 4+=Very High Other: RISK FOR FURTHER BLEEDING IN ABDOMEN LEANNA SALDAÑA 11/05/20 1101: Allergies and Home Medications Allergies Coded Allergies: No Known Drug Allergies (Unverified , 07/25/19) Home Medications Atorvastatin Calcium 10 Mg Tablet, 10 MG PO HS, (Reported) Ramipril 2.5 Mg Capsule, 2.5 MG PO DAILY, (Reported) BROOKS MARIN MED STUDENT Nov 03, 2020 07:25 LEANNA SALDAÑA Nov 05, 2020 11:01
--- NOTE | 2020-11-03 07:59 | Diagnostic Imaging Report ---
INDICATION: Postoperative evaluation. EXAMINATION: Chest 11/03/2020. COMPARISON: 11/02/2020 FINDINGS: There are bilateral pleural effusions with bibasilar infiltrates also present. Pulmonary edema appears improved. Heart is stable. Pulmonary vasculature was congested. There is no pneumothorax. A right central line tip is stable. Sternotomy wires and mediastinal clips again noted. IMPRESSION: 1. Persistent bibasilar infiltrates and effusions. Remaining chest improved in appearance. Dictated by: Dictated on workstation # [id number]
[2020-11-03] MEDS ORDERED: TROUGH ORDER-PHARMACY XX NR ×2 (08:00→20:00)
[2020-11-03] MEDS: PANTOPRAZOLE 40 MG (PROTONIX) VIAL IVP SCH (09:05)
[2020-11-03] MEDS: ANIDULAFUNGIN INJECTION 100 MG in NS (IVPB) 100 ML IV SCH (09:06)
--- NOTE | 2020-11-03 10:01 | Physical Therapy Daily Note ---
PT Daily Note-Current Subjective Patient agrees to PT. Mental Status Patient Orientation: Normal For Age Attachments: Oxygen, Galeano Catheter, IV Transfers SCALE: Activities may be completed with or without assistive devices. 7-Cqdqlhjogn-fyjebtt completes the activity by him/herself with no assistance from a helper. 5-Set-up or Clean-up Assistance-helper sets up or cleans up; patient completes activity. [place] assists only prior to or following the activity. 4-Supervision or Touching Assistance-helper provides verbal cues and/or touching/steadying and/or contact guard assistance as patient completes activity. Assistance may be provided throughout the activity or intermittently. 3-Partial/Moderate Assistance-helper does LESS THAN HALF the effort. [place] lifts, holds or supports trunk or limbs, but provides less than half the effort. 2-Substantial/Maximal Assistance-helper does MORE THAN HALF the effort. [place] lifts or holds trunk or limbs and provides more than half the effort. 5-Mhhnymskv-vjsvks does ALL the effort. Patient does none of the effort to complete the activity. Or, the assistance of 2 or more helpers is required for the patient to complete the activity. If activity was not attempted, code reason: 7-Patient Refused. 9-Not Applicable-not attempted and the patient did not perform the activity before the current illness, exacerbation or injury. 10-Not Attempted due to Environmental Limitations-(lack of equipment, weather restraints, etc.). 88-Not Attempted due to Medical Conditions or Safety Concerns. Sit to Stand (QC): 2 Toilet Transfer (QC): 2 SPT recliner<>commode due to incontinent BM Gait Training Does the Patient Walk?: No and Walking Goal IS indicated Exercises Supine Ex: Ankle pumps, Quad Set, Glut sets, Heel Slides Supine Reps: 10 (in recliner with bilateral LE elevated) Seated Therapy Exercises: Ankle pumps, Long arc quads Seated Reps: 15 Assessment Patient tolerates minimal activity and has decreased SAO2 80% with O2 in place with activity. Patient requires time to complete all functional tasks. PT [facility] Goals [facility] Goals PT [facility] Goals Time Frame: Nov 04, 2020 Roll Left & Right (QC): 4 Sit to Lying (QC): 4 Lying-Sitting on Side/Bed(QC): 4 Sit to Stand (QC): 4 Chair/Igi-gx-Tmctk Xfer(QC): 4 Walk 10 feet (QC): 4 Walk 50ft with 2 Turns (QC): 4 PT Plan Treatment/Plan Treatment Plan: Continue Plan of Care Treatment Plan: Bed Mobility, Education, Functional Activity Yan[place], Functional Strength, Gait, Safety, Therapeutic Exercise, Transfers Treatment Duration: Nov 04, 2020 Frequency: 6 times per week Estimated Hrs Per Day: .25 hour per day Patient and/or Family Agrees t: Yes Time/GCodes Time In: 910 Time Out: 933 Total Billed Treatment Time: 23 Total Billed Treatment 1 visit FA 10 min EX 13 min LI RITCHIE PT Nov 03, 2020 10:01
--- NOTE | 2020-11-03 10:17 | Occupational Ther Daily Note ---
OT Current Status-Daily Note Subjective Pt alert in chair this am. Pt states she got to chair with assistance and has limited energy. Pt agrees to UE ex/ massage/ oral care. Pt's 02 not reading throughout session, pt also states hallucinations present. Pt's nurse unable to be found during the extent of treatment. Mental Status/Objective Patient Orientation: Person Attachments: Galeano Catheter, IV, Oxygen, Telemetry ADL-Treatment Therapy Code Descriptions/Definitions Functional [place] Measure: 0=Not Assessed/NA 4=Minimal Assistance 1=Total Assistance 5=Supervision or Setup 2=Maximal Assistance 6=Modified [place] 3=Moderate Assistance 7=Complete IndependenceSCALE: Activities may be completed with or without assistive devices. 7-Oobheodnpe-wyyvbdh completes the activity by him/herself with no assistance from a helper. 5-Set-up or Clean-up Assistance-helper sets up or cleans up; patient completes activity. [place] assists only prior to or following the activity. 4-Supervision or Touching Assistance-helper provides verbal cues and/or touching/steadying and/or contact guard assistance as patient completes activity. Assistance may be provided throughout the activity or intermittently. 3-Partial/Moderate Assistance-helper does LESS THAN HALF the effort. [place] lifts, holds or supports trunk or limbs, but provides less than half the effort. 2-Substantial/Maximal Assistance-helper does MORE THAN HALF the effort. [place] lifts or holds trunk or limbs and provides more than half the effort. 4-Gwgsnsyfg-trmcnn does ALL the effort. Patient does none of the effort to complete the activity. Or, the assistance of 2 or more helpers is required for the patient to complete the activity. If activity was not attempted, code reason: 7-Patient Refused. 9-Not Applicable-not attempted and the patient did not perform the activity before the current illness, exacerbation or injury. 10-Not Attempted due to Environmental Limitations-(lack of equipment, weather restraints, etc.). 88-Not Attempted due to Medical Conditions or Safety Concerns. Eating (QC): 6 (states has been eating on/ off, denies OT taking tray away.) Oral Hygiene (QC): 3 (min A for sequencing due to confusion intermittently. Pt doffs cap of toothpaste, then continues to attempt to doff. Pt is instructed that cap is off. Pt denies, continuing task. OT squeezes toothpaste for pt and pt dons to toothbrush) Toileting Hygiene (QC): 7 Toilet Transfer (QC): 7 Other Treatment Pt up in chair. BUE/ LE edematous. Pt's R>L, pt given hand sponge and instructed to complete gripping throughout treatment. Retrograde massage completed to RUE for 10 minutes. Pt's LEs elevated with recliner and pillow placed under BLE (excluding heels) to increase elevation. Pt is instructed to complete heel flexion/ extensions. Pt completes 10 reps of bicep curls, SOB. Pt states, "There's a black man behind you doing the same thing, he's very happy/ nodding his head." Pt states that OT is green, aware that she is hallucinating. Recov ers, and 5 reps shoulder flexion. SOB, recovers quickly. Pt agrees to oral care, completes as outlined. Pt left in recliner with all needs met, call light in reach, pt denies needs. Nursing not notified of hallucinations prior, mid or end of treatment as was busy with other pts/ could not be found. Education OT Patient Education: Correct positioning, Exercise program, Home exercise program, Purpose of tx/functional activities Teaching Recipient: Patient Teaching Methods: Demonstration, Discussion Response to Teaching: Verbalize Understanding, Return Demonstration, Unable to Comprehend, Reinforcement Needed OT Short Term Goals Short Term Goals Time Frame: Nov 04, 2020 Eatin Oral hygiene: 4 Toileting hygiene: 3 Upper body dressin Lower body dressin Putting on/taking off footwear: 3 OT Center Machine Operator Goals Center Machine Operator Goals Time Frame: Nov 11, 2020 Eating (QC): 6 Oral Hygiene (QC): 6 Toileting Hygiene (QC): 4 Shower/Bathe Self (QC): 4 Upper Body Dressing (QC): 5 Lower Body Dressing (QC): 4 On/Off Footwear (QC): 4 Additional Goals: 1-Demonstrate ADL Tasks, 2-Verbalize Understanding, 3- ImproveStrength/[place] 1=Demonstrate adherence to instructed precautions during ADL tasks. 2=Patient will verbalize/demonstrate understanding of assistive devices/modifications for ADL. 3=Patient will improve strength/tolerance for activity to enable patient to perform ADL's. OT Education/Plan Problem List/Assessment Assessment: Decreased Activ Tolerance, Decreased UE Strength, Dependent Transfers, Edema, Impaired Cognition, Impaired Funct Balance, Impaired I ADL's, Impaired Self-Care Skills Discharge Recommendations Plan/Recommendations: Continue POC Therapy Discharge Recommendati: 24 Hour Supervision, Post Acute OT Treatment Plan/Plan of Care Treatment,Training & Education: Yes Patient would benefit from OT for education, treatment and training to promote independence in ADL's, mobility, safety and/or upper extremity function for ADL's. Plan of Care: ADL Retraining, Functional Mobility, UE Funct Exercise/Act Treatment Duration: Nov 11, 2020 Frequency: 5 times per week Estimated Hrs Per Day: .25 hour per day Agreement: Yes Rehab Potential: Good Time/GCodes Start Time: 09:45 Stop Time: 10:10 Total Time Billed (hr/min): 25 Billed Treatment Time 1, EX, ADL = 25 GRIFFIN BORJA OTR Nov 03, 2020 10:17
[2020-11-03] MEDS: VANCOMYCIN 1 GM/NS 250 ML IVPB IV SCH ×4 (10:24→21:23)
--- NOTE | 2020-11-03 12:08 | Diagnostic Imaging Report ---
EXAMINATION: CT Abdomen Pelvis without contrast. TECHNIQUE: Multiple contiguous axial images were obtained through the abdomen and pelvis without the use of intravenous contrast. All CT scans use one or more of the following dose optimizing techniques: automated exposure control, MA and/or KvP adjustment based on a patient size and exam type, or iterative reconstruction. HISTORY: Pancreatitis, ascites. COMPARISON: CT chest, abdomen and pelvis 10/24/2020. FINDINGS: Lung bases: Large bilateral pleural effusions with adjacent atelectasis or consolidation. Solid organs: The liver is normal. The gallbladder is normal. There is no biliary ductal dilation. Redemonstrated fullness of the pancreas which is poorly evaluated without IV contrast. There is peripancreatic fluid and/or inflammatory stranding. No pancreatic ductal dilatation is seen. Spleen is normal. Adrenal glands are normal. A right renal cyst is present. Kidneys are otherwise unremarkable without hydronephrosis. Bowel: Fluid is seen within the distal esophagus. Multiple air and fluid-filled loops of small bowel which are not pathologically distended. Peritoneum: There is mild abdominal ascites. No intra-abdominal free air. A peritoneal drainage catheter is present overlying the anterior abdomen. No suspicious lymphadenopathy although evaluation is limited without IV contrast. Vasculature: Calcification of the aorta without aneurysm. Musculoskeletal: Degenerative changes of the spine without suspicious osseous lesion or compression fracture. Mild diffuse anasarca. Pelvis: Partially calcified uterine fibroids are present. Urinary bladder is decompressed with a Galeano catheter. IMPRESSION: 1. Fullness of the pancreas with peripancreatic fluid and fat stranding compatible with provided history of pancreatitis. Evaluation is limited without IV contrast. 2. Mild ascites with a peritoneal drainage catheter overlying the anterior mid abdomen. 3. Mild anasarca. 4. Prominence of the small bowel loops which are not pathologically distended. Finding could be seen with developing ileus. 5. Large bilateral pleural effusions with adjacent atelectasis or consolidation. Dictated by: Dictated on workstation # [id number]
--- NOTE | 2020-11-03 13:37 | Progress Note - Hospitalist ---
Subjective HPI/CC On Admission Date Seen by Provider: Nov 03, 2020 Time Seen by Provider: 08:40 Debbie Nieto is an 80 year old female with PMH HTN, HLD, who presented with shortness of breath and abdominal pain. She reports that this all started on the evening of 10/23. She was having abdominal pain in the center of her abdomen. Sh e reports that her belly was becoming more and more distended. She denies nausea and vomiting. She did have diarrhea. She denies fevers and chills. She denies cough. She denies chest pain. She does not smoke or drink alcohol. She has no history of pancreatitis. She thinks she still has her gallbladder. Her initial workup in the ER found a large amount of abdominal ascites. Her lactic acid was significantly elevated. There was concern for perforation and she was taken to the OR. There was no identified colon perforation. She was found to have a hemorrhagic/necrotizing pancreatitis. An intraabdominal drain was placed. The hospitalist service has been consulted for medical comanagement. Subjective/Events-last exam she is feeling a bit short of breath. She reports abdominal pain. Is not having any nausea or vomiting. Focused Exam Time of Focused Exam: 08:15 Objective Exam Vital Signs Vital Signs Date Time Temp Pulse Resp B/P (MAP) Pulse Ox O2 Delivery O2 Flow Rate FiO2 11/03/20 12:26 36.2 95 22 151/92 (111) 100 Nasal Cannula 2.00 Capillary Refill : Greater Than 3 Seconds General Appearance: WD/WN, Mild Distress Respiratory: Decreased Breath Sounds, Respiratory Distress (tachypnea) Cardiovascular: No Murmur, Tachycardia Gastrointestinal: Soft, Abnormal Bowel Sounds (hypoactive), Tenderness Extremity: Normal Inspection, Non Tender, Pedal Edema Neurologic/Psychiatric: Alert, Oriented x3, No Motor/Sensory Deficits, Normal Mood/Affect Skin: Normal Color, Warm/Dry Results/Procedures Lab Laboratory Tests 11/03/20 02:10 Patient resulted labs reviewed. Imaging: Reviewed Imaging Report Assessment/Plan Assessment and Plan Assess & Plan/Chief Complaint Hemorrhagic pancreatitis Ascites CT Abdomen with poor visualization of pancreas on arrival Intraoperatively visualized hemorrhagic/necrotizing pancreatitis Contnue Vanc, Merrem, Eraxis EGD 10/25 showed ulcer of pharynx, ulcer of esophagus, hiatal hernia Repeat CT Abdomen Acute respiratory failure with hypoxia Fluid overload COVID negative s/p thoracentesis 10/29 for pleural effusions by radiology CTA negative for PE Chest xray consistent with fluid overload, improving Repeat Lasix today DVT prophylaxis: held due to hemorrhagic pancreatitis Acute kidney injury, resolved Lactic acidosis, resolved Polycythemia, resolved Diagnosis/Problems Diagnosis/Problems (1) Acute hemorrhagic pancreatitis Status: Acute (2) Ascites Status: Acute (3) Esophageal ulcer Status: Acute (4) Ulcer of pharynx Status: Acute (5) Hiatal hernia Status: Acute (6) Lactic acidosis Status: Resolved Resolution Date/Time: 11/02/20 @ 17:02 (7) WHITNEY (acute kidney injury) Status: Resolved Resolution Date/Time: 11/02/20 @ 17:02 (8) Polycythemia Status: Resolved Resolution Date/Time: 11/02/20 @ 17:03 Clinical Quality Measures DVT/VTE Risk/Contraindication: Risk Factor Score Per Nursin RFS Level Per Nursing on Admit: 4+=Very High Other: RISK FOR FURTHER BLEEDING IN ABDOMEN MARIEL SHOEMAKER MD Nov 03, 2020 13:37
--- NOTE | 2020-11-03 16:11 | Progress Note - Surgery ---
BROOKS MARIN MED STUDENT 11/03/20 1611: Subjective Date Seen by a Provider: Nov 03, 2020 Time Seen by a Provider: 07:15 Subjective/Events-last exam Patient was alert and oriented today to questions. She was moved yesterday to [facility] and seemed to be in a more clear state of mind. She described epigastric pain in the afternoon that is hard to control with pain medication. There was minimal serous fluid in her drain tube but the nurse mentioned that the bandages had to be replaced frequently because they were wet. She began to become frustrated because se feels like she doesn't know the plan for her treatment. A repeat CT was performed that showed pleural effusions on both side. She had some difficulty breathing as she would talk for linger than a sentence or too. WBC remained elevated but decreased to 17 from 20 yesterday. She was able to sit in her chair yesterday evening a few times and hopes to continue to walk around the room a little more. Focused Exam Time of Focused Exam: 08:15 Respiratory: Chest Non Tender, Decreased Breath Sounds, Respiratory Distress Cardiovascular: Regular Rate, Rhythm, No Gallop, No Murmur, Normal Peripheral Pulses Skin: normal color, warm/dry Objective Exam Vital Signs Date Time Temp Pulse Resp B/P (MAP) Pulse Ox O2 Delivery O2 Flow Rate FiO2 11/03/20 15:56 36.8 96 20 132/90 (104) 99 Nasal Cannula 2.00 11/03/20 15:27 97 High Flow N/C 2.00 11/03/20 12:26 36.2 95 22 151/92 (111) 100 Nasal Cannula 2.00 11/03/20 08:40 36.4 107 22 137/82 (100) 96 Nasal Cannula 2.00 11/03/20 08:00 93 High Flow N/C 2.00 11/03/20 06:56 93 Nasal Cannula 2.00 11/03/20 04:18 36.1 93 13 133/80 (97) 96 Nasal Cannula 2.00 11/03/20 01:00 96 11/02/20 23:19 37.2 94 15 147/82 (103) 95 Nasal Cannula 3.00 11/02/20 20:30 94 High Flow N/C 3.00 11/02/20 20:12 37.0 101 15 142/90 (107) 94 Nasal Cannula 3.00 11/02/20 19:00 92 I & O 11/03/20 07:00 Intake Total 2300 ml Output Total 2890 ml Balance -590 ml Capillary Refill : Greater Than 3 Seconds General Appearance: WD/WN, Mild Distress HEENT: PERRL/EOMI Neck: Full Range of Motion Respiratory: Chest Non Tender, Decreased Breath Sounds, Respiratory Distress (tachypnea) Cardiovascular: Regular Rate, Rhythm, No Gallop, No Murmur Gastrointestinal: soft, tenderness (diffuse minimal), other (incisions c/d/i no significant pain with palpation) Extremity: Normal Inspection, Non Tender, Pedal Edema Neurologic/Psychiatric: Alert, Oriented x3, No Motor/Sensory Deficits, Normal Mood/Affect Skin: Normal Color, Warm/Dry Lymphatic: No Adenopathy Results Lab Laboratory Tests 11/03/20 02:10: White Blood Count 17.8H, Red Blood Count 3.12L, Hemoglobin 10.1L, Hematocrit 30L , Mean Corpuscular Volume 95, Mean Corpuscular Hemoglobin 32, Mean Corpuscular Hemoglobin Concent 34, Red Cell Distribution Width 13.2, Platelet Count 278, Mean Platelet Volume 10.4, Immature Granulocyte % (Auto) 1, Neutrophils (%) (Auto) 84H, Lymphocytes (%) (Auto) 8L, Monocytes (%) (Auto) 5, Eosinophils (%) (Auto) 1, Basophils (%) (Auto) 0, Neutrophils # (Auto) 15.0H, Lymphocytes # (Auto) 1.5, Monocytes # (Auto) 0.9, Eosinophils # (Auto) 0.2, Basophils # (Auto) 0.1, Immature Granulocyte # (Auto) 0.2H, Sodium Level 138, Potassium Level 3.6, Chloride Level 108H, Carbon Dioxide Level 24, Anion Gap 6, Blood Urea Nitrogen 11, Creatinine 0.59L, Estimat Glomerular Filtration Rate > 60, BUN/Creatinine Ratio 19, Glucose Level 103, Calcium Level 7.6L, Corrected Calcium 9.4, Ph osphorus Level 2.2L, Magnesium Level 1.9, Total Bilirubin 0.4, Aspartate Amino Transf (AST/SGOT) 30, Alanine Aminotransferase (ALT/SGPT) 19, Alkaline Phosphatase 87, Total Protein 3.9L, Albumin 1.7L 11/03/20 09:15: Vancomycin Level Trough 17.5 11/03/20 10:26: Glucometer 119H Microbiology 10/31/20 Catheter Tip Culture - Final, Complete No growth Assessment/Plan Assessment/Plan Assessment/Plan Assessment: Hemorrhagic Pancreatitis - Bloody fluid in abdomen per diagnostic laparoscopy 10/24 Leukocytosis decreasing conitnue abx Lactic Acidosis Hiatal hernia GE ulcer Abdominal pain diffuse minimal CAD Acute Renal Failure Bilateral Plural Effusions Plan: CHRISTA gage continue to bulb suction wbc trending down, continue abx consider pain medication in early afternoon to prevent worsening pain consult pulmonology PT/OT continue monitoring drain and bandages Diagnosis/Problems Diagnosis/Problems (1) Acute hemorrhagic pancreatitis Status: Acute (2) Pleural cavity effusion Clinical Quality Measures DVT/VTE Risk/Contraindication: Risk Factor Score Per Nursin RFS Level Per Nursing on Admit: 4+=Very High Other: RISK FOR FURTHER BLEEDING IN ABDOMEN Supervisory-Addendum Brief Verification & Attestation Participated in pt care: history, physical Personally performed: exam, history Care discussed with: Medical Student MAIKEL SAEED DO 11/03/20 1634: Subjective Time Seen by a Provider: 12:07 Subjective/Events-last exam Pt seen and examined, states abd pain is about a 5 out of 10 (same as yesterday) points mainly to midepigastric area. She is worried about the fact that she isn't walking much. Review of Systems General: Fatigue, Malaise Pulmonary: Dyspnea Cardiovascular: No: Chest Pain Gastrointestinal: Abdominal Pain; No: Nausea, Vomiting Objective Exam General Appearance: Chronically ill, Mild Distress Respiratory: Chest Non Tender, Decreased Breath Sounds (at bases), Respiratory Distress (tachypnea) Cardiovascular: Regular Rate, Rhythm, No Murmur Gastrointestinal: soft, tenderness (midepigastric) Assessment/Plan Assessment/Plan Assessment/Plan Hemorrhagic Pancreatitis B/L Pleural effusions Most likely cause of her abdominal pain is the pancreatitis, which is still visible but may not be worse than it was (compared to previous CT). Most likely the increased WBC is from her lungs; needs RT. Pt must ambulate QID at least or more; will try to get PT to help. Check labs and may need to do repeat b/l thoracentesis. Continue bina drain until it is less than 30ml per day. Supervisory-Addendum Brief Verification & Attestation Participated in pt care: history, MDM, physical Personally performed: exam, history, MDM Care discussed with: Medical Student Procedures: n/a Verification and Attestation of Medical Student E/M Service A medical student performed and documented this service. I then reviewed and verified all information documented by the medical student and made modifications to such information, when appropriate. I personally performed a physical exam, medical decision making and then discussed any differences between the notes and made revisions as necessary to create one note. Maikel Saeed , 11/03/20 , 16:34 BROOKS MARIN MED STUDENT Nov 03, 2020 16:11 MAIKEL SAEED DO Nov 03, 2020 16:34
--- NOTE | 2020-11-03 16:38 | NUR ---
THIS NURSE NOTIFIED DR SHOEMAKER THE SKIN AROUND PT RIGHT UPPER PICC LINE LOOKS RED. THERE IS SOME SWELLING BUT IT APPEARS TO BE EQUAL TO HER LEFT ARM. THERE IS NO DRAINAGE AT THE SITE. NO NEW ORDERS AT THIS TIME WILL CONTINUE TO MONITOR. Addendum: 11/03/20 at 1746 by KEVIN DORAN RN PICC LINE DRAWS BLOOD AT BOTH PORTS.
--- NOTE | 2020-11-03 17:58 | NUR ---
THIS NURSE UPDATED THE DAUGHTER ON PT CONDITION.
--- NOTE | 2020-11-03 21:24 | NUR ---
Vancomycin held d/t Vanc trough 21
[2020-11-03] MEDS ORDERED: VANCOMYCIN 750 MG/VIAL IV ONE (22:46)
[2020-11-03] MEDS ORDERED: NS (IVPB) 250 ML ONE (22:47)
[2020-11-03] MEDS: VANCOMYCIN 750 MG/NS 250 ML IVPB IV SCH ×2 (23:05)
[2020-11-04] MEDS: inSUlin ASPART (NovoLOG) 1 UNIT/0.01 ML (CHARGE PER UNIT) SC SCH ×5 (00:14→23:03)
--- NOTE | 2020-11-04 02:30 | NUR ---
ABDOMINAL DRESSING OVER CHRISTA DRAIN SATURATED C SEROUS FLUIDS. AREA CLEANSED C SOAP AND WATER. DRAINAGE SPONGE, 4X4'S, AND ABD PLACED C MEDIPORE TAPE. WILL CONTINUE TO MONITOR.
[2020-11-04 02:32] LABS: BASOPHILS # (AUTO) 0.1 10^3/uL (0.0-0.1); BASOPHILS % (AUTO) 0 % (0-10); EOSINOPHILS # (AUTO) 0.2 10^3/uL (0.0-0.3); EOSINOPHILS % (AUTO) 1 % (0-10); HEMATOCRIT 28 % (35-52); HEMOGLOBIN 9.4 g/dL (11.5-16.0); LYMPHOCYTES # (AUTO) 1.3 10^3/uL (1.0-4.0); LYMPHOCYTES % (AUTO) 8 % (12-44); MEAN CORPUSCULAR HEMOGLOBIN 32 pg (25-34); MEAN CORPUSCULAR HGB CONC 34 g/dL (32-36); MEAN CORPUSCULAR VOLUME 95 fL (80-99); MONOCYTES # (AUTO) 0.9 10^3/uL (0.0-1.0); MONOCYTES % (AUTO) 5 % (0-12); NEUTROPHILS # (AUTO) 14.3 10^3/uL (1.8-7.8); NEUTROPHILS % (AUTO) 85 % (42-75); PLATELET COUNT 318 10^3/uL (130-400); WHITE BLOOD COUNT 16.9 10^3/uL (4.3-11.0)
[2020-11-04] MEDS: LACTATED RINGERS 1,000 ML IV SCH ×2 (02:42→22:02)
[2020-11-04] MEDS: HYDROcodone/APAP 5 MG/325 MG (LORTAB) TAB PO PRN ×3 (02:43→17:39)
[2020-11-04 02:48] LABS: ALBUMIN 1.7 GM/DL (3.2-4.5)
[2020-11-04 02:49] LABS: CHLORIDE 106 MMOL/L (98-107); POTASSIUM 3.3 MMOL/L (3.6-5.0); SODIUM 138 MMOL/L (135-145)
[2020-11-04 02:50] LABS: CALCIUM 7.4 MG/DL (8.5-10.1)
[2020-11-04 02:51] LABS: GLUCOSE 110 MG/DL (70-105); TOTAL PROTEIN 3.8 GM/DL (6.4-8.2)
[2020-11-04 02:52] LABS: CARBON DIOXIDE 24 MMOL/L (21-32)
[2020-11-04 02:53] LABS: BILIRUBIN,TOTAL 0.5 MG/DL (0.1-1.0)
[2020-11-04 02:54] LABS: ALKALINE PHOSPHATASE 87 U/L (40-136); PHOSPHORUS 2.3 MG/DL (2.3-4.7)
[2020-11-04 02:55] LABS: CREATININE SERUM 0.58 MG/DL (0.60-1.30); GFR ESTIMATED > 60
[2020-11-04 02:56] LABS: BUN/CREATININE RATIO 19
[2020-11-04 02:57] LABS: MAGNESIUM 1.8 MG/DL (1.6-2.4)
[2020-11-04 02:58] LABS: ALANINE AMINOTRANSFERASE 17 U/L (0-55)
[2020-11-04] MEDS: MAGNESIUM 1 GM/100 ML IVPB 100 ML IV SCH (04:44)
[2020-11-04] MEDS ORDERED: KCL 20 MEQ TAB (K-DUR) PO ONE (04:45)
[2020-11-04] MEDS: KCL 20 MEQ TAB (K-DUR) PO SCH (04:50)
[2020-11-04] MEDS: POTASSIUM CL 10MEQ/50ML IVPB 50 ML IV SCH (04:50)
[2020-11-04] MEDS ORDERED: MEROPENEM 500 MG VIAL (MERREM) IV ONE ×3 (04:59→21:41)
[2020-11-04] MEDS: MEROPENEM 500 MG/SWFI 10 ML IV PUSH IV SCH ×6 (05:08→21:50)
--- NOTE | 2020-11-04 06:55 | Anesthesia-General Post-Op ---
MAC Significant Intra-Op Events Notes addendum 10-25-20 at 1230 Patient Condition Mental Status/LOC: Same as Preop Cardiovascular: Satisfactory Nausea/Vomiting: Absent Respiratory: Satisfactory Pain: Controlled Complications: Absent Post Op Complications Complications None Follow Up Care/Instructions Patient Instructions None needed. Anesthesiology Discharge Order Discharge Order Patient is doing well, no complaints, stable vital signs, no apparent adverse anesthesia problems. No complications reported per nursing. ROSA MARIA BERNAL CRNA Nov 04, 2020 06:55
[2020-11-04] MEDS: RT-ALBUTEROL SULF 2.5 MG/3 ML PRE-MIX VIAL INH SCH ×3 (07:01→21:54)
--- NOTE | 2020-11-04 07:17 | Progress Note - Surgery ---
BROOKS MARIN MED STUDENT 11/04/20 0717: Subjective Date Seen by a Provider: Nov 04, 2020 Time Seen by a Provider: 06:45 Subjective/Events-last exam Patient was awake and alert to question this morning sitting up in her bed. She described having less epigastric pain only requesting 1 hydrocodone throughout the night, generally having 2-3. The dressing over the CHRISTA drain continues to become saturated with serious fluid every few hours and having very little caught in the drain itself. Upon examination the area around her picc line on her right upper extremity is erythematous and swollen. Patient was able to walk to her chair yesterday a few times and expressed that she would like to do that again today and feels like she needs to get up and move.She continues to become SOB when speaking for more than a few words. Review of Systems Pulmonary: Dyspnea Focused Exam Time of Focused Exam: 06:45 Respiratory: Chest Non Tender, Decreased Breath Sounds, Respiratory Distress Cardiovascular: Regular Rate, Rhythm, Normal Peripheral Pulses Skin: normal color, warm/dry, damp (surrounding CHRISTA dressing site) Objective Exam Vital Signs Date Time Temp Pulse Resp B/P (MAP) Pulse Ox O2 Delivery O2 Flow Rate FiO2 11/04/20 07:01 99 High Flow N/C 1.00 11/04/20 03:56 37.0 91 20 140/71 (94) 99 Nasal Cannula 2.00 11/03/20 23:50 37.2 103 22 114/67 (83) 98 Nasal Cannula 2.00 11/03/20 22:09 98 High Flow N/C 2.00 11/03/20 21:58 94 High Flow N/C 2.00 11/03/20 20:00 94 High Flow N/C 2.00 11/03/20 19:39 36.5 87 19 132/82 (99) 98 Nasal Cannula 2.00 11/03/20 15:56 36.8 96 20 132/90 (104) 99 Nasal Cannula 2.00 11/03/20 15:27 97 High Flow N/C 2.00 11/03/20 12:26 36.2 95 22 151/92 (111) 100 Nasal Cannula 2.00 11/03/20 08:40 36.4 107 22 137/82 (100) 96 Nasal Cannula 2.00 11/03/20 08:00 93 High Flow N/C 2.00 I & O 1/6/21 07:00 Intake Total 2340 ml Output Total 2350 ml Balance -10 ml Capillary Refill : Greater Than 3 Seconds General Appearance: Chronically ill, Mild Distress, Thin HEENT: PERRL/EOMI Neck: Full Range of Motion Respiratory: Chest Non Tender, Decreased Breath Sounds (at bases), Respiratory Distress (tachypnea) Cardiovascular: Regular Rate, Rhythm, No Murmur Gastrointestinal: soft, tenderness (midepigastric) Extremity: Non Tender, Inflammation (surrounding picc line on right upper arm), Pedal Edema Neurologic/Psychiatric: Alert, Oriented x3, No Motor/Sensory Deficits, Normal Mood/Affect Skin: Normal Color, Warm/Dry, Damp (surrounding CHRISTA site) Lymphatic: No Adenopathy Results Lab Laboratory Tests 11/03/20 09:15: Vancomycin Level Trough 17.5 11/03/20 10:26: Glucometer 119H 11/03/20 16:13: Glucometer 128H 11/03/20 20:00: Vancomycin Level Trough 21.0H 11/03/20 20:52: Glucometer 125H 11/04/20 02:20: White Blood Count 16.9H, Red Blood Count 2.95L, Hemoglobin 9.4L, Hematocrit 28L, Mean Corpuscular Volume 95, Mean Corpuscular Hemoglobin 32, Mean Corpuscular Hemoglobin Concent 34, Red Cell Distribution Width 13.1, Platelet Count 318, Mean Platelet Volume 10.0, Immature Granulocyte % (Auto) 1, Neutrophils (%) (Auto) 85H, Lymphocytes (%) (Auto) 8L, Monocytes (%) (Auto) 5, Eosinophils (%) (Auto) 1, Basophils (%) (Auto) 0, Neutrophils # (Auto) 14.3H, Lymphocytes # (Auto) 1.3, Monocytes # (Auto) 0.9, Eosinophils # (Auto) 0.2, Basophils # (Auto) 0.1, Immature Granulocyte # (Auto) 0.2H, Sodium Level 138, Potassium Level 3.3L, Chloride Level 106, Carbon Dioxide Level 24, Anion Gap 8, Blood Urea Nitrogen 11, Creatinine 0.58L, Estimat Glomerular Filtration Rate > 60, BUN/Creatinine Ratio 19, Glucose Level 110H, Calcium Level 7.4L, Corrected Calcium 9.2, Phosphorus Level 2.3, Magnesium Level 1.8, Total Bilirubin 0.5, Aspartate Amino Transf (AST/SGOT) 29, Alanine Aminotransferase (ALT/SGPT) 17, Alkaline Phosphatase 87, Total Protein 3.8L, Albumin 1.7L Microbiology 10/31/20 Catheter Tip Culture - Final, Complete No growth Assessment/Plan Assessment/Plan Assessment/Plan Hemorrhagic Pancreatitis B/L Pleural effusions WBC still elevated at 16.9 ABG showed decreased pH of 7.31 amd decreased HCO3 of 12 erythematous swollen skin surrounding picc line on right upper extremity continue PT/OT possible ultrasound of right upper extremity consult pulmonology for pleural effusions Most likely cause of her abdominal pain is the pancreatitis, which is still visible but may not be worse than it was (compared to previous CT). Most likely the increased WBC is from her lungs; needs RT. Pt must ambulate QID at least or more; will try to get PT to help. Check labs and may need to do repeat b/l thoracentesis. Continue bina drain until it is less than 30ml per day. Diagnosis/Problems Diagnosis/Problems (1) Acute hemorrhagic pancreatitis Status: Acute (2) Pleural cavity effusion Clinical Quality Measures DVT/VTE Risk/Contraindication: Risk Factor Score Per Nursin RFS Level Per Nursing on Admit: 4+=Very High Other: RISK FOR FURTHER BLEEDING IN ABDOMEN MAIKEL SAEED DO 11/04/20 1040: Subjective Time Seen by a Provider: 10:28 Subjective/Events-last exam Pt seen and examined, states she is doing better today. Almost no abdominal pain. She has already been up to the chair and is back in bed now. Review of Systems General: Fatigue, Malaise Pulmonary: Dyspnea Cardiovascular: No: Chest Pain Gastrointestinal: Abdominal Pain (minimal); No: Nausea, Vomiting Objective Exam General Appearance: No Apparent Distress, Chronically ill, Thin HEENT: PERRL/EOMI Respiratory: Chest Non Tender, Decreased Breath Sounds (at bases) Cardiovascular: Regular Rate, Rhythm Gastrointestinal: non tender, soft, no organomegaly Assessment/Plan Assessment/Plan Assessment/Plan Hemorrhagic Pancreatitis - probably not worse and Amylase/Lipase are normal today Anemia - most likely iatrogenic from blood draws B/L pleural effusions - not worse and pt on less O2 Erythema around PICC - US shows no clot, pt on ABX, will monitor Supervisory-Addendum Brief Verification & Attestation Participated in pt care: history, MDM, physical Personally performed: exam, history, MDM Care discussed with: Medical Student Procedures: n/a Verification and Attestation of Medical Student E/M Service A medical student performed and documented this service. I then reviewed and verified all information documented by the medical student and made modifications to such information, when appropriate. I personally performed a physical exam, medical decision making and then discussed any differences between the notes and made revisions as necessary to create one note. Maikel Saeed , 11/04/20 , 10:40 BROOKS MARIN MED STUDENT Nov 04, 2020 07:17 MAIKEL SAEED DO Nov 04, 2020 10:40
--- NOTE | 2020-11-04 07:43 | Diagnostic Imaging Report ---
Indication: Post bowel surgery Upright portable chest shows normal heart size and vascularity. There is bibasilar atelectasis with bilateral effusions. The upper lungs are clear. Right arm PICC line tip is in the SVC. There is no pneumothorax. These findings are similar to the 11/03/2020 study. IMPRESSION: Stable chest. Dictated by: Dictated on workstation # [id number]
[2020-11-04] MEDS: ANIDULAFUNGIN INJECTION 100 MG in NS (IVPB) 100 ML IV SCH (08:37)
[2020-11-04] MEDS: FUROSEMIDE 40 MG (LASIX) TAB PO SCH (08:37)
[2020-11-04] MEDS: PANTOPRAZOLE 40 MG (PROTONIX) VIAL IVP SCH (08:37)
[2020-11-04 08:46] LABS: AMYLASE 53 U/L (25-125); LIPASE 35 U/L (8-78)
--- NOTE | 2020-11-04 09:41 | Physical Therapy Daily Note ---
PT Daily Note-Current Subjective Patient in recliner pre tx, agrees to PT, has 9/10 abdominal pain. central sterile technician is in room and needs to get patient to bed so he can perform his duties. Appearance Patient in bed post tx with nurse call, phone, tray, all needs met, facility maintenance technician immediately starts working. Mental Status Patient Orientation: Person, Place, Situation Attachments: Oxygen, Galeano Catheter, IV Transfers SCALE: Activities may be completed with or without assistive devices. 6-Tdsxlhfhte-rqnchno completes the activity by him/herself with no assistance from a helper. 5-Set-up or Clean-up Assistance-helper sets up or cleans up; patient completes activity. Jermyn assists only prior to or following the activity. 4-Supervision or Touching Assistance-helper provides verbal cues and/or touching/steadying and/or contact guard assistance as patient completes activity. Assistance may be provided throughout the activity or intermittently. 3-Partial/Moderate Assistance-helper does LESS THAN HALF the effort. Jermyn lifts, holds or supports trunk or limbs, but provides less than half the effort. 2-Substantial/Maximal Assistance-helper does MORE THAN HALF the effort. Jermyn lifts or holds trunk or limbs and provides more than half the effort. 6-Qjzterawy-libvon does ALL the effort. Patient does none of the effort to complete the activity. Or, the assistance of 2 or more helpers is required for the patient to complete the activity. If activity was not attempted, code reason: 7-Patient Refused. 9-Not Applicable-not attempted and the patient did not perform the activity before the current illness, exacerbation or injury. 10-Not Attempted due to Environmental Limitations-(lack of equipment, weather restraints, etc.). 88-Not Attempted due to Medical Conditions or Safety Concerns. Roll Left & Right (QC): 2 Sit to Lying (QC): 2 Sit to Stand (QC): 3 Chair/Sgp-cw-Tzhcl Xfer(QC): 3 Patient is able to stand from recliner with mod assist, after standing she is able to sidestep with min assist about 3' to bed and sit and then lay down with max assist. Treatments standing, transfers, bed mobility Assessment Current Status: Poor Progress still very weak, severe abdominal pain PT Nursing Home Goals Nursing Home Goals PT Nursing Home Goals Time Frame: Nov 04, 2020 Roll Left & Right (QC): 4 Sit to Lying (QC): 4 Lying-Sitting on Side/Bed(QC): 4 Sit to Stand (QC): 4 Chair/Zyv-gp-Tbvlg Xfer(QC): 4 Walk 10 feet (QC): 4 Walk 50ft with 2 Turns (QC): 4 PT Plan Problem List Problem List: Activity Tolerance, Functional Strength, Safety, Balance, Gait, Transfer, Bed Mobility, ROM Treatment/Plan Treatment Plan: Continue Plan of Care Treatment Plan: Bed Mobility, Education, Functional Activity Yanick, Functional Strength, Gait, Safety, Therapeutic Exercise, Transfers Treatment Duration: Nov 04, 2020 Frequency: 6 times per week Estimated Hrs Per Day: .25 hour per day Patient and/or Family Agrees t: Yes Safety Risks/Education Patient Education: Gait Training, Transfer Techniques, Correct Positioning, Safety Issues Teaching Recipient: Patient Teaching Methods: Demonstration, Discussion Response to Teaching: Reinforcement Needed Time/GCodes Time In: 924 Time Out: 934 Total Billed Treatment Time: 10 Total Billed Treatment 1 visit FA KRISHNA SIERRA PT Nov 04, 2020 09:41
[2020-11-04] MEDS: VANCOMYCIN 750 MG/NS 250 ML IVPB IV SCH ×2 (10:06)
--- NOTE | 2020-11-04 10:17 | Occ Therapy Progress Note ---
Therapy Progress Note Pt alert/ oriented in bed. Pt denies pain. Pt denies OOB tasks and desires to "just lay in the quiet." Pt is educated that OT can check back later. Pt agrees, OT to check back at later time. GRIFFIN BORJA OTR Nov 04, 2020 10:17
--- NOTE | 2020-11-04 10:24 | Diagnostic Imaging Report ---
INDICATION: Right upper extremity cellulitis. Duplex ultrasound of the venous system of the right upper extremity was done with grayscale, spectral waveform and color Doppler analysis. The veins have good color filling and compressibility. There is phasic flow and a normal response to augmentation. IMPRESSION: Negative venous Doppler of the right upper extremity. Dictated by: Dictated on workstation # [id number]
--- NOTE | 2020-11-04 12:11 | Progress Note - Hospitalist ---
Subjective HPI/CC On Admission Date Seen by Provider: Nov 04, 2020 Time Seen by Provider: 09:00 Debbie Nieto is an 80 year old female with PMH HTN, HLD, who presented with shortness of breath and abdominal pain. She reports that this all started on the evening of 10/23. She was having abdominal pain in the center of her abdomen. Sh e reports that her belly was becoming more and more distended. She denies nausea and vomiting. She did have diarrhea. She denies fevers and chills. She denies cough. She denies chest pain. She does not smoke or drink alcohol. She has no history of pancreatitis. She thinks she still has her gallbladder. Her initial workup in the ER found a large amount of abdominal ascites. Her lactic acid was significantly elevated. There was concern for perforation and she was taken to the OR. There was no identified colon perforation. She was found to have a hemorrhagic/necrotizing pancreatitis. An intraabdominal drain was placed. The hospitalist service has been consulted for medical comanagement. Subjective/Events-last exam She feels a bit better today. Her abdominal pain is improving. Her shortness of breath is better. She still feels weak. Focused Exam Time of Focused Exam: 06:45 Objective Exam Vital Signs Vital Signs Date Time Temp Pulse Resp B/P (MAP) Pulse Ox O2 Delivery O2 Flow Rate FiO2 11/04/20 11:17 36.0 88 20 137/81 (99) 100 Nasal Cannula 2.00 Capillary Refill : Greater Than 3 Seconds General Appearance: No Apparent Distress, WD/WN Respiratory: Lungs Clear, No Respiratory Distress, Decreased Breath Sounds Cardiovascular: Regular Rate, Rhythm, No Murmur Gastrointestinal: Normal Bowel Sounds, Non Tender, Soft Extremity: Non Tender, Pedal Edema, Swelling (swelling and erythema distally to PICC site) Neurologic/Psychiatric: Alert, Oriented x3, Normal Mood/Affect, Motor Weakness Skin: Normal Color, Warm/Dry Results/Procedures Lab Laboratory Tests 11/04/20 02:20 Patient resulted labs reviewed. Imaging: Reviewed Imaging Report Assessment/Plan Assessment and Plan Assess & Plan/Chief Complaint Hemorrhagic pancreatitis Ascites CT Abdomen with poor visualization of pancreas on arrival Intraoperatively visualized hemorrhagic/necrotizing pancreatitis Contnue Kaley, Merrem, Eraxis EGD 10/25 showed ulcer of pharynx, ulcer of esophagus, hiatal hernia Repeat CT Abdomen stable Acute respiratory failure with hypoxia Fluid overload COVID negative s/p thoracentesis 10/29 for pleural effusions by radiology CTA negative for PE Chest xray consistent with fluid overload, improving Transition to oral Lasix Swelling of arm Obtain ultrasound No warmth or tenderness Critical illness myopathy PT/OT IRU evaluation DVT prophylaxis: held due to hemorrhagic pancreatitis Acute kidney injury, resolved Lactic acidosis, resolved Polycythemia, resolved Diagnosis/Problems Diagnosis/Problems (1) Acute hemorrhagic pancreatitis Status: Acute (2) Ascites Status: Acute (3) Esophageal ulcer Status: Acute (4) Ulcer of pharynx Status: Acute (5) Hiatal hernia Status: Acute (6) Lactic acidosis Status: Resolved Resolution Date/Time: 11/02/20 @ 17:02 (7) WHITNEY (acute kidney injury) Status: Resolved Resolution Date/Time: 11/02/20 @ 17:02 (8) Polycythemia Status: Resolved Resolution Date/Time: 11/02/20 @ 17:03 (9) Swelling of upper arm Status: Acute Clinical Quality Measures DVT/VTE Risk/Contraindication: Risk Factor Score Per Nursin RFS Level Per Nursing on Admit: 4+=Very High Other: RISK FOR FURTHER BLEEDING IN ABDOMEN MARIEL SHOEMAKER MD Nov 04, 2020 12:11
[2020-11-04] MEDS ORDERED: WATER (STERILE) FOR INJECTION 10 ML ONE ×2 (14:10→21:42)
--- NOTE | 2020-11-04 15:46 | NUR ---
IRF Evaluation Determination: Accepted Chart review complete and findings discussed with Dr. Marshall - patient accepted. Met with patient to discuss details related to rehabilitation program. Patient found lying in bed and SOB while speaking. Patient states she believes her lungs are better but doesn't know why she isn't improving quicker. This creative writer reiterated to the patient that she has endured quite a lot throughout her hospital stay, which would attribute to her current state. She requested to know an update in regard to her lung function. This creative writer deferred to the RN and stated she would have her follow-up (RN notified). Patient is indifferent in regard to inpatient rehabilitation admission and would like to consult a family member. This creative writer offered to contact a family member and patient requested her daughter, Liban be contacted. Dr. Mello notified of acceptance. Contacted Liban and discussed what our interdisciplinary program offers. Liban is in agreement with admission as she does not feel her mother is ready to go home. She did state she lives only a block from her mother and would be available to assist her, as needed; however, she is not confident with "medical stuff". CLARENCE notified of acceptance and daughter input. Will continue to follow. Thank you for this referral.
[2020-11-05] MEDS: HYDROcodone/APAP 5 MG/325 MG (LORTAB) TAB PO PRN ×4 (02:37→21:12)
[2020-11-05 02:54] LABS: BASOPHILS % (AUTO) 0 % (0-10); EOSINOPHILS # (AUTO) 0.2 10^3/uL (0.0-0.3); EOSINOPHILS % (AUTO) 1 % (0-10); HEMATOCRIT 28 % (35-52); HEMOGLOBIN 9.4 g/dL (11.5-16.0); LYMPHOCYTES # (AUTO) 1.1 10^3/uL (1.0-4.0); LYMPHOCYTES % (AUTO) 8 % (12-44); MEAN CORPUSCULAR HEMOGLOBIN 32 pg (25-34); MEAN CORPUSCULAR HGB CONC 34 g/dL (32-36); MEAN CORPUSCULAR VOLUME 96 fL (80-99); MEAN PLATELET VOLUME 9.7 fL (9.0-12.2); MONOCYTES # (AUTO) 0.7 10^3/uL (0.0-1.0); MONOCYTES % (AUTO) 5 % (0-12); NEUTROPHILS # (AUTO) 11.3 10^3/uL (1.8-7.8); NEUTROPHILS % (AUTO) 84 % (42-75); PLATELET COUNT 375 10^3/uL (130-400); WHITE BLOOD COUNT 13.5 10^3/uL (4.3-11.0)
[2020-11-05 03:06] LABS: ALBUMIN 1.8 GM/DL (3.2-4.5); CHLORIDE 105 MMOL/L (98-107); POTASSIUM 3.7 MMOL/L (3.6-5.0); SODIUM 138 MMOL/L (135-145)
[2020-11-05 03:07] LABS: CALCIUM 7.5 MG/DL (8.5-10.1)
[2020-11-05 03:08] LABS: GLUCOSE 96 MG/DL (70-105)
[2020-11-05 03:10] LABS: BILIRUBIN,TOTAL 0.5 MG/DL (0.1-1.0); CARBON DIOXIDE 21 MMOL/L (21-32)
[2020-11-05 03:12] LABS: ALKALINE PHOSPHATASE 101 U/L (40-136); CREATININE SERUM 0.59 MG/DL (0.60-1.30); GFR ESTIMATED > 60; PHOSPHORUS 2.2 MG/DL (2.3-4.7)
[2020-11-05 03:13] LABS: BUN/CREATININE RATIO 15
[2020-11-05 03:15] LABS: ALANINE AMINOTRANSFERASE 19 U/L (0-55); MAGNESIUM 1.8 MG/DL (1.6-2.4)
[2020-11-05] MEDS ORDERED: WATER (STERILE) FOR INJECTION 10 ML ONE ×3 (04:20→21:06)
[2020-11-05] MEDS ORDERED: MEROPENEM 500 MG VIAL (MERREM) IV ONE ×3 (04:20→21:06)
[2020-11-05] MEDS: fentaNYL INJECTION 100 MCG/2 ML AMP IVP PRN (05:06)
[2020-11-05] MEDS: inSUlin ASPART (NovoLOG) 1 UNIT/0.01 ML (CHARGE PER UNIT) SC SCH ×3 (07:00→16:23)
[2020-11-05] MEDS: MEROPENEM 500 MG/SWFI 10 ML IV PUSH IV SCH ×6 (07:00→21:13)
--- NOTE | 2020-11-05 07:22 | Progress Note - Surgery ---
BROOKS MARIN MED STUDENT 11/05/20 0722: Subjective Date Seen by a Provider: Nov 05, 2020 Time Seen by a Provider: 06:45 Subjective/Events-last exam Patients was sitting in bed eating breakfast when I was in the room. She appeared awake and alert in minimal pain with no complaints or epigastric pain. She received 2 hydrocodone last night to control the pain and stated that "they finally found the right pain pill that works". The CHRISTA drain had minimal serous fluid and the dressing was currently dry. The inflammation on her right proximal forearm was examined yesterday using ultrasound and found to have no clots, today the erythema had improved. Patient continues to be SOB when speaking for extending periods of time. She was able to walk to her chair a few times yesterday but is going to try and get up and move more today. Focused Exam Time of Focused Exam: 06:45 Respiratory: Chest Non Tender, Decreased Breath Sounds, Respiratory Distress Cardiovascular: Regular Rate, Rhythm, No Gallop, No Murmur, Normal Peripheral Pulses Skin: normal color, warm/dry Objective Exam Vital Signs Date Time Temp Pulse Resp B/P (MAP) Pulse Ox O2 Delivery O2 Flow Rate FiO2 11/05/20 04:00 36.8 92 21 145/80 (101) 97 Nasal Cannula 1.00 11/05/20 00:00 36.6 90 18 127/77 (94) 98 Nasal Cannula 1.00 11/04/20 21:54 100 High Flow N/C 1.00 11/04/20 20:00 36.8 99 18 134/75 (94) 99 Nasal Cannula 1.00 11/04/20 20:00 97 High Flow N/C 2.00 11/04/20 15:14 37.1 98 18 144/85 (104) 97 Nasal Cannula 1.00 11/04/20 14:47 100 High Flow N/C 1.00 11/04/20 11:17 36.0 88 20 137/81 (99) 100 Nasal Cannula 2.00 11/04/20 07:50 94 20 136/77 (96) 97 Nasal Cannula 1.00 11/04/20 07:45 97 High Flow N/C 2.00 I & O 11/05/20 06:59 Intake Total 1270 ml Output Total 3220 ml Balance -1950 ml Capillary Refill : Greater Than 3 Seconds General Appearance: No Apparent Distress, WD/WN HEENT: PERRL/EOMI Neck: Full Range of Motion Respiratory: No Respiratory Distress, Decreased Breath Sounds, Respiratory Distress Cardiovascular: Regular Rate, Rhythm, No Gallop, No Murmur, Normal Peripheral Pulses Gastrointestinal: non tender, soft, no organomegaly Extremity: Normal Capillary Refill, Non Tender, No Calf Tenderness, Pedal Edema, Swelling (swelling and erythema distally to PICC site) Neurologic/Psychiatric: Alert, Oriented x3, Normal Mood/Affect, Motor Weakness Skin: Normal Color, Warm/Dry Lymphatic: No Adenopathy (cervical, axilllary, or inguinal) Results Lab Laboratory Tests 11/04/20 10:55: Glucometer 21*L 11/04/20 10:56: Glucometer 119H 11/04/20 10:57: Glucometer 126H 11/04/20 11:20: Glucometer 99 11/04/20 15:15: Glucometer 102 11/04/20 19:54: Glucometer 144H 11/05/20 02:45: White Blood Count 13.5H, Red Blood Count 2.93L, Hemoglobin 9.4L, Hematocrit 28L, Mean Corpuscular Volume 96, Mean Corpuscular Hemoglobin 32, Mean Corpuscular Hemoglobin Concent 34, Red Cell Distribution Width 13.2, Platelet Count 375, Mean Platelet Volume 9.7, Immature Granulocyte % (Auto) 1, Neutrophils (%) (Auto) 84H, Lymphocytes (%) (Auto) 8L, Monocytes (%) (Auto) 5, Eosinophils (%) (Auto) 1, Basophils (%) (Auto) 0, Neutrophils # (Auto) 11.3H, Lymphocytes # (Auto) 1.1, Monocytes # (Auto) 0.7, Eosinophils # (Auto) 0.2, Basophils # (Auto) 0.0, Immature Granulocyte # (Auto) 0.1, Sodium Level 138, Potassium Level 3.7, Chloride Level 105, Carbon Dioxide Level 21, Anion Gap 12, Blood Urea Nitrogen 9, Creatinine 0.59L, Estimat Glomerular Filtration Rate > 60, BUN/Creatinine Ratio 15, Glucose Level 96, Calcium Level 7.5L, Corrected Calcium 9.3, Phosphorus Level 2.2L, Magnesium Level 1.8, Total Bilirubin 0.5, Aspartate Amino Transf (AST/SGOT) 35H, Alanine Aminotransferase (ALT/SGPT) 19, Alkaline Phosphatase 101, Total Protein 4.0L, Albumin 1.8L Microbiology 10/31/20 Catheter Tip Culture - Final, Complete No growth Assessment/Plan Assessment/Plan Assessment/Plan Hemorrhagic Pancreatitis - probably not worse and Amylase/Lipase are normal today, WBC continue to decrease to 13.5 today Anemia - most likely iatrogenic from blood draws B/L pleural effusions - not worse and pt on less O2 Erythema around PICC - US shows no clot, pt on ABX, will monitor continue PT/OT continue monitoring right proximal forearm erythema continue pain medication Diagnosis/Problems Diagnosis/Problems (1) Acute hemorrhagic pancreatitis Status: Acute (2) Pleural cavity effusion Clinical Quality Measures DVT/VTE Risk/Contraindication: Risk Factor Score Per Nursin RFS Level Per Nursing on Admit: 4+=Very High Other: RISK FOR FURTHER BLEEDING IN ABDOMEN JV SAEED DO 11/05/20 0942: Subjective Time Seen by a Provider: 09:11 Subjective/Events-last exam Pt seen and examined, not having any problems eating but states she is not very hungry. She is currently tired and wants to take a nap, denies SOB. Denies abd pain. Review of Systems Pulmonary: Dyspnea (minimal) Gastrointestinal: No: Nausea, Vomiting, Abdominal Pain Objective Exam General Appearance: No Apparent Distress Respiratory: No Respiratory Distress, Decreased Breath Sounds Cardiovascular: Regular Rate, Rhythm, No Murmur Gastrointestinal: non tender, soft, no organomegaly Assessment/Plan Assessment/Plan Assessment/Plan Hemorrhagic Pancreatitis Anemia B/L Pleural effusions I think she would benefit from rehab, can increase diet (and encourage PO intake), increase ambulation. Pt was accepted to rehab today. Supervisory-Addendum Brief Verification & Attestation Participated in pt care: history, MDM, physical Personally performed: exam, history, MDM Care discussed with: Medical Student Procedures: n/a Verification and Attestation of Medical Student E/M Service A medical student performed and documented this service. I then reviewed and verified all information documented by the medical student and made modifications to such information, when appropriate. I personally performed a physical exam, medical decision making and then discussed any differences between the notes and made revisions as necessary to create one note. Jv Saeed , 11/05/20 , 09:41 BROOKS MARIN MED STUDENT Nov 05, 2020 07:22 JV SAEED DO Nov 05, 2020 09:42
[2020-11-05] MEDS: RT-ALBUTEROL SULF 2.5 MG/3 ML PRE-MIX VIAL INH SCH ×3 (07:38→19:39)
[2020-11-05] MEDS: FUROSEMIDE 40 MG (LASIX) TAB PO SCH (09:21)
[2020-11-05] MEDS: PANTOPRAZOLE 40 MG (PROTONIX) VIAL IVP SCH (09:21)
--- NOTE | 2020-11-05 11:50 | Physical Therapy Daily Note ---
PT Daily Note-Current Subjective Patient in bed pre tx, agrees to PT, has 5/10 pain in abdomen, nurse notified, nurse also notified about red and swollen abdomen around drain. Appearance Patient in recliner post tx with nurse call, phone, tray, all needs met, legs elevated. Mental Status Patient Orientation: Person, Place, Situation Attachments: Oxygen, Galeano Catheter, IV Transfers SCALE: Activities may be completed with or without assistive devices. 1-Wlsawxvezw-aoizhjt completes the activity by him/herself with no assistance from a helper. 5-Set-up or Clean-up Assistance-helper sets up or cleans up; patient completes activity. [place] assists only prior to or following the activity. 4-Supervision or Touching Assistance-helper provides verbal cues and/or touching/steadying and/or contact guard assistance as patient completes activity. Assistance may be provided throughout the activity or intermittently. 3-Partial/Moderate Assistance-helper does LESS THAN HALF the effort. [place] l ifts, holds or supports trunk or limbs, but provides less than half the effort. 2-Substantial/Maximal Assistance-helper does MORE THAN HALF the effort. [place] lifts or holds trunk or limbs and provides more than half the effort. 7-Nkuehndrv-zhjnmr does ALL the effort. Patient does none of the effort to complete the activity. Or, the assistance of 2 or more helpers is required for t he patient to complete the activity. If activity was not attempted, code reason: 7-Patient Refused. 9-Not Applicable-not attempted and the patient did not perform the activity before the current illness, exacerbation or injury. 10-Not Attempted due to Environmental Limitations-(lack of equipment, weather restraints, etc.). 88-Not Attempted due to Medical Conditions or Safety Concerns. Roll Left & Right (QC): 6 Lying to Sitting/Side of Bed(Q: 4 Sit to Stand (QC): 4 Chair/Ueh-tk-Crphv Xfer(QC): 4 SBA for supine to sit, CGA for sit to stand and ambulate a few feet to the recliner. Gait Training Distance: 3' Gait Persons Needed: 1 Gait Assistive Device: FWW CGA, slumped posture Exercises Seated Therapy Exercises: Ankle pumps, Long arc quads Seated Reps: 20 Treatments bed mobility and transfers, LE exercise Assessment Current Status: Fair Progress Improved bed mobility and transfers but patient has very poor endurance, ambulating a few feet to the recliner was very taxing, very SOB, very fatigued afterward. PT Netbackup Administrator Goals Netbackup Administrator Goals PT Netbackup Administrator Goals Time Frame: Nov 04, 2020 Roll Left & Right (QC): 4 Sit to Lying (QC): 4 Lying-Sitting on Side/Bed(QC): 4 Sit to Stand (QC): 4 Chair/Qvm-sl-Ijoxm Xfer(QC): 4 Walk 10 feet (QC): 4 Walk 50ft with 2 Turns (QC): 4 PT Plan Problem List Problem List: Activity Tolerance, Functional Strength, Safety, Balance, Gait, Transfer, Bed Mobility, ROM Treatment/Plan Treatment Plan: Continue Plan of Care Treatment Plan: Bed Mobility, Education, Functional Activity Yanick, Functional Strength, Gait, Safety, Therapeutic Exercise, Transfers Treatment Duration: Nov 04, 2020 Frequency: 6 times per week Estimated Hrs Per Day: .25 hour per day Patient and/or Family Agrees t: Yes Safety Risks/Education Patient Education: Gait Training, Transfer Techniques, Correct Positioning, Safety Issues Teaching Recipient: Patient Teaching Methods: Demonstration, Discussion Response to Teaching: Reinforcement Needed Time/GCodes Time In: 1130 Time Out: 1144 Total Billed Treatment Time: 14 Total Billed Treatment 1 visit FA KRISHNA BUCKLEY PT Nov 05, 2020 11:50
--- NOTE | 2020-11-05 12:13 | Progress Note - Hospitalist ---
Subjective HPI/CC On Admission Date Seen by Provider: Nov 05, 2020 Time Seen by Provider: 09:30 Debbie Nieto is an 80 year old female with PMH HTN, HLD, who presented with shortness of breath and abdominal pain. She reports that this all started on the evening of 10/23. She was having abdominal pain in the center of her abdomen. Sh e reports that her belly was becoming more and more distended. She denies nausea and vomiting. She did have diarrhea. She denies fevers and chills. She denies cough. She denies chest pain. She does not smoke or drink alcohol. She has no history of pancreatitis. She thinks she still has her gallbladder. Her initial workup in the ER found a large amount of abdominal ascites. Her lactic acid was significantly elevated. There was concern for perforation and she was taken to the OR. There was no identified colon perforation. She was found to have a hemorrhagic/necrotizing pancreatitis. An intraabdominal drain was placed. The hospitalist service has been consulted for medical comanagement. Subjective/Events-last exam She is feeling tired. She is going to take a nap now. She is not having any pain. She is not feeling short of breath. She has no other complaints or reilly rns. Focused Exam Time of Focused Exam: 06:45 Objective Exam Vital Signs Vital Signs Date Time Temp Pulse Resp B/P (MAP) Pulse Ox O2 Delivery O2 Flow Rate FiO2 11/05/20 11:10 37.2 91 18 140/84 (102) 94 Room Air 11/05/20 08:50 1.00 Capillary Refill : Greater Than 3 Seconds General Appearance: No Apparent Distress, WD/WN Respiratory: No Respiratory Distress, Decreased Breath Sounds Cardiovascular: Regular Rate, Rhythm, No Murmur Gastrointestinal: Normal Bowel Sounds, Soft, Tenderness Extremity: Normal Inspection, Non Tender, Pedal Edema Neurologic/Psychiatric: Alert, Oriented x3, No Motor/Sensory Deficits Skin: Normal Color, Warm/Dry Results/Procedures Lab Laboratory Tests 11/05/20 02:45 Patient resulted labs reviewed. Imaging: Reviewed Imaging Report Assessment/Plan Assessment and Plan Assess & Plan/Chief Complaint Critical illness myopathy PT/OT Transfer to IRU tomorrow Hemorrhagic pancreatitis Ascites CT Abdomen with poor visualization of pancreas on arrival Intraoperatively visualized hemorrhagic/necrotizing pancreatitis Contnue Merrem EGD 10/25 showed ulcer of pharynx, ulcer of esophagus, hiatal hernia Repeat CT Abdomen stable Acute respiratory failure with hypoxia Fluid overload COVID negative s/p thoracentesis 10/29 for pleural effusions by radiology CTA negative for PE Chest xray consistent with fluid overload, improving Continue Lasix Swelling of arm Ultrasound negative Monitor DVT prophylaxis: held due to hemorrhagic pancreatitis Acute kidney injury, resolved Lactic acidosis, resolved Polycythemia, resolved Diagnosis/Problems Diagnosis/Problems (1) Critical illness myopathy Status: Acute (2) Acute hemorrhagic pancreatitis Status: Acute (3) Ascites Status: Acute (4) Esophageal ulcer Status: Acute (5) Ulcer of pharynx Status: Acute (6) Hiatal hernia Status: Acute (7) Lactic acidosis Status: Resolved Resolution Date/Time: 11/02/20 @ 17:02 (8) WHITNEY (acute kidney injury) Status: Resolved Resolution Date/Time: 11/02/20 @ 17:02 (9) Polycythemia Status: Resolved Resolution Date/Time: 11/02/20 @ 17:03 (10) Swelling of upper arm Status: Acute Clinical Quality Measures DVT/VTE Risk/Contraindication: Risk Factor Score Per Nursin RFS Level Per Nursing on Admit: 4+=Very High Other: RISK FOR FURTHER BLEEDING IN ABDOMEN MARIEL SHOEMAKER MD Nov 05, 2020 12:13
--- NOTE | 2020-11-05 13:27 | Occupational Ther Daily Note ---
OT Current Status-Daily Note Subjective Pt alert, sitting in recliner. Pt agrees to therapy. No c/o pain at this time. Pt states that she continues to hallucinate and at times it is hard to no what is real and not. Mental Status/Objective Patient Orientation: Person, Place, Time, Situation Attachments: Drains, Galeano Catheter, IV, Oxygen, Telemetry ADL-Treatment Pt eating lunch with regular utensils. Pt agrees to oral care and requests to use BSC. Pt requires assist to manipulate tubing with SPT, CGA. Pt able to cleanse self in stance after BM with close SBA. Using FWW, pt able to ambulate to bed with assist to manipulate tubing, SBA. Min A to lift R LE into bed then pt able to go to supine by self. After session, pt lying in bed with call light/phone in reach. All needs met in room Therapy Code Descriptions/Definitions Functional [place] Measure: 0=Not Assessed/NA 4=Minimal Assistance 1=Total Assistance 5=Supervision or Setup 2=Maximal Assistance 6=Modified [place] 3=Moderate Assistance 7=Complete IndependenceSCALE: Activities may be completed with or without assistive devices. 5-Kwszvxrxjj-ojpyrpr completes the activity by him/herself with no assistance from a helper. 5-Set-up or Clean-up Assistance-helper sets up or cleans up; patient completes activity. [place] assists only prior to or following the activity. 4-Supervision or Touching Assistance-helper provides verbal cues and/or touching/steadying and/or contact guard assistance as patient completes activity. Assistance may be provided throughout the activity or intermittently. 3-Partial/Moderate Assistance-helper does LESS THAN HALF the effort. [place] lifts, holds or supports trunk or limbs, but provides less than half the effort. 2-Substantial/Maximal Assistance-helper does MORE THAN HALF the effort. [place] lifts or holds trunk or limbs and provides more than half the effort. 8-Shsceynvd-qhqxsi does ALL the effort. Patient does none of the effort to complete the activity. Or, the assistance of 2 or more helpers is required for the patient to complete the activity. If activity was not attempted, code reason: 7-Patient Refused. 9-Not Applicable-not attempted and the patient did not perform the activity before the current illness, exacerbation or injury. 10-Not Attempted due to Environmental Limitations-(lack of equipment, weather restraints, etc.). 88-Not Attempted due to Medical Conditions or Safety Concerns. Oral Hygiene (QC): 5 (After supplies placed in front of pt. Pt able to complete oral care by self.) Toileting Hygiene (QC): 4 Toilet Transfer (QC): 4 OT Short Term Goals Short Term Goals Time Frame: Nov 04, 2020 Eatin Oral hygiene: 4 Toileting hygiene: 3 Upper body dressin Lower body dressin Putting on/taking off footwear: 3 OT Nail Technician Teacher Goals Correction Goals Time Frame: Nov 11, 2020 Eating (QC): 6 Oral Hygiene (QC): 6 Toileting Hygiene (QC): 4 Shower/Bathe Self (QC): 4 Upper Body Dressing (QC): 5 Lower Body Dressing (QC): 4 On/Off Footwear (QC): 4 Additional Goals: 1-Demonstrate ADL Tasks, 2-Verbalize Understanding, 3- ImproveStrength/[place] 1=Demonstrate adherence to instructed precautions during ADL tasks. 2=Patient will verbalize/demonstrate understanding of assistive devices/modifications for ADL. 3=Patient will improve strength/tolerance for activity to enable patient to perform ADL's. OT Education/Plan Problem List/Assessment Assessment: Decreased Activ Tolerance, Impaired Self-Care Skills Discharge Recommendations Plan/Recommendations: Continue POC Treatment Plan/Plan of Care Patient would benefit from OT for education, treatment and training to promote independence in ADL's, mobility, safety and/or upper extremity function for ADL's. Plan of Care: ADL Retraining, Functional Mobility, UE Funct Exercise/Act Treatment Duration: Nov 11, 2020 Frequency: 5 times per week Estimated Hrs Per Day: .25 hour per day Agreement: Yes Rehab Potential: Good Time/GCodes Start Time: 13:10 Stop Time: 13:40 Total Time Billed (hr/min): 30 Billed Treatment Time 1 visit-ADL 2 (30 min) ANSON CARBAJAL Nov 05, 2020 13:27
--- NOTE | 2020-11-05 14:36 | NUR ---
[facility] 1309 - Contacted patient's daughter, Liban, to confirm acceptance and anticipated admission date of tomorrow, 11/06/20. Liban continues to be in agreement with this plan. Will continue to follow.
--- NOTE | 2020-11-05 15:04 | NUR ---
CM/SS: This worker has been informed by the January, Coordinator for Inpatient Rehab that pt will be able to go there on tomorrow. Family (daughter) has been notified of the decision. Dr Díaz from surgery has given the Ok for pt to be able to go to rehab as well. Pt will admit to Inpatient Rehab on 11/06/2020.
--- NOTE | 2020-11-05 15:16 | NUR ---
"RD ASSESSMENT PMHx: HTN; HLD: CAD; PT INTERACTION: Pt was awake and pleasant during nutrition follow-up. Pt states her appetite is getting better. Note avg PO intake 25-50% x4d, per chart review. Pt states some issues with diarrhea since last assessment. Note last BM was 1/3, and pt not currently on bowel regimen per chart review. Note abnormal lab values of cr 0.59 L, Ca 7.5 L, phos 2.2 L, Pro 4.0 L, and alb 1.8 L, per chart review. Est. kcal needs: 9883-4350 kcal | 20-25 kcal/kg Est. Pro needs: 67-80 g Pro | 1.0-1.2 g Pro/kg PES STATEMENT: Inadequate oral intake (NI-2.1) related to loss of appetite, and diarrhea, as evidenced by pt interview, and avg PO intake 25-50% x4d. INTERVENTION: Note pt currently on Clear Liquid diet. Pt may benefit from diet advancement to Regular diet, to increase kcal intake. Continue with current supplementation order of Ensure Clear TID, for increased kcal intake. Provides 250 kcal and 8 g Pro per serving. Encouraged pt to eat when able. Will continue to follow and reassess as pt needs, intake, and status change. Charla DAVIDSON, MS RD LD [phone] cell"
[2020-11-05] MEDS: LACTATED RINGERS 1,000 ML IV SCH (22:53)
[2020-11-06] MEDS: inSUlin ASPART (NovoLOG) 1 UNIT/0.01 ML (CHARGE PER UNIT) SC SCH ×3 (00:31→11:11)
[2020-11-06] MEDS: RT-ALBUTEROL SULF 2.5 MG/3 ML PRE-MIX VIAL INH SCH (01:22)
[2020-11-06] MEDS ORDERED: MEROPENEM 500 MG VIAL (MERREM) IV ONE (06:18)
[2020-11-06] MEDS ORDERED: WATER (STERILE) FOR INJECTION 10 ML ONE (06:19)
[2020-11-06] MEDS: HYDROcodone/APAP 5 MG/325 MG (LORTAB) TAB PO PRN ×2 (06:24→11:12)
[2020-11-06] MEDS: MEROPENEM 500 MG/SWFI 10 ML IV PUSH IV SCH ×2 (06:25)
[2020-11-06] MEDS: LACTATED RINGERS 1,000 ML IV SCH (06:27)
[2020-11-06] MEDS: PANTOPRAZOLE 40 MG (PROTONIX) VIAL IVP SCH (08:15)
[2020-11-06] MEDS: FUROSEMIDE 40 MG (LASIX) TAB PO SCH (08:15)
--- NOTE | 2020-11-06 08:20 | Progress Note - Surgery ---
BROOKS MARIN MED STUDENT 11/06/20 0820: Subjective Date Seen by a Provider: Nov 06, 2020 Time Seen by a Provider: 08:00 Subjective/Events-last exam Patient was sitting up in bed with her breakfast in front of her today when I entered the room. She appeared to be in moderate distress stating that she "hurts everywhere' but couldn't describe the pain or point to a specific location and stated that it wasn't abdominal pain. She was not on any supplemental O2 but was taking deep breaths using accessory muscles and had to take a breath after almost every word. There was very little eaten off of her plate of pancakes and sausage and when asked about it she stated that the food smelt good but once it was in her mouth she didn't like the flavor any more. She asked for two pain pills throughout the night with the last one being at 06:30. Her CHRISTA drainage site continues to leak serous fluid onto the dressing but the nurse stated that she had to replace it less often than before. The erythema on her right proximal forearm has all but subsided. She was approved for rehab but currently waiting for a spot to open up. Focused Exam Time of Focused Exam: 06:45 Respiratory: Chest Non Tender, Lungs Clear, Accessory Muscle Use, Decreased Breath Sounds, Respiratory Distress Cardiovascular: Regular Rate, Rhythm, No Gallop, No Murmur, Normal Peripheral Pulses Skin: normal color, warm/dry Objective Exam Vital Signs Date Time Temp Pulse Resp B/P (MAP) Pulse Ox O2 Delivery O2 Flow Rate FiO2 11/06/20 07:13 36.4 95 21 131/80 (97) 93 Room Air 11/06/20 04:00 36.9 91 20 134/79 (97) 95 Room Air 11/06/20 01:24 95 Room Air 11/06/20 00:00 36.5 99 18 124/70 (88) 94 Room Air 11/05/20 20:00 98 High Flow N/C 1.00 11/05/20 19:40 95 Room Air 11/05/20 19:37 35.4 74 18 142/82 (102) 93 Room Air 11/05/20 16:00 36.9 93 16 136/86 (103) 97 Room Air 11/05/20 14:34 97 High Flow N/C 1.00 11/05/20 11:10 37.2 91 18 140/84 (102) 94 Room Air 11/05/20 08:50 37.2 99 18 139/72 (94) 98 Nasal Cannula 1.00 I & O 11/06/20 07:00 Intake Total 2490 ml Output Total 2975 ml Balance -485 ml Capillary Refill : Greater Than 3 Seconds General Appearance: WD/WN, Chronically ill, Moderate Distress (pain and difficulty breathing) HEENT: PERRL/EOMI Respiratory: No Respiratory Distress, Accessory Muscle Use, Decreased Breath Sounds, Respiratory Distress Cardiovascular: Regular Rate, Rhythm, No Gallop, No Murmur Gastrointestinal: non tender, soft, no organomegaly Extremity: Normal Inspection, Non Tender, Pedal Edema Neurologic/Psychiatric: Alert, Oriented x3, No Motor/Sensory Deficits, Other Skin: Normal Color, Warm/Dry Lymphatic: No Adenopathy (cervical, axilllary, or inguinal) Results Lab Laboratory Tests 11/05/20 11:11: Glucometer 97 11/05/20 15:32: Glucometer 94 11/05/20 19:55: Glucometer 154H 11/06/20 05:28: Glucometer 110 Microbiology 10/31/20 Catheter Tip Culture - Final, Complete No growth Assessment/Plan Assessment/Plan Assessment/Plan Hemorrhagic Pancreatitis Anemia B/L Pleural effusions Plan: continue supplemental O2 pain medication as needed I think she would benefit from rehab, can increase diet (and encourage PO intake), increase ambulation. Pt was accepted to rehab today. Diagnosis/Problems Diagnosis/Problems (1) Acute hemorrhagic pancreatitis Status: Acute (2) Pleural cavity effusion Clinical Quality Measures DVT/VTE Risk/Contraindication: Risk Factor Score Per Nursin RFS Level Per Nursing on Admit: 4+=Very High Other: RISK FOR FURTHER BLEEDING IN ABDOMEN JV SAEED DO 11/06/20 1009: Subjective Time Seen by a Provider: 09:51 Subjective/Events-last exam Pt seen and examined,thinks she is breathing better since nurse started her on 1L of O2. Pain in abdomen is about the same. Review of Systems General: Fatigue, Malaise Pulmonary: Dyspnea; No Cough Cardiovascular: No: Chest Pain Gastrointestinal: Abdominal Pain; No: Nausea, Vomiting Objective Exam General Appearance: Chronically ill, Mild Distress HEENT: PERRL/EOMI Respiratory: Accessory Muscle Use, Decreased Breath Sounds (bases) Cardiovascular: Regular Rate, Rhythm, No Murmur Gastrointestinal: soft, no organomegaly, tenderness (minimal diffusely) Extremity: Pedal Edema (+2 pitting edema bilaterally below knees) Neurologic/Psychiatric: Alert, Oriented x3 Assessment/Plan Assessment/Plan Assessment/Plan Pt going to rehab today, I think improving her strength will help her. She still needs to diurese more fluid. Supervisory-Addendum Brief Verification & Attestation Participated in pt care: history, MDM, physical Personally performed: exam, history, MDM Care discussed with: Medical Student Procedures: n/a Verification and Attestation of Medical Student E/M Service A medical student performed and documented this service. I then reviewed and verified all information documented by the medical student and made modifications to such information, when appropriate. I personally performed a physical exam, medical decision making and then discussed any differences between the notes and made revisions as necessary to create one note. Jv Saeed , 11/06/20 , 10:10 BROOKS MARIN MED STUDENT Nov 06, 2020 08:20 JV SAEED DO Nov 06, 2020 10:09
[2020-11-06] MEDS ORDERED: polyethylene glycoL POWDER 17 GM (MIRALAX) PACK PO SCH (09:45)
--- NOTE | 2020-11-06 11:38 | NUR ---
Pt to ARU at this time. All belongings sent with pt. Report called to Lacie CROW.
[2020-11-06] MEDS ORDERED: DOCUSATE SODIUM 100 MG (COLACE) CAP PO PRN (13:00)
--- NOTE | 2020-11-13 05:43 | Physician Query Clarification ---
PQ-Uncertain Diagnosis Admission/Discharge Admission Date: Oct 24, 2020 at 16:12 Discharge Date: Nov 06, 2020 at 11:38 MARIEL Espinoza MD The medical record reflects the following clinical scenario: History/Risk Factors: 80 y/o female patient presented with shortness of breath and abdominal pain initial workup in ER found to have abdominal ascities and hemorrhagic pancreatitis. ER provider report, 10/24: Severe sepsis, Perforated abdominal viscus. Consultation, 10/25: Hemorrhagic pancreatitis, ascities, acute kidney injury, lactic acidosis. Progress notes, 10/30: Hemorrhagic pancreatitis, ascities, acute kidney injury, lactic acidosis, hypoxia. Progress notes, 11/03: Hemorrhagic pancreatitis, ascities, acute respiratory failure with hypoxia, continue vanco, merrim, eraxis. Clinical Findings:Pulse-107, lactic acid-10.14, WBC-18.3 Treatment: Zosyn, Vancomycin, eraxis. Question: Is Severe sepsis a clinically valid diagnosis? Severe sepsis was documented in the ER provider report, 10/24 with no further documentation in the medical record. Please document a response in Progress Note or Discharge Summary. 1. Yes, clinically valid, condition resolved. 2. No, condition ruled out. 3. Other, with explanation of clinical findings. 4. Undetermined, no explanation for clinical findings. PHYSICIAN RESPONSE Diagnosis clinically valid: Yes, Conditon resolved Please remember a lack of response to the above will prompt a phone page by CDI/Coding staff. In responding to this query, please exercise your independent professional judgment. The purpose of this communication is to more accurately reflect the complexity of your patients condition. The fact that a question is asked does not imply that any particular answer is desired or expected. Thank you for your timely response to this clarification. Requestors name: [ ] Phone # [ ] THIS PHYSICIAN QUERY FORM IS A PERMANENT PART OF THE MEDICAL RECORD ROBERT RODRIGUEZ Nov 13, 2020 05:43 MARIEL SHOEMAKER MD Nov 19, 2020 20:29
== END 2020-11-06 11:38 | DRG 871 ==
LOC: EDUNIT# 11:47 → ER 11:50 → SDC 14:47 → ICU 16:12 → CSD 11-02 18:16
PROVIDERS: ADMIT Surgery; ATTEND Surgery
PROC: 0W9G30Z Drainage of Peritoneal Cavity with Drainage Device, Percutaneous Approach (ICD-10-PCS; principal; 2020-10-24 15:05)
PROC: 0DJ08ZZ Inspection of Upper Intestinal Tract, Via Natural or Artificial Opening Endoscopic (ICD-10-PCS; 2020-10-25)
PROC: 0W9B3ZZ Drainage of Left Pleural Cavity, Percutaneous Approach (ICD-10-PCS; 2020-10-30)
PROC: 0W993ZZ Drainage of Right Pleural Cavity, Percutaneous Approach (ICD-10-PCS; 2020-10-30)
DX: A41.9 Sepsis, unspecified organism (principal); K85.91 Acute pancreatitis with uninfected necrosis, unspecified; K22.11 Ulcer of esophagus with bleeding; J96.01 Acute respiratory failure with hypoxia; R18.8 Other ascites; N17.9 Acute kidney failure, unspecified; E87.2 Acidosis; J90 Pleural effusion, not elsewhere classified; G72.81 Critical illness myopathy; R65.20 Severe sepsis without septic shock; Z66 Do not resuscitate; Z20.822 Contact with and (suspected) exposure to COVID-19; I10 Essential (primary) hypertension; E78.5 Hyperlipidemia, unspecified; I25.10 Atherosclerotic heart disease of native coronary artery without angina pectoris; D75.1 Secondary polycythemia; K44.9 Diaphragmatic hernia without obstruction or gangrene; J39.2 Other diseases of pharynx; D64.9 Anemia, unspecified; E87.70 Fluid overload, unspecified
CPT/HCPCS: 32555; 36415; 36556; 36569; 71045; 71250; 71275; 74176; 76937; 80048; 80053; 80202; 81000; 82150; 82805; 82962; 83605; 83690; 83735; 83880; 84100; 84145; 84484; 85007; 85014; 85018; 85025; 85027; 85379; 87040; 87070; 87635; 93005; 94640; 94664; 94760; 96361; 96365; 96375; 96376; 99291

== ENCOUNTER 2020-11-06 11:43 | Inpatient (IN) | payer MEDICARE ==
[~2020-11-06] VITALS: Ht 154.9 cm; Wt 54.5 kg
[~2020-11-06 11:43] MED LIST changes: +ALPRAZolam 0.25 MG (XANAX) TAB PO PRN; +BISACODYL 10 MG SUPP (DULCOLAX) PR PRN; +CALCIUM CARBONATE 500 MG (TUMS) TAB.CHEW PO PRN; +DOCUSATE SODIUM 100 MG (COLACE) CAP PO PRN; +FLEET ENEMA ADULT 1 EA BTL PR PRN; +LACTULOSE SYRUP 10GM/15ML (ENULOSE) 30ML UDC PO PRN; +LOPERAMIDE 2 MG (IMODIUM) TABLET PO PRN; +MELATONIN 3 MG TABLET PO PRN; +ONDANSETRON 4 MG (ZOFRAN) ORAL DISSOLVE TAB PO PRN; +diphenhydrAMINE 25 MG TAB (BENADRYL) PO PRN; +guaiFENesin/CODEINE (ROBITUSSIN AC) 10ML UDC PO PRN
--- NOTE | 2020-11-06 11:45 | NUR ---
Admitted to room 225-1, with an admitting diagnosis of critical illness myopathy, on 11/06/20 from 5th floor via w/c, accompanied by .DACIA MENARD introduced to surroundings, call light, bed controls, phone, TV, temperature control, lights, meal times, smoking policy, visitor policy, side rail policy, bathrooms and showers. Patient Rights given to patient in the handbook.DACIA MENARD verbalizes understanding that [facility] is not responsible for the loss or damage to any personal effects or valuables that are kept in the patients posession during their hospitalization. The following Patient Care Plans were discussed with the : Discharge Planning, ,, and . DACIA MENARD verbalizes understanding of Interdisciplinary Patient Education. Patient and/or family were informed about the Rapid Response Team and its purpose. Patient received Patient Rights Booklet, which includes Privacy Act Statement and Data Collection Information Summary.
--- NOTE | 2020-11-06 12:59 | PM&R Post Admission Assessment ---
PM&R HP Date of Visit: Nov 06, 2020 Time of Visit: 12:00 History of Present Illness CC: Critical illness myopathy HPI: This is an 80yoWF who presents to the IRF in need of aggressive therapy in order to regain function to return to live independently after a critical illness hospital course for hemorrhagic pancreatitis with massive ascites and respiratory failure. Patient is currently very weak and has a lot of pain. Therapy has assessed her and needs slow recovery with therapy sessions due to profound weakness. Pain meds have been added to help transition off IV pain meds. I have reviewed notes and images and meds. She lives independently. Per HPI on ICU note: Debbie Nieto is an 80 year old female with PMH HTN, HLD, who presented with shortness of breath and abdominal pain. She reports that this all started on the evening of 10/23. She was having abdominal pain in the center of her abdomen. She reports that her belly was becoming more and more distended. She denies nausea and vomiting. She did have diarrhea. She denies fevers and chills. She denies cough. She denies chest pain. She does not smoke or drink alcohol. She has no history of pancreatitis. She thinks she still has her gallbladder. Her initial workup in the ER found a large amount of abdominal ascites. Her lactic acid was significantly elevated. There was concern for perforation and she was taken to the OR. There was no identified colon perforation. She was found to have a hemorrhagic/necrotizing pancreatitis. An intraabdominal drain was placed. The hospitalist service has been consulted for medical comanagement. Past Eigvpwl-Yiqfsc-Jzbfot Hx Past Med/Social Hx: Reviewed Nursing Past Med/Soc Hx, Reviewed and Corrections made Patient Social History Marrital Status: single Employed/Student: retired Alcohol Use: Denies Use Smoking Status: Never a Smoker Recent Hopitalizations: No Immunizations Up To Date Tetanus Booster (TDap): Unknown Date of Pneumonia Vaccine: Aug 30, 2016 Date of Influenza Vaccine: Jul 30, 2018 Past Medical History Surgeries: Abdominal, CABG Currently Using CPAP: No Currently Using BIPAP: No Cardiac: Coronary Artery Disease, Hypertension Reproductive: Yes (ECTOPIC ) Menopausal Genitourinary: Kidney Stones Loss of Vision: Denies Hearing Impairment: Hard of Hearing History of Blood Disorders: No Family History Cardiovascular disease 19 FATHER 19 MOTHER Heart Disease, Cancer, CVA PM&R Allergy/Meds/Data Review Allergies Coded Allergies: No Known Drug Allergies (Unverified , 07/25/19) Home Medications Scheduled Atorvastatin Calcium (Atorvastatin Calcium), 10 MG PO HS, (Reported) Ramipril (Ramipril), 2.5 MG PO DAILY, (Reported) Current Medications Current Medications Reviewed Review of Systems Constitutional: see HPI, dizziness, malaise, weakness EENTM: no symptoms reported Respiratory: dyspnea on exertion Cardiovascular: no symptoms reported Gastrointestinal: abdominal pain, loss of appetite, nausea Genitourinary: no symptoms reported Musculoskeletal: back pain, joint pain Skin: no symptoms reported Psychiatric/Neurological: Anxiety, Depressed All Other Systems Reviewed Negative Unless Noted: Yes Physical Exam Physical Exam Vital Signs Capillary Refill : Height, Weight, BMI Height: 5'1.00" Weight: 105lbs. 0.0oz. [id number]; 20.39 BMI Method:Stated General Appearance: WD/WN, Anxious, Chronically ill, Mild Distress, Thin, Other (frail, pale) Eyes: Bilateral Eye Normal Inspection, Bilateral Eye PERRL HEENT: PERRL/EOMI, Normal ENT Inspection, Pharynx Normal Neck: Full Range of Motion, Normal Inspection, Non Tender, Supple, Carotid Bruit Respiratory: Chest Non Tender, Lungs Clear, No Accessory Muscle Use, No Respiratory Distress, Decreased Breath Sounds Cardiovascular: Regular Rate, Rhythm, No Edema, No Gallop, No JVD, No Murmur, Normal Peripheral Pulses Gastrointestinal: Normal Bowel Sounds, No Organomegaly, No Pulsatile Mass, Non Tender, Soft Back: Normal Inspection, No CVA Tenderness, No Vertebral Tenderness Extremity: Normal Capillary Refill, Normal Inspection, Normal Range of Motion, Non Tender, No Calf Tenderness, No Pedal Edema Neurologic/Psychiatric: Alert, Oriented x3, No Motor/Sensory Deficits, tip printer II- XII Norm as Tested, Abnormal Gait, Depressed Affect, Motor Weakness (severe weakness 3/5 all extremities) Skin: Normal Color, Warm/Dry Lymphatic: No Adenopathy PM&R Medical Assessment & Plan REHAB/MEDICAL ASSESSMENT AND PLAN: REHAB IMPAIRMENT GROUP: Critical illness myopathy ETIOLOGIC DIAGNOSIS: Critical illness myopathy The comorbidities that impact the patients function and/or functional outcome by: advanced age, frail status, protein malnutrition, severe abdominal pain, narcotic dependence REHAB PLAN: The patient is being admitted to our comprehensive inpatient rehabilitation facility and can tolerate the intensity of service consisting of at least: 180 minutes of therapy a day, 5 out of 7 days a week Rehab treatment will consist of: PT OT will help patient slowly recover with use of therapy techniques and teach energy conservation with frequent breaks to tolerate activity The patient/family has a good understanding of our discharge process and will benefit from an interdisciplinary inpatient rehabilitation program. The patient has potential to make improvement and is in need of at least two of the following multidisciplinary therapies including but not limited to physical, occupational, speech, and prosthetics and orthotics. Additionally the patient will need services from respiratory, nutritional services, wound care, psycholo gy, etc. (Customize this to each patient). Given the patients complex condition and risk of further medical complications, rehabilitation services cannot be safely or effectively provided at a lower level of care such as a [facility] facility. BARRIERS TO DISCHARGE: Lives alone ESTIMATED LOS: 14 days DISPOSITION: Home RELEVANT CHANGES SINCE PREADMISSION SCREENING: I have compared the patients medical and functional status at the time of the preadmission screening and there are: no changes PROGNOSIS: Good REHABILITATION GOALS: 1. PT OT will help patient slowly recover with use of therapy techniques and teach energy conservation with frequent breaks to tolerate activity All the above goals were reviewed with the patient and he/she is in agreement. By signing this document, I acknowledge that I have personally performed a full physical examination on this patient within 24 hours of admission to this inpatient rehabilitation facility and have determined the patient to be able to tolerate the above course of treatment at an intensive level for a reasonable period of time. I will be completing a detailed individualized Plan of Care for this patient by day #4 of the patients stay based upon the Preadmission Screen, the Post-Admission Evaluation, and the therapy evaluations. Admission Dx/Comorbidities: (1) Critical illness myopathy Status: Acute ICD Codes: G72.81 - Critical illness myopathy (2) Ulcer of pharynx Status: Acute ICD Codes: J39.2 - Other diseases of pharynx (3) Esophageal ulcer Status: Acute ICD Codes: K22.10 - Ulcer of esophagus without bleeding (4) Ascites Status: Acute ICD Codes: R18.8 - Other ascites (5) Acute hemorrhagic pancreatitis Status: Acute ICD Codes: K85.90 - Acute pancreatitis without necrosis or infection, unspecified (6) Severe sepsis Status: Acute ICD Codes: A41.9 - Sepsis, unspecified organism; R65.20 - Severe sepsis without septic shock (7) Debility ICD Codes: R53.81 - Other malaise (8) WHITNEY (acute kidney injury) Status: Resolved ICD Codes: N17.9 - Acute kidney failure, unspecified (9) Pleural cavity effusion ICD Codes: J90 - Pleural effusion, not elsewhere classified (10) Lactic acidosis Status: Resolved ICD Codes: E87.2 - Acidosis (11) Polycythemia Status: Resolved ICD Codes: D75.1 - Secondary polycythemia (12) Essential (primary) hypertension Status: Chronic ICD Codes: I10 - Essential (primary) hypertension (13) CAD (coronary artery disease) Status: Chronic ICD Codes: I25.10 - Atherosclerotic heart disease of [place] coronary artery without angina pectoris (14) Bradycardia Status: Acute ICD Codes: R00.1 - Bradycardia, unspecified Assessment/Plan Assessment and Plan Assess & Plan/Chief Complaint Assessment: Critical illness myopathy Hemorrhagic pancreatitis Esophagus ulcer on EGD Ascites s/p acute respiratory failure VTE contraindication due to hemorrhage Fluid overload Plan: IRF protocol Pain meds Monitor bowel routine Very weak CONNOR BUSTAMANTE DO Nov 06, 2020 12:59
[2020-11-06] MEDS ORDERED: FLU QUAD HIGH DOSE 240 MCG/0.7 ML 2020-21 (FLUZONE) IM ONE (13:30)
[2020-11-06 13:33] VITALS: BP 115/59
--- NOTE | 2020-11-06 14:01 | Physical Therapy Evaluation ---
PT Evaluation-General Medical Diagnosis Admission Date Nov 06, 2020 at 11:43 Medical Diagnosis: hemorrhagic/necrotizing pancreatitis Onset Date: Oct 24, 2020 Therapy Diagnosis Therapy Diagnosis: impaired mobility, strength, endurance Height/Weight Height (Feet): 5 Height (Inches): 1.00 Weight (Pounds): 105 Weight (Ounces): 0.0 Precautions Precautions/Isolations: Fall Prevention, Standard Precautions, Pressure Ulcer Referral Physician: Lianna Marshall DO Reason for Referral: Evaluation/Treatment Medical History Pertinent Medical History: CABG, CAD, HTN Additional Medical History Past Medical History Surgeries: Yes (ECTOPIC ) Abdominal, CABG Respiratory: No Currently Using CPAP: No Currently Using BIPAP: No Cardiac: No Coronary Artery Disease, Hypertension Neurological: No Reproductive Disorders: Yes (ECTOPIC ) 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 5-Wwkfacqypu-mhmyofr completes the activity by him/herself with no assistance from a helper. 5-Set-up or Clean-up Assistance-helper sets up or cleans up; patient completes activity. [place] assists only prior to or following the activity. 4-Supervision or Touching Assistance-helper provides verbal cues and/or touching/steadying and/or contact guard assistance as patient completes activity. Assistance may be provided throughout the activity or intermittently. 3-Partial/Moderate Assistance-helper does LESS THAN HALF the effort. [place] lifts, holds or supports trunk or limbs, but provides less than half the effort. 2-Substantial/Maximal Assistance-helper does MORE THAN HALF the effort. [place] lifts or holds trunk or limbs and provides more than half the effort. 5-Tmcnjnzpq-jkeacf does ALL the effort. Patient does none of the effort to co mplete the activity. Or, the assistance of 2 or more helpers is required for the patient to complete the activity. If activity was not attempted, code reason: 7-Patient Refused. 9-Not Applicable-not attempted and the patient did not perform the activity before the current illness, exacerbation or injury. 10-Not Attempted due to Environmental Limitations-(lack of equipment, weather restraints, etc.). 88-Not Attempted due to Medical Conditions or Safety Concerns. Bed Mobility: 6 Transfers (B,C,W/C): 6 Gait: 6 Stairs: 6 Indoor Mobility (Ambulation): Independent Stairs: Independent PT Evaluation-Current Subjective Patient in recliner pre tx, agrees to PT, has 10/10 abdominal pain, nurse notified. Will be co-treating for part of tx with OT due to poor patient mobility, strength, endurance, pain during activity, the need to coordinate UE and LE during activity, safety and reduce risk of falls. Pt/Family Goals to be independent at home Objective Patient Orientation: Person, Confused, Place, Situation Attachments: Oxygen ROM/Strength ROM Lower Extremities WNL Strength Lower Extremities 4/5 gross BLE Sensory Hearing: Functional Sensation Right Lower Extremit: Intact Sensation Left Lower Extremity: Intact Transfers Roll Left & Right (QC): 9 Sit to Lying (QC): 9 Lying to Sitting/Side of Bed(Q: 9 Sit to Stand (QC): 4 Chair/Tbj-hf-Ovzgh Xfer(QC): 4 Toilet Transfer (QC): 4 Car Transfer (QC): 4 Patient performs sit to stand and transfers with CGA, car transfer CGA. Patient needs cues for hand placement and safety. Gait Does the Patient Walk?: Yes Mode of Locomotion: Walk Anticipated Mode of Locomotion: Walk Walk 10 feet (QC): 4 Walk 50 ft with 2 Turns(QC): 88 Walk 150 ft (QC): 88 Walking 10ft/uneven surface-QC: 88 Distance: 20' Gait Assistive Device: FWW Comments/Gait Description Patient can ambulate 20' with a rolling walker with CGA. Patient has a lot of pain with ambulation so an uneven surface was not tried. Patient ambulates slowly but steady, slumped posture. Wheelchair Training Wheel 50 ft with 2 turns (QC): 88 Wheel 150 ft (QC): 88 Stairs 1 Step (curb) (QC): 88 4 Steps (QC): 88 12 Steps (QC): 88 Balance Sitting Static: Normal Sitting Dynamic: Normal Standing Static: Fair Standing Dynamic: Fair Picking up an Object (QC): 88 Treatment PT performed transfers, testing, ambulation, assisted with standing and balance during dressing, OT worked on dressing, UE positioning and safety during activity. Assessment/Needs Pain with mobility, oozing from drain site, poor endurance, needs frequent rest breaks. Rehab Potential: Fair PT Short Term Goals Short Term Goals Time Frame: Nov 13, 2020 Roll Left & Right: 6 Sit to lyin Lying to sitting on side of be: 4 Sit to stand: 4 Chair/saj-zy-hspkq transfer: 4 Walk 10 feet: 4 Walk 50 feet with two turns: 4 PT Mcfp Goals Mcfp Goals PT Heel Top Lift Splitter Goals Time Frame: Nov 27, 2020 Roll Left & Right (QC): 6 Sit to Lying (QC): 6 Lying-Sitting on Side/Bed(QC): 6 Sit to Stand (QC): 6 Chair/Wpv-zt-Xecon Xfer(QC): 6 Toilet Transfer (QC): 6 Car Transfer (QC): 6 Does the Patient Walk: Yes Walk 10 feet (QC): 6 Walk 50ft with 2 Turns (QC): 6 Walk 150 ft (QC): 6 Walking 10ft on Uneven Surface: 6 1 Step (curb) (QC): 4 4 Steps (QC): 4 12 Steps (QC): 88 Picking up an Object (QC): 88 Wheel 50 feet with 2 turns (QC: 9 Wheel 150 feet: 9 PT Plan Problem List Problem List: Activity Tolerance, Functional Strength, Safety, Balance, Gait, Transfer, Bed Mobility, ROM Treatment/Plan Treatment Plan: Continue Plan of Care Treatment Plan: Bed Mobility, Education, Functional Activity Yanick, Functional Strength, Group Therapy, Gait, Safety, Therapeutic Exercise, Transfers Treatment Duration: Nov 27, 2020 Frequency: At least 5 of 7 days/Wk (IRF) Estimated Hrs Per Day: 1.5 hours per day Patient and/or Family Agrees t: Yes Safety Risks/Education Patient Education: Gait Training, Transfer Techniques, Correct Positioning, Safety Issues Teaching Recipient: Patient Teaching Methods: Demonstration, Discussion Response to Teaching: Reinforcement Needed Discharge Recommendations Plan Patient will perform bed mobility and transfer training, balance and endurance training, functional strengthening, stair training, gait training, and e ducation, to improve functional mobility and independence at home. Therapy Discharge Recommendati: Scheduled Assistance, Home & Family Time/GCodes Time In: 1130 Time Out: 1215 Total Billed Treatment Time: 35 Total Billed Treatment 1 visit EVM 10' FA 25' (only charge one unit) PT eval from [id number], OT eval from [id number], co-treat from [id number] KRISHNA GUERRIER PT Nov 06, 2020 14:01
--- NOTE | 2020-11-06 14:13 | Physical Therapy Daily Note ---
PT Daily Note-Current Subjective Patient in recliner pre tx, agrees to PT, has 4/10 pain in abdomen but still requests pain meds, notify nurse, will be co-treating with OT due to poor patient mobility, strength, endurance, pain with activity, SOB, the need to coordinate UE and LE during activity, safety and reduce risk of falls. Appearance Patient in bed post tx with nurse call, OT and nurse in the room. Mental Status Patient Orientation: Person, Confused, Place, Situation Attachments: Oxygen Transfers SCALE: Activities may be completed with or without assistive devices. 6-Tykbllguhk-mxdruyu completes the activity by him/herself with no assistance from a helper. 5-Set-up or Clean-up Assistance-helper sets up or cleans up; patient completes a ctivity. [place] assists only prior to or following the activity. 4-Supervision or Touching Assistance-helper provides verbal cues and/or touching/steadying and/or contact guard assistance as patient completes activity. Assistance may be provided throughout the activity or intermittently. 3-Partial/Moderate Assistance-helper does LESS THAN HALF the effort. [place] lifts, holds or supports trunk or limbs, but provides less than half the effort. 2-Substantial/Maximal Assistance-helper does MORE THAN HALF the effort. [place] lifts or holds trunk or limbs and provides more than half the effort. 8-Vyphayisg-nqrknx does ALL the effort. Patient does none of the effort to complete the activity. Or, the assistance of 2 or more helpers is required for the patient to complete the activity. If activity was not attempted, code reason: 7-Patient Refused. 9-Not Applicable-not attempted and the patient did not perform the activity before the current illness, exacerbation or injury. 10-Not Attempted due to Environmental Limitations-(lack of equipment, weather restraints, etc.). 88-Not Attempted due to Medical Conditions or Safety Concerns. Roll Left & Right (QC): 6 Sit to Lying (QC): 4 Lying to Sitting/Side of Bed(Q: 4 Sit to Stand (QC): 4 Chair/Ddc-dp-Mywud Xfer(QC): 4 Toilet Transfer (QC): 4 Patient in recliner, her gown needs changed, dress, transfer to commode (CGA), stand to clean (CGA) and finish dressing, transfer to WC (CGA), take to therapy gym, standing balance and strengthening activity using hands to manipulate objects, she can't finish even after several rest breaks due to pain. Sit back down, get to room, transfer to the bed. Treatments PT worked on transfers, standing balance and safety during dressing, toileting and UE activity, OT worked on dressing, bathing, toileting, UE activity Assessment Current Status: Fair Progress Patient has a lot of abdominal pain, requires frequent rest breaks. PT Short Term Goals Short Term Goals Time Frame: Nov 13, 2020 Roll Left & Right: 6 Sit to lyin Lying to sitting on side of be: 4 Sit to stand: 4 Chair/qlm-gm-jqfla transfer: 4 Walk 10 feet: 4 Walk 50 feet with two turns: 4 PT Campaign Advisor Goals Campaign Advisor Goals PT Skilled Nursing Goals Time Frame: Nov 27, 2020 Roll Left & Right (QC): 6 Sit to Lying (QC): 6 Lying-Sitting on Side/Bed(QC): 6 Sit to Stand (QC): 6 Chair/Iei-oa-Yzyev Xfer(QC): 6 Toilet Transfer (QC): 6 Car Transfer (QC): 6 Does the Patient Walk: Yes Walk 10 feet (QC): 6 Walk 50ft with 2 Turns (QC): 6 Walk 150 ft (QC): 6 Walking 10ft on Uneven Surface: 6 1 Step (curb) (QC): 4 4 Steps (QC): 4 12 Steps (QC): 88 Picking up an Object (QC): 88 Wheel 50 feet with 2 turns (QC: 9 Wheel 150 feet: 9 PT Plan Problem List Problem List: Activity Tolerance, Functional Strength, Safety, Balance, Gait, Transfer, Bed Mobility, ROM Treatment/Plan Treatment Plan: Continue Plan of Care Treatment Plan: Bed Mobility, Education, Functional Activity Yan[place], Functional Strength, Group Therapy, Gait, Safety, Therapeutic Exercise, Transfers Treatment Duration: Nov 27, 2020 Frequency: At least 5 of 7 days/Wk (IRF) Estimated Hrs Per Day: 1.5 hours per day Patient and/or Family Agrees t: Yes Safety Risks/Education Patient Education: Transfer Techniques, Correct Positioning, Safety Issues Teaching Recipient: Patient Teaching Methods: Demonstration, Discussion Response to Teaching: Reinforcement Needed Time/GCodes Time In: 1300 Time Out: 1355 Total Billed Treatment Time: 55 Total Billed Treatment 1 visit EX 15' FA 40' co-treated with OT for 55 min KRISHNA GUERRIER PT Nov 06, 2020 14:13
--- NOTE | 2020-11-06 14:41 | Occupational Therapy Eval ---
OT Evaluation-General/PLF Medical Diagnosis Admission Date Nov 06, 2020 at 11:43 Medical Diagnosis: hemorrhagic/necrotizing pancreatitis Onset Date: Oct 24, 2020 Therapy Diagnosis Therapy Diagnosis: Decreased ADL status Height/Weight Height (Feet): 5 Height (Inches): 1.00 Weight (Pounds): 105 Weight (Ounces): 0.0 Precautions Precautions/Isolations: Fall Prevention, Standard Precautions, Pressure Ulcer Weight Bear Status Weight Bearing Restriction: Weight Bearing/Tolerated Referral Physician: Lianna Marshall DO Referral Reason: Activity Tolerance, Self Care, Evaluation/Treatment, Strengthening/ROM Medical History Pertinent Medical History: CABG, CAD, HTN Additional Medical History HTN, CAD Current History Pt admitted to ER with nausea/ abdominal pain/ swelling of abdomen Oct 24, 2020. Ascitis found, drain placed in R abdomen. Pt admits to ARU 11/06/20. Reviewed History: Yes Social History Home: Single Level Current Living Status: Alone Entry Into Home: Stairs With Railing Steps Into Home: 4 ADL-Prior Level of Function SCALE: Activities may be completed with or without assistive devices. 5-Fpdsijoyfz-tmfzirs completes the activity by him/herself with no assistance from a helper. 5-Set-up or Clean-up Assistance-helper sets up or cleans up; patient completes activity. [place] assists only prior to or following the activity. 4-Supervision or Touching Assistance-helper provides verbal cues and/or touching/steadying and/or contact guard assistance as patient completes activity. Assistance may be provided throughout the activity or intermittently. 3-Partial/Moderate Assistance-helper does LESS THAN HALF the effort. [place] lifts, holds or supports trunk or limbs, but provides less than half the effort. 2-Substantial/Maximal Assistance-helper does MORE THAN HALF the effort. [place] lifts or holds trunk or limbs and provides more than half the effort. 6-Vlijwmxxq-kpanke does ALL the effort. Patient does none of the effort to complete the activity. Or, the assistance of 2 or more helpers is required for the patient to complete the activity. If activity was not attempted, code reason: 7-Patient Refused. 9-Not Applicable-not attempted and the patient did not perform the activity before the current illness, exacerbation or injury. 10-Not Attempted due to Environmental Limitations-(lack of equipment, weather restraints, etc.). 88-Not Attempted due to Medical Conditions or Safety Concerns. ADL PLOF Comments Pt states IND without use of AD. 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 Pt has family that checks in on her. Self Care: Independent Functional Cognition: Independent DME/Equipment: Tub/Shower DME/Equipment Comments tub/ shower, pt typically soaks in tub, is unsure if she has gbs. Occupation: retired Drive Self: Yes Leisure Interests: danielle, coates/ gardening. OT Current Status Subjective Pt is brought down from 5th floor by PT. Pt AxO. In 10 pain. Pain limits pt through session. All activities limited by pain and fatigue. Pt has had a h/o hallucinations while here in hospital, pt is questioned about this and states she had additional hallucinations this morning, which are very vivid. However, pt is aware that these are hallucinations. PT evaluation: [id number] OT evaluation: 3960-2125 (10) OT/ PT co-treat: [id number] (25) = 35 Co-treat rendered at this time. PT addresses fx balance, transfers, ambulation, LE movement/ strength while OT addresses UE strength, ADL status, problem solving, etc. Pt seen after lunch. Partial food eaten. Pt states 4/10 pain in abdomen. OT/ PT co-treat: [id number] (55) OT individual tx: [id number] (20)= 75 Mental Status/Objective Patient Orientation: Person, Place, Situation Attachments: Drains, Oxygen (1L) Current Glasses/Contacts: No Hearing Aids: No Dentures/Partials: No Hand Dominance: Right Upper Extremity ROM WFL BUE Upper Extremity Coordination WFL BUE Upper Extremity Sensation WFL BUE Upper Extremity Strength Decreased (3+/5) Edema: pitting BUE, increased swelling BLE ADL-Treatment Eating (QC): 6 (pt states did not cut up food, but is able to tear into it with teeth.) Oral Hygiene (QC): 6 Shower/Bathe Self (QC): 3 (mod A for washing BLE/ feet/ back/ bottom. Pt able to sit to stand with SBA and wash thighs/ shirley area. Completes all other areas in sit. ) Upper Body Dressing (QC): 5 (s/u) Lower Body Dressing (QC): 3 (Pt able to thread BLE with increased time and cues for breath. min A for pulling up in front due to drain and in back due to decreased balance/ min A pulling off due to drain) On/Off Footwear (QC): 6 (IND with increased time and cues for breath.) Toileting Hygiene (QC): 3 (s/u shirley care and SBA due to pt's need to standmod A bottom care. ) Other Treatments Co-treat rendered at this time. PT addresses fx balance, transfers, ambulation, LE movement/ strength while OT addresses UE strength, ADL status, problem solving, etc. OT evaluation: 2620-1213 (10): Pt is educated on OT role and ARU expectations. Pt is educated on likely OT/ PT co-treat for a while prior to individual treatment. Pt completes UE ROM/ MMT. Pt states she was IND without AD. Bathes in tub, states gets in/ out without use of gbs. Pt sit to stand with SBA-CGA. States 10/10 pain, nursing notified. OT/ PT co-treat: [id number] (25): Pt is incontinent of urine. Pt desires to clean up. Is given warm cloths and briefs- able to complete as outlined. Pt sits in recliner chair, positioned for comfort. Pt completes eating tasks with IND- does not cut up food but rather chews into it. OT/ PT co-treat: [id number] (55): Pt completes sponge bath due to incontinence and desires to bathe. Nursing is questioned on drain/ ability to shower. Nursing requests sponge bath at this time as wound care needs to address drain. Pt completes sponge bath on commode as pt states her urine "just leaks out." Pt urinates intermittently during sponge bath. Pt completes sponge bath/ sit to stands/ dressing as outlined. Pt requires increased cues for breath during bending tasks. Pt is pushed to gym by OT/ PT. Pt completes ~45-60 sec stance while completing UE strengthening task. Pt states an increase of pain during strenuous tasks. Pt returns to sit, rests, and completes task once more. Pt is pushed back to room. Wound care present for drain needs. Pt completes sit to stand SBA and bed mob with SBA to supine. Pt is positioned for comfort. OT individual tx: [id number] (20) Pt is given red therapy sponge, pt is instructed to complete 10 reps bilateral hands. Pt completes, then manual edema massage completed to L hand as wound care addresses R side drain. Pt is adjusted in bed/ given warm blankets for painful L abdomen. Pt is raised to HOB with Ax2, food placed in front of pt, pt's HOB elevated and pt states increased comfort. All needs met, call light in reach. Education OT Patient Education: Correct positioning, Exercise program, Home exercise program, Progress toward Goal/Update tx plan, Purpose of tx/functional activ ities, Rehab process, Safety issues, Transfer techniques Teaching Recipient: Patient Teaching Methods: Demonstration, Discussion Response to Teaching: Verbalize Understanding, Return Demonstration, Reinforcement Needed OT Short Term Goals Short Term Goals Time Frame: Nov 20, 2020 Toileting hygiene: 3 Shower/bathe self: 3 Upper body dressin Lower body dressin OT Senior Analyst Developer Goals Retirement Goals Time Frame: Nov 27, 2020 Eating (QC): 6 Oral Hygiene (QC): 6 Toileting Hygiene (QC): 6 Shower/Bathe Self (QC): 5 Upper Body Dressing (QC): 5 Lower Body Dressing (QC): 5 On/Off Footwear (QC): 6 Additional Goals: 1-Demonstrate ADL Tasks, 2-Verbalize Understanding, 3- ImproveStrength/[place] 1=Demonstrate adherence to instructed precautions during ADL tasks. 2=Patient will verbalize/demonstrate understanding of assistive devices/modifications for ADL. 3=Patient will improve strength/tolerance for activity to enable patient to perform ADL's. OT Education/Plan Problem List/Assessment Assessment: Decreased Activ Tolerance, Decreased UE Strength, Edema, Impaired Funct Balance, Impaired I ADL's, Impaired Self-Care Skills Discharge Recommendations Plan/Recommendations: Continue POC Therapy Discharge Recommendati: Scheduled Assistance, Home & Family, Post Acute OT Equpiment Recommendations-D/C: Extended Bath Bench, Rails on Tub/Shower Treatment Plan/Plan of Care Treatment,Training & Education: Yes Patient would benefit from OT for education, treatment and training to promote independence in ADL's, mobility, safety and/or upper extremity function for ADL's. Plan of Care: ADL Retraining, Caregiver Training, Concurrent Therapy, Functional Mobility, Group Exercise/Act as Ind, UE Funct Exercise/Act, W/C Management Training Treatment Duration: Nov 27, 2020 Frequency: At least 5 of 7 days/Wk (IRF) Estimated Hrs Per Day: .25 hour per day Agreement: Yes Rehab Potential: Fair Time/GCodes Start Time: 11:40 Stop Time: 14:15 Total Time Billed (hr/min): 110 Billed Treatment Time PT evaluation: [id number] OT evaluation: 3842-5989 (10) OT/ PT co-treat: [id number] (25) = 35 1, EVM, ADL= 35 Co-treat rendered at this time. PT addresses fx balance, transfers, ambulation, LE movement/ strength while OT addresses UE strength, ADL status, problem solving, etc. OT/ PT co-treat: [id number] (55) OT individual tx: [id number] (20)= 75 1, ADL 3, EX 2 = 75 GRIFFIN BROJA OTR Nov 06, 2020 14:40
--- NOTE | 2020-11-06 14:50 | NUR ---
SPOKE WITH THE PT, WENT THRU THE EXT MED HISTORY AND CALLED MOE TO COMPLETE THE MED REC PT WAS NOT ABLE TO NAME HER MEDICATIONS, SO I LISTED WHAT IS ON THE EXT MED HISTORY AND THE PT AGREED SHE DOES TAKE THEM. PT DOES NOT RECALL TAKING ANY OTC MEDS
--- NOTE | 2020-11-06 15:23 | ST Cognitive Linguistic Eval ---
Speech Evaluation-General Medical Diagnosis hemorrhagic/necrotizing pancreatitis Onset Date: Oct 24, 2020 Therapy Diagnosis Therapy Diagnosis: Cognitive-communication Precautions Precautions/Isolations: Fall Prevention, Standard Precautions Referral Referring Physician: Dr. Marshall Medical History Pertinent Medical History: CABG, CAD, HTN Reviewed History: Yes Social History Current Living Status: Alone Speech PLF-Current Status Prior Level of Function Patient lived in her home alone where she was independent of her daily needs. Subjective Patient was pleasant and cooperative with the assessment. Language Eval: Auditory Comprehends Simple Yes/No Ques: Functional Indent/Objects Multiple Sy: Functional Ident/Pics in Multiple Sy: Functional Follows 1-Step Commands: Functional Follows Complex Directions: Mild Follows General Conversations: Functional Language Eval: Verbal Language Completes Spontaneous Greeting: Functional Produces Auto, Serial Info: Functional Imitates Simple Words/Phrases: Functional Word Finding: Mild Requests Basic Needs: Functional States Basic Personal Info: Functional Expresses Complex Ideas: Mild Objective Cognitive Domain Attention: WNL Memory: Mild Problem Solving: Mild Executive Functions: WNL Visuospatial Skills: WNL Composite Severity Rating: WNL Clock Drawing Severity Rating: Mild Objective Formal/Standardized Tests [facility] Mental Status ([facility]) Results 25/30, Mild Neurcognitive Disorder range of function Oral Motor/Speech Production Within Normal Limits Impression Patient is a pleasant 80 y/o female who was admitted to the ARU for strengthening post hemorrhagic/necrotizing pancreatitis. Patient was given the UMS with a score of 25/30 obtained. The patient's score is within the MNCD range of function. Patient will receive skilled ST for improving cognitive function in order for her to return home safely. Speech Patient Assess Expression of Ideas/Wants: Exhibits (3) Understanding Verbal Content: Usually Understands (3) Brief Interview-Mental Status: Yes Repetition of Three Words: Three (3) Temporal Orientation: Year: Correct (3) Temporal Orientation: Month: Accurate within 5 days(2) Temporal Orientation: Day: Correct (1) Recall : Wear to say "Sock": Yes,after cueing (1) Recall : Color: No, could not recall (0) Recall : Bed: Yes,after cueing (1) Memory/Recall Ability: Current season, That he or she is in a hsp/hsp unit Speech Short Term Goals Short Term Goals Short Term Goals 1) Patient will complete memory tasks related to her daily needs with 90% or greater with minimal cues. 2) Patient will complete safety awareness tasks related to her daily needs with 90% or greater with minimal cues. 3) Patient will complete problem solving tasks related to her daily needs with 90% or greater with minimal cues. Speech Fire Dispatcher Goals Care Home Goals Patient will improve cognitive-communication abilities in order to complete daily tasks with minimal assist. Speech-Plan Patient/Family Goals Patient/Family Goals: Patient plans on returning to her home upon discharge. Treatment Plan Speech Therapy Treatment Plan: Continue Plan of Care Treatment Duration: Nov 20, 2020 Frequency: 4 times per week (Patient will receive skilled ST 4-5x per week) Estimated Hrs Per Day: .5 hour per day Rehab Potential: Fair Barriers to Learning: Patient's mild cognitive deficits, medical status, age Pt/Family Agrees to Plan: Yes Safety Risks/Education Teaching Recipient: Patient Teaching Methods: Discussion Response to Teaching: Verbalize Understanding Education Topics Provided: Safety within her room, communication of wants/needs Time Speech Therapy Time In: 15:00 Speech Therapy Time Out: 15:25 Total Billed Time: 25 Billed Treatment Time 1, BOAZ CLARK [address] Nov 06, 2020 15:23
[2020-11-06] MEDS: polyethylene glycoL POWDER 17 GM (MIRALAX) PACK PO SCH ×2 (16:12→18:40)
[2020-11-06] MEDS: DOCUSATE SODIUM 100 MG (COLACE) CAP PO SCH ×2 (16:12→18:41)
[2020-11-06] MEDS: SENNA W/DOCUSATE (SENOKOT S) TABLET PO SCH ×2 (16:12→18:41)
[2020-11-06] MEDS ORDERED: polyethylene glycoL POWDER 17 GM (MIRALAX) PACK PO SCH (17:45)
[2020-11-06] MEDS ORDERED: APAP 325 MG/10.15 ML LIQ (TYLENOL) UDC PO PRN (17:45)
[2020-11-06] MEDS ORDERED: DOCUSATE SODIUM 100 MG (COLACE) CAP PO PRN (17:45)
[2020-11-06] MEDS ORDERED: HYDROcodone/APAP 5 MG/325 MG (LORTAB) TAB PO PRN (17:45)
[2020-11-06] MEDS ORDERED: ONDANSETRON 4 MG/2 ML (SDV) Z0FRAN IVP PRN (17:45)
[2020-11-06] MEDS: fentaNYL INJECTION 100 MCG/2 ML AMP IVP PRN ×2 (17:56→21:59)
[2020-11-06 18:00] VITALS: BP 118/71
[2020-11-06] MEDS ORDERED: inSUlin ASPART (NovoLOG) 1 UNIT/0.01 ML (CHARGE PER UNIT) SC SCH (18:00)
[2020-11-06] MEDS: MEROPENEM 500 MG in WATER (STERILE) FOR INJECTION 10 ML IV SCH (21:18)
[2020-11-06] MEDS: inSUlin ASPART (NovoLOG) 1 UNIT/0.01 ML (CHARGE PER UNIT) SC SCH (21:42)
[2020-11-06] MEDS: RT-ALBUTEROL SULF 2.5 MG/3 ML PRE-MIX VIAL INH SCH (22:24)
[2020-11-07] MEDS: MEROPENEM 500 MG in WATER (STERILE) FOR INJECTION 10 ML IV SCH ×3 (05:18→21:17)
[2020-11-07 05:34] VITALS: BP 128/68
[2020-11-07] MEDS: inSUlin ASPART (NovoLOG) 1 UNIT/0.01 ML (CHARGE PER UNIT) SC SCH ×4 (05:48→21:00)
[2020-11-07 05:56] LABS: BASOPHILS # (AUTO) 0.1 10^3/uL (0.0-0.1); BASOPHILS % (AUTO) 1 % (0-10); EOSINOPHILS # (AUTO) 0.1 10^3/uL (0.0-0.3); EOSINOPHILS % (AUTO) 1 % (0-10); HEMATOCRIT 30 % (35-52); HEMOGLOBIN 9.8 g/dL (11.5-16.0); LYMPHOCYTES # (AUTO) 1.3 10^3/uL (1.0-4.0); LYMPHOCYTES % (AUTO) 9 % (12-44); MEAN CORPUSCULAR HEMOGLOBIN 31 pg (25-34); MEAN CORPUSCULAR HGB CONC 33 g/dL (32-36); MEAN CORPUSCULAR VOLUME 96 fL (80-99); MEAN PLATELET VOLUME 9.9 fL (9.0-12.2); MONOCYTES # (AUTO) 0.6 10^3/uL (0.0-1.0); MONOCYTES % (AUTO) 4 % (0-12); NEUTROPHILS % (AUTO) 84 % (42-75); PLATELET COUNT 494 10^3/uL (130-400); WHITE BLOOD COUNT 14.3 10^3/uL (4.3-11.0)
[2020-11-07 06:00] LABS: ALBUMIN 2.1 GM/DL (3.2-4.5); CHLORIDE 101 MMOL/L (98-107); SODIUM 138 MMOL/L (135-145)
[2020-11-07 06:02] LABS: CALCIUM 8.2 MG/DL (8.5-10.1)
[2020-11-07 06:03] LABS: GLUCOSE 94 MG/DL (70-105); TOTAL PROTEIN 4.6 GM/DL (6.4-8.2)
[2020-11-07 06:04] LABS: CARBON DIOXIDE 28 MMOL/L (21-32)
[2020-11-07 06:05] LABS: BILIRUBIN,TOTAL 0.6 MG/DL (0.1-1.0)
[2020-11-07 06:06] LABS: ALKALINE PHOSPHATASE 125 U/L (40-136); CREATININE SERUM 0.68 MG/DL (0.60-1.30); GFR ESTIMATED > 60
[2020-11-07 06:07] LABS: BUN/CREATININE RATIO 16
[2020-11-07 06:09] LABS: ALANINE AMINOTRANSFERASE 21 U/L (0-55)
--- NOTE | 2020-11-07 06:28 | PM&R Progress Note ---
Subjective HPI/CC On Admission Date Seen by Provider: Nov 07, 2020 Time Seen by Provider: 12:00 Subjective/Events-last exam 11/07/20: Patient having difficulty Cant really eat Frustrated because she thought she would be home by now Unrealistic expectations are apparent WBC 14 hgb 9.8 and platelets 494 DARRELL hose on Loose stools so will start Questran QID Very comple issues May need to be transferred back up to the floor if she can't handle structured PT Review of Systems General: Fatigue, Malaise Gastrointestinal: Nausea, Abdominal Pain, Diarrhea Neurological: Weakness Focused Exam Lactate Level 11/08/20 07:00: Lactic Acid Level 0.91 Lactic Acid Level Laboratory Tests Test 11/08/20 07:00 Lactic Acid Level 0.91 MMOL/L (0.50-2.00) Objective Exam Vital Signs Vital Signs Date Time Temp Pulse Resp B/P (MAP) Pulse Ox O2 Delivery O2 Flow Rate FiO2 11/08/20 07:28 91 Room Air 11/08/20 05:25 36.9 92 18 115/56 (75) 11/07/20 09:00 1.00 Capillary Refill : Less Than 3 Seconds General Appearance: WD/WN, Anxious, Chronically ill, Mild Distress, Thin, Other (frail, pale) HEENT: PERRL/EOMI, Normal ENT Inspection, Pharynx Normal Neck: Full Range of Motion, Normal Inspection, Non Tender, Supple, Carotid Bru it Respiratory: Chest Non Tender, Lungs Clear, No Accessory Muscle Use, No Res piratory Distress, Decreased Breath Sounds Cardiovascular: Regular Rate, Rhythm, No Edema, No Gallop, No JVD, No Murmur, Normal Peripheral Pulses Gastrointestinal: Normal Bowel Sounds, No Organomegaly, No Pulsatile Mass, Non Tender, Soft Back: Normal Inspection, No CVA Tenderness, No Vertebral Tenderness Extremity: Normal Capillary Refill, Normal Inspection, Normal Range of Motion, Non Tender, No Calf Tenderness, No Pedal Edema Neurologic/Psychiatric: Alert, Oriented x3, No Motor/Sensory Deficits, health occupations teacher II- XII Norm as Tested, Abnormal Gait, Depressed Affect, Motor Weakness (severe weak ness 3/5 all extremities) Skin: Normal Color, Warm/Dry Lymphatic: No Adenopathy Results/Procedures Lab Laboratory Tests 11/08/20 07:00 Patient resulted labs reviewed. FIM Transfers Therapy Code Descriptions/Definitions Functional [place] Measure: 0=Not Assessed/NA 4=Minimal Assistance 1=Total Assistance 5=Supervision or Setup 2=Maximal Assistance 6=Modified [place] 3=Moderate Assistance 7=Complete IndependenceSCALE: Activities may be completed with or without assistive devices. 3-Tiweqblumk-oyzbqhb completes the activity by him/herself with no assistance from a helper. 5-Set-up or Clean-up Assistance-helper sets up or cleans up; patient completes activity. [place] assists only prior to or following the activity. 4-Supervision or Touching Assistance-helper provides verbal cues and/or touching/steadying and/or contact guard assistance as patient completes activity. Assistance may be provided throughout the activity or intermittently. 3-Partial/Moderate Assistance-helper does LESS THAN HALF the effort. [place] lifts, holds or supports trunk or limbs, but provides less than half the effort. 2-Substantial/Maximal Assistance-helper does MORE THAN HALF the effort. [place] lifts or holds trunk or limbs and provides more than half the effort. 2-Fyecdqvnz-rkbrcc does ALL the effort. Patient does none of the effort to complete the activity. Or, the assistance of 2 or more helpers is required for the patient to complete the activity. If activity was not attempted, code reason: 7-Patient Refused. 9-Not Applicable-not attempted and the patient did not perform the activity before the current illness, exacerbation or injury. 10-Not Attempted due to Environmental Limitations-(lack of equipment, weather restraints, etc.). 88-Not Attempted due to Medical Conditions or Safety Concerns. Roll Left to Right (QC): 6 Sit to Lying (QC): 4 Sit to Stand (QC): 4 Chair/But-mq-Gcwef Xfer(QC): 4 Car Transfer (QC): 4 Gait Training Does the Patient Walk?: Yes Walk 10 feet (QC): 4 Walk 50 ft with 2 Turns(QC): 88 Walk 150 ft (QC): 88 Walking 10ft/uneven surface-QC: 88 Gait Assistive Device: FWW Wheelchair Training Wheel 50 ft with 2 turns (QC): 88 Wheel 150 ft (QC): 88 Stair Training 1 Step (curb) (QC): 88 4 Steps (QC): 88 12 Steps (QC): 88 Balance Picking up an Object (QC): 88 ADL-Treatment Eating (QC): 6 (pt states did not cut up food, but is able to tear into it with teeth.) Oral Hygiene (QC): 6 Shower/Bathe Self (QC): 3 (mod A for washing BLE/ feet/ back/ bottom. Pt able to sit to stand with SBA and wash thighs/ shirley area. Completes all other areas in sit. ) Upper Body Dressing (QC): 5 (s/u) Lower Body Dressing (QC): 3 (Pt able to thread BLE with increased time and cues for breath. min A for pulling up in front due to drain and in back due to decreased balance/ min A pulling off due to drain) On/Off Footwear (QC): 6 (IND with increased time and cues for breath.) Toileting Hygiene (QC): 3 (s/u shirley care and SBA due to pt's need to standmod A bottom care. ) Assessment/Plan Assessment and Plan Assess & Plan/Chief Complaint Assessment: Critical illness myopathy Hemorrhagic pancreatitis Esophagus ulcer on EGD Ascites s/p acute respiratory failure VTE contraindication due to hemorrhage Fluid overload Plan: IRF protocol Pain meds Monitor bowel routine Very weak 11/07/20: Very weak Abdominal pain management Loose stools Abx Monitor labs May fail IRF? (1) Critical illness myopathy Status: Acute (2) Ulcer of pharynx Status: Acute (3) Esophageal ulcer Status: Acute (4) Ascites Status: Acute (5) Acute hemorrhagic pancreatitis Status: Acute (6) Severe sepsis Status: Acute (7) Debility (8) WHITNEY (acute kidney injury) Status: Resolved Resolution Date/Time: 11/02/20 @ 17:02 (9) Pleural cavity effusion (10) Lactic acidosis Status: Resolved Resolution Date/Time: 11/02/20 @ 17:02 (11) Polycythemia Status: Resolved Resolution Date/Time: 11/02/20 @ 17:03 (12) Essential (primary) hypertension Status: Chronic (13) CAD (coronary artery disease) Status: Chronic (14) Bradycardia Status: Acute CONNOR BUSTAMANTE DO Nov 07, 2020 06:28
--- NOTE | 2020-11-07 06:29 | Individualized Plan of Care ---
Individualized Plan of Care Rehab Nursing IPOC Order Admission Date Nov 06, 2020 at 11:43 Current Orders Orders Admission Order(Inpt,Obs,Sdc) (11/06/20 05:02) Vital Signs: Per Unit Policy ( 08,16,00 (11/06/20 05:02) Dick Kumar (11/06/20 05:02) Sequential Compression Device Q4H (11/06/20 05:02) Information Clerk Cashier-Inpt Rehab Con (11/06/20 05:02) Rehab Nursing Orders-Ipoc (11/06/20 05:02) Physical Therapy Rehab Orders (11/06/20 05:02) Occupational Therapy Rehab Ord (11/06/20 05:02) Speech Therapy Rehab Orders (11/06/20 05:02) Cbc With Automated Diff (11/07/20 06:00) Comprehensive Metabolic Panel (11/07/20 06:00) Intake & Output 06,14,22 (11/06/20 05:02) Precautions (Aru) (11/06/20 05:02) Rehab-Intensity Of Therapy (11/06/20 05:02) Initiate Admission Nursing Pro .admission (11/06/20 05:02) Alprazolam Tablet (Xanax Tablet) (11/06/20 05:15) Calcium Carbonate Chew Tablet (Antacid C (11/06/20 05:15) Diphenhydramine Tablet (Benadryl Tablet) (11/06/20 05:15) Docusate Sodium Capsule (Colace Capsule) (11/06/20 09:00) Docusate Sodium Capsule (Colace Capsule) (11/06/20 05:15) Bisacodyl Suppository (Dulcolax Supposit (11/06/20 05:15) Lactulose Oral Solution (Enulose Oral So (11/06/20 05:15) Na Phos/Na Biphos Enema (Fleet Enema Gavin (11/06/20 05:15) Guaifenesin/Codeine Syrup (Robitussin Ac (11/06/20 05:15) Loperamide Tablet (Imodium Tablet) (11/06/20 05:15) Melatonin Tablet (Melatonin Tablet) (11/06/20 05:15) Polyethylene Glycol Powder Pkt (Miralax (11/06/20 09:00) Ondansetron Oral Dissolve Tab (Zofran (11/06/20 05:15) Senna S Tablet (Senokot S Tablet) (11/06/20 09:00) Initiate Admission Nursing Pro .admission (11/06/20 05:02) Admission Arrival Bed Request (11/06/20 11:43) Flu Quad High Dose (Fluzone Hi (11/06/20 13:30) Patient Visit (11/06/20 ) Pt Eval Moderate Complexity (11/06/20 ) Functional Activities, Ea 15 (11/06/20 ) Exercise Therap, Ea 15 Min (11/06/20 ) Patient Visit (11/06/20 ) Speech Sound Lang Comp (11/06/20 ) Treat. Speech/Lang/Voice (11/06/20 ) General/Regular (11/06/20 Dinner) Code/Resuscitation (11/06/20 17:43) Accucheck Achs ACHS (11/06/20 17:43) Catheter(Urinary) Discontinue (11/06/20 17:43) Vte Contraindication (11/06/20 17:43) Acetaminophen Oral Solution (Tylenol Ora (11/06/20 17:45) Albuterol Pre-Mix Nebs (Rt) (Proventil (11/06/20 22:00) Docusate Sodium Capsule (Colace Capsule) (11/06/20 17:45) Furosemide Tablet (Lasix Tablet) (11/07/20 09:00) Hydrocodone/Apap 5/325 Tablet (Lortab 5 (11/06/20 17:45) Meropenem (Merrem 500 Mg) (11/06/20 22:00) Sodium Chloride Flush (Catheter Flush Sy (11/06/20 17:45) Ondansetron Injection (Zofran Injectio (11/06/20 17:45) Fentanyl Injection (Sublimaze Injection (11/06/20 17:45) Insulin Aspart (Novolog) (Novolog (Charg (11/06/20 18:00) Polyethylene Glycol Powder Pkt (Miralax (11/06/20 17:45) Svn Small Volume Nebulizer (11/06/20 17:43) Pantoprazole Tablet (Protonix Tablet) (11/07/20 09:00) Hydrocodone/Apap 5/325 Tablet (Lortab 5 (11/06/20 17:45) Oxycodone Immediate Rel Tablet (Oxyir Ta (11/06/20 17:45) Insulin Aspart (Novolog) (Novolog (Charg (11/06/20 21:00) Iron Test (Fe) (11/07/20 06:17) Lipase/Amylase/Protease Caps (Pancrelipa (11/07/20 13:00) Cholestyramine Lite Powder (Questran Lit (11/07/20 13:00) Cholestyramine Lite Powder (Questran Lit (11/07/20 17:00) Cbc With Automated Diff (11/08/20 06:47) Comprehensive Metabolic Panel (11/08/20 06:47) Lactic Acid Analyzer (11/08/20 06:47) Procalcitonin (Pct) (11/08/20 06:47) Rehab Nursing Orders: Ongoing Assess. of Cognitive Status, Ongoing Assess. of Function Status, Bladder Management, Bladder Scan, Bladder Training, Bowel Management, Bowel Training, Disease Management & Educaiton, DVT Prophylaxis, Fall Prevention, Fluid/Electrolyte/Nutrition Mgmt, Infection Prevention, Medication Management & Education, Management of Risks & Complications, Management of Skin Intergrity, Nutrition Management, Pain Management, Cindy ent/Family Support, Safety Management, Swallow Precautions Intensity of Therapy to be met Patient to be seen: Min.3h per day/5 of 7d PT IPOC Problem List: Activity Tolerance, Functional Strength, Safety, Balance, Gait, Transfer, Bed Mobility, ROM Treatment Plan: Continue Plan of Care Bed Mobility, Education, Functional Activity Yanick, Functional Strength, Group Therapy, Gait, Safety, Therapeutic Exercise, Transfers Treatment Duration: Nov 27, 2020 Frequency: At least 5 of 7 days/Wk (IRF) Estimated Hrs Per Day: 1.5 hours per day OT IPOC Problems: Decreased Activ Tolerance, Decreased UE Strength, Edema, Impaired Funct Balance, Impaired I ADL's, Impaired Self-Care Skills OT Treatment, Training and Edu: Yes Plan of Care: ADL Retraining, Caregiver Training, Concurrent Therapy, Functio nal Mobility, Group Exercise/Act as Ind, UE Funct Exercise/Act, W/C Management Training Treatment Duration: Nov 27, 2020 Frequency: At least 5 of 7 days/Wk (IRF) Estimated Hrs Per Day: .[address] IPOC Speech Therapy Treatment Plan: Continue Plan of Care Treatment Duration: Nov 20, 2020 Frequency: 4 times per week (Patient will receive skilled ST 4-5x per week) Estimated Hrs Per Day: .5 hour per day Information Clerk Cashier/Case Mgmt Information Clerk Cashier/Case Managemen: Discharge Planning Dietitian/Replacer Dietitian/Replacer to monitor nutritional status and make changes and/or recommendations as needed and work with speech pathology on dietary upgrades as the occur. Physician IPOC Medical Issues being managed closely and that require the 24 hour availability of a physician: Recent catastrophic critical illness of hemorrhagic pancreatitis requiring exploratory lap with ongoing diarrhea and multiple other medical issues will need 24/7 close physician supervision Medical Issues: Bowel/Bladder Function, DVT Prophylaxis, Falls Precautions, Fluid/Electrolyte/Nutrition Balance, Infection Protection, Pain Management Brief Synthesis of Preadmission Screen, Post-Admission Evaluation, and Therapy Evaluations: PT OT will help patient regain strength and function with use of AD and help teach energy conservation Medical Prognosis: Fair to guarded Anticipated Length of Stay: 14 days CONNOR BUSTAMANTE DO Nov 07, 2020 06:29
[2020-11-07] MEDS: PANTOPRAZOLE 40 MG (PROTONIX) TAB PO SCH (08:43)
[2020-11-07] MEDS: FUROSEMIDE 40 MG (LASIX) TAB PO SCH (08:43)
[2020-11-07] MEDS: DOCUSATE SODIUM 100 MG (COLACE) CAP PO SCH ×2 (08:46→19:21)
[2020-11-07] MEDS: polyethylene glycoL POWDER 17 GM (MIRALAX) PACK PO SCH ×2 (08:46→19:21)
[2020-11-07] MEDS: SENNA W/DOCUSATE (SENOKOT S) TABLET PO SCH ×2 (08:46→19:21)
[2020-11-07] MEDS: fentaNYL INJECTION 100 MCG/2 ML AMP IVP PRN (09:32)
[2020-11-07] MEDS: CATHETER FLUSH 10 ML SYR IV PRN (09:34)
[2020-11-07] MEDS: RT-ALBUTEROL SULF 2.5 MG/3 ML PRE-MIX VIAL INH SCH ×3 (09:38→23:41)
--- NOTE | 2020-11-07 09:55 | Physical Therapy Daily Note ---
PT Daily Note-Current Subjective Pt. c/o 9/10 pain, nurse present and recommends no Rx , giving fentanyl. Transfers SCALE: Activities may be completed with or without assistive devices. 9-Yyhdbmupmw-mlmsyql completes the activity by him/herself with no assistance from a helper. 5-Set-up or Clean-up Assistance-helper sets up or cleans up; patient completes activity. [place] assists only prior to or following the activity. 4-Supervision or Touching Assistance-helper provides verbal cues and/or touching/steadying and/or contact guard assistance as patient completes activity. Assistance may be provided throughout the activity or intermittently. 3-Partial/Moderate Assistance-helper does LESS THAN HALF the effort. [place] lifts, holds or supports trunk or limbs, but provides less than half the effort. 2-Substantial/Maximal Assistance-helper does MORE THAN HALF the effort. [place] lifts or holds trunk or limbs and provides more than half the effort. 1-Ooqhmkmav-gfprbh does ALL the effort. Patient does none of the effort to complete the activity. Or, the assistance of 2 or more helpers is required for the patient to complete the activity. If activity was not attempted, code reason: 7-Patient Refused. 9-Not Applicable-not attempted and the patient did not perform the activity before the current illness, exacerbation or injury. 10-Not Attempted due to Environmental Limitations-(lack of equipment, weather restraints, etc.). 88-Not Attempted due to Medical Conditions or Safety Concerns. Assessment Current Status: Hold Per Dr/Nursing PT Short Term Goals Short Term Goals Time Frame: Nov 13, 2020 Roll Left & Right: 6 Sit to lyin Lying to sitting on side of be: 4 Sit to stand: 4 Chair/iig-nu-egllf transfer: 4 Walk 10 feet: 4 Walk 50 feet with two turns: 4 PT Senior Merchandiser Goals Senior Merchandiser Goals PT Senior Merchandiser Goals Time Frame: Nov 27, 2020 Roll Left & Right (QC): 6 Sit to Lying (QC): 6 Lying-Sitting on Side/Bed(QC): 6 Sit to Stand (QC): 6 Chair/Ldy-od-Ruhys Xfer(QC): 6 Toilet Transfer (QC): 6 Car Transfer (QC): 6 Does the Patient Walk: Yes Walk 10 feet (QC): 6 Walk 50ft with 2 Turns (QC): 6 Walk 150 ft (QC): 6 Walking 10ft on Uneven Surface: 6 1 Step (curb) (QC): 4 4 Steps (QC): 4 12 Steps (QC): 88 Picking up an Object (QC): 88 Wheel 50 feet with 2 turns (QC: 9 Wheel 150 feet: 9 PT Plan Treatment/Plan Treatment Plan: Continue Plan of Care Treatment Plan: Bed Mobility, Education, Functional Activity Yanick, Functional Strength, Group Therapy, Gait, Safety, Therapeutic Exercise, Transfers Treatment Duration: Nov 27, 2020 Frequency: At least 5 of 7 days/Wk (IRF) Estimated Hrs Per Day: 1.5 hours per day Patient and/or Family Agrees t: Yes Time/GCodes Time In: 945 Time Out: 946 Total Billed Treatment Time: 0 Total Billed Treatment 1,no Rx, no Chg KIP HUMPHREYS [employer]ER [employer] RESERVES Nov 07, 2020 09:55
[2020-11-07] MEDS: HYDROcodone/APAP 5 MG/325 MG (LORTAB) TAB PO PRN ×2 (12:19→21:17)
[2020-11-07] MEDS ORDERED: CHOLESTYRAMINE 4 GM (QUESTRAN LITE, PREVALITE) PKT PO NR (13:00)
[2020-11-07] MEDS: LIPASE/AMYLASE/PROTEASE (PANCRELIPASE) 5,000 UNITS CAP PO SCH ×2 (13:08→18:09)
--- NOTE | 2020-11-07 15:10 | NUR ---
COMPLAINTS OF GENERALIZED PAIN AND MEDICATED WITH FENTANYL AND HYDROCODONE. ITCHING FROM RASH AND STATES BENADRYL HELPS. DIARRHEA STOOLS X5 AND MEDICATED WITH IMODIUM. DR BUSTAMANTE INFORMED AND STARTING ON QUESTRA AND PANCREASE. DEPRESSED OVER MEDICAL CONDITION.
--- NOTE | 2020-11-07 17:00 | NUR ---
1700 QUESTRAN NOT ADMINISTERED, LAST DOSE WAS AT 1500
[2020-11-07 17:09] VITALS: BP_SYST 130; BP_SYST 190; BP_DIAS 64
[2020-11-07] MEDS: CHOLESTYRAMINE 4 GM (QUESTRAN LITE, PREVALITE) PKT PO SCH ×2 (17:48→21:16)
[2020-11-08] MEDS: inSUlin ASPART (NovoLOG) 1 UNIT/0.01 ML (CHARGE PER UNIT) SC SCH ×4 (05:18→20:33)
[2020-11-08 05:25] VITALS: BP 115/56
[2020-11-08 07:22] LABS: ALBUMIN 1.9 GM/DL (3.2-4.5)
[2020-11-08 07:23] LABS: CHLORIDE 101 MMOL/L (98-107); POTASSIUM 3.8 MMOL/L (3.6-5.0); SODIUM 135 MMOL/L (135-145)
[2020-11-08 07:24] LABS: CALCIUM 7.7 MG/DL (8.5-10.1)
[2020-11-08 07:25] LABS: BASOPHILS # (AUTO) 0.1 10^3/uL (0.0-0.1); BASOPHILS % (AUTO) 0 % (0-10); EOSINOPHILS # (AUTO) 0.1 10^3/uL (0.0-0.3); EOSINOPHILS % (AUTO) 1 % (0-10); GLUCOSE 99 MG/DL (70-105); HEMATOCRIT 26 % (35-52); HEMOGLOBIN 8.7 g/dL (11.5-16.0); LYMPHOCYTES # (AUTO) 1.3 10^3/uL (1.0-4.0); LYMPHOCYTES % (AUTO) 9 % (12-44); MEAN CORPUSCULAR HEMOGLOBIN 32 pg (25-34); MEAN CORPUSCULAR HGB CONC 34 g/dL (32-36); MEAN CORPUSCULAR VOLUME 96 fL (80-99); MEAN PLATELET VOLUME 9.6 fL (9.0-12.2); MONOCYTES # (AUTO) 0.8 10^3/uL (0.0-1.0); MONOCYTES % (AUTO) 6 % (0-12); NEUTROPHILS # (AUTO) 11.4 10^3/uL (1.8-7.8); NEUTROPHILS % (AUTO) 83 % (42-75); PLATELET COUNT 440 10^3/uL (130-400); TOTAL PROTEIN 4.1 GM/DL (6.4-8.2); WHITE BLOOD COUNT 13.8 10^3/uL (4.3-11.0)
[2020-11-08 07:26] LABS: CARBON DIOXIDE 25 MMOL/L (21-32)
[2020-11-08 07:27] LABS: BILIRUBIN,TOTAL 0.5 MG/DL (0.1-1.0)
[2020-11-08 07:28] LABS: ALKALINE PHOSPHATASE 102 U/L (40-136)
[2020-11-08] MEDS: RT-ALBUTEROL SULF 2.5 MG/3 ML PRE-MIX VIAL INH SCH ×3 (07:28→20:34)
[2020-11-08 07:29] LABS: CREATININE SERUM 0.65 MG/DL (0.60-1.30); GFR ESTIMATED > 60
[2020-11-08 07:30] LABS: BUN/CREATININE RATIO 18
[2020-11-08 07:32] LABS: ALANINE AMINOTRANSFERASE 16 U/L (0-55)
--- NOTE | 2020-11-08 08:00 | NUR ---
REQUESTED HELP UP TO COMMODE. VOIDED AND DIARRHEA STOOL. UP TO CHAIR FOR BREAKFAST. CONTINUES TO EAT POORLY. DENIES PAIN OR ITCHING AT THIS TIME. APPEARS IMPROVED TODAY.
[2020-11-08] MEDS: FUROSEMIDE 40 MG (LASIX) TAB PO SCH (08:12)
[2020-11-08] MEDS: LIPASE/AMYLASE/PROTEASE (PANCRELIPASE) 5,000 UNITS CAP PO SCH ×3 (08:12→17:15)
[2020-11-08] MEDS: CHOLESTYRAMINE 4 GM (QUESTRAN LITE, PREVALITE) PKT PO SCH ×4 (08:12→20:56)
[2020-11-08] MEDS: PANTOPRAZOLE 40 MG (PROTONIX) TAB PO SCH (08:12)
[2020-11-08] MEDS: polyethylene glycoL POWDER 17 GM (MIRALAX) PACK PO SCH ×2 (08:18→19:41)
[2020-11-08] MEDS: DOCUSATE SODIUM 100 MG (COLACE) CAP PO SCH ×2 (08:18→19:41)
[2020-11-08] MEDS: SENNA W/DOCUSATE (SENOKOT S) TABLET PO SCH ×2 (08:18→19:41)
--- NOTE | 2020-11-08 10:00 | NUR ---
DR. LLANES HAD BEEN NOTIFIED OF NEW CONSULT FOR CENTRAL LINE FOR PROBABLE TPN. HE STATES NEW PICC LINE WOULD BE MORE APPROPRIATE AND DR. BUSTAMANTE NOTIFIED. ORDER PLACED FOR NEW PICC TOMORROW. CURRENT PICC LINE IN RIGHT ARM IS LEAKING AND ENTIRE ARM IS SWOLLEN.
[2020-11-08] MEDS: HYDROcodone/APAP 5 MG/325 MG (LORTAB) TAB PO PRN ×2 (10:47→17:59)
--- NOTE | 2020-11-08 13:06 | PM&R Progress Note ---
Subjective HPI/CC On Admission Date Seen by Provider: Nov 08, 2020 Time Seen by Provider: 13:00 Subjective/Events-last exam 11/08/20: PICC will be replaced since it is leaking and needs assessed Holding Venofer until new PICC is in place Michael is working for the loose stools Minimal incontinence today of bladder Last dose of abx today Not eating well Needs TPN to gain strength Updated daughter in-depth Told me with RN in room she lived in [place], [place] and daughter told me she lives in [facility] 11/07/20: Patient having difficulty Cant really eat Frustrated because she thought she would be home by now Unrealistic expectations are apparent WBC 14 hgb 9.8 and platelets 494 DARRELL hose on Loose stools so will start Questran QID Very comple issues May need to be transferred back up to the floor if she can't handle structured PT Review of Systems General: Fatigue, Malaise Gastrointestinal: Abdominal Pain, Diarrhea Neurological: Confusion Focused Exam Lactate Level 11/08/20 07:00: Lactic Acid Level 0.91 Objective Exam Vital Signs Vital Signs Date Time Temp Pulse Resp B/P (MAP) Pulse Ox O2 Delivery O2 Flow Rate FiO2 11/08/20 17:27 37.6 94 16 130/61 (84) 96 Room Air 11/07/20 09:00 1.00 Capillary Refill : Less Than 3 Seconds General Appearance: WD/WN, Anxious, Chronically ill, Mild Distress, Thin, Other (frail, pale) HEENT: PERRL/EOMI, Normal ENT Inspection, Pharynx Normal Neck: Full Range of Motion, Normal Inspection, Non Tender, Supple, Carotid Bruit Respiratory: Chest Non Tender, Lungs Clear, No Accessory Muscle Use, No Respiratory Distress, Decreased Breath Sounds Cardiovascular: Regular Rate, Rhythm, No Edema, No Gallop, No JVD, No Murmur, Normal Peripheral Pulses Gastrointestinal: Normal Bowel Sounds, No Organomegaly, No Pulsatile Mass, Non Tender, Soft Back: Normal Inspection, No CVA Tenderness, No Vertebral Tenderness Extremity: Normal Capillary Refill, Normal Inspection, Normal Range of Motion, Non Tender, No Calf Tenderness, No Pedal Edema Neurologic/Psychiatric: Alert, Oriented x3, No Motor/Sensory Deficits, campus interviews intern II- XII Norm as Tested, Abnormal Gait, Depressed Affect, Motor Weakness (severe weakness 3/5 all extremities) Skin: Normal Color, Warm/Dry Lymphatic: No Adenopathy Results/Procedures Lab Laboratory Tests 11/08/20 07:00 Patient resulted labs reviewed. FIM Transfers Therapy Code Descriptions/Definitions Functional [place] Measure: 0=Not Assessed/NA 4=Minimal Assistance 1=Total Assistance 5=Supervision or Setup 2=Maximal Assistance 6=Modified [place] 3=Moderate Assistance 7=Complete IndependenceSCALE: Activities may be completed with or without assistive devices. 6-Jmpsmnzrsn-qklpcxu completes the activity by him/herself with no assistance from a helper. 5-Set-up or Clean-up Assistance-helper sets up or cleans up; patient completes activity. [place] assists only prior to or following the activity. 4-Supervision or Touching Assistance-helper provides verbal cues and/or touching/steadying and/or contact guard assistance as patient completes activity. Assistance may be provided throughout the activity or intermittently. 3-Partial/Moderate Assistance-helper does LESS THAN HALF the effort. [place] lifts, holds or supports trunk or limbs, but provides less than half the effort. 2-Substantial/Maximal Assistance-helper does MORE THAN HALF the effort. [place] lifts or holds trunk or limbs and provides more than half the effort. 4-Btvqrbytw-xxdxqa does ALL the effort. Patient does none of the effort to complete the activity. Or, the assistance of 2 or more helpers is required for the patient to complete the activity. If activity was not attempted, code reason: 7-Patient Refused. 9-Not Applicable-not attempted and the patient did not perform the activity before the current illness, exacerbation or injury. 10-Not Attempted due to Environmental Limitations-(lack of equipment, weather restraints, etc.). 88-Not Attempted due to Medical Conditions or Safety Concerns. Roll Left to Right (QC): 6 Sit to Lying (QC): 4 Sit to Stand (QC): 4 Chair/Try-fc-Rfuwb Xfer(QC): 4 Car Transfer (QC): 4 Gait Training Does the Patient Walk?: Yes Walk 10 feet (QC): 4 Walk 50 ft with 2 Turns(QC): 88 Walk 150 ft (QC): 88 Walking 10ft/uneven surface-QC: 88 Gait Assistive Device: FWW Wheelchair Training Wheel 50 ft with 2 turns (QC): 88 Wheel 150 ft (QC): 88 Stair Training 1 Step (curb) (QC): 88 4 Steps (QC): 88 12 Steps (QC): 88 Balance Picking up an Object (QC): 88 ADL-Treatment Eating (QC): 6 (pt states did not cut up food, but is able to tear into it with teeth.) Oral Hygiene (QC): 6 Shower/Bathe Self (QC): 3 (mod A for washing BLE/ feet/ back/ bottom. Pt able to sit to stand with SBA and wash thighs/ shirley area. Completes all other areas in sit. ) Upper Body Dressing (QC): 5 (s/u) Lower Body Dressing (QC): 3 (Pt able to thread BLE with increased time and cues for breath. min A for pulling up in front due to drain and in back due to decreased balance/ min A pulling off due to drain) On/Off Footwear (QC): 6 (IND with increased time and cues for breath.) Toileting Hygiene (QC): 3 (s/u shirley care and SBA due to pt's need to standmod A bottom care. ) Assessment/Plan Assessment and Plan Assess & Plan/Chief Complaint Assessment: Critical illness myopathy Hemorrhagic pancreatitis Esophagus ulcer on EGD Ascites s/p acute respiratory failure VTE contraindication due to hemorrhage Fluid overload Plan: IRF protocol Pain meds Monitor bowel routine Very weak 11/07/20: Very weak Abdominal pain management Loose stools Abx Monitor labs May fail IRF? 11/08/20: Patient a bit improved Confusion noted Replace PICC Hold Venofer until new picc (1) Critical illness myopathy Status: Acute (2) Ulcer of pharynx Status: Acute (3) Esophageal ulcer Status: Acute (4) Ascites Status: Acute (5) Acute hemorrhagic pancreatitis Status: Acute (6) Severe sepsis Status: Acute (7) Debility (8) WHITNEY (acute kidney injury) Status: Resolved Resolution Date/Time: 11/02/20 @ 17:02 (9) Pleural cavity effusion (10) Lactic acidosis Status: Resolved Resolution Date/Time: 11/02/20 @ 17:02 (11) Polycythemia Status: Resolved Resolution Date/Time: 11/02/20 @ 17:03 (12) Essential (primary) hypertension Status: Chronic (13) CAD (coronary artery disease) Status: Chronic (14) Bradycardia Status: Acute CONNOR BUSTAMANTE DO Nov 08, 2020 13:06
[2020-11-08 17:27] VITALS: BP 130/61
[2020-11-09] MEDS: HYDROcodone/APAP 5 MG/325 MG (LORTAB) TAB PO PRN ×4 (00:41→20:14)
[2020-11-09 05:22] LABS: BASOPHILS # (AUTO) 0.1 10^3/uL (0.0-0.1); BASOPHILS % (AUTO) 0 % (0-10); EOSINOPHILS # (AUTO) 0.2 10^3/uL (0.0-0.3); EOSINOPHILS % (AUTO) 1 % (0-10); HEMATOCRIT 26 % (35-52); HEMOGLOBIN 8.4 g/dL (11.5-16.0); LYMPHOCYTES # (AUTO) 1.2 10^3/uL (1.0-4.0); LYMPHOCYTES % (AUTO) 10 % (12-44); MEAN CORPUSCULAR HEMOGLOBIN 31 pg (25-34); MEAN CORPUSCULAR HGB CONC 33 g/dL (32-36); MEAN CORPUSCULAR VOLUME 95 fL (80-99); MEAN PLATELET VOLUME 9.5 fL (9.0-12.2); MONOCYTES # (AUTO) 0.7 10^3/uL (0.0-1.0); MONOCYTES % (AUTO) 6 % (0-12); NEUTROPHILS # (AUTO) 9.6 10^3/uL (1.8-7.8); NEUTROPHILS % (AUTO) 81 % (42-75); PLATELET COUNT 430 10^3/uL (130-400); WHITE BLOOD COUNT 11.9 10^3/uL (4.3-11.0)
[2020-11-09 05:34] LABS: ALBUMIN 1.9 GM/DL (3.2-4.5); CHLORIDE 103 MMOL/L (98-107); POTASSIUM 3.9 MMOL/L (3.6-5.0); SODIUM 136 MMOL/L (135-145)
[2020-11-09 05:35] LABS: AMYLASE 63 U/L (25-125); CALCIUM 7.8 MG/DL (8.5-10.1)
[2020-11-09 05:37] LABS: GLUCOSE 98 MG/DL (70-105)
[2020-11-09 05:38] LABS: BILIRUBIN,TOTAL 0.4 MG/DL (0.1-1.0); CARBON DIOXIDE 25 MMOL/L (21-32)
[2020-11-09 05:40] LABS: ALKALINE PHOSPHATASE 98 U/L (40-136); CREATININE SERUM 0.64 MG/DL (0.60-1.30); GFR ESTIMATED > 60
[2020-11-09 05:41] LABS: BUN/CREATININE RATIO 16
[2020-11-09 05:42] VITALS: BP 128/61
[2020-11-09 05:43] LABS: ALANINE AMINOTRANSFERASE 15 U/L (0-55)
[2020-11-09 05:44] LABS: LIPASE 42 U/L (8-78)
[2020-11-09] MEDS: inSUlin ASPART (NovoLOG) 1 UNIT/0.01 ML (CHARGE PER UNIT) SC SCH ×4 (05:44→20:32)
--- NOTE | 2020-11-09 05:53 | PM&R Progress Note ---
Subjective HPI/CC On Admission Date Seen by Provider: Nov 09, 2020 Time Seen by Provider: 08:30 Subjective/Events-last exam 11/09/20: Pt doing a little bit better Variable mentation WBC 11.9 Hgb 8.4 Picc line will be replaced Labs look good Amylase and lipase normal 11/08/20: PICC will be replaced since it is leaking and needs assessed Holding Venofer until new PICC is in place Questran is working for the loose stools Minimal incontinence today of bladder Last dose of abx today Not eating well Needs TPN to gain strength Updated daughter in-depth Told me with RN in room she lived in [place], [place] and daughter told me she lives in [facility] 11/07/20: Patient having difficulty Cant really eat Frustrated because she thought she would be home by now Unrealistic expectations are apparent WBC 14 hgb 9.8 and platelets 494 DARRELL hose on Loose stools so will start Questran QID Very comple issues May need to be transferred back up to the floor if she can't handle structured PT Review of Systems General: Fatigue, Malaise Gastrointestinal: Nausea, Abdominal Pain Neurological: Weakness, Incoordination Focused Exam Lactate Level 11/08/20 07:00: Lactic Acid Level 0.91 Objective Exam Vital Signs Vital Signs Date Time Temp Pulse Resp B/P (MAP) Pulse Ox O2 Delivery O2 Flow Rate FiO2 11/09/20 18:48 93 Room Air 11/09/20 17:09 36.8 91 16 137/65 (89) 11/07/20 09:00 1.00 Capillary Refill : Less Than 3 Seconds General Appearance: WD/WN, Anxious, Chronically ill, Mild Distress, Thin, Other (frail, pale) HEENT: PERRL/EOMI, Normal ENT Inspection, Pharynx Normal Neck: Full Range of Motion, Normal Inspection, Non Tender, Supple, Carotid Bruit Respiratory: Chest Non Tender, Lungs Clear, No Accessory Muscle Use, No Respiratory Distress, Decreased Breath Sounds Cardiovascular: Regular Rate, Rhythm, No Edema, No Gallop, No JVD, No Murmur, Normal Peripheral Pulses Gastrointestinal: Normal Bowel Sounds, No Organomegaly, No Pulsatile Mass, Non Tender, Soft Back: Normal Inspection, No CVA Tenderness, No Vertebral Tenderness Extremity: Normal Capillary Refill, Normal Inspection, Normal Range of Motion, Non Tender, No Calf Tenderness, No Pedal Edema Neurologic/Psychiatric: Alert, Oriented x3, No Motor/Sensory Deficits, 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 FIM Transfers Therapy Code Descriptions/Definitions Functional [place] Measure: 0=Not Assessed/NA 4=Minimal Assistance 1=Total Assistance 5=Supervision or Setup 2=Maximal Assistance 6=Modified [place] 3=Moderate Assistance 7=Complete IndependenceSCALE: Activities may be completed with or without assistive devices. 1-Bqyzgyjmzq-vrnbcfk completes the activity by him/herself with no assistance from a helper. 5-Set-up or Clean-up Assistance-helper sets up or cleans up; patient completes activity. [place] assists only prior to or following the activity. 4-Supervision or Touching Assistance-helper provides verbal cues and/or touching/steadying and/or contact guard assistance as patient completes activi ty. Assistance may be provided throughout the activity or intermittently. 3-Partial/Moderate Assistance-helper does LESS THAN HALF the effort. [place] lifts, holds or supports trunk or limbs, but provides less than half the effort. 2-Substantial/Maximal Assistance-helper does MORE THAN HALF the effort. [place] lifts or holds trunk or limbs and provides more than half the effort. 3-Nspcoaoic-wshcpn does ALL the effort. Patient does none of the effort to complete the activity. Or, the assistance of 2 or more helpers is required for the patient to complete the activity. If activity was not attempted, code reason: 7-Patient Refused. 9-Not Applicable-not attempted and the patient did not perform the activity before the current illness, exacerbation or injury. 10-Not Attempted due to Environmental Limitations-(lack of equipment, weather restraints, etc.). 88-Not Attempted due to Medical Conditions or Safety Concerns. Roll Left to Right (QC): 6 Sit to Lying (QC): 4 Sit to Stand (QC): 4 Chair/Lxv-bl-Kbuyy Xfer(QC): 4 Car Transfer (QC): 4 Gait Training Does the Patient Walk?: Yes Walk 10 feet (QC): 4 Walk 50 ft with 2 Turns(QC): 88 Walk 150 ft (QC): 88 Walking 10ft/uneven surface-QC: 88 Gait Assistive Device: FWW Wheelchair Training Wheel 50 ft with 2 turns (QC): 88 Wheel 150 ft (QC): 88 Stair Training 1 Step (curb) (QC): 88 4 Steps (QC): 88 12 Steps (QC): 88 Balance Picking up an Object (QC): 88 ADL-Treatment Eating (QC): 6 (pt states did not cut up food, but is able to tear into it with teeth.) Oral Hygiene (QC): 6 Shower/Bathe Self (QC): 3 (mod A for washing BLE/ feet/ back/ bottom. Pt able to sit to stand with SBA and wash thighs/ shirley area. Completes all other areas in sit. ) Upper Body Dressing (QC): 5 (s/u) Lower Body Dressing (QC): 3 (Pt able to thread BLE with increased time and cues for breath. min A for pulling up in front due to drain and in back due to decreased balance/ min A pulling off due to drain) On/Off Footwear (QC): 6 (IND with increased time and cues for breath.) Toileting Hygiene (QC): 3 (s/u shirley care and SBA due to pt's need to standmod A bottom care. ) Assessment/Plan Assessment and Plan Assess & Plan/Chief Complaint Assessment: Critical illness myopathy Hemorrhagic pancreatitis Esophagus ulcer on EGD Ascites s/p acute respiratory failure VTE contraindication due to hemorrhage Fluid overload Plan: IRF protocol Pain meds Monitor bowel routine Very weak 11/07/20: Very weak Abdominal pain management Loose stools Abx Monitor labs May fail IRF? 11/08/20: Patient a bit improved Confusion noted Replace PICC Hold Venofer until new picc 11/09/20: TPN PICC replaced Monitor pain (1) Critical illness myopathy Status: Acute (2) Ulcer of pharynx Status: Acute (3) Esophageal ulcer Status: Acute (4) Ascites Status: Acute (5) Acute hemorrhagic pancreatitis Status: Acute (6) Severe sepsis Status: Acute (7) Debility (8) WHITNEY (acute kidney injury) Status: Resolved Resolution Date/Time: 11/02/20 @ 17:02 (9) Pleural cavity effusion (10) Lactic acidosis Status: Resolved Resolution Date/Time: 11/02/20 @ 17:02 (11) Polycythemia Status: Resolved Resolution Date/Time: 11/02/20 @ 17:03 (12) Essential (primary) hypertension Status: Chronic (13) CAD (coronary artery disease) Status: Chronic (14) Bradycardia Status: Acute CONNOR BUSTAMANTE DO Nov 09, 2020 05:53
[2020-11-09] MEDS: RT-ALBUTEROL SULF 2.5 MG/3 ML PRE-MIX VIAL INH SCH ×3 (06:42→18:48)
[2020-11-09] MEDS: LIPASE/AMYLASE/PROTEASE (PANCRELIPASE) 5,000 UNITS CAP PO SCH ×3 (07:53→16:45)
[2020-11-09] MEDS: PANTOPRAZOLE 40 MG (PROTONIX) TAB PO SCH (07:53)
[2020-11-09] MEDS: FUROSEMIDE 40 MG (LASIX) TAB PO SCH (07:53)
[2020-11-09] MEDS: DOCUSATE SODIUM 100 MG (COLACE) CAP PO SCH ×2 (07:57→20:04)
[2020-11-09] MEDS: SENNA W/DOCUSATE (SENOKOT S) TABLET PO SCH ×2 (07:57→20:04)
[2020-11-09] MEDS: polyethylene glycoL POWDER 17 GM (MIRALAX) PACK PO SCH ×2 (07:57→20:04)
[2020-11-09] MEDS: CHOLESTYRAMINE 4 GM (QUESTRAN LITE, PREVALITE) PKT PO SCH ×5 (08:05→20:32)
--- NOTE | 2020-11-09 09:00 | Occupational Ther Daily Note ---
OT Current Status-Daily Note Subjective Pt agreed to OT tx. During shower, pt was instructed on taking deep breaths, rather than short, shallow breaths. Mental Status/Objective Patient Orientation: Person, Place, Time, Situation Attachments: Drains ADL-Treatment Therapy Code Descriptions/Definitions Functional [place] Measure: 0=Not Assessed/NA 4=Minimal Assistance 1=Total Assistance 5=Supervision or Setup 2=Maximal Assistance 6=Modified [place] 3=Moderate Assistance 7=Complete IndependenceSCALE: Activities may be completed with or without assistive devices. 8-Shumhvbkvo-zovrqrx completes the activity by him/herself with no assistance from a helper. 5-Set-up or Clean-up Assistance-helper sets up or cleans up; patient completes activity. [place] assists only prior to or following the activity. 4-Supervision or Touching Assistance-helper provides verbal cues and/or touching/steadying and/or contact guard assistance as patient completes activity. Assistance may be provided throughout the activity or intermittently. 3-Partial/Moderate Assistance-helper does LESS THAN HALF the effort. [place] lifts, holds or supports trunk or limbs, but provides less than half the effort. 2-Substantial/Maximal Assistance-helper does MORE THAN HALF the effort. [place] lifts or holds trunk or limbs and provides more than half the effort. 2-Thxthrtca-amdywk does ALL the effort. Patient does none of the effort to complete the activity. Or, the assistance of 2 or more helpers is required for the patient to complete the activity. If activity was not attempted, code reason: 7-Patient Refused. 9-Not Applicable-not attempted and the patient did not perform the activity before the current illness, exacerbation or injury. 10-Not Attempted due to Environmental Limitations-(lack of equipment, weather restraints, etc.). 88-Not Attempted due to Medical Conditions or Safety Concerns. Shower/Bathe Self (QC): 4 (CGA, instructed how to use long handled sponge for feet) Upper Body Dressing (QC): 4 (SBA, cues required with buttons as pt was off by 1 button hole.) Lower Body Dressing (QC): 4 (CGA, pt crossed over legs and stood to complete pant hike.) On/Off Footwear: 2 (Pt donned gripper socks, but needed Max A for compression socks) Toileting Hygiene (QC): 4 (CGA, stood with hygiene) Toilet Transfer (QC): 4 (CGA, FWW to toilet. Instructed to use grab bars rather than FWW to stand up from toilet) Other Treatment Pt explains to OT that she is not feeling well, but with reassurance from OT stating that therapy may help with feeling better, pt agrees to take a shower. Pt transferred from recliner to FWW then ambulating to toilet. Once finished, pt ambulated to shower from toilet with FWW. Pt showered and needed cues to take deep breaths to ensure getting enough oxygen and not feeling out of breath. Pt got dressed and mentioned not needed compression socks, but OT explained that the socks did need to be put on, but if they bothered her too much, the nurse would be notified. Pt used FWW to return to recliner, CGA. Pt mentioned seeing and knowing it was a hallucination when compression socks were being donned by OT. Pt was left in recliner with call light in reach and all needs met. 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 2=Patient will verbalize/demonstrate understanding of assistive devices/modifications for ADL. 3=Patient will improve strength/tolerance for activity to enable patient to perform ADL's. OT Education/Plan Problem List/Assessment Assessment: Decreased Activ Tolerance, Decreased UE Strength, Impaired Funct Balance, Impaired I ADL's, Impaired Self-Care Skills Discharge Recommendations Plan/Recommendations: Continue POC Treatment Plan/Plan of Care Patient would benefit from OT for education, treatment and training to promote independence in ADL's, mobility, safety and/or upper extremity function for ADL's. Plan of Care: ADL Retraining, Caregiver Training, Concurrent Therapy, Functional Mobility, Group Exercise/Act as Ind, UE Funct Exercise/Act, W/C Management Training Treatment Duration: Nov 27, 2020 Frequency: At least 5 of 7 days/Wk (IRF) Estimated Hrs Per Day: .25 hour per day Agreement: Yes Rehab Potential: Fair Time/GCodes Start Time: 08:00 Stop Time: 09:00 Total Time Billed (hr/min): 60 Billed Treatment Time 1, ADL 4 (60') JEANE GUERRA OT Nov 09, 2020 09:00
[2020-11-09 09:02] LABS: PHOSPHORUS 2.4 MG/DL (2.3-4.7)
--- NOTE | 2020-11-09 09:56 | Occupational Ther Daily Note ---
OT Current Status-Daily Note Subjective Pt alert, oriented. Pt expresses 8/10 pain, though is "getting better." Intermittent pain between movement. Pt agrees to stay in bed for hair grooming/ teeth brushing this am. Pt states over the weekend she had more "visions." Mental Status/Objective Patient Orientation: Person, Place, Situation Attachments: Drains ADL-Treatment Therapy Code Descriptions/Definitions Functional [place] Measure: 0=Not Assessed/NA 4=Minimal Assistance 1=Total Assistance 5=Supervision or Setup 2=Maximal Assistance 6=Modified [place] 3=Moderate Assistance 7=Complete IndependenceSCALE: Activities may be completed with or without assistive devices. 9-Yvwiffhaxe-ojbhari completes the activity by him/herself with no assistance from a helper. 5-Set-up or Clean-up Assistance-helper sets up or cleans up; patient completes activity. [place] assists only prior to or following the activity. 4-Supervision or Touching Assistance-helper provides verbal cues and/or touching/steadying and/or contact guard assistance as patient completes activity . Assistance may be provided throughout the activity or intermittently. 3-Partial/Moderate Assistance-helper does LESS THAN HALF the effort. [place] lifts, holds or supports trunk or limbs, but provides less than half the effort. 2-Substantial/Maximal Assistance-helper does MORE THAN HALF the effort. [place] lifts or holds trunk or limbs and provides more than half the effort. 5-Indempnsz-tynche does ALL the effort. Patient does none of the effort to complete the activity. Or, the assistance of 2 or more helpers is required for the patient to complete the activity. If activity was not attempted, code reason: 7-Patient Refused. 9-Not Applicable-not attempted and the patient did not perform the activity before the current illness, exacerbation or injury. 10-Not Attempted due to Environmental Limitations-(lack of equipment, weather restraints, etc.). 88-Not Attempted due to Medical Conditions or Safety Concerns. Eating (QC): 6 (cup handed pt pt and brought to mouth. Pt states she is able to grab cup and bring to mouth if needed.) Oral Hygiene (QC): 4 (SBA all tasks.) Other Treatment Pt in bed, warm blankets applied to abdomen for comfort. Pt is sat upright in bed with HOB elevated. Pt completes oral care in bed, hair grooming with increased time. Pt desires lights off/ HOB continued to be elevated. Pt has call light in reach, all needs met. Pt states has already had "quite a bit" of pain medication this am, and is now getting better. Education OT Patient Education: Modified ADL techniques, Purpose of tx/functional activities Teaching Recipient: Patient Teaching Methods: Demonstration, Discussion Response to Teaching: Verbalize Understanding, Return Demonstration OT Short Term Goals Short Term Goals Time Frame: Nov 20, 2020 Toileting hygiene: 3 Shower/bathe self: 3 Upper body dressin Lower body dressin OT Alf Goals Valve Maker Goals Time Frame: Nov 27, 2020 Eating (QC): 6 Oral Hygiene (QC): 6 Toileting Hygiene (QC): 6 Shower/Bathe Self (QC): 5 Upper Body Dressing (QC): 5 Lower Body Dressing (QC): 5 On/Off Footwear (QC): 6 Additional Goals: 1-Demonstrate ADL Tasks, 2-Verbalize Understanding, 3-ImproveStrength/Yanick 1=Demonstrate adherence to instructed precautions during ADL tasks. 2=Patient will verbalize/demonstrate understanding of assistive devices/modifications for ADL. 3=Patient will improve strength/tolerance for activity to enable patient to perform ADL's. OT Education/Plan Problem List/Assessment Assessment: Decreased Activ Tolerance, Decreased UE Strength, Edema, Impaired Funct Balance, Impaired I ADL's, Impaired Self-Care Skills Discharge Recommendations Plan/Recommendations: Continue POC Therapy Discharge Recommendati: 24 Hour Supervision, Post Acute OT Treatment Plan/Plan of Care Treatment,Training & Education: Yes Patient would benefit from OT for education, treatment and training to promote independence in ADL's, mobility, safety and/or upper extremity function for ADL's. Plan of Care: ADL Retraining, Caregiver Training, Concurrent Therapy, Func tional Mobility, Group Exercise/Act as Ind, UE Funct Exercise/Act, W/C Management Training Treatment Duration: Nov 27, 2020 Frequency: At least 5 of 7 days/Wk (IRF) Estimated Hrs Per Day: .25 hour per day Agreement: Yes Rehab Potential: Fair Time/GCodes Start Time: 09:30 Stop Time: 09:45 Total Time Billed (hr/min): 15 Billed Treatment Time 1, ADL (15) GRIFFIN BORJA OTR Nov 09, 2020 09:56
--- NOTE | 2020-11-09 10:56 | Physical Therapy Daily Note ---
PT Daily Note-Current Subjective Pt. in bed eyes closed, awakens but mostly keeps eyes closed. States she has abdominal pain but does not rate. Requests going to bathroom for BM Pain Location Body Site: Abdomen Pain Description: Pressure Appearance eyes closed most of time Mental Status Patient Orientation: Person Attachments: Drains Transfers SCALE: Activities may be completed with or without assistive devices. 0-Smilsxqlqr-erzctpo completes the activity by him/herself with no assistance from a helper. 5-Set-up or Clean-up Assistance-helper sets up or cleans up; patient completes activity. [place] assists only prior to or following the activity. 4-Supervision or Touching Assistance-helper provides verbal cues and/or touching/steadying and/or contact guard assistance as patient completes a ctivity. Assistance may be provided throughout the activity or intermittently. 3-Partial/Moderate Assistance-helper does LESS THAN HALF the effort. [place] lifts, holds or supports trunk or limbs, but provides less than half the effort. 2-Substantial/Maximal Assistance-helper does MORE THAN HALF the effort. [place] lifts or holds trunk or limbs and provides more than half the effort. 4-Sbghvwxhh-xagqvb does ALL the effort. Patient does none of the effort to complete the activity. Or, the assistance of 2 or more helpers is required for the patient to complete the activity. If activity was not attempted, code reason: 7-Patient Refused. 9-Not Applicable-not attempted and the patient did not perform the activity before the current illness, exacerbation or injury. 10-Not Attempted due to Environmental Limitations-(lack of equipment, weather restraints, etc.). 88-Not Attempted due to Medical Conditions or Safety Concerns. Roll Left & Right (QC): 6 Lying to Sitting/Side of Bed(Q: 6 Sit to Stand (QC): 4 Chair/Ckz-po-Acwmq Xfer(QC): 4 Toilet Transfer (QC): 4 Gait Training Does the Patient Walk?: Yes Walk 10 feet (QC): 4 Gait Persons Needed: 1 Gait Assistive Device: FWW slow gait 20 ft x 2 flexed at trunk, heavy wt bearing on FWW. Fatigues easily Exercises Supine Ex: Bridging, Ankle pumps, Quad Set, Rolling, Glut sets, Heel Slides, Short Arc Quads, Scooting (up in flat bed indep), Straight leg raise, Hip abd/add Supine Reps: 15 Seated Therapy Exercises: Sit to stand, Long arc quads Seated Reps: 15 Assessment Current Status: Good Progress very slow moving, guarded, needs rest breaks PT Short Term Goals Short Term Goals Time Frame: Nov 13, 2020 Roll Left & Right: 6 Sit to lyin Lying to sitting on side of be: 4 Sit to stand: 4 Chair/csq-cd-hnvjb transfer: 4 Walk 10 feet: 4 Walk 50 feet with two turns: 4 PT [place] Goals [place] Goals PT Jail Goals Time Frame: Nov 27, 2020 Roll Left & Right (QC): 6 Sit to Lying (QC): 6 Lying-Sitting on Side/Bed(QC): 6 Sit to Stand (QC): 6 Chair/Lyx-di-Bqzfe Xfer(QC): 6 Toilet Transfer (QC): 6 Car Transfer (QC): 6 Does the Patient Walk: Yes Walk 10 feet (QC): 6 Walk 50ft with 2 Turns (QC): 6 Walk 150 ft (QC): 6 Walking 10ft on Uneven Surface: 6 1 Step (curb) (QC): 4 4 Steps (QC): 4 12 Steps (QC): 88 Picking up an Object (QC): 88 Wheel 50 feet with 2 turns (QC: 9 Wheel 150 feet: 9 PT Plan Treatment/Plan Treatment Plan: Continue Plan of Care Treatment Plan: Bed Mobility, Education, Functional Activity Yanick, Functional Strength, Group Therapy, Gait, Safety, Therapeutic Exercise, Transfers Treatment Duration: Nov 27, 2020 Frequency: At least 5 of 7 days/Wk (IRF) Estimated Hrs Per Day: 1.5 hours per day Patient and/or Family Agrees t: Yes Safety Risks/Education Patient Education: Gait Training, Transfer Techniques, Correct Positioning, Disease Process, Safety Issues Teaching Recipient: Patient Teaching Methods: Demonstration, Discussion Response to Teaching: Verbalize Understanding, Return Demonstration, Reinforcement Needed Time/GCodes Time In: 1000 Time Out: 1100 Total Billed Treatment Time: 60 Total Billed Treatment 1,EX15m,FA35M,gt15M KIP HUMPHREYS ELEVATOR EXAMINER AND ADJUSTER Nov 09, 2020 10:56
[2020-11-09] MEDS ORDERED: DEXTROSE IV NR ×2 (11:30)
[2020-11-09] MEDS ORDERED: SODIUM PHOSPHATE IV NR ×2 (11:30)
--- NOTE | 2020-11-09 13:05 | NUR ---
CM/SS ADMISSION Patient was admitted to ARU 11/06/20 from [facility] internal for Critical Illness Myopathy. Per EMR, she presented to [facility] 10/24/20 for abdominal ascites and hemorrhagic/necrotizing pancreatitis and experienced complex medical issues during that inpatient stay. Other comorbidities are, in part, ulcer of pharynx, esophageal ulcer, severe sepsis, debility, WHITNEY, pleural cavity effusion, lactic acidosis, CAD, bradycardia. Patient was pleasant during interview, presented as confused. When asking about medical equipment, she responded she "didn't have a highchair" but then in a bit stated that was for babies. According to her daughter Liban Zamora, she has been talking about her as though he is living but he, in fact, about 14 years ago. Patient resided home alone and was completely independent of all activities. She gardened, mowed her own lawn, did housekeeping chores, and she did babysitting for one of her great grandchildren. PCP: Taco Hanley MD, [place] [facility]: [facility] INSURANCE: Medicare, [email or web address] M[employer] Supplement DME: None, never needed. BARRIERS TO DISCHARGE PLANNING: Patient desires to return home alone as before and charting reflects she has expressed disappointment over her medical condition and current limitations. Her overall recovery and the complexity of her medical issues will determine her discharge destination. Liban is her only child and Liban is assisting her children and grandchildren because of virtual schooling and babysitting. There is not a tentative secondary plan if patient can not return home. CONTACTS: Liban Zamora, Daughter, Only Child, DPOA [address] [id number] Liban indicates she is patient's DPOA but she does not know if the is POA-HC. No copy on file. Requested. Patient and daughter Liban understand the purpose and process of the weekly patient care conference and that patient's first review will be Monday, November 11, 2020.
--- NOTE | 2020-11-09 13:24 | Speech Therapy Daily Note ---
Speech Daily Progress Note Subjective Date Seen by Provider: Nov 09, 2020 Time Seen by Provider: 00:30 Patient was resting in her recliner, c/o pain, however she stated she had received a pain pill and it was starting to feel better. Objective Patient completed a series of q/a related to her daily routine at home prior to being admitted to the hospital with 80% given minimal cues. Assessment Assessment Current Status: Good Progress Treatment Plan Continue Plan of Care Speech Short Term Goals Short Term Goals Short Term Goals 1) Patient will complete memory tasks related to her daily needs with 90% or greater with minimal cues. 2) Patient will complete safety awareness tasks related to her daily needs with 90% or greater with minimal cues. 3) Patient will complete problem solving tasks related to her daily needs with 90% or greater with minimal cues. Speech [facility] Goals Suit Attendant Goals Patient will improve cognitive-communication abilities in order to complete daily tasks with minimal assist. Speech-Plan Patient/Family Goals Patient/Family Goals: Patient plans on returning to her home with family support upon discharge. Treatment Plan Speech Therapy Treatment Plan: Continue Plan of Care Treatment Duration: Nov 20, 2020 Frequency: 4 times per week (Patient will receive skilled ST 4-5x per week) Estimated Hrs Per Day: .5 hour per day Rehab Potential: Fair Barriers to Learning: Patient's current medical status, age Pt/Family Agrees to Plan: Yes Safety Risks/Education Teaching Recipient: Patient Teaching Methods: Demonstration, Discussion Response to Teaching: Verbalize Understanding, Return Demonstration Education Topics Provided: Safety within her room, communication of wants/needs Time Speech Therapy Time In: 09:00 Speech Therapy Time Out: 09:30 Total Billed Time: 30 Billed Treatment Time [address] Nov 09, 2020 13:24
--- NOTE | 2020-11-09 13:48 | Physical Therapy Daily Note ---
PT Daily Note-Current Subjective Patient in recliner pre tx, agrees to PT, has 5/10 pain and would like to have pain meds, nurse notified of that and that patient is still having hallucinations (she says she keeps seeing sinister people around her room and is aware she is hallucinating). Appearance Patient in bed post tx with nurse call, phone, tray, all needs met, bed alarm on. Mental Status Patient Orientation: Person, Place, Situation Transfers SCALE: Activities may be completed with or without assistive devices. 8-Iretxvskfm-aadbjnu completes the activity by him/herself with no assistance from a helper. 5-Set-up or Clean-up Assistance-helper sets up or cleans up; patient completes activity. [place] assists only prior to or following the activity. 4-Supervision or Touching Assistance-helper provides verbal cues and/or touching/steadying and/or contact guard assistance as patient completes activity. Assistance may be provided throughout the activity or intermittently. 3-Partial/Moderate Assistance-helper does LESS THAN HALF the effort. [place] lifts, holds or supports trunk or limbs, but provides less than half the effort. 2-Substantial/Maximal Assistance-helper does MORE THAN HALF the effort. [place] lifts or holds trunk or limbs and provides more than half the effort. 9-Jrxratrkb-dxefzl does ALL the effort. Patient does none of the effort to complete the activity. Or, the assistance of 2 or more helpers is required for the patient to complete the activity. If activity was not attempted, code reason: 7-Patient Refused. 9-Not Applicable-not attempted and the patient did not perform the activity before the current illness, exacerbation or injury. 10-Not Attempted due to Environmental Limitations-(lack of equipment, weather restraints, etc.). 88-Not Attempted due to Medical Conditions or Safety Concerns. Sit to Lying (QC): 3 Sit to Stand (QC): 4 Chair/Lzq-hu-Yahtr Xfer(QC): 3 After LE exercises patient stands and ambulates a few feet to bed with CGA but needed mod assist with both legs getting back into bed. Exercises Supine Ex: Ankle pumps, Quad Set, Glut sets, Heel Slides, Short Arc Quads, Straight leg raise, Hip abd/add Supine Reps: 20 (AAROM with hip abd/add and SLR - exercises done in recliner with legs elevated) Treatments LE exercise, transfers Assessment Current Status: Poor Progress very slow progress with functional mobility PT Short Term Goals Short Term Goals Time Frame: Nov 13, 2020 Roll Left & Right: 6 Sit to lyin Lying to sitting on side of be: 4 Sit to stand: 4 Chair/cqa-xo-ozwsq transfer: 4 Walk 10 feet: 4 Walk 50 feet with two turns: 4 PT Nursing Home Goals Health Manager Goals PT Health Manager Goals Time Frame: Nov 27, 2020 Roll Left & Right (QC): 6 Sit to Lying (QC): 6 Lying-Sitting on Side/Bed(QC): 6 Sit to Stand (QC): 6 Chair/Gza-pm-Yutdy Xfer(QC): 6 Toilet Transfer (QC): 6 Car Transfer (QC): 6 Does the Patient Walk: Yes Walk 10 feet (QC): 6 Walk 50ft with 2 Turns (QC): 6 Walk 150 ft (QC): 6 Walking 10ft on Uneven Surface: 6 1 Step (curb) (QC): 4 4 Steps (QC): 4 12 Steps (QC): 88 Picking up an Object (QC): 88 Wheel 50 feet with 2 turns (QC: 9 Wheel 150 feet: 9 PT Plan Problem List Problem List: Activity Tolerance, Functional Strength, Safety, Balance, Gait, Transfer, Bed Mobility, ROM Treatment/Plan Treatment Plan: Continue Plan of Care Treatment Plan: Bed Mobility, Education, Functional Activity Yanick, Functional Strength, Group Therapy, Gait, Safety, Therapeutic Exercise, Transfers Treatment Duration: Nov 27, 2020 Frequency: At least 5 of 7 days/Wk (IRF) Estimated Hrs Per Day: 1.5 hours per day Patient and/or Family Agrees t: Yes Safety Risks/Education Patient Education: Transfer Techniques, Correct Positioning, Safety Issues Teaching Recipient: Patient Teaching Methods: Demonstration, Discussion Response to Teaching: Reinforcement Needed Time/GCodes Time In: 1300 Time Out: 1315 Total Billed Treatment Time: 15 Total Billed Treatment 1 visit EX KRISHNA HUSSEIN PT Nov 09, 2020 13:47
--- NOTE | 2020-11-09 14:20 | NUR ---
DAY SURG NURSE CHRISTY CROW HERE AND INSERTED DOUBLE LUMEN PICC LINE TO LEFT UPPER ARM. REMOVED PICC LINE TO RIGHT UPPER ARM. SITE WITHOUT REDNESS. RIGHT MID AND LOWER ARM WITH REDNESS AND 2 + EDEMA. STERILE DRESSING APPLIED AFTER RIGHT PICC LINE REMOVED. GENARO. WELL.
--- NOTE | 2020-11-09 14:46 | Progress Note - Surgery ---
DIANA MARINLAN MED STUDENT 11/09/20 1446: Subjective Date Seen by a Provider: Nov 09, 2020 Time Seen by a Provider: 14:15 Subjective/Events-last exam Patient was awake and alert laying in bed when I went to see her. She had just gotten her picc line moved from her right to left arm because of cellulitis surrounding the previous picc line location. She complained of not being hungry and the nurses stated that she eats 20-25% of each meal. Last night she requested 2 pain pills to help control the pain that she describes as all over. The nurse also stated that she goes through periods of confusion and extreme pain and then is fine a few minutes later. She has been utilizing PT/OT by walking to and from the shower and bathroom and also walked 40 feet today. Patient required significant walker assistance and remained hunched over the walker throughout the walk. She complained of moderate epigastric pain that was tender to palpation. Her last BM was yesterday and was small and liquid. The area around the CHRISTA drain continues to be erythematous and is still leaking serous fluid requiring the nursing staff to replace the dressings about twice a day. She was on room air and stated that she isn't short of breath other than with PT/OT and requires O2. Focused Exam Lactate Level 11/08/20 07:00: Lactic Acid Level 0.91 Respiratory: Chest Non Tender, Lungs Clear (superior lobes only), No Accessory Muscle Use, No Respiratory Distress, Decreased Breath Sounds Cardiovascular: Regular Rate, Rhythm, No Gallop, No Murmur, Normal Peripheral Pulses Skin: warm/dry, pallor, other (cellultitis on right arm surrounding ) Objective Exam Vital Signs Date Time Temp Pulse Resp B/P (MAP) Pulse Ox O2 Delivery O2 Flow Rate FiO2 11/09/20 09:00 Room Air 11/09/20 06:42 92 Room Air 11/09/20 05:42 36.4 83 16 128/61 (83) 96 Room Air 11/08/20 20:52 Room Air 11/08/20 20:34 93 Room Air 11/08/20 17:27 37.6 94 16 130/61 (84) 96 Room Air 11/08/20 15:06 Room Air I & O 11/09/20 07:00 Intake Total 1300 ml Output Total 105 ml Balance 1195 ml Capillary Refill : Less Than 3 Seconds General Appearance: WD/WN, Chronically ill, Mild Distress, Thin, Other (frail, pale) HEENT: PERRL/EOMI Respiratory: Chest Non Tender, Lungs Clear (superior lobes only ), No Accessory Muscle Use, No Respiratory Distress, Decreased Breath Sounds Cardiovascular: Regular Rate, Rhythm, No Gallop, No Murmur, Normal Peripheral Pulses Gastrointestinal: normal bowel sounds, no organomegaly, no pulsatile mass, distended (mildly), tenderness (epigastric) Extremity: Normal Capillary Refill, Normal Range of Motion, Calf Tenderness (left calf tenderness pressure is applied), Pedal Edema (bilaterally), Other (cellutitis on right proximanl forearm) Neurologic/Psychiatric: Alert, Oriented x3, No Motor/Sensory Deficits, patient accounting representative II- XII Norm as Tested, Motor Weakness (severe weakness 3/5 all extremities) Skin: Warm/Dry, Pallor Lymphatic: No Adenopathy (axila, cervical, or inguinal) Results Lab Laboratory Tests 11/08/20 15:42: Glucometer 106 11/08/20 20:05: Glucometer 115H 11/09/20 04:34: Phosphorus Level 2.4, Magnesium Level 2.0, Triglycerides Level 104 11/09/20 04:35: White Blood Count 11.9H, Red Blood Count 2.71L, Hemoglobin 8.4L, Hematocrit 26L, Mean Corpuscular Volume 95, Mean Corpuscular Hemoglobin 31, Mean Corpuscular Hemoglobin Concent 33, Red Cell Distribution Width 13.5, Platelet Count 430H, Mean Platelet Volume 9.5, Immature Granulocyte % (Auto) 1, Neutrophils (%) (Auto) 81H, Lymphocytes (%) (Auto) 10L, Monocytes (%) (Auto) 6, Eosinophils (%) (Auto) 1, Basophils (%) (Auto) 0, Neutrophils # (Auto) 9.6H, Lymphocytes # (Auto) 1.2, Monocytes # (Auto) 0.7, Eosinophils # (Auto) 0.2, Basophils # (Auto) 0.1, Immature Granulocyte # (Auto) 0.2H 11/09/20 04:38: Sodium Level 136, Potassium Level 3.9, Chloride Level 103, Carbon Dioxide Level 25, Anion Gap 8, Blood Urea Nitrogen 10, Creatinine 0.64, Estimat Glomerular Filtration Rate > 60, BUN/Creatinine Ratio 16, Glucose Level 98, Calcium Level 7.8L, Corrected Calcium 9.5, Total Bilirubin 0.4, Aspartate Amino Transf (AST/SGOT) 22, Alanine Aminotransferase (ALT/SGPT) 15, Alkaline Phosphatase 98, Total Protein 4.0L, Albumin 1.9L, Amylase Level 63, Lipase 42 11/09/20 10:42: Glucometer 89 Assessment/Plan Assessment/Plan Admission Diagonsis hemorrhagic pancreatitis Assessment/Plan Assessmant: B/L pleural effusion hemorrhagic pancreatitis right proximal forearm cellulitis left calf tenderness Plan: TPN pain medication and anitbiotics continue PT/OT Clinical Quality Measures DVT/VTE Risk/Contraindication: Risk Factor Score Per Nursin RFS Level Per Nursing on Admit: 4+=Very High Other: RISK FOR FURTHER BLEEDING IN ABDOMEN MAIKEL SAEED DO 11/09/20 1902: Subjective Time Seen by a Provider: 14:15 Subjective/Events-last exam Pt seen and examined, does not appear to be in any distress. Nurse states she is not eating; "less than 20%" and is going to get TPN. Review of Systems General: Fatigue, Malaise Pulmonary: Dyspnea; No Cough Cardiovascular: No: Chest Pain, Palpitations Gastrointestinal: Abdominal Pain Objective Exam General Appearance: No Apparent Distress, Chronically ill, Other (frail, pale) HEENT: PERRL/EOMI, Moist Mucous Membranes Respiratory: Lungs Clear (upper lobes only ), No Accessory Muscle Use, No Respiratory Distress, Decreased Breath Sounds (lower lobes) Cardiovascular: Regular Rate, Rhythm, No Murmur Gastrointestinal: normal bowel sounds, soft, no organomegaly, distended (mildly) Assessment/Plan Assessment/Plan Assessment/Plan Hemorrhagic pancreatitis Malnutrition B/L pleural efffusion Will try to get CHRISTA drain out, pt still has abdominal pain and may benefit from TPN (can be NPO which may help the pancreatitis). Pt's amylase and lipase were normal last check, but CT may have looked slightly worse. Monitor right arm cellulitis. Supervisory-Addendum Brief Verification & Attestation Participated in pt care: history, MDM, physical Personally performed: exam, history, MDM Care discussed with: Medical Student Procedures: n/a Verification and Attestation of Medical Student E/M Service A medical student performed and documented this service in my presence. I reviewed and verified all information documented by the medical student and made modifications to such information, when appropriate. I personally performed the physical exam and medical decision making. Maikel Saeed, Nov 09, 2020,19:02 BROOKS MARIN MED STUDENT Nov 09, 2020 14:46 MAIKEL SAEED DO Nov 09, 2020 19:02
--- NOTE | 2020-11-09 15:59 | NUR ---
RD ASSESSMENT PMHx: HTN; HLD; CAD; PT INTERACTION: Received dietary consult for TPN recommendations. Pt states current appetite is okay. "I generally don't eat a lot." Note avg PO intake 25% meals, per chart review. Pt states some issues with diarrhea. Note last BM was 11/08, and pt currently on bowel regimen of colace BID, senna BID, and miralax BID, per chart review. Est. kcal needs: 2275-7127 kcal | 25-30 kcal/kg Est. Pro needs: 53-64 g Pro | 1.0-1.2 g Pro/kg PES STATEMENT: Inadequate oral intake (NI-2.1) related to loss of appetite, and diarrhea, as evidenced by pt interview, and avg PO intake 25% meals. INTERVENTION: Continue with current diet order of Regular diet. Pt may benefit from nutrition supplementation as PO intake is low. Would recommend Ensure Enlive (vary) with meals TID. Provides 350 kcal and 20 g Pro per serving. If plan of care is to provide TPN, would recommend either: If 50% needs are to come from TPN, would recommend TPN to provide 800 kcal and 32 g Pro. If 100% of needs are to come from TPN, would recommend TPN to provides 1600 kcal and 64 g Pro. Will continue to follow and reassess as pt needs, intake, and status change. Charla DAVIDSON MS RD LD [phone] cell
[2020-11-09] MEDS ORDERED: SODIUM CHLORIDE IV SCH ×10 (17:00)
[2020-11-09] MEDS ORDERED: [UNRECOGNIZED DRUG - OTHER] IV SCH ×10 (17:00)
[2020-11-09] MEDS ORDERED: POTASSIUM CHLORIDE IV SCH ×10 (17:00)
[2020-11-09 17:09] VITALS: BP 137/65
--- NOTE | 2020-11-09 22:00 | NUR ---
HAS BEEN UP TO COMMODE X 2 WITH ASST. AND TOLERATING ACTIVITY WELL. QUITE CONFUSED. SMALL DIARRHEA STOOL AND REMAINS ON QUESTRAN. LOW GRADE TEMP.
[2020-11-10] MEDS: HYDROcodone/APAP 5 MG/325 MG (LORTAB) TAB PO PRN ×4 (01:48→17:26)
[2020-11-10 04:58] LABS: ALBUMIN 1.9 GM/DL (3.2-4.5); CHLORIDE 105 MMOL/L (98-107); POTASSIUM 3.9 MMOL/L (3.6-5.0); SODIUM 135 MMOL/L (135-145)
[2020-11-10 04:59] LABS: CALCIUM 7.8 MG/DL (8.5-10.1)
[2020-11-10 05:00] LABS: GLUCOSE 127 MG/DL (70-105)
--- NOTE | 2020-11-10 05:00 | NUR ---
AWAKE SEVERAL TIMES AND UP TO COMMODE. CANNOT REMEMBER TO USE CALL LIGHT. MORE CONTINENT NOW AND ONLY ONE URINARY INCONTINENCY TONIGHT. LOW GRADE TEMP.
[2020-11-10 05:01] LABS: CARBON DIOXIDE 22 MMOL/L (21-32)
[2020-11-10 05:02] LABS: BILIRUBIN,TOTAL 0.3 MG/DL (0.1-1.0)
[2020-11-10 05:04] LABS: ALKALINE PHOSPHATASE 94 U/L (40-136); CREATININE SERUM 0.63 MG/DL (0.60-1.30); GFR ESTIMATED > 60; PHOSPHORUS 2.6 MG/DL (2.3-4.7)
[2020-11-10 05:05] LABS: BUN/CREATININE RATIO 19
[2020-11-10 05:07] LABS: ALANINE AMINOTRANSFERASE 14 U/L (0-55); MAGNESIUM 2.1 MG/DL (1.6-2.4)
[2020-11-10] MEDS: inSUlin ASPART (NovoLOG) 1 UNIT/0.01 ML (CHARGE PER UNIT) SC SCH ×4 (05:10→21:07)
[2020-11-10 06:06] VITALS: BP 149/82
[2020-11-10] MEDS: RT-ALBUTEROL SULF 2.5 MG/3 ML PRE-MIX VIAL INH SCH ×3 (07:02→22:15)
[2020-11-10] MEDS: PANTOPRAZOLE 40 MG (PROTONIX) TAB PO SCH (07:21)
[2020-11-10] MEDS: FUROSEMIDE 40 MG (LASIX) TAB PO SCH (07:21)
[2020-11-10] MEDS: LIPASE/AMYLASE/PROTEASE (PANCRELIPASE) 5,000 UNITS CAP PO SCH ×3 (07:21→17:12)
[2020-11-10] MEDS: SENNA W/DOCUSATE (SENOKOT S) TABLET PO SCH ×2 (07:31→20:37)
[2020-11-10] MEDS: CHOLESTYRAMINE 4 GM (QUESTRAN LITE, PREVALITE) PKT PO SCH ×4 (07:31→22:35)
[2020-11-10] MEDS: polyethylene glycoL POWDER 17 GM (MIRALAX) PACK PO SCH ×2 (07:31→20:37)
[2020-11-10] MEDS: DOCUSATE SODIUM 100 MG (COLACE) CAP PO SCH ×2 (07:31→20:37)
--- NOTE | 2020-11-10 08:35 | PM&R Progress Note ---
Subjective HPI/CC On Admission Date Seen by Provider: Nov 10, 2020 Time Seen by Provider: 08:15 Subjective/Events-last exam 11/10/20: Venofer is ordered since picc line was replaced TPN maintained Bowels moved yesterday and loose Dr. Díaz has been consulted 11/09/20: Pt doing a little bit better Variable mentation WBC 11.9 Hgb 8.4 Picc line will be replaced Labs look good Amylase and lipase normal 11/08/20: PICC will be replaced since it is leaking and needs assessed Holding Venofer until new PICC is in place Questran is working for the loose stools Minimal incontinence today of bladder Last dose of abx today Not eating well Needs TPN to gain strength Updated daughter in-depth Told me with RN in room she lived in [place], [place] and daughter told me she lives in [facility] 11/07/20: Patient having difficulty Cant really eat Frustrated because she thought she would be home by now Unrealistic expectations are apparent WBC 14 hgb 9.8 and platelets 494 DARRELL hose on Loose stools so will start Questran QID Very comple issues May need to be transferred back up to the floor if she can't handle structured PT Review of Systems General: Fatigue, Malaise Gastrointestinal: Nausea, Abdominal Pain Neurological: Confusion Focused Exam Lactate Level 11/08/20 07:00: Lactic Acid Level 0.91 Objective Exam Vital Signs Vital Signs Date Time Temp Pulse Resp B/P (MAP) Pulse Ox O2 Delivery O2 Flow Rate FiO2 11/10/20 22:15 93 Room Air 11/10/20 15:40 37.0 93 16 130/66 (87) 11/07/20 09:00 1.00 Capillary Refill : Less Than 3 Seconds General Appearance: WD/WN, Anxious, Chronically ill, Mild Distress, Thin, Other (frail, pale) HEENT: PERRL/EOMI, Normal ENT Inspection, Pharynx Normal Neck: Full Range of Motion, Normal Inspection, Non Tender, Supple, Carotid Bruit Respiratory: Chest Non Tender, Lungs Clear, No Accessory Muscle Use, No Respiratory Distress, Decreased Breath Sounds Cardiovascular: Regular Rate, Rhythm, No Edema, No Gallop, No JVD, No Murmur, Normal Peripheral Pulses Gastrointestinal: Normal Bowel Sounds, No Organomegaly, No Pulsatile Mass, Non Tender, Soft Back: Normal Inspection, No CVA Tenderness, No Vertebral Tenderness Extremity: Normal Capillary Refill, Normal Inspection, Normal Range of Motion, Non Tender, No Calf Tenderness, No Pedal Edema Neurologic/Psychiatric: Alert, Oriented x3, No Motor/Sensory Deficits, events and promotions assistant II- XII Norm as Tested, Abnormal Gait, Depressed Affect, Motor Weakness (severe weakness 3/5 all extremities) Skin: Normal Color, Warm/Dry Lymphatic: No Adenopathy Results/Procedures Lab Patient resulted labs reviewed. FIM Transfers Therapy Code Descriptions/Definitions Functional [place] Measure: 0=Not Assessed/NA 4=Minimal Assistance 1=Total Assistance 5=Supervision or Setup 2=Maximal Assistance 6=Modified [place] 3=Moderate Assistance 7=Complete IndependenceSCALE: Activities may be completed with or without assistive devices. 3-Wnxyjvbkbl-swjtdpk completes the activity by him/herself with no assistance from a helper. 5-Set-up or Clean-up Assistance-helper sets up or cleans up; patient completes activity. Garita assists only prior to or following the activity. 4-Supervision or Touching Assistance-helper provides verbal cues and/or touching/steadying and/or contact guard assistance as patient completes activity. Assistance may be provided throughout the activity or intermittently. 3-Partial/Moderate Assistance-helper does LESS THAN HALF the effort. Garita lifts, holds or supports trunk or limbs, but provides less than half the effort. 2-Substantial/Maximal Assistance-helper does MORE THAN HALF the effort. Garita lifts or holds trunk or limbs and provides more than half the effort. 7-Kewopgdka-mhgsso does ALL the effort. Patient does none of the effort to complete the activity. Or, the assistance of 2 or more helpers is required for the patient to complete the activity. If activity was not attempted, code reason: 7-Patient Refused. 9-Not Applicable-not attempted and the patient did not perform the activity before the current illness, exacerbation or injury. 10-Not Attempted due to Environmental Limitations-(lack of equipment, weather restraints, etc.). 88-Not Attempted due to Medical Conditions or Safety Concerns. Roll Left to Right (QC): 6 Sit to Lying (QC): 3 Sit to Stand (QC): 4 Chair/Fbb-pm-Lenzr Xfer(QC): 3 Car Transfer (QC): 4 Gait Training Does the Patient Walk?: Yes Walk 10 feet (QC): 4 Walk 50 ft with 2 Turns(QC): 88 Walk 150 ft (QC): 88 Walking 10ft/uneven surface-QC: 88 Gait Persons Needed: 1 Gait Assistive Device: FWW Wheelchair Training Does the Pt Use a Wheelchair?: Yes Wheel 50 ft with 2 turns (QC): 88 Wheel 150 ft (QC): 88 Type of Wheelchair: Manual Stair Training 1 Step (curb) (QC): 88 4 Steps (QC): 88 12 Steps (QC): 88 Balance Picking up an Object (QC): 88 ADL-Treatment Eating (QC): 6 (cup handed pt pt and brought to mouth. Pt states she is able to grab cup and bring to mouth if needed.) Oral Hygiene (QC): 4 (SBA all tasks.) Shower/Bathe Self (QC): 4 (CGA, instructed how to use long handled sponge for feet) Upper Body Dressing (QC): 4 (SBA, cues required with buttons as pt was off by 1 button hole.) Lower Body Dressing (QC): 4 (CGA, pt crossed over legs and stood to complete pant hike.) On/Off Footwear (QC): 2 (Pt donned gripper socks, but needed Max A for compression socks) Toileting Hygiene (QC): 4 (CGA, stood with hygiene) Toilet Transfer (QC): 4 (CGA, FWW to toilet. Instructed to use grab bars rather than FWW to stand up from toilet) Assessment/Plan Assessment and Plan Assess & Plan/Chief Complaint Assessment: Critical illness myopathy Hemorrhagic pancreatitis Esophagus ulcer on EGD Ascites s/p acute respiratory failure VTE contraindication due to hemorrhage Fluid overload Plan: IRF protocol Pain meds Monitor bowel routine Very weak 11/07/20: Very weak Abdominal pain management Loose stools Abx Monitor labs May fail IRF? 11/08/20: Patient a bit improved Confusion noted Replace PICC Hold Venofer until new picc 11/09/20: TPN PICC replaced Monitor pain 11/10/20: TPN Monitor closely High risk for decompensation (1) Critical illness myopathy Status: Acute (2) Ulcer of pharynx Status: Acute (3) Esophageal ulcer Status: Acute (4) Ascites Status: Acute (5) Acute hemorrhagic pancreatitis Status: Acute (6) Severe sepsis Status: Acute (7) Debility (8) WHITNEY (acute kidney injury) Status: Resolved Resolution Date/Time: 11/02/20 @ 17:02 (9) Pleural cavity effusion (10) Lactic acidosis Status: Resolved Resolution Date/Time: 11/02/20 @ 17:02 (11) Polycythemia Status: Resolved Resolution Date/Time: 11/02/20 @ 17:03 (12) Essential (primary) hypertension Status: Chronic (13) CAD (coronary artery disease) Status: Chronic (14) Bradycardia Status: Acute CONNOR BUSTAMANTE DO Nov 10, 2020 08:35
[2020-11-10] MEDS: fentaNYL INJECTION 100 MCG/2 ML AMP IVP PRN ×2 (09:02→18:07)
--- NOTE | 2020-11-10 09:02 | NUR ---
FENTANYL 25 MCG GIVEN IV SLOWLY FOR CONT. PAIN.
--- NOTE | 2020-11-10 09:05 | NUR ---
PT. CONT. TO C/O OF SEVERE RMQ ABD. PAIN WHEN WALKING WITH P.T. , EVEN AFTER HYDROCODONE PO GIVEN AT 0721. FACIAL GRIMACE AND UNABLE TO STAND UP STRAIGHT. PT. COULD ONLY WALK A FEW STEPS BECAUSE OF THE PAIN.
--- NOTE | 2020-11-10 09:10 | Physical Therapy Daily Note ---
PT Daily Note-Current Subjective Pt. up in recliner, states she has no appetite but really wants to work on getting stronger. After standing initially pt requested to go to bathroom for loose BM. Pt. intended to walk in long but began feeling more abdominal discomfort and asked to go back to bed. Pain rated at 8 in abdomen Pain Numeric Pain Scale: 8 Location: Medial Location Body Site: Abdomen Pain Description: Pressure Appearance eyes closed most of time wit grimace on face,furrowed brow, noted RUE edema shoulder to hand Mental Status Patient Orientation: Person Attachments: PEG Tube pt. is confused about her city of residence telling 2 days in a row that she lives in [facility], when actually she apparently lived in [facility] Transfers SCALE: Activities may be completed with or without assistive devices. 5-Oveuffbfov-dkzqpzh completes the activity by him/herself with no assistance from a helper. 5-Set-up or Clean-up Assistance-helper sets up or cleans up; patient completes activity. [place] assists only prior to or following the activity. 4-Supervision or Touching Assistance-helper provides verbal cues and/or touching/steadying and/or contact guard assistance as patient completes activity. Assistance may be provided throughout the activity or intermittently. 3-Partial/Moderate Assistance-helper does LESS THAN HALF the effort. Custer lifts, holds or supports trunk or limbs, but provides less than half the effort. 2-Substantial/Maximal Assistance-helper does MORE THAN HALF the effort. [place] lifts or holds trunk or limbs and provides more than half the effort. 9-Lenrpudti-ouuftc does ALL the effort. Patient does none of the effort to complete the activity. Or, the assistance of 2 or more helpers is required for the patient to complete the activity. If activity was not attempted, code reason: 7-Patient Refused. 9-Not Applicable-not attempted and the patient did not perform the activity before the current illness, exacerbation or injury. 10-Not Attempted due to Environmental Limitations-(lack of equipment, weather restraints, etc.). 88-Not Attempted due to Medical Conditions or Safety Concerns. Roll Left & Right (QC): 6 Sit to Lying (QC): 6 Lying to Sitting/Side of Bed(Q: 6 Sit to Stand (QC): 5 Chair/Irb-fs-Woooz Xfer(QC): 5 Toilet Transfer (QC): 4 pt. moves slowly but does well needing only guidance and some safety cues but fatigues and has poor tolerance /endurance Gait Training Does the Patient Walk?: Yes Walk 10 feet (QC): 4 Gait Persons Needed: 1 Gait Assistive Device: FWW 25ftx2 as tolerated to bthrm and back, required assist to doff soiled brief, clean and ventura fresh brief Exercises Supine Ex: Bridging, Ankle pumps, Quad Set, Rolling, Glut sets, Heel Slides, Short Arc Quads, Straight leg raise, Hip abd/add Supine Reps: 12 Seated Therapy Exercises: Ankle pumps, Sit to stand, Long arc quads, Hip flexion Seated Reps: 12 Treatments poor tolerance for activity, ambulated to bthrm, toileted loose BM , cleaned with assist and then requested back to bed as she could not tolerate sitting up in recliner . left in bed with castaneda at hand Assessment Current Status: Fair Progress abd pain and fatigue limit progress PT Short Term Goals Short Term Goals Time Frame: Nov 13, 2020 Roll Left & Right: 6 Sit to lyin Lying to sitting on side of be: 4 Sit to stand: 4 Chair/uqu-ua-rzloo transfer: 4 Walk 10 feet: 4 Walk 50 feet with two turns: 4 PT Cripple Chaser Goals Skilled Nursing Goals PT Skilled Nursing Goals Time Frame: Nov 27, 2020 Roll Left & Right (QC): 6 Sit to Lying (QC): 6 Lying-Sitting on Side/Bed(QC): 6 Sit to Stand (QC): 6 Chair/Cab-bg-Btzzm Xfer(QC): 6 Toilet Transfer (QC): 6 Car Transfer (QC): 6 Does the Patient Walk: Yes Walk 10 feet (QC): 6 Walk 50ft with 2 Turns (QC): 6 Walk 150 ft (QC): 6 Walking 10ft on Uneven Surface: 6 1 Step (curb) (QC): 4 4 Steps (QC): 4 12 Steps (QC): 88 Picking up an Object (QC): 88 Wheel 50 feet with 2 turns (QC: 9 Wheel 150 feet: 9 PT Plan Treatment/Plan Treatment Plan: Continue Plan of Care Treatment Plan: Bed Mobility, Education, Functional Activity Yanick, Functional Strength, Group Therapy, Gait, Safety, Therapeutic Exercise, Transfers Treatment Duration: Nov 27, 2020 Frequency: At least 5 of 7 days/Wk (IRF) Estimated Hrs Per Day: 1.5 hours per day Patient and/or Family Agrees t: Yes Safety Risks/Education Patient Education: Gait Training, Transfer Techniques, Correct Positioning, Disease Process, Safety Issues Teaching Recipient: Patient Teaching Methods: Demonstration, Discussion Response to Teaching: Verbalize Understanding, Return Demonstration, Reinforcement Needed Time/GCodes Time In: 815 Time Out: 900 Total Billed Treatment Time: 45 Total Billed Treatment 1,EX15m,GT15m,FA15m KIP HUMPHREYS LIFE INSURANCE UNDERWRITER Nov 10, 2020 09:10
--- NOTE | 2020-11-10 09:43 | Speech Therapy Daily Note ---
Speech Daily Progress Note Subjective Date Seen by Provider: Nov 10, 2020 Time Seen by Provider: 00:30 Patient had just been put back to bed and receiving nursing care when I entered her room. Patient was more alert and talkative this day even though she continues to be in a lot of pain. Objective Patient completed a series of memory questions related to her medical history and her current medical status with 60% accuracy given moderate cues and repetitions. Assessment Assessment Current Status: Fair Progress Treatment Plan Continue Plan of Care Speech Short Term Goals Short Term Goals Short Term Goals 1) Patient will complete memory tasks related to her daily needs with 90% or greater with minimal cues. 2) Patient will complete safety awareness tasks related to her daily needs with 90% or greater with minimal cues. 3) Patient will complete problem solving tasks related to her daily needs with 90% or greater with minimal cues. Speech Senior Living Goals Senior Living Goals Patient will improve cognitive-communication abilities in order to complete daily tasks with minimal assist. Speech-Plan Patient/Family Goals Patient/Family Goals: Patient plans on returning home with family support, although she does report she thinks she may require more assistance this time around. Treatment Plan Speech Therapy Treatment Plan: Continue Plan of Care Treatment Duration: Nov 20, 2020 Frequency: 4 times per week (Patient will receive skilled ST 4-5x per week) Estimated Hrs Per Day: .5 hour per day Rehab Potential: Fair Barriers to Learning: Patient's cognitive deficits related to her memory, current medical status, age Pt/Family Agrees to Plan: Yes Safety Risks/Education Teaching Recipient: Patient Teaching Methods: Demonstration, Discussion Response to Teaching: Verbalize Understanding, Return Demonstration Education Topics Provided: Continued safety, communication of wants/needs related to her medial needs Time Speech Therapy Time In: 09:00 Speech Therapy Time Out: 09:30 Total Billed Time: 30 Billed Treatment Time 1, PATEL Delcid Nov 10, 2020 09:43
[2020-11-10] MEDS: IRON SUCROSE 200 MG/10 ML (VENOFER) VIAL IV SCH (10:02)
--- NOTE | 2020-11-10 10:10 | NUR ---
PT. STATES SHE FEELS SO MUCH BETTER.
--- NOTE | 2020-11-10 10:43 | NUR ---
TPN: TPN to infuse at 62 ml/hr, providing 1360 kcal including 70 gm protein, pt eating 10% meals.
--- NOTE | 2020-11-10 11:42 | Occupational Ther Daily Note ---
OT Current Status-Daily Note Subjective Pt. reports 10/10 pain in abdomen. Pt. has just had phentonyl for pain. Mental Status/Objective Patient Orientation: Person Attachments: Drains, IV ADL-Treatment Therapy Code Descriptions/Definitions Functional [place] Measure: 0=Not Assessed/NA 4=Minimal Assistance 1=Total Assistance 5=Supervision or Setup 2=Maximal Assistance 6=Modified [place] 3=Moderate Assistance 7=Complete IndependenceSCALE: Activities may be completed with or without assistive devices. 2-Qkqzuocwxi-hurfuur completes the activity by him/herself with no assistance from a helper. 5-Set-up or Clean-up Assistance-helper sets up or cleans up; patient completes activity. [place] assists only prior to or following the activity. 4-Supervision or Touching Assistance-helper provides verbal cues and/or touching/steadying and/or contact guard assistance as patient completes activity. Assistance may be provided throughout the activity or intermittently. 3-Partial/Moderate Assistance-helper does LESS THAN HALF the effort. [place] lifts, holds or supports trunk or limbs, but provides less than half the effort. 2-Substantial/Maximal Assistance-helper does MORE THAN HALF the effort. [place] lifts or holds trunk or limbs and provides more than half the effort. 4-Jemrsfxev-jqmjwo does ALL the effort. Patient does none of the effort to complete the activity. Or, the assistance of 2 or more helpers is required for the patient to complete the activity. If activity was not attempted, code reason: 7-Patient Refused. 9-Not Applicable-not attempted and the patient did not perform the activity before the current illness, exacerbation or injury. 10-Not Attempted due to Environmental Limitations-(lack of equipment, weather restraints, etc.). 88-Not Attempted due to Medical Conditions or Safety Concerns. Oral Hygiene (QC): 7 Shower/Bathe Self (QC): 3 (Min assist in stance to wash bottom. Pt. also requires multiple cues as she starts to become groggy after pain medication. ) Lower Body Dressing (QC): 3 (Pt. is able to doff brief after she has pulled it down to sit on toilet. However, requires cues to do so.) On/Off Footwear: 3 (Pt. able to doff slipper socks, but after shower, she requires assistance to don new ones. She reports significant pain with bending over and is unable to fully attend to task.) Toileting Hygiene (QC): 2 (Pt. incontinent of urine in brief. She is able to pull down her brief, and have BM on toilet, but requires assistance to cleanse rear shirley area.) Toilet Transfer (QC): 3 (Min assist with walker.) Other Treatment Pt. transfers supine-sit with SBA. Nursing reports that she has just had pain medication for abdominal pain. Pt. ambulates to toilet in bathroom with walker and with min assist. After toileting, pt. agrees to shower. Once she is in shower, she becomes slightly groggy from medication, and has difficulty attending to the task of bathing/dressing. She attempts to put soap on the shower head instead of wash cloth, and then requires cues to leave her IV in her arm alone while showering. Pt. continues to be groggy and OT assists with finishing ADLs. Pt. ambulates to bed and requires SBA and increased time to transfer to supine position. Nursing comes back in to assess pt. and change bandages. All needs are met. Education OT Patient Education: Correct positioning, Modified ADL techniques, Progress toward Goal/Update tx plan, Purpose of tx/functional activities, Reviewed precautions, Rehab process, Transfer techniques Teaching Recipient: Patient Teaching Methods: Demonstration, Discussion Response to Teaching: Verbalize Understanding, Return Demonstration OT Short Term Goals Short Term Goals Time Frame: Nov 20, 2020 Toileting hygiene: 3 Shower/bathe self: 3 Upper body dressin Lower body dressin OT Camera Supervisor Goals Camera Supervisor Goals Time Frame: Nov 27, 2020 Eating (QC): 6 Oral Hygiene (QC): 6 Toileting Hygiene (QC): 6 Shower/Bathe Self (QC): 5 Upper Body Dressing (QC): 5 Lower Body Dressing (QC): 5 On/Off Footwear (QC): 6 Additional Goals: 1-Demonstrate ADL Tasks, 2-Verbalize Understanding, 3- ImproveStrength/Yanick 1=Demonstrate adherence to instructed precautions during ADL tasks. 2=Patient will verbalize/demonstrate understanding of assistive devices/modifications for ADL. 3=Patient will improve strength/tolerance for activity to enable patient to perform ADL's. OT Education/Plan Problem List/Assessment Assessment: Decreased Activ Tolerance, Dependent Transfers, Impaired Bed Mobility, Impaired Funct Balance, Impaired I ADL's, Impaired Self-Care Skills Discharge Recommendations Plan/Recommendations: Continue POC Therapy Discharge Recommendati: Post Acute OT Treatment Plan/Plan of Care Treatment,Training & Education: Yes Patient would benefit from OT for education, treatment and training to promote independence in ADL's, mobility, safety and/or upper extremity function for ADL's. Plan of Care: ADL Retraining, Caregiver Training, Concurrent Therapy, Functional Mobility, Group Exercise/Act as Ind, UE Funct Exercise/Act, W/C Management Training Treatment Duration: Nov 27, 2020 Frequency: At least 5 of 7 days/Wk (IRF) Estimated Hrs Per Day: .25 hour per day Agreement: Yes Rehab Potential: Fair Time/GCodes Start Time: 10:20 Stop Time: 11:05 Total Time Billed (hr/min): 45 Billed Treatment Time 1, ADL x 3 YUNIEL MEJIAS OT Nov 10, 2020 11:42
--- NOTE | 2020-11-10 13:36 | Physical Therapy Daily Note ---
PT Daily Note-Current Subjective PT OT co Rx secondary to pts low level of tolerance for activity and high pain level. Pt. found in bathroom with call button pulled out of wall, pt.in bathroom having crawled over bed rail, pushed IV standard into bthrm with her and was sitting on toilet. Pt. appears in distress and c/o pain 10/10 , nursing notified. Pain Numeric Pain Scale: 10-Worst Possible Pain Location: Medial Location Body Site: Abdomen Pain Description: Pressure Appearance grimacing, eyes closed, deep sighs and moans Mental Status Patient Orientation: Confused Attachments: Drains, IV Transfers SCALE: Activities may be completed with or without assistive devices. 5-Wapfbajmcd-xkhvapq completes the activity by him/herself with no assistance from a helper. 5-Set-up or Clean-up Assistance-helper sets up or cleans up; patient completes activity. [place] assists only prior to or following the activity. 4-Supervision or Touching Assistance-helper provides verbal cues and/or touching/steadying and/or contact guard assistance as patient completes activity. Assistance may be provided throughout the activity or intermittently. 3-Partial/Moderate Assistance-helper does LESS THAN HALF the effort. [place] lifts, holds or supports trunk or limbs, but provides less than half the effort. 2-Substantial/Maximal Assistance-helper does MORE THAN HALF the effort. [place] lifts or holds trunk or limbs and provides more than half the effort. 3-Udouzciuz-jmisms does ALL the effort. Patient does none of the effort to complete the activity. Or, the assistance of 2 or more helpers is required for the patient to complete the activity. If activity was not attempted, code reason: 7-Patient Refused. 9-Not Applicable-not attempted and the patient did not perform the activity before the current illness, exacerbation or injury. 10-Not Attempted due to Environmental Limitations-(lack of equipment, weather restraints, etc.). 88-Not Attempted due to Medical Conditions or Safety Concerns. pt. stood from toilet min assist, TRFd in to bed min to CGA Gait Training Gait Assistive Device: FWW 20 ft bathroom to bed, flexed at trunk, PT OT and nursing all present to assess and assist Treatments pt. assisted back to bed, call castaneda tested and reinserted, IV plugged back in, pt. with high level of pain but wanted to attempt to eat a meal. Pt did not really take any bites, requested hot coffe, was also given warmed blanket applied to abdomen, instructed in use of call castaneda/red button etc. Nurse present to assess pain needs Assessment Current Status: Poor Progress confused, exited bed without assist, unsafe judgement PT Short Term Goals Short Term Goals Time Frame: Nov 13, 2020 Roll Left & Right: 6 Sit to lyin Lying to sitting on side of be: 4 Sit to stand: 4 Chair/dox-rv-ctcmb transfer: 4 Walk 10 feet: 4 Walk 50 feet with two turns: 4 PT Assisted Goals Compound Mixer Goals PT Assisted Goals Time Frame: Nov 27, 2020 Roll Left & Right (QC): 6 Sit to Lying (QC): 6 Lying-Sitting on Side/Bed(QC): 6 Sit to Stand (QC): 6 Chair/Lah-rt-Agbai Xfer(QC): 6 Toilet Transfer (QC): 6 Car Transfer (QC): 6 Does the Patient Walk: Yes Walk 10 feet (QC): 6 Walk 50ft with 2 Turns (QC): 6 Walk 150 ft (QC): 6 Walking 10ft on Uneven Surface: 6 1 Step (curb) (QC): 4 4 Steps (QC): 4 12 Steps (QC): 88 Picking up an Object (QC): 88 Wheel 50 feet with 2 turns (QC: 9 Wheel 150 feet: 9 PT Plan Treatment/Plan Treatment Plan: Continue Plan of Care Treatment Plan: Bed Mobility, Education, Functional Activity Yanick, Functional Strength, Group Therapy, Gait, Safety, Therapeutic Exercise, Transfers Treatment Duration: Nov 27, 2020 Frequency: At least 5 of 7 days/Wk (IRF) Estimated Hrs Per Day: 1.5 hours per day Patient and/or Family Agrees t: Yes Safety Risks/Education Patient Education: Gait Training, Transfer Techniques, Safety Issues Time/GCodes Time In: 1300 Time Out: 1330 Total Billed Treatment Time: 30 Total Billed Treatment 1,FA30m (PT OT co Rx 30m) KIP [employer] DIRECT[employer] Nov 10, 2020 13:36
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
--- NOTE | 2020-11-10 14:55 | NUR ---
TPN CONT.AT 56/MIN. PER LEFT DOUBLE PICC LINE. SITE TO LEFT ARM PICC LINE CLEAR. RIGHT OLD PICC LINE SITE WITH SOME REDNESS AND MOD. SWELLING. DRESSING IN PLACE. WARM PACK APPLIED TO RIGHT ARM FOR SWELLING.
[2020-11-10 15:40] VITALS: BP 130/66
[2020-11-10] MEDS ORDERED: SODIUM CHLORIDE IV SCH ×11 (17:00)
[2020-11-10] MEDS ORDERED: ELECTROLYTES INJ 40 ML, POTASSIUM PHOSPHATE INJ 24 MM, VITAMIN MULTI INJECTION 10 ML, T... IV SCH ×7 (17:00)
[2020-11-10] MEDS ORDERED: SODIUM ACETATE IV SCH ×11 (17:00)
[2020-11-10] MEDS ORDERED: [UNRECOGNIZED DRUG - OTHER] IV SCH ×11 (17:00)
--- NOTE | 2020-11-10 17:26 | NUR ---
LORTAB GIVEN PO FOR C/O OF ABD. PAIN AT SITE OF CHRISTA DRAIN. CHRISTA DRAIN SITE WITH SOME REDNESS AND LEAKING SEROUS DRAINAGE AROUND SITE. 100 CC SEROUS DRAINAGE NOTED FROM CHRISTA DRAIN.
--- NOTE | 2020-11-10 18:07 | NUR ---
CONT. TO C/O OF PAIN IN ABD. FACIAL GRIMACE , MOANING AND HOLDING ABD AREA. FENTANYL 25 MCG GIVEN IV SLOWLY FOR CONT. PAIN 06/08.
--- NOTE | 2020-11-10 18:29 | NUR ---
FACE TIMED DAUGHTER. CHEERFUL AND TALKATIVE WITH DAUGHTER. PT. STATES PAIN HAS EASED UP. RATES PAIN 3/10.
--- NOTE | 2020-11-10 19:12 | NUR ---
Bedside report received from MICHAEL CROW, assume care of pt
--- NOTE | 2020-11-10 20:36 | NUR ---
Pt refused Colace, Miralax & Senokot, c/o abd pain level 3/10 on numeric scale, Oxyir 5mg given, will give Questran later
--- NOTE | 2020-11-10 21:15 | NUR ---
Resting quietly in bed, pain level 0/10 on CNPI SCALE
[2020-11-11] MEDS: HYDROcodone/APAP 5 MG/325 MG (LORTAB) TAB PO PRN ×4 (03:24→20:03)
--- NOTE | 2020-11-11 03:24 | NUR ---
PT c/o pain level 8/10 on numeric scale, lortab 5 1 tab given
--- NOTE | 2020-11-11 03:59 | NUR ---
Resting quietly in bed, pain level 0/10 on CNPI SCALE
[2020-11-11] MEDS: fentaNYL INJECTION 100 MCG/2 ML AMP IVP PRN (06:02)
[2020-11-11] MEDS: CATHETER FLUSH 10 ML SYR IV PRN (06:02)
--- NOTE | 2020-11-11 06:02 | NUR ---
c/o abd pain, level 8/10 on numeric scale, fentanyl 25mcg iv given
[2020-11-11] MEDS: inSUlin ASPART (NovoLOG) 1 UNIT/0.01 ML (CHARGE PER UNIT) SC SCH ×4 (06:03→20:27)
[2020-11-11 06:21] VITALS: BP 125/60
--- NOTE | 2020-11-11 06:22 | NUR ---
Resting quietly in bed, pain level 0/10 on CNPI SCALE
[2020-11-11 06:38] LABS: ALBUMIN 2.1 GM/DL (3.2-4.5)
[2020-11-11 06:39] LABS: CHLORIDE 108 MMOL/L (98-107); POTASSIUM 4.5 MMOL/L (3.6-5.0); SODIUM 136 MMOL/L (135-145)
[2020-11-11 06:40] LABS: CALCIUM 7.8 MG/DL (8.5-10.1)
[2020-11-11 06:41] LABS: GLUCOSE 109 MG/DL (70-105); TOTAL PROTEIN 4.2 GM/DL (6.4-8.2)
[2020-11-11 06:42] LABS: CARBON DIOXIDE 22 MMOL/L (21-32)
[2020-11-11 06:43] LABS: BILIRUBIN,TOTAL 0.2 MG/DL (0.1-1.0)
[2020-11-11 06:44] LABS: PHOSPHORUS 2.4 MG/DL (2.3-4.7)
[2020-11-11 06:45] LABS: ALKALINE PHOSPHATASE 100 U/L (40-136); GFR ESTIMATED > 60
[2020-11-11 06:46] LABS: BUN/CREATININE RATIO 22
[2020-11-11 06:47] LABS: MAGNESIUM 2.2 MG/DL (1.6-2.4)
[2020-11-11 06:48] LABS: ALANINE AMINOTRANSFERASE 15 U/L (0-55)
--- NOTE | 2020-11-11 07:31 | Progress Note - Surgery ---
DIANA MARINLAN MED STUDENT 11/11/20 0731: Subjective Date Seen by a Provider: Nov 11, 2020 Time Seen by a Provider: 07:00 Subjective/Events-last exam Pt was sitting up in her chair sleeping when I entered the room with her breakfast tray in front of her. She was easy to arouse and was alert and orie nted to questioning. There was very little of her breakfast eaten and when asked about it she stated that she hadn't been hungry since coming to the hospital and that the only part that she enjoys is the coffee. Pt was on room air and denied SOB. When asked about pain she stated that she is constantly in pain but that there was no area of specific pain tht she could point to. Right upper extremity was edematous and significantly more swollen than her left upper extremity. Cellutilits on her right proximal forearm appeared to be less than yesterday. Throughout the night she required 3 pain pills. She continues to work with PT/OT and walking to and from the bathroom and to her chair with assistance. CHRISTA drain continues to leak and requires dressing changes throughout the day. Drain was full of serous fluid this morning. The nurse mentioned that Pt had soft/liqiud BMs yesterday and that she didn't want to take her stool softener. Upon questioning Pt became upset about not feeling like she is getting any better but quickly brightened up after talking about it for a second. Review of Systems General: Fatigue; No Appetite Cardiovascular: Edema Gastrointestinal: Abdominal Pain Neurological: Weakness Focused Exam Time of Focused Exam: 07:05 Respiratory: Chest Non Tender, Lungs Clear (clear superior lobes), No Accessory Muscle Use, Decreased Breath Sounds Cardiovascular: Regular Rate, Rhythm, No Gallop, No Murmur, Normal Peripheral Pulses Skin: normal color, warm/dry, other (cellulitis on right proximal forearm) Objective Exam Vital Signs Date Time Temp Pulse Resp B/P (MAP) Pulse Ox O2 Delivery O2 Flow Rate FiO2 11/11/20 06:21 37.4 100 20 125/60 (81) 95 Room Air 11/10/20 22:15 93 Room Air 11/10/20 20:40 Room Air 11/10/20 15:40 37.0 93 16 130/66 (87) 95 11/10/20 15:14 91 Room Air 11/10/20 09:00 Room Air I & O 11/11/20 07:00 Intake Total 2979 ml Output Total 180 ml Balance 2799 ml Capillary Refill : Less Than 3 Seconds General Appearance: WD/WN, Chronically ill, Mild Distress, Thin, Other (frail, pale, lethargic) HEENT: PERRL/EOMI Neck: Normal Inspection, Non Tender, Supple Respiratory: Chest Non Tender, Lungs Clear (clear superior lobes), No Accessory Muscle Use, No Respiratory Distress, Decreased Breath Sounds Cardiovascular: Regular Rate, Rhythm, No Gallop, No Murmur, Normal Peripheral Pulses Gastrointestinal: normal bowel sounds, soft, no organomegaly, no pulsatile mass, distended (mildly) Extremity: Normal Capillary Refill, Normal Inspection, Non Tender, Calf Tenderness (left calf tenderness to palpation over previous surgical scar), Swelling (right upper extremity), Other (cellulitis on right proximal forearm surrounding previous picc line) Neurologic/Psychiatric: Alert, Oriented x3, No Motor/Sensory Deficits, Abnormal Gait, Depressed Affect, Motor Weakness (severe weakness 3/5 all extremities) Skin: Normal Color, Warm/Dry Lymphatic: No Adenopathy (axila, inguinal,or cervical) Results Lab Laboratory Tests 11/10/20 10:52: Glucometer 94 11/10/20 15:42: Glucometer 179H 11/10/20 20:07: Glucometer 137H 11/11/20 05:33: Glucometer 108 11/11/20 06:10: Sodium Level 136, Potassium Level 4.5, Chloride Level 108H, Carbon Dioxide Level 22, Anion Gap 6, Blood Urea Nitrogen 13, Creatinine 0.60, Estimat Glomerular Filtration Rate > 60, BUN/Creatinine Ratio 22, Glucose Level 109H, Calcium Level 7.8L, Corrected Calcium 9.3, Phosphorus Level 2.4, Magnesium Level 2.2, Total Bilirubin 0.2, Aspartate Amino Transf (AST/SGOT) 23, Alanine Aminotransferase (ALT/SGPT) 15, Alkaline Phosphatase 100, Total Protein 4.2L, Albumin 2.1L Assessment/Plan Assessment/Plan Assessment/Plan Hemorrhagic pancreatitis Malnutrition B/L pleural efffusion continue PT/OT continue pain medication as needed swollen right upper extremity Will try to get CHRISTA drain out, pt still has abdominal pain and may benefit from TPN (can be NPO which may help the pancreatitis). Pt's amylase and lipase were normal last check, but CT may have looked slightly worse. Monitor right arm cellulitis. Clinical Quality Measures DVT/VTE Risk/Contraindication: Risk Factor Score Per Nursin RFS Level Per Nursing on Admit: 4+=Very High Other: RISK FOR FURTHER BLEEDING IN ABDOMEN MAIKEL SAEED DO 11/11/20 1311: Subjective Time Seen by a Provider: 11:24 Subjective/Events-last exam Pt seen and examined, when I first walked in she stated she felt great. Then nurse walked in and she said she was tired, still having pain; "I guess I'm not doing so good today". Nurse stated she got out 140ml from CHRISTA drain. Review of Systems General: Fatigue, Appetite (almost none) Pulmonary: No Dyspnea, No Cough Cardiovascular: Edema; No: Chest Pain, Palpitations Gastrointestinal: Abdominal Pain Objective Exam General Appearance: Chronically ill, Thin Respiratory: Lungs Clear (clear superior lobes), No Accessory Muscle Use, No Respiratory Distress, Decreased Breath Sounds Cardiovascular: Regular Rate, Rhythm, No Murmur Gastrointestinal: soft, distended (mildly), tenderness Extremity: Swelling (right upper extremity) Assessment/Plan Assessment/Plan Assessment/Plan Hemorrhagic Pancreatitis Malnutrition B/L pleural effusion TPN started, must leave CHRISTA drain because of high output. Monitor right arm (but looks like it is getting better). Supervisory-Addendum Brief Verification & Attestation Participated in pt care: history, MDM, physical Personally performed: exam, history, MDM Care discussed with: Medical Student Procedures: n/a Verification and Attestation of Medical Student E/M Service A medical student performed and documented this service. I then reviewed and verified all information documented by the medical student and made modifications to such information, when appropriate. I personally performed a physical exam, medical decision making and then discussed any differences between the notes and made revisions as necessary to create one note. Maikel Saeed , 11/11/20 , 13:11 BROOKS MARIN MED STUDENT Nov 11, 2020 07:31 MAIKEL SAEED DO Nov 11, 2020 13:11
[2020-11-11] MEDS: RT-ALBUTEROL SULF 2.5 MG/3 ML PRE-MIX VIAL INH SCH (07:54)
[2020-11-11] MEDS: FUROSEMIDE 40 MG (LASIX) TAB PO SCH (08:14)
[2020-11-11] MEDS: LIPASE/AMYLASE/PROTEASE (PANCRELIPASE) 5,000 UNITS CAP PO SCH ×3 (08:14→17:15)
[2020-11-11] MEDS: PANTOPRAZOLE 40 MG (PROTONIX) TAB PO SCH (08:14)
[2020-11-11] MEDS: SENNA W/DOCUSATE (SENOKOT S) TABLET PO SCH ×2 (08:16→20:26)
[2020-11-11] MEDS: DOCUSATE SODIUM 100 MG (COLACE) CAP PO SCH ×2 (08:16→20:26)
[2020-11-11] MEDS: polyethylene glycoL POWDER 17 GM (MIRALAX) PACK PO SCH ×2 (08:16→20:26)
[2020-11-11] MEDS: CHOLESTYRAMINE 4 GM (QUESTRAN LITE, PREVALITE) PKT PO SCH ×4 (08:17→20:26)
--- NOTE | 2020-11-11 08:35 | NUR ---
TPN: PT consuming less than 10% meals. Continue TPN at 62 ml/hr providing 1360 kcal with 70 gm protein.
--- NOTE | 2020-11-11 08:46 | PM&R Progress Note ---
Subjective HPI/CC On Admission Date Seen by Provider: Nov 11, 2020 Time Seen by Provider: 09:00 Subjective/Events-last exam 11/11/20: Pt is doing pretty well Thought that I was the speech therapist even though I have taken care of her for the past six days Right arm edema is being helped by wearing a sleeve Confusion is noted TPN is at 62 CCs per hour Ran a little bit of a low-grade fever last night 11/10/20: Venofer is ordered since picc line was replaced TPN maintained Bowels moved yesterday and loose Dr. Díaz has been consulted 11/09/20: Pt doing a little bit better Variable mentation WBC 11.9 Hgb 8.4 Picc line will be replaced Labs look good Amylase and lipase normal 11/08/20: PICC will be replaced since it is leaking and needs assessed Holding Venofer until new PICC is in place Questran is working for the loose stools Minimal incontinence today of bladder Last dose of abx today Not eating well Needs TPN to gain strength Updated daughter in-depth Told me with RN in room she lived in [place], [place] and daughter told me she lives in [facility] 11/07/20: Patient having difficulty Cant really eat Frustrated because she thought she would be home by now Unrealistic expectations are apparent WBC 14 hgb 9.8 and platelets 494 DARRELL hose on Loose stools so will start Questran QID Very comple issues May need to be transferred back up to the floor if she can't handle structured PT Review of Systems General: Fatigue, Malaise Gastrointestinal: Abdominal Pain Neurological: Confusion Focused Exam Time of Focused Exam: 07:05 Objective Exam Vital Signs Vital Signs Date Time Temp Pulse Resp B/P (MAP) Pulse Ox O2 Delivery O2 Flow Rate FiO2 11/11/20 21:00 Room Air 11/11/20 17:22 37.2 101 18 162/85 (110) 96 11/07/20 09:00 1.00 Capillary Refill : Less Than 3 Seconds General Appearance: WD/WN, Chronically ill, Mild Distress, Thin, Other (frail, pale, lethargic) HEENT: PERRL/EOMI Neck: Normal Inspection, Non Tender, Supple Respiratory: Chest Non Tender, Lungs Clear (clear superior lobes), No Accessory Muscle Use, No Respiratory Distress, Decreased Breath Sounds Cardiovascular: Regular Rate, Rhythm, No Gallop, No Murmur, Normal Peripheral Pulses Gastrointestinal: Normal Bowel Sounds, No Organomegaly, No Pulsatile Mass, Non Tender, Soft Back: Normal Inspection, No CVA Tenderness, No Vertebral Tenderness Extremity: Normal Capillary Refill, Normal Inspection, Non Tender, Calf Tenderness (left calf tenderness to palpation over previous surgical scar), Swelling (right upper extremity), Other (cellulitis on right proximal forearm surrounding previous picc line) Neurologic/Psychiatric: Alert, Oriented x3, No Motor/Sensory Deficits, Abnormal Gait, Depressed Affect, Motor Weakness (severe weakness 3/5 all extremities) Skin: Normal Color, Warm/Dry Lymphatic: No Adenopathy (axila, inguinal,or cervical) Results/Procedures Lab Laboratory Tests 11/11/20 06:10 Patient resulted labs reviewed. FIM Transfers Therapy Code Descriptions/Definitions Functional [place] Measure: 0=Not Assessed/NA 4=Minimal Assistance 1=Total Assistance 5=Supervision or Setup 2=Maximal Assistance 6=Modified [place] 3=Moderate Assistance 7=Complete IndependenceSCALE: Activities may be completed with or without assistive devices. 5-Qxlstqpbmh-cqnrdpi completes the activity by him/herself with no assistance from a helper. 5-Set-up or Clean-up Assistance-helper sets up or cleans up; patient completes activity. [place] assists only prior to or following the activity. 4-Supervision or Touching Assistance-helper provides verbal cues and/or touching/steadying and/or contact guard assistance as patient completes activity. Assistance may be provided throughout the activity or intermittently. 3-Partial/Moderate Assistance-helper does LESS THAN HALF the effort. [place] lifts, holds or supports trunk or limbs, but provides less than half the effort. 2-Substantial/Maximal Assistance-helper does MORE THAN HALF the effort. [place] lifts or holds trunk or limbs and provides more than half the effort. 3-Fvpjufnvw-wibmnb does ALL the effort. Patient does none of the effort to complete the activity. Or, the assistance of 2 or more helpers is required for the patient to complete the activity. If activity was not attempted, code reason: 7-Patient Refused. 9-Not Applicable-not attempted and the patient did not perform the activity before the current illness, exacerbation or injury. 10-Not Attempted due to Environmental Limitations-(lack of equipment, weather restraints, etc.). 88-Not Attempted due to Medical Conditions or Safety Concerns. Roll Left to Right (QC): 6 Sit to Lying (QC): 6 Sit to Stand (QC): 5 Chair/Jmr-vs-Ceveh Xfer(QC): 5 Car Transfer (QC): 4 Gait Training Does the Patient Walk?: Yes Walk 10 feet (QC): 4 Walk 50 ft with 2 Turns(QC): 88 Walk 150 ft (QC): 88 Walking 10ft/uneven surface-QC: 88 Gait Persons Needed: 1 Gait Assistive Device: FWW Wheelchair Training Does the Pt Use a Wheelchair?: Yes Wheel 50 ft with 2 turns (QC): 88 Wheel 150 ft (QC): 88 Type of Wheelchair: Manual Stair Training 1 Step (curb) (QC): 88 4 Steps (QC): 88 12 Steps (QC): 88 Balance Picking up an Object (QC): 88 ADL-Treatment Eating (QC): 6 (cup handed pt pt and brought to mouth. Pt states she is able to grab cup and bring to mouth if needed.) Oral Hygiene (QC): 7 Shower/Bathe Self (QC): 3 (Min assist in stance to wash bottom. Pt. also requires multiple cues as she starts to become groggy after pain medication. ) Upper Body Dressing (QC): 4 (SBA, cues required with buttons as pt was off by 1 button hole.) Lower Body Dressing (QC): 3 (Pt. is able to doff brief after she has pulled it down to sit on toilet. However, requires cues to do so.) On/Off Footwear (QC): 3 (Pt. able to doff slipper socks, but after shower, she requires assistance to don new ones. She reports significant pain with bending over and is unable to fully attend to task.) Toileting Hygiene (QC): 2 Toilet Transfer (QC): 3 Assessment/Plan Assessment and Plan Assess & Plan/Chief Complaint Assessment: Critical illness myopathy Hemorrhagic pancreatitis Esophagus ulcer on EGD Ascites s/p acute respiratory failure VTE contraindication due to hemorrhage Fluid overload Plan: IRF protocol Pain meds Monitor bowel routine Very weak 11/07/20: Very weak Abdominal pain management Loose stools Abx Monitor labs May fail IRF? 11/08/20: Patient a bit improved Confusion noted Replace PICC Hold Venofer until new picc 11/09/20: TPN PICC replaced Monitor pain 11/10/20: TPN Monitor closely High risk for decompensation 11/11/20: TPN Monitor confusion IRF protocol (1) Critical illness myopathy Status: Acute (2) Ulcer of pharynx Status: Acute (3) Esophageal ulcer Status: Acute (4) Ascites Status: Acute (5) Acute hemorrhagic pancreatitis Status: Acute (6) Severe sepsis Status: Acute (7) Debility (8) WHITNEY (acute kidney injury) Status: Resolved Resolution Date/Time: 11/02/20 @ 17:02 (9) Pleural cavity effusion (10) Lactic acidosis Status: Resolved Resolution Date/Time: 11/02/20 @ 17:02 (11) Polycythemia Status: Resolved Resolution Date/Time: 11/02/20 @ 17:03 (12) Essential (primary) hypertension Status: Chronic (13) CAD (coronary artery disease) Status: Chronic (14) Bradycardia Status: Acute CONNOR BUSTAMANTE DO Nov 11, 2020 08:46
--- NOTE | 2020-11-11 11:15 | Speech Therapy Daily Note ---
Speech Daily Progress Note Subjective Date Seen by Provider: Nov 11, 2020 Time Seen by Provider: 00:30 Patient was sitting up in her recliner receiving her IV. Patient continues to be in a lot of pain. She was confused today and asked me where I had left Jayesh which is apparently her grandson. Objective Patient completed a series of safety awareness cards related to scenarios she may encounter with 60% given mod to max cuing. Assessment Assessment Current Status: Fair Progress Treatment Plan Continue Plan of Care Speech Short Term Goals Short Term Goals Short Term Goals 1) Patient will complete memory tasks related to her daily needs with 90% or greater with minimal cues. 2) Patient will complete safety awareness tasks related to her daily needs with 90% or greater with minimal cues. 3) Patient will complete problem solving tasks related to her daily needs with 90% or greater with minimal cues. Speech Photovoltaic Installation Technician Goals Halfway Goals Patient will improve cognitive-communication abilities in order to complete daily tasks with minimal assist. Speech-Plan Patient/Family Goals Patient/Family Goals: Patient plans on returning to her home with family support. Treatment Plan Speech Therapy Treatment Plan: Continue Plan of Care Patient does express things many times related to "not making it this time." Treatment Duration: Nov 20, 2020 Frequency: 4 times per week (Patient will receive skilled ST 4-5x per week) Estimated Hrs Per Day: .5 hour per day Rehab Potential: Fair Barriers to Learning: Patient's level of pain and confusion Pt/Family Agrees to Plan: Yes Safety Risks/Education Teaching Recipient: Patient Teaching Methods: Demonstration, Discussion Response to Teaching: Verbalize Understanding, Return Demonstration, Reinforcement Needed Education Topics Provided: Continued safety within her room, utilization of her call light as needed Time Speech Therapy Time In: 09:00 Speech Therapy Time Out: 09:30 Total Billed Time: 30 Billed Treatment Time 1, PATEL Delcid Nov 11, 2020 11:15
--- NOTE | 2020-11-11 11:27 | NUR ---
DR. SAEED IN TO SEE PATIENT. INFORMED OF CONTINUED ABDOMINAL PAIN AND 140MLS OF SEROUS FLUID OUT FROM CHRISTA DRAIN SO FAR THIS SHIFT. NO NEW ORDERS REC'D.
--- NOTE | 2020-11-11 12:05 | Occupational Ther Daily Note ---
OT Current Status-Daily Note Subjective Pt. reports 10/10 pain in abdomen. Nursing gives pt. pain medication. Mental Status/Objective Patient Orientation: Confused ADL-Treatment Therapy Code Descriptions/Definitions Functional [place] Measure: 0=Not Assessed/NA 4=Minimal Assistance 1=Total Assistance 5=Supervision or Setup 2=Maximal Assistance 6=Modified [place] 3=Moderate Assistance 7=Complete IndependenceSCALE: Activities may be completed with or without assistive devices. 9-Kccktugvjg-iiueokl completes the activity by him/herself with no assistance from a helper. 5-Set-up or Clean-up Assistance-helper sets up or cleans up; patient completes activity. [place] assists only prior to or following the activity. 4-Supervision or Touching Assistance-helper provides verbal cues and/or touching/steadying and/or contact guard assistance as patient completes activity. Assistance may be provided throughout the activity or intermittently. 3-Partial/Moderate Assistance-helper does LESS THAN HALF the effort. [place] lifts, holds or supports trunk or limbs, but provides less than half the effort. 2-Substantial/Maximal Assistance-helper does MORE THAN HALF the effort. [place] lifts or holds trunk or limbs and provides more than half the effort. 0-Xbaglxxzi-luxsny does ALL the effort. Patient does none of the effort to complete the activity. Or, the assistance of 2 or more helpers is required for the patient to complete the activity. If activity was not attempted, code reason: 7-Patient Refused. 9-Not Applicable-not attempted and the patient did not perform the activity befo re the current illness, exacerbation or injury. 10-Not Attempted due to Environmental Limitations-(lack of equipment, weather re straints, etc.). 88-Not Attempted due to Medical Conditions or Safety Concerns. Oral Hygiene (QC): 4 (SBA and cues to brush teeth seated at sink.) Shower/Bathe Self (QC): 7 Toileting Hygiene (QC): 3 (Mod assist in stance.) Toilet Transfer (QC): 3 (Min assist.) Other Treatment Pt. seen twice this a.m. for co-treatment with PT. Pt. requires co-treatment due to significant pain, confusion, and poor endurance. Pt. requires continual cues and rest breaks. OT addressed ADL skills, right UE swelling/edema, and cognition. PT addresses LE strength, endurance, and mobility. During treatments, pt. stands min assist with walker, but has difficulty walking further than 25 feet. She will often close her eyes and requires cues to continue with what she is doing. Pt. toilets with mod assistance during a.m. treatments. She does this twice. Noted edema in right UE. Nursing okay for OT to complete retrograde massage and apply compression glove. Noted intermittent confusion this date. Pt. verbalizes several times that she needs to call her spouse, but then realizes that her spouse has . Pt does brush her teeth and hair with cues seated at sink. Pt. does attempt to eat breakfast, but is not very hungry and so declines. All needs met up in chair with chair alarm on and call light/water within reach after each treatment. Please see below for treatment times. Education OT Patient Education: Correct positioning, Modified ADL techniques, Progress toward Goal/Update tx plan, Purpose of tx/functional activities, Reviewed precautions, Rehab process, Transfer techniques Teaching Recipient: Patient Teaching Methods: Demonstration, Discussion Response to Teaching: Verbalize Understanding, Return Demonstration OT Short Term Goals Short Term Goals Time Frame: Nov 20, 2020 Toileting hygiene: 3 Shower/bathe self: 3 Upper body dressin Lower body dressin OT Nursing Home Goals Activities Officer Goals Time Frame: Nov 27, 2020 Eating (QC): 6 Oral Hygiene (QC): 6 Toileting Hygiene (QC): 6 Shower/Bathe Self (QC): 5 Upper Body Dressing (QC): 5 Lower Body Dressing (QC): 5 On/Off Footwear (QC): 6 Additional Goals: 1-Demonstrate ADL Tasks, 2-Verbalize Understanding, 3- ImproveStrength/Yanick 1=Demonstrate adherence to instructed precautions during ADL tasks. 2=Patient will verbalize/demonstrate understanding of assistive devices/modifications for ADL. 3=Patient will improve strength/tolerance for activity to enable patient to perform ADL's. OT Education/Plan Problem List/Assessment Assessment: Decreased Activ Tolerance, Decreased Safety Aware, Decreased UE Strength, Dependent Transfers, Edema, Impaired Cognition, Impaired I ADL's, Impaired Self-Care Skills Discharge Recommendations Plan/Recommendations: Continue POC Therapy Discharge Recommendati: 24 Hour Supervision, Home & Family, Post Acute OT Treatment Plan/Plan of Care Treatment,Training & Education: Yes Patient would benefit from OT for education, treatment and training to promote independence in ADL's, mobility, safety and/or upper extremity function for ADL's. Plan of Care: ADL Retraining, Caregiver Training, Concurrent Therapy, Functional Mobility, Group Exercise/Act as Ind, UE Funct Exercise/Act, W/C Management Training Treatment Duration: Nov 27, 2020 Frequency: At least 5 of 7 days/Wk (IRF) Estimated Hrs Per Day: 1.5 hours per day Agreement: Yes Rehab Potential: Fair Time/GCodes Start Time: 08:30 Stop Time: 10:15 Total Time Billed (hr/min): 55 Billed Treatment Time [id number] 1, ADL x 15minutes, FA x 15minutes- Co-treatment with PT [id number] 1, ADL x 15minutes, FA x [id number] with PT Please see above note for designated roles. YUNIEL MEJIAS OT Nov 11, 2020 12:05
[2020-11-11] MEDS ORDERED: RT-ALBUTEROL SULF 2.5 MG/3 ML PRE-MIX VIAL INH PRN (13:45)
--- NOTE | 2020-11-11 13:46 | Occupational Ther Daily Note ---
OT Current Status-Daily Note Subjective Pt alert in bed. Pt states need for bathroom. Pt states pain is severe, though does not rate. Pt agrees to allow OT to assist pt to chair. Mental Status/Objective Attachments: IV ADL-Treatment Therapy Code Descriptions/Definitions Functional [place] Measure: 0=Not Assessed/NA 4=Minimal Assistance 1=Total Assistance 5=Supervision or Setup 2=Maximal Assistance 6=Modified [place] 3=Moderate Assistance 7=Complete IndependenceSCALE: Activities may be completed with or without assistive devices. 1-Jhsktrusrt-bahjrcc completes the activity by him/herself with no assistance from a helper. 5-Set-up or Clean-up Assistance-helper sets up or cleans up; patient completes activity. [place] assists only prior to or following the activity. 4-Supervision or Touching Assistance-helper provides verbal cues and/or touching/steadying and/or contact guard assistance as patient completes activity. Assistance may be provided throughout the activity or intermittently. 3-Partial/Moderate Assistance-helper does LESS THAN HALF the effort. [place] lifts, holds or supports trunk or limbs, but provides less than half the effort. 2-Substantial/Maximal Assistance-helper does MORE THAN HALF the effort. [place] lifts or holds trunk or limbs and provides more than half the effort. 7-Rjdjlhyld-vfbwbr does ALL the effort. Patient does none of the effort to complete the activity. Or, the assistance of 2 or more helpers is required for the patient to complete the activity. If activity was not attempted, code reason: 7-Patient Refused. 9-Not Applicable-not attempted and the patient did not perform the activity before the current illness, exacerbation or injury. 10-Not Attempted due to Environmental Limitations-(lack of equipment, weather restraints, etc.). 88-Not Attempted due to Medical Conditions or Safety Concerns. Eating (QC): 6 Lower Body Dressing (QC): 3 (Min A for undergarment placement. Pt completes donning/ sit to stand and over hips with CGA.) Toileting Hygiene (QC): 2 (pt denies cleansing her self at this time, OT completes with max A while pt in stance.) Toilet Transfer (QC): 4 (CGA, use of walker.) Other Treatment Pt bed mob with increased time. Sit to stand SBA and ambulates to commode with CGA. Pt completes toileting as outlined. Pt desires to walk, ambulates to door and back and desires to sit in recliner. Pt completes this with SBA/ manipulation of IV. Pt sits/ LEs elevated, food placed in front of pt. Pt able to eat with IND. Pt states she is interested in cross word puzzles, pt is given 5 easy to medium level puzzles. Pt able to find numbers correlating with questi on, though denies completing at this time. Chair alarm on, all needs met, call light in reach. Education OT Patient Education: Correct positioning, Exercise program, Purpose of tx/functional activities, Safety issues, Transfer techniques Teaching Recipient: Patient Teaching Methods: Demonstration, Discussion Response to Teaching: Verbalize Understanding, Return Demonstration OT Short Term Goals Short Term Goals Time Frame: Nov 20, 2020 Toileting hygiene: 3 Shower/bathe self: 3 Upper body dressin Lower body dressin OT Snf Goals [employer] Duty Manager Goals Time Frame: Nov 27, 2020 Eating (QC): 6 Oral Hygiene (QC): 6 Toileting Hygiene (QC): 6 Shower/Bathe Self (QC): 5 Upper Body Dressing (QC): 5 Lower Body Dressing (QC): 5 On/Off Footwear (QC): 6 Additional Goals: 1-Demonstrate ADL Tasks, 2-Verbalize Understanding, 3- ImproveStrength/Yanick 1=Demonstrate adherence to instructed precautions during ADL tasks. 2=Patient will verbalize/demonstrate understanding of assistive devices/modifications for ADL. 3=Patient will improve strength/tolerance for activity to enable patient to perform ADL's. OT Education/Plan Problem List/Assessment Assessment: Decreased Activ Tolerance, Decreased UE Strength, Edema, Impaired I ADL's, Impaired Self-Care Skills Discharge Recommendations Plan/Recommendations: Continue POC Therapy Discharge Recommendati: 24 Hour Supervision, Post Acute OT Treatment Plan/Plan of Care Treatment,Training & Education: Yes Patient would benefit from OT for education, treatment and training to promote independence in ADL's, mobility, safety and/or upper extremity function for ADL's. Plan of Care: ADL Retraining, Caregiver Training, Concurrent Therapy, Functio nal Mobility, Group Exercise/Act as Ind, UE Funct Exercise/Act, W/C Management Training Treatment Duration: Nov 27, 2020 Frequency: At least 5 of 7 days/Wk (IRF) Estimated Hrs Per Day: 1.5 hours per day Agreement: Yes Rehab Potential: Fair Time/GCodes Start Time: 12:00 Stop Time: 12:30 Total Time Billed (hr/min): 30 Billed Treatment Time 1, ADL, FA (30) GRIFFIN BORJA OTR Nov 11, 2020 13:46
--- NOTE | 2020-11-11 14:13 | Physical Therapy Daily Note ---
PT Daily Note-Current Subjective Pt in chair, agreeable to participate with PT/OT. During first session, Pt reports 10/10 abdominal pain, just received pain meds before PT/OT arrival. On second visit this AM, Pt initially reported 5/10 pain but reported increased to 10/10 with movement. Pt cooperative but confused. On second visit, Pt reports, "I really thought that I could walk but this pain is too much, I think I need to sit down". Pain Numeric Pain Scale: 10-Worst Possible Pain Location: Lower Location Body Site: Abdomen Pain Description: Stabbing Mental Status Patient Orientation: Confused Attachments: IV Transfers SCALE: Activities may be completed with or without assistive devices. 4-Lwhqifczeq-qdjrtil completes the activity by him/herself with no assistance from a helper. 5-Set-up or Clean-up Assistance-helper sets up or cleans up; patient completes activity. [place] assists only prior to or following the activity. 4-Supervision or Touching Assistance-helper provides verbal cues and/or touching/steadying and/or contact guard assistance as patient completes activity. Assistance may be provided throughout the activity or intermittently. 3-Partial/Moderate Assistance-helper does LESS THAN HALF the effort. [place] lifts, holds or supports trunk or limbs, but provides less than half the effort. 2-Substantial/Maximal Assistance-helper does MORE THAN HALF the effort. [place] lifts or holds trunk or limbs and provides more than half the effort. 1-Sbmtuavpg-mloeqb does ALL the effort. Patient does none of the effort to complete the activity. Or, the assistance of 2 or more helpers is required for the patient to complete the activity. If activity was not attempted, code reason: 7-Patient Refused. 9-Not Applicable-not attempted and the patient did not perform the activity before the current illness, exacerbation or injury. 10-Not Attempted due to Environmental Limitations-(lack of equipment, weather restraints, etc.). 88-Not Attempted due to Medical Conditions or Safety Concerns. Sit to Stand (QC): 4 Chair/Smi-nw-Fsgpc Xfer(QC): 4 Toilet Transfer (QC): 4 CGA-min A x 1 for balance during gait and toileting. Pt requires close supervision and frequent VCS for safety and to manage FWW. Weight Bearing Right Lower Extremity: Right Weight Bearing/Tolerated Left Lower Extremity: Left Full Weight Bearing Gait Training Does the Patient Walk?: Yes Distance: 25 Walk 10 feet (QC): 4 Walk 50 ft with 2 Turns(QC): 7 Walk 150 ft (QC): 7 Walking 10ft/uneven surface-QC: 7 Gait Persons Needed: 1 Gait Assistive Device: FWW Pt ambulates with flexed posture, frequently resting forearms on FWW. VCS for safe use of FWW, tends to attempt to walk around walker at times. Seated recovery break between two 25' trials. Wheelchair Training Does the Pt Use a Wheelchair?: No Exercises Seated Therapy Exercises: Ankle pumps, Long arc quads, Hip abd/add Seated Reps: 20 Treatments Pt. seen twice this a.m. for co-treatment with PT. Pt. requires co-treatment due to significant pain, confusion, and poor endurance. Pt. requires continual cues and rest breaks. OT addressed ADL skills, right UE swelling/edema, and cognition. PT addresses LE strength, endurance, and mobility. Transfers, ambulation with FWW, LE exercises. Up in recliner with chair alarm activated after both sessions. Assessment Current Status: Poor Progress Pt self limits activity due to high pain rating in lower abdomen. Pt confused, mildly impulsive requires close supervision for safety. PT Short Term Goals Short Term Goals Time Frame: Nov 13, 2020 Roll Left & Right: 6 Sit to lyin Lying to sitting on side of be: 4 Sit to stand: 4 Chair/wqh-cu-zmouz transfer: 4 Walk 10 feet: 4 Walk 50 feet with two turns: 4 PT Group Home Goals [facility] Director Goals PT Group Home Goals Time Frame: Nov 27, 2020 Roll Left & Right (QC): 6 Sit to Lying (QC): 6 Lying-Sitting on Side/Bed(QC): 6 Sit to Stand (QC): 6 Chair/Yke-ff-Tplmw Xfer(QC): 6 Toilet Transfer (QC): 6 Car Transfer (QC): 6 Does the Patient Walk: Yes Walk 10 feet (QC): 6 Walk 50ft with 2 Turns (QC): 6 Walk 150 ft (QC): 6 Walking 10ft on Uneven Surface: 6 1 Step (curb) (QC): 4 4 Steps (QC): 4 12 Steps (QC): 88 Picking up an Object (QC): 88 Wheel 50 feet with 2 turns (QC: 9 Wheel 150 feet: 9 PT Plan Problem List Problem List: Activity Tolerance, Functional Strength, Safety, Balance, Gait, Transfer, Bed Mobility Treatment/Plan Treatment Plan: Continue Plan of Care Treatment Plan: Bed Mobility, Education, Functional Activity [place], Functional Strength, Group Therapy, Gait, Safety, Therapeutic Exercise, Transfers Treatment Duration: Nov 27, 2020 Frequency: At least 5 of 7 days/Wk (IRF) Estimated Hrs Per Day: 1.5 hours per day Patient and/or Family Agrees t: Yes Safety Risks/Education Patient Education: Safety Issues Teaching Recipient: Patient Teaching Methods: Demonstration, Discussion Response to Teaching: Reinforcement Needed Time/GCodes Time In: 0830 Time Out: 1015 Total Billed Treatment Time: 75 Total Billed Treatment 1, FA x 30' 1, FA x 35', Ex x 10' [id number] co-treat with OT [id number] PT treatment [id number] co-treat with OT MERRILL PHELAN DPT Nov 11, 2020 14:13
--- NOTE | 2020-11-11 15:58 | NUR ---
CM/SS PATIENT CARE CONFERENCE Reviewed Summary with patient and then with daughter Liban Zamora by phone. Both are in agreement for patient's continued stay and next team assessment Monday, November 18, 2020. Discussed barriers to charge planning with daughter Liban since patient seems likely unable to return home alone as before directly from ARU. Liban indicates the family is in the process of rearranging her responsibilities of babysitting grandchildren so that she may be able to stay with patient for a period of time. Patient's progress will be monitored, hopeful for notable recovery, all discharge arrangements to be determined by same.
[2020-11-11] MEDS ORDERED: [UNRECOGNIZED DRUG - OTHER] IV SCH ×11 (17:00)
[2020-11-11] MEDS ORDERED: SODIUM ACETATE IV SCH ×11 (17:00)
[2020-11-11] MEDS ORDERED: SODIUM CHLORIDE IV SCH ×11 (17:00)
[2020-11-11 17:22] VITALS: BP 162/85
[2020-11-12 05:19] LABS: BASOPHILS # (AUTO) 0.1 10^3/uL (0.0-0.1); BASOPHILS % (AUTO) 1 % (0-10); EOSINOPHILS # (AUTO) 0.2 10^3/uL (0.0-0.3); EOSINOPHILS % (AUTO) 2 % (0-10); HEMATOCRIT 26 % (35-52); HEMOGLOBIN 8.4 g/dL (11.5-16.0); LYMPHOCYTES # (AUTO) 1.3 10^3/uL (1.0-4.0); LYMPHOCYTES % (AUTO) 13 % (12-44); MEAN CORPUSCULAR HEMOGLOBIN 31 pg (25-34); MEAN CORPUSCULAR HGB CONC 33 g/dL (32-36); MEAN CORPUSCULAR VOLUME 96 fL (80-99); MEAN PLATELET VOLUME 9.5 fL (9.0-12.2); MONOCYTES # (AUTO) 0.7 10^3/uL (0.0-1.0); MONOCYTES % (AUTO) 6 % (0-12); NEUTROPHILS # (AUTO) 7.4 10^3/uL (1.8-7.8); NEUTROPHILS % (AUTO) 72 % (42-75); PLATELET COUNT 370 10^3/uL (130-400); WHITE BLOOD COUNT 10.3 10^3/uL (4.3-11.0)
[2020-11-12 05:29] LABS: CHLORIDE 105 MMOL/L (98-107)
[2020-11-12 05:30] LABS: POTASSIUM 4.5 MMOL/L (3.6-5.0); SODIUM 134 MMOL/L (135-145)
[2020-11-12 05:31] LABS: CALCIUM 7.7 MG/DL (8.5-10.1)
[2020-11-12 05:32] LABS: GLUCOSE 113 MG/DL (70-105); TOTAL PROTEIN 4.2 GM/DL (6.4-8.2)
[2020-11-12 05:33] LABS: CARBON DIOXIDE 21 MMOL/L (21-32)
[2020-11-12] MEDS: inSUlin ASPART (NovoLOG) 1 UNIT/0.01 ML (CHARGE PER UNIT) SC SCH ×2 (05:33→11:29)
[2020-11-12 05:34] LABS: BILIRUBIN,TOTAL 0.2 MG/DL (0.1-1.0)
[2020-11-12 05:35] LABS: ALKALINE PHOSPHATASE 125 U/L (40-136); CREATININE SERUM 0.59 MG/DL (0.60-1.30); GFR ESTIMATED > 60
[2020-11-12 05:36] LABS: BUN/CREATININE RATIO 27
[2020-11-12 05:38] LABS: ALANINE AMINOTRANSFERASE 16 U/L (0-55)
[2020-11-12 05:41] LABS: BAND NEUTROPHILS 18 %; EOSINOPHILS % (MANUAL) 1 %; LYMPHOCYTES % (MANUAL) 18 %; MONOCYTES % (MANUAL) 3 %; MYELOCYTES % 1 %; NEUTROPHILS % (MANUAL) 58 %
[2020-11-12 05:42] LABS: HYPOCHROMASIA SLIGHT
[2020-11-12 05:58] VITALS: BP 118/69
[2020-11-12] MEDS: fentaNYL INJECTION 100 MCG/2 ML AMP IVP PRN ×4 (07:25→12:21)
[2020-11-12] MEDS: IRON SUCROSE 200 MG/10 ML (VENOFER) VIAL IV SCH (08:12)
[2020-11-12] MEDS: CHOLESTYRAMINE 4 GM (QUESTRAN LITE, PREVALITE) PKT PO SCH (08:12)
[2020-11-12] MEDS: FUROSEMIDE 40 MG (LASIX) TAB PO SCH (08:12)
[2020-11-12] MEDS: LIPASE/AMYLASE/PROTEASE (PANCRELIPASE) 5,000 UNITS CAP PO SCH (08:12)
[2020-11-12] MEDS: PANTOPRAZOLE 40 MG (PROTONIX) TAB PO SCH (08:12)
[2020-11-12] MEDS: polyethylene glycoL POWDER 17 GM (MIRALAX) PACK PO SCH (08:13)
[2020-11-12] MEDS: SENNA W/DOCUSATE (SENOKOT S) TABLET PO SCH (08:13)
[2020-11-12] MEDS: DOCUSATE SODIUM 100 MG (COLACE) CAP PO SCH (08:13)
[2020-11-12 08:23] VITALS: BP 128/77
--- NOTE | 2020-11-12 09:44 | Speech Therapy Daily Note ---
Speech Daily Progress Note Subjective Date Seen by Provider: Nov 12, 2020 Time Seen by Provider: 00:30 Patient was resting in her recliner getting her iron infusion. Patient c/o pain 10/10. Objective Patient completed a series of questions related to her daily needs at 80% with minimal cues. Assessment Assessment Current Status: Fair Progress Treatment Plan Continue Plan of Care Speech Short Term Goals Short Term Goals Short Term Goals 1) Patient will complete memory tasks related to her daily needs with 90% or greater with minimal cues. 2) Patient will complete safety awareness tasks related to her daily needs with 90% or greater with minimal cues. 3) Patient will complete problem solving tasks related to her daily needs with 90% or greater with minimal cues. Speech Halfway Goals Bath House Attendant Goals Patient will improve cognitive-communication abilities in order to complete daily tasks with minimal assist. Speech-Plan Patient/Family Goals Patient/Family Goals: Patient plans on returning to her home with family support. Patient is in so much pain at this time she may not be able to discharge to home. Alternative environments shoud be investigated to meet her medical needs at the time of discharge. Treatment Plan Speech Therapy Treatment Plan: Continue Plan of Care Treatment Duration: Nov 20, 2020 Frequency: 4 times per week (Patient will receive skilled ST 4-5x per week) Estimated Hrs Per Day: .5 hour per day Rehab Potential: Fair Barriers to Learning: Patient's weakness, level of pain, cognitive deficits, age Pt/Family Agrees to Plan: Yes Safety Risks/Education Teaching Recipient: Patient Teaching Methods: Demonstration, Discussion Response to Teaching: Verbalize Understanding, Return Demonstration, Reinforcement Needed Education Topics Provided: Safety within her room, using the call light for needs Time Speech Therapy Time In: 09:00 Speech Therapy Time Out: 09:30 Total Billed Time: 30 Billed Treatment Time 1, PATEL Delcid Nov 12, 2020 09:44
--- NOTE | 2020-11-12 10:20 | Occupational Ther Daily Note ---
OT Current Status-Daily Note Subjective Pt. up in reclining chair. Pt. reports 10/10 pain in abdomen, and has her eyes closed. Nursing has already given her max pain medication. Mental Status/Objective Patient Orientation: Unable to Assess ADL-Treatment Therapy Code Descriptions/Definitions Functional [place] Measure: 0=Not Assessed/NA 4=Minimal Assistance 1=Total Assistance 5=Supervision or Setup 2=Maximal Assistance 6=Modified [place] 3=Moderate Assistance 7=Complete IndependenceSCALE: Activities may be completed with or without assistive devices. 4-Kudgqnqkuv-halzvjw completes the activity by him/herself with no assistance from a helper. 5-Set-up or Clean-up Assistance-helper sets up or cleans up; patient completes activity. [place] assists only prior to or following the activity. 4-Supervision or Touching Assistance-helper provides verbal cues and/or touching/steadying and/or contact guard assistance as patient completes activity. Assistance may be provided throughout the activity or intermittently. 3-Partial/Moderate Assistance-helper does LESS THAN HALF the effort. [place] lifts, holds or supports trunk or limbs, but provides less than half the effort. 2-Substantial/Maximal Assistance-helper does MORE THAN HALF the effort. [place] lifts or holds trunk or limbs and provides more than half the effort. 3-Baealppzn-momsxq does ALL the effort. Patient does none of the effort to complete the activity. Or, the assistance of 2 or more helpers is required for the patient to complete the activity. If activity was not attempted, code reason: 7-Patient Refused. 9-Not Applicable-not attempted and the patient did not perform the activity before the current illness, exacerbation or injury. 10-Not Attempted due to Environmental Limitations-(lack of equipment, weather restraints, etc.). 88-Not Attempted due to Medical Conditions or Safety Concerns. Other Treatment OT greets pt. and talks with her. Pt. wincing in pain. States that she is hurting too bad to move. OT encourages pt. to clean up, ambulate a little, do arm exercises, anything to get moving. Pt. declines. She states, "I don't even know where I am right now." OT reminds her that she is in hospital, and she states, "well I know that." OT attempts to talk with pt. regarding returning home, and if she could possibly have help. Pt. is unable to answer, and keeps her eyes closed, just stating that she is in so much pain. All needs are met in room. Chair alarm in place, call light in place. Spoke with rehab coordinators about concerns for pt's progress at this time. Will check back later on pt. Education OT Patient Education: Correct positioning, Progress toward Goal/Update tx plan, Purpose of tx/functional activities, Reviewed precautions, Rehab process Teaching Recipient: Patient Teaching Methods: Discussion Response to Teaching: Reinforcement Needed OT Short Term Goals Short Term Goals Time Frame: Nov 20, 2020 Toileting hygiene: 3 Shower/bathe self: 3 Upper body dressin Lower body dressin OT Half-Way Goals Gas Scrubber Operator Goals Time Frame: Nov 27, 2020 Eating (QC): 6 Oral Hygiene (QC): 6 Toileting Hygiene (QC): 6 Shower/Bathe Self (QC): 5 Upper Body Dressing (QC): 5 Lower Body Dressing (QC): 5 On/Off Footwear (QC): 6 Additional Goals: 1-Demonstrate ADL Tasks, 2-Verbalize Understanding, 3- ImproveStrength/[place] 1=Demonstrate adherence to instructed precautions during ADL tasks. 2=Patient will verbalize/demonstrate understanding of assistive devices/modifications for ADL. 3=Patient will improve strength/tolerance for activity to enable patient to perform ADL's. OT Education/Plan Problem List/Assessment Assessment: Decreased Activ Tolerance, Impaired I ADL's, Impaired Self-Care Skills Discharge Recommendations Plan/Recommendations: Continue POC Therapy Discharge Recommendati: 24 Hour Supervision Treatment Plan/Plan of Care Treatment,Training & Education: Yes Patient would benefit from OT for education, treatment and training to promote independence in ADL's, mobility, safety and/or upper extremity function for AD L's. Plan of Care: ADL Retraining, Caregiver Training, Concurrent Therapy, Functional Mobility, Group Exercise/Act as Ind, UE Funct Exercise/Act, W/C Management Training Treatment Duration: Nov 27, 2020 Frequency: At least 5 of 7 days/Wk (IRF) Estimated Hrs Per Day: 1.5 hours per day Agreement: Yes Rehab Potential: Guarded Time/GCodes Start Time: 09:45 Stop Time: 10:00 Total Time Billed (hr/min): 15 Billed Treatment Time 1, ADL YUNIEL MEJIAS OT Nov 12, 2020 10:20
--- NOTE | 2020-11-12 10:57 | NUR ---
TPN: Due to unavailability of 10% amino acid solutions I will need to switch to 15% amino acid product. TPN will infuse at 53 ml/hr providing 1380 kcal including 75 gm protein. Pt eating bites.
--- NOTE | 2020-11-12 11:47 | Therapy Team Discharge Summary ---
Therapy Discharge Summary Discharge Recommendations Date of Discharge Occupational Therapy Decreased Activ Tolerance, Impaired I ADL's, Impaired Self-Care Skills Speech-Language Pathology Patient was admitted to the ARU s/p abdominal surgery. Patient continued to decline and pain at 08/08. Patient is discharged to the acute floor for further medical care. PT [employer] Patrol Goals [employer] Patrol Goals PT [employer] Patrol Goals Time Frame: Nov 27, 2020 Roll Left to Right (QC): 6 Sit to Lying (QC): 6 Lying-Sitting on Side/Bed(QC): 6 Sit to Stand (QC): 6 Chair/Cok-ou-Qblab Xfer(QC): 6 Car Transfer (QC): 6 Does the Patient Walk: Yes Walk 10 feet (QC): 6 Walk 10ft-Uneven Surface(QC): 6 Walk 50ft with 2 Turns (QC): 6 Walk 150 ft (QC): 6 Wheel 50 feet with 2 turns (QC: 9 1 Step (curb) (QC): 4 4 Steps (QC): 4 12 Steps (QC): 88 Picking up an Object (QC): 88 OT Penitentiary Goals [employer] Patrol Goals Time Frame: Nov 27, 2020 Eating (QC): 6 Oral Hygiene (QC): 6 Shower/Bathe Self (QC): 5 Upper Body Dressing (QC): 5 Lower Body Dressing (QC): 5 On/Off Footwear (QC): 6 Toileting Hygiene (QC): 6 Toilet/Commode Transfer (QC): 6 Additional Goals: 1-Demonstrate ADL Tasks, 2-Verbalize Understanding, 3-ImproveStrength/[place] 1=Demonstrate adherence to instructed precautions during ADL tasks. 2=Patient will verbalize/demonstrate understanding of assistive devices/modifications for ADL. 3=Patient will improve strength/tolerance for activity to enable patient to perform ADL's. Speech Penitentiary Goals Penitentiary Goals Patient will improve cognitive-communication abilities in order to complete daily tasks with minimal assist. PATEL BANEGAS Nov 12, 2020 11:47
--- NOTE | 2020-11-12 12:37 | Discharge Summary ---
Diagnosis/Chief Complaint Date of Admission Nov 06, 2020 at 11:43 Date of Discharge Discharge Date: Nov 12, 2020 Discharge Diagnosis Assessment: Critical illness myopathy Hemorrhagic pancreatitis Esophagus ulcer on EGD Ascites s/p acute respiratory failure VTE contraindication due to hemorrhage Fluid overload Plan: IRF protocol Pain meds Monitor bowel routine Very weak 11/07/20: Very weak Abdominal pain management Loose stools Abx Monitor labs May fail IRF? 11/08/20: Patient a bit improved Confusion noted Replace PICC Hold Venofer until new picc 11/09/20: TPN PICC replaced Monitor pain 11/10/20: TPN Monitor closely High risk for decompensation 11/11/20: TPN Monitor confusion IRF protocol (1) Critical illness myopathy Status: Acute (2) Ulcer of pharynx Status: Acute (3) Esophageal ulcer Status: Acute (4) Ascites Status: Acute (5) Acute hemorrhagic pancreatitis Status: Acute (6) Severe sepsis Status: Acute (7) Debility (8) WHITNEY (acute kidney injury) Status: Resolved Resolution Date/Time: 11/02/20 @ 17:02 (9) Pleural cavity effusion (10) Lactic acidosis Status: Resolved Resolution Date/Time: 11/02/20 @ 17:02 (11) Polycythemia Status: Resolved Resolution Date/Time: 11/02/20 @ 17:03 (12) Essential (primary) hypertension Status: Chronic (13) CAD (coronary artery disease) Status: Chronic (14) Bradycardia Status: Acute Discharge Summary Discharge Physical Examination Allergies: Coded Allergies: No Known Drug Allergies (Unverified , 11/12/20) Vitals & I&Os Vital Signs Date Time Temp Pulse Resp B/P (MAP) Pulse Ox O2 Delivery O2 Flow Rate FiO2 11/12/20 12:41 36.5 102 22 128/77 96 Room Air 1.00 General Appearance: Alert Respiratory: Clear to Auscultation Cardiovascular: Regular Rate Hospital Course Was the Problem List Reviewed?: Yes Hospital course: patient had a standard hospital course in IRF for debility and myopathy from hemorrhagic pancreatitis. Patient had intermittent confusion and required TPN due to poor nutritional intake. Patient was able to participate in therapy but had very slow progress complicated with mental capacity. Ultimately she was unable to maintain the IRF regimen due to worsened abdominal pain so she was moved to 4th floor for pain control and CT scan. Labs (last 24 hrs) Laboratory Tests 11/06/20 18:04: Glucometer 76 11/06/20 21:29: Glucometer 79 11/07/20 05:26: Glucometer 82 11/07/20 05:34: White Blood Count 14.3H, Red Blood Count 3.12L, Hemoglobin 9.8L, Hematocrit 30L, Mean Corpuscular Volume 96, Mean Corpuscular Hemoglobin 31, Mean Corpuscular Hemoglobin Concent 33, Red Cell Distribution Width 13.2, Platelet Count 494H, Mean Platelet Volume 9.9, Immature Granulocyte % (Auto) 1, Neutrophils (%) (Auto) 84H, Lymphocytes (%) (Auto) 9L, Monocytes (%) (Auto) 4, Eosinophils (%) (Auto) 1, Basophils (%) (Auto) 1, Neutrophils # (Auto) 12.0H, Lymphocytes # (Auto) 1.3, Monocytes # (Auto) 0.6, Eosinophils # (Auto) 0.1, Basophils # (Auto) 0.1, Immature Granulocyte # (Auto) 0.2H, Sodium Level 138, Potassium Level 4.0, Chloride Level 101, Carbon Dioxide Level 28, Anion Gap 9, Blood Urea Nitrogen 11, Creatinine 0.68, Estimat Glomerular Filtration Rate > 60, BUN/Creatinine Ratio 16, Glucose Level 94, Calcium Level 8.2L, Corrected Calcium 9.7, Iron Level 12L, Total Bilirubin 0.6, Aspartate Amino Transf (AST/SGOT) 34, Alanine Aminotransferase (ALT/SGPT) 21, Alkaline Phosphatase 125, Total Protein 4.6L, Albumin 2.1L 11/07/20 10:39: Glucometer 87 11/07/20 16:36: Glucometer 109 11/07/20 20:40: Glucometer 103 11/08/20 05:12: Glucometer 102 11/08/20 07:00: White Blood Count 13.8H, Red Blood Count 2.72L, Hemoglobin 8.7L, Hematocrit 26L, Mean Corpuscular Volume 96, Mean Corpuscular Hemoglobin 32, Mean Corpuscular Hemoglobin Concent 34, Red Cell Distribution Width 13.3, Platelet Count 440H, Mean Platelet Volume 9.6, Immature Granulocyte % (Auto) 1, Neutrophils (%) (Auto) 83H, Lymphocytes (%) (Auto) 9L, Monocytes (%) (Auto) 6, Eosinophils (%) (Auto) 1, Basophils (%) (Auto) 0, Neutrophils # (Auto) 11.4H, Lymphocytes # (Auto) 1.3, Monocytes # (Auto) 0.8, Eosinophils # (Auto) 0.1, Basophils # (Auto) 0.1, Immature Granulocyte # (Auto) 0.2H, Sodium Level 135, Potassium Level 3.8, Chloride Level 101, Carbon Dioxide Level 25, Anion Gap 9, Blood Urea Nitrogen 12, Creatinine 0.65, Estimat Glomerular Filtration Rate > 60, BUN/Creatinine Ratio 18, Glucose Level 99, Lactic Acid Level 0.91, Calcium Level 7.7L, Corrected Calcium 9.4, Total Bilirubin 0.5, Aspartate Amino Transf (AST/SGOT) 26, Alanine Aminotransferase (ALT/SGPT) 16, Alkaline Phosphatase 102, Total Prot ein 4.1L, Albumin 1.9L, Procalcitonin 0.41H 11/08/20 10:42: Glucometer 106 11/08/20 15:42: Glucometer 106 11/08/20 20:05: Glucometer 115H 11/09/20 04:34: Phosphorus Level 2.4, Magnesium Level 2.0, Triglycerides Level 104 11/09/20 04:35: White Blood Count 11.9H, Red Blood Count 2.71L, Hemoglobin 8.4L, Hematocrit 26L, Mean Corpuscular Volume 95, Mean Corpuscular Hemoglobin 31, Mean Corpuscular Hemoglobin Concent 33, Red Cell Distribution Width 13.5, Platelet Count 430H, Mean Platelet Volume 9.5, Immature Granulocyte % (Auto) 1, Neutrophils (%) (Auto) 81H, Lymphocytes (%) (Auto) 10L, Monocytes (%) (Auto) 6, Eosinophils (%) (Auto) 1, Basophils (%) (Auto) 0, Neutrophils # (Auto) 9.6H, Lymphocytes # (Auto) 1.2, Monocytes # (Auto) 0.7, Eosinophils # (Auto) 0.2, Basophils # (Auto) 0.1, Immature Granulocyte # (Auto) 0.2H, Prealbumin 7.1L 11/09/20 04:38: Sodium Level 136, Potassium Level 3.9, Chloride Level 103, Carbon Dioxide Level 25, Anion Gap 8, Blood Urea Nitrogen 10, Creatinine 0.64, Estimat Glomerular Filtration Rate > 60, BUN/Creatinine Ratio 16, Glucose Level 98, Calcium Level 7.8L, Corrected Calcium 9.5, Total Bilirubin 0.4, Aspartate Amino Transf (AST/SGOT) 22, Alanine Aminotransferase (ALT/SGPT) 15, Alkaline Phosphatase 98, Total Protein 4.0L, Albumin 1.9L, Amylase Level 63, Lipase 42 11/09/20 10:42: Glucometer 89 11/09/20 15:38: Glucometer 70 11/09/20 20:11: Glucometer 129H 11/10/20 04:35: Sodium Level 135, Potassium Level 3.9, Chloride Level 105, Carbon Dioxide Level 22, Anion Gap 8, Blood Urea Nitrogen 12, Creatinine 0.63, Estimat Glomerular Filtration Rate > 60, BUN/Creatinine Ratio 19, Glucose Level 127H, Calcium Level 7.8L, Corrected Calcium 9.5, Phosphorus Level 2.6, Magnesium Level 2.1, Total Bilirubin 0.3, Aspartate Amino Transf (AST/SGOT) 22, Alanine Aminotransferase (ALT/SGPT) 14, Alkaline Phosphatase 94, Total Protein 4.0L, Albumin 1.9L 11/10/20 10:52: Glucometer 94 11/10/20 15:42: Glucometer 179H 11/10/20 20:07: Glucometer 137H 11/11/20 05:33: Glucometer 108 11/11/20 06:10: Sodium Level 136, Potassium Level 4.5, Chloride Level 108H, Carbon Dioxide Level 22, Anion Gap 6, Blood Urea Nitrogen 13, Creatinine 0.60, Estimat Glomerular Filtration Rate > 60, BUN/Creatinine Ratio 22, Glucose Level 109H, Calcium Level 7.8L, Corrected Calcium 9.3, Phosphorus Level 2.4, Magnesium Level 2.2, Total Bilirubin 0.2, Aspartate Amino Transf (AST/SGOT) 23, Alanine Aminotransferase (ALT/SGPT) 15, Alkaline Phosphatase 100, Total Protein 4.2L, Albumin 2.1L, Triglycerides Level 80 11/11/20 11:06: Glucometer 137H 11/11/20 16:04: Glucometer 134H 11/11/20 20:01: Glucometer 116H 11/12/20 05:10: White Blood Count 10.3, Red Blood Count 2.68L, Hemoglobin 8.4L, Hematocrit 26L, Mean Corpuscular Volume 96, Mean Corpuscular Hemoglobin 31, Mean Corpuscular Hemoglobin Concent 33, Red Cell Distribution Width 14.2, Platelet Count 370, Mean Platelet Volume 9.5, Immature Granulocyte % (Auto) 6, Neutrophils (%) (Auto) 72, Lymphocytes (%) (Auto) 13, Monocytes (%) (Auto) 6, Eosinophils (%) (Auto) 2, Basophils (%) (Auto) 1, Neutrophils # (Auto) 7.4, Lymphocytes # (Auto) 1.3, Monocytes # (Auto) 0.7, Eosinophils # (Auto) 0.2, Basophils # (Auto) 0.1, Immature Granulocyte # (Auto) 0.7H, Neutrophils % (Manual) 58, Lymphocytes % (Manual) 18, Monocytes % (Manual) 3, Eosinophils % (Manual) 1, Myelocytes % 1, Band Neutrophils 18, Hypochromasia SLIGHT, Sodium Level 134L, Potassium Level 4.5, Chloride Level 105, Carbon Dioxide Level 21, Anion Gap 8, Blood Urea Nitrogen 16, Creatinine 0.59L, Estimat Glomerular Filtration Rate > 60, B UN/Creatinine Ratio 27, Glucose Level 113H, Calcium Level 7.7L, Corrected Calcium 9.3, Total Bilirubin 0.2, Aspartate Amino Transf (AST/SGOT) 28, Alanine Aminotransferase (ALT/SGPT) 16, Alkaline Phosphatase 125, Total Protein 4.2L, Albumin 2.0L, Procalcitonin 0.47H 11/12/20 10:58: Glucometer 128H Pending Labs Laboratory Tests 11/06/20 18:04: Glucometer 76 11/06/20 21:29: Glucometer 79 11/07/20 05:26: Glucometer 82 11/07/20 05:34: White Blood Count 14.3, Red Blood Count 3.12, Hemoglobin 9.8, Hematocrit 30, Mean Corpuscular Volume 96, Mean Corpuscular Hemoglobin 31, Mean Corpuscular Hemoglobin Concent 33, Red Cell Distribution Width 13.2, Platelet Count 494, Mean Platelet Volume 9.9, Immature Granulocyte % (Auto) 1, Neutrophils (%) (Auto) 84, Lymphocytes (%) (Auto) 9, Monocytes (%) (Auto) 4, Eosinophils (%) (Auto) 1, Basophils (%) (Auto) 1, Neutrophils # (Auto) 12.0, Lymphocytes # (Auto) 1.3, Monocytes # (Auto) 0.6, Eosinophils # (Auto) 0.1, Basophils # (Auto) 0.1, Immature Granulocyte # (Auto) 0.2, Sodium Level 138, Potassium Level 4.0, Chloride Level 101, Carbon Dioxide Level 28, Anion Gap 9, Blood Urea Nitrogen 11, Creatinine 0.68, Estimat Glomerular Filtration Rate > 60, BUN/Creatinine Ratio 16, Glucose Level 94, Calcium Level 8.2, Corrected Calcium 9.7, Iron Level 12, Total Bilirubin 0.6, Aspartate Amino Transf (AST/SGOT) 34, Alanine Aminotransferase (ALT/SGPT) 21, Alkaline Phosphatase 125, Total Protein 4.6, Albumin 2.1 11/07/20 10:39: Glucometer 87 11/07/20 16:36: Glucometer 109 11/07/20 20:40: Glucometer 103 11/08/20 05:12: Glucometer 102 11/08/20 07:00: White Blood Count 13.8, Red Blood Count 2.72, Hemoglobin 8.7, Hematocrit 26, Mean Corpuscular Volume 96, Mean Corpuscular Hemoglobin 32, Mean Corpuscular Hemoglobin Concent 34, Red Cell Distribution Width 13.3, Platelet Count 440, Mean Platelet Volume 9.6, Immature Granulocyte % (Auto) 1, Neutrophils (%) (Auto) 83, Lymphocytes (%) (Auto) 9, Monocytes (%) (Auto) 6, Eosinophils (%) (Auto) 1, Basophils (%) (Auto) 0, Neutrophils # (Auto) 11.4, Lymphocytes # (Auto) 1.3, Monocytes # (Auto) 0.8, Eosinophils # (Auto) 0.1, Basophils # (Auto) 0.1, Immature Granulocyte # (Auto) 0.2, Sodium Level 135, Potassium Level 3.8, Chloride Level 101, Carbon Dioxide Level 25, Anion Gap 9, Blood Urea Nitrogen 12, Creatinine 0.65, Estimat Glomerular Filtration Rate > 60, BUN/Creatinine Ratio 18, Glucose Level 99, Lactic Acid Level 0.91, Calcium Level 7.7, Corrected Calcium 9.4, Total Bilirubin 0.5, Aspartate Amino Transf (AST/SGOT) 26, Alanine Aminotransferase (ALT/SGPT) 16, Alkaline Phosphatase 102, Total Protein 4.1, Albumin 1.9, Procalcitonin 0.41 11/08/20 10:42: Glucometer 106 11/08/20 15:42: Glucometer 106 11/08/20 20:05: Glucometer 115 11/09/20 04:34: Phosphorus Level 2.4, Magnesium Level 2.0, Triglycerides Level 104 11/09/20 04:35: White Blood Count 11.9, Red Blood Count 2.71, Hemoglobin 8.4, Hematocrit 26, Mean Corpuscular Volume 95, Mean Corpuscular Hemoglobin 31, Mean Corpuscular Hemoglobin Concent 33, Red Cell Distribution Width 13.5, Platelet Count 430, Mean Platelet Volume 9.5, Immature Granulocyte % (Auto) 1, Neutrophils (%) (Auto) 81, Lymphocytes (%) (Auto) 10, Monocytes (%) (Auto) 6, Eosinophils (%) (Auto) 1, Basophils (%) (Auto) 0, Neutrophils # (Auto) 9.6, Lymphocytes # (Auto) 1.2, Monocytes # (Auto) 0.7, Eosinophils # (Auto) 0.2, Basophils # (Auto) 0.1, Immature Granulocyte # (Auto) 0.2, Prealbumin 7.1 11/09/20 04:38: Sodium Level 136, Potassium Level 3.9, Chloride Level 103, Carbon Dioxide Level 25, Anion Gap 8, Blood Urea Nitrogen 10, Creatinine 0.64, Estimat Glomerular Filtration Rate > 60, BUN/Creatinine Ratio 16, Glucose Level 98, Calcium Level 7.8, Corrected Calcium 9.5, Total Bilirubin 0.4, Aspartate Amino Transf (AST/SGOT) 22, Alanine Aminotransferase (ALT/SGPT) 15, Alkaline Phosphatase 98, Total Protein 4.0, Albumin 1.9, Amylase Level 63, Lipase 42 11/09/20 10:42: Glucometer 89 11/09/20 15:38: Glucometer 70 11/09/20 20:11: Glucometer 129 11/10/20 04:35: Sodium Level 135, Potassium Level 3.9, Chloride Level 105, Carbon Dioxide Level 22, Anion Gap 8, Blood Urea Nitrogen 12, Creatinine 0.63, Estimat Glomerular Filtration Rate > 60, BUN/Creatinine Ratio 19, Glucose Level 127, Calcium Level 7.8, Corrected Calcium 9.5, Phosphorus Level 2.6, Magnesium Level 2.1, Total Bilirubin 0.3, Aspartate Amino Transf (AST/SGOT) 22, Alanine Aminotransferase (ALT/SGPT) 14, Alkaline Phosphatase 94, Total Protein 4.0, Albumin 1.9 11/10/20 10:52: Glucometer 94 11/10/20 15:42: Glucometer 179 11/10/20 20:07: Glucometer 137 11/11/20 05:33: Glucometer 108 11/11/20 06:10: Sodium Level 136, Potassium Level 4.5, Chloride Level 108, Carbon Dioxide Level 22, Anion Gap 6, Blood Urea Nitrogen 13, Creatinine 0.60, Estimat Glomerular Filtration Rate > 60, BUN/Creatinine Ratio 22, Glucose Level 109, Calcium Level 7.8, Corrected Calcium 9.3, Phosphorus Level 2.4, Magnesium Level 2.2, Total Bilirubin 0.2, Aspartate Amino Transf (AST/SGOT) 23, Alanine Aminotransferase (ALT/SGPT) 15, Alkaline Phosphatase 100, Total Protein 4.2, Albumin 2.1, Triglycerides Level 80 11/11/20 11:06: Glucometer 137 11/11/20 16:04: Glucometer 134 11/11/20 20:01: Glucometer 116 11/12/20 05:10: White Blood Count 10.3, Red Blood Count 2.68, Hemoglobin 8.4, Hematocrit 26, Mean Corpuscular Volume 96, Mean Corpuscular Hemoglobin 31, Mean Corpuscular Hemoglobin Concent 33, Red Cell Distribution Width 14.2, Platelet Count 370, Mean Platelet Volume 9.5, Immature Granulocyte % (Auto) 6, Neutrophils (%) (Auto) 72, Lymphocytes (%) (Auto) 13, Monocytes (%) (Auto) 6, Eosinophils (%) (Auto) 2, Basophils (%) (Auto) 1, Neutrophils # (Auto) 7.4, Lymphocytes # (Auto) 1.3, Monocytes # (Auto) 0.7, Eosinophils # (Auto) 0.2, Basophils # (Auto) 0.1, Immature Granulocyte # (Auto) 0.7, Neutrophils % (Manual) 58, Lymphocytes % (Manual) 18, Monocytes % (Manual) 3, Eosinophils % (Manual) 1, Myelocytes % 1, Band Neutrophils 18, Hypochromasia SLIGHT, Sodium Level 134, Potassium Level 4.5, Chloride Level 105, Carbon Dioxide Level 21, Anion Gap 8, Blood Urea Nitrogen 16, Creatinine 0.59, Estimat Glomerular Filtration Rate > 60, BUN/Creatinine Ratio 27, Glucose Level 113, Calcium Level 7.7, Corrected Calcium 9.3, Total Bilirubin 0.2, Aspartate Amino Transf (AST/SGOT) 28, Alanine Aminotransferase (ALT/SGPT) 16, Alkaline Phosphatase 125, Total Protein 4.2, Albumin 2.0, Procalcitonin 0.47 11/12/20 10:58: Glucometer 128 Discharge Home Medications: Active Scripts Active Reported Atorvastatin Calcium 10 Mg Tablet 10 Mg PO HS Ramipril 2.5 Mg Capsule 2.5 Mg PO DAILY Instructions to patient/family Please see electronic discharge instructions given to patient. Diagnosis/Problems Diagnosis/Problems (1) Critical illness myopathy Status: Acute (2) Ulcer of pharynx Status: Acute (3) Esophageal ulcer Status: Acute (4) Ascites Status: Acute (5) Acute hemorrhagic pancreatitis Status: Acute (6) Severe sepsis Status: Acute (7) Debility (8) WHITNEY (acute kidney injury) Status: Resolved Resolution Date/Time: 11/02/20 @ 17:02 (9) Pleural cavity effusion (10) Lactic acidosis Status: Resolved Resolution Date/Time: 11/02/20 @ 17:02 (11) Polycythemia Status: Resolved Resolution Date/Time: 11/02/20 @ 17:03 (12) Essential (primary) hypertension Status: Chronic (13) CAD (coronary artery disease) Status: Chronic (14) Bradycardia Status: Acute Clinical Quality Measures DVT/VTE Risk/Contraindication: Risk Factor Score Per Nursin RFS Level Per Nursing on Admit: 4+=Very High Other: RISK FOR FURTHER BLEEDING IN ABDOMEN CONNOR BUSTAMANTE DO Nov 12, 2020 12:36
[2020-11-12 12:41] VITALS: BP 128/77
--- NOTE | 2020-11-12 15:37 | Physical Therapy Progress Note ---
Therapy Progress Note Patient was admitted to the ARU s/p abdominal surgery. Patient continued to decline and pain at 10/10. Patient is discharged to the acute floor for further medical care. KENDAL EASON PT Nov 12, 2020 15:37
--- NOTE | 2020-11-12 15:45 | Therapy Team Discharge Summary ---
Therapy Discharge Summary Discharge Recommendations Date of Discharge Nov 12, 2020 at 12:40 Therapy D/C Recommendations: 24 hr Supervision Occupational Therapy Pt. had to be discharged from acute rehab setting to acute care setting for continued pain and poor ability to participate. At discharge, pt. had not met any rehab goals. Pt's functional scores varied between min assist-max assist. Will follow on acute care if physician deems appropriate. Decreased Activ Tolerance, Decreased UE Strength, Dependent Transfers, Impaired Bed Mobility, Impaired Cognition, Impaired Funct Balance, Impaired I ADL's, Impaired Self-Care Skills PT Recruiting Manager Goals Senior Care Goals PT Recruiting Manager Goals Time Frame: Nov 27, 2020 Roll Left to Right (QC): 6 Sit to Lying (QC): 6 Lying-Sitting on Side/Bed(QC): 6 Sit to Stand (QC): 6 Chair/[id number] Xfer(QC): 6 Car Transfer (QC): 6 Does the Patient Walk: Yes Walk 10 feet (QC): 6 Walk 10ft-Uneven Surface(QC): 6 Walk 50ft with 2 Turns (QC): 6 Walk 150 ft (QC): 6 Wheel 50 feet with 2 turns (QC: 9 1 Step (curb) (QC): 4 4 Steps (QC): 4 12 Steps (QC): 88 Picking up an Object (QC): 88 OT Senior Care Goals Senior Care Goals Time Frame: Nov 27, 2020 Eating (QC): 6 (not met) Oral Hygiene (QC): 6 (not met) Shower/Bathe Self (QC): 5 (not met) Upper Body Dressing (QC): 5 (not met) Lower Body Dressing (QC): 5 (not met) On/Off Footwear (QC): 6 (not met) Toileting Hygiene (QC): 6 (not met) Toilet/Commode Transfer (QC): 6 (not met) Additional Goals: 1-Demonstrate ADL Tasks, 2-Verbalize Understanding, 3- ImproveStrength/Yanick 1=Demonstrate adherence to instructed precautions during ADL tasks. 2=Patient will verbalize/demonstrate understanding of assistive devices/modifications for ADL. 3=Patient will improve strength/tolerance for activity to enable patient to perform ADL's. Speech Senior Care Goals Recruiting Manager Goals Patient will improve cognitive-communication abilities in order to complete da david tasks with minimal assist. YUNIEL MEJIAS OT Nov 12, 2020 15:45
--- NOTE | 2020-11-12 16:01 | Therapy Team Discharge Summary ---
Therapy Discharge Summary Discharge Recommendations Date of Discharge Nov 12, 2020 at 12:40 Therapy D/C Recommendations: 24 hr Supervision Physical Therapy This patient admitted to ARU post acute hospital stay due to hemorrhagic/necrotising pancreatitis. Her PLOF was indep with functional mobil ity. Upon admission, she was generally min assist with functional mobiltiy. At last visit, she remained generally min assist with functional mobility but complaining of increased abdominal pain. She was cooperative and working with therapy but progress was still in process. She did not meet her goals as she transferred from ARU to [facility] this date. DC from ARU due to discharge from the unit. Occupational Therapy Decreased Activ Tolerance, Decreased UE Strength, Dependent Transfers, Impaired Bed Mobility, Impaired Cognition, Impaired Funct Balance, Impaired I ADL's, Impaired Self-Care Skills PT Weaving Teacher Goals Weaving Teacher Goals PT Weaving Teacher Goals Time Frame: Nov 27, 2020 Roll Left to Right (QC): 6 Sit to Lying (QC): 6 Lying-Sitting on Side/Bed(QC): 6 Sit to Stand (QC): 6 Chair/Yla-hk-Ciwln Xfer(QC): 6 Car Transfer (QC): 6 Does the Patient Walk: Yes Walk 10 feet (QC): 6 Walk 10ft-Uneven Surface(QC): 6 Walk 50ft with 2 Turns (QC): 6 Walk 150 ft (QC): 6 Wheel 50 feet with 2 turns (QC: 9 1 Step (curb) (QC): 4 4 Steps (QC): 4 12 Steps (QC): 88 Picking up an Object (QC): 88 goals unmet due to transfer to [facility]. OT Mcc Goals Mcc Goals Time Frame: Nov 27, 2020 Eating (QC): 6 (not met) Oral Hygiene (QC): 6 (not met) Shower/Bathe Self (QC): 5 (not met) Upper Body Dressing (QC): 5 (not met) Lower Body Dressing (QC): 5 (not met) On/Off Footwear (QC): 6 (not met) Toileting Hygiene (QC): 6 (not met) Toilet/Commode Transfer (QC): 6 (not met) Additional Goals: 1-Demonstrate ADL Tasks, 2-Verbalize Understanding, 3- ImproveStrength/Yanick 1=Demonstrate adherence to instructed precautions during ADL tasks. 2=Patient will verbalize/demonstrate understanding of assistive devices/modifications for ADL. 3=Patient will improve strength/tolerance for activity to enable patient to perform ADL's. Speech Mcc Goals Weaving Teacher Goals Patient will improve cognitive-communication abilities in order to complete daily tasks with minimal assist. ANSON ALLISON PT Nov 12, 2020 16:01
[2020-11-12] MEDS ORDERED: SODIUM ACETATE IV SCH ×11 (17:00)
[2020-11-12] MEDS ORDERED: SODIUM CHLORIDE IV SCH ×11 (17:00)
[2020-11-12] MEDS ORDERED: [UNRECOGNIZED DRUG - OTHER] IV SCH ×11 (17:00)
== END 2020-11-12 12:40 | disposition short-term general hospital (02) | DRG 91 ==
PROVIDERS: ADMIT Internal Medicine; ATTEND Internal Medicine
DX: G72.81 Critical illness myopathy (principal); K85.90 Acute pancreatitis without necrosis or infection, unspecified; T80.212A Local infection due to central venous catheter, initial encounter; L03.113 Cellulitis of right upper limb; R18.8 Other ascites; J90 Pleural effusion, not elsewhere classified; E46 Unspecified protein-calorie malnutrition; K22.10 Ulcer of esophagus without bleeding; Z66 Do not resuscitate; E87.70 Fluid overload, unspecified; R41.0 Disorientation, unspecified; R32 Unspecified urinary incontinence; R19.5 Other fecal abnormalities; I10 Essential (primary) hypertension; E78.5 Hyperlipidemia, unspecified; F41.9 Anxiety disorder, unspecified; F32.9 Major depressive disorder, single episode, unspecified; I25.10 Atherosclerotic heart disease of native coronary artery without angina pectoris; H91.90 Unspecified hearing loss, unspecified ear; Z68.22 Body mass index [BMI] 22.0-22.9, adult; Z95.1 Presence of aortocoronary bypass graft; Z82.49 Family history of ischemic heart disease and other diseases of the circulatory system
CPT/HCPCS: 36415; 36569; 76937; 80053; 82150; 82962; 83540; 83605; 83690; 83735; 84100; 84134; 84145; 84478; 85007; 85025; 85027; 94640; 94760

== ENCOUNTER 2020-11-12 11:12 | Inpatient (IN) | payer MEDICARE ==
[~2020-11-12] VITALS: Ht 154.9 cm; Wt 58.6 kg
[~2020-11-12 11:12] MED LIST changes: -ALPRAZolam 0.25 MG (XANAX) TAB PO PRN; -BISACODYL 10 MG SUPP (DULCOLAX) PR PRN; -CALCIUM CARBONATE 500 MG (TUMS) TAB.CHEW PO PRN; -DOCUSATE SODIUM 100 MG (COLACE) CAP PO PRN; -FLEET ENEMA ADULT 1 EA BTL PR PRN; -LACTULOSE SYRUP 10GM/15ML (ENULOSE) 30ML UDC PO PRN; -LOPERAMIDE 2 MG (IMODIUM) TABLET PO PRN; -MELATONIN 3 MG TABLET PO PRN; -ONDANSETRON 4 MG (ZOFRAN) ORAL DISSOLVE TAB PO PRN; -diphenhydrAMINE 25 MG TAB (BENADRYL) PO PRN; -guaiFENesin/CODEINE (ROBITUSSIN AC) 10ML UDC PO PRN
[2020-11-12] MEDS ORDERED: ONDANSETRON 4 MG/2 ML (SDV) Z0FRAN IVP PRN ×2 (12:30→14:00)
[2020-11-12] MEDS ORDERED: HYDROmorphone 2 MG/ML VIAL (DILAUDID) IVP PRN (12:30)
[2020-11-12] MEDS ORDERED: ENOXAPARIN 40 MG/0.4 ML (LOVENOX) SYR SC SCH (12:30)
[2020-11-12] MEDS ORDERED: NS IV 1000 ML 1,000 ML IV SCH (12:30)
[2020-11-12] MEDS ORDERED: VANCOMYCIN INJECTION 0.1 MG in NS (IVPB) 250 ML IV SCH (12:30)
--- NOTE | 2020-11-12 12:36 | History & Physical ---
History of Present Illness HPI/Chief Complaint CC: Abdominal pain HPI: This is an 80yoWF who has a h/o critical illness due to hemorrhagic pancreatitis who presents to the med-surg floor with increasing abdominal pain and could no longer participate in IRF. Daughter was updated on this fact and prepared her for a decline in status due to advanced age and unable to maintain nutritional requirements requiring TPN. CT scan was ordered along with pain meds. Patient has had intermittent confusion throughout IRF course. Patient appears to be very frail. Source: patient, RN/MD, old records Exam Limitations: clinical condition Date Seen 11/12/20 Time Seen by a Provider: 12:00 Attending Physician Lianna Marshall John D MD Referring Physician Date of Admission Home Medications & Allergies Home Medications Reviewed patient Home Medication Reconciliation performed by pharmacy medication reconciliations polygraph technician and/or nursing. Patients Allergies have been reviewed. Allergies Allergies Coded Allergies No Known Drug Allergies (Unverified11/12/20) Past Zxuozgj-Msjbzk-Esmcox Hx Past Med/Social Hx: Reviewed Nursing Past Med/Soc Hx, Reviewed and Corrections made Patient Social History Marrital Status: Employed/Student: retired Alcohol Use: Denies Use Smoking Status: Never a Smoker Recent Hopitalizations: No Immunizations Up To Date Tetanus Booster (TDap): Unknown Date of Pneumonia Vaccine: Aug 30, 2016 Date of Influenza Vaccine: Jul 30, 2018 Seasonal Allergies Seasonal Allergies: No Past Medical History Surgeries: Abdominal, CABG Currently Using CPAP: No Currently Using BIPAP: No Cardiac: Coronary Artery Disease, Hypertension Reproductive: Yes (ECTOPIC ) Menopausal Genitourinary: Kidney Stones Gastrointestinal: Pancreatitis, Hiatal Hernia Musculoskeletal: Chronic Back Pain Loss of Vision: Denies Hearing Impairment: Hard of Hearing Skin/Integumentary: Recent Skin Changes History of Blood Disorders: No Family History Cardiovascular disease 19 FATHER 19 MOTHER Heart Disease, Cancer, CVA Review of Systems Constitutional: see HPI Gastrointestinal: abdominal pain, loss of appetite, nausea Physical Exam Physical Exam Vital Signs Vital Signs - First Documented 11/12/20 11/12/20 12:45 16:16 Temp 36.7 Pulse 100 Resp 20 B/P (MAP) 136/82 (100) Pulse Ox 97 O2 Delivery Room Air O2 Flow Rate 2.00 Capillary Refill : Height, Weight, BMI Height: 5'1.00" Weight: 105lbs. 0.0oz. [id number]; 22.17 BMI Method:Stated General Appearance: Anxious, Chronically ill, Thin, Other (frail) Respiratory: Lungs Clear, No Accessory Muscle Use, No Respiratory Distress, Decreased Breath Sounds Cardiovascular: Regular Rate, Rhythm Neurologic/Psychiatric: Alert, Disoriented Results Results/Procedures Labs Laboratory Tests 11/12/20 14:00 Patient resulted labs reviewed. Assessment/Plan Admission Diagnosis Assessment: Worsened abdominal pain presumed pseudocyst formation Failed IRF Confusion Frail status Unable to maintain nutrition on TPN Plan: Pain meds TPN CT scan Dr Díaz consult Admission Status: Inpatient Order (span 2 midnights) Reason for Inpatient Admission: worsened abd pain LIANNA MARSHALL DO Nov 12, 2020 12:36
[2020-11-12 12:45] VITALS: BP 136/82
--- NOTE | 2020-11-12 12:45 | NUR ---
DACIA MENARD admitted to room 415-1, with an admitting diagnosis of ABD PAIN, on 11/12/20 from ARU via BED, accompanied by STAFF. DACIA MENARD introduced to surroundings, call light, bed controls, phone, TV, temperature control, lights, meal times, smoking policy, visitor policy, side rail policy, bathrooms and showers. Patient Rights given to patient in the handbook. DACIA MENARD verbalizes understanding that [facility] is not responsible for the loss or damage to any personal effects or valuables that are kept in the patients posession during their hospitalization. The following Patient Care Plans were discussed with the PT: Discharge Planning, PAIN. DACIA MENARD verbalizes understanding of Interdisciplinary Patient Education. Patient and/or family were informed about the Rapid Response Team and its purpose.
--- NOTE | 2020-11-12 13:10 | NUR ---
DR. SAEED NOTIFIED OF CONSULT.
--- NOTE | 2020-11-12 13:46 | NUR ---
PTD VANCOMYCIN. 54.5 KG, SCr 0.59, CrCl 33.3, BMI 22.7. VANCOMYCIN BOLUS 20MG/KG x 54.5KG ~ 1 GRAM. VANCOMYCIN MAINT DOSE 15MG/KG x 54.5KG ~ 750 MG Q24H. VANCOMYCIN TROUGH DUE 11/15 @ 1300. IF TROUGH >20, HOLD DOSE & NOTIFY PHARMACY FOR ADJUSTMENTS.
[2020-11-12] MEDS ORDERED: VANCOMYCIN 1 GM/NS 250 ML IVPB IV NR ×2 (14:00)
--- NOTE | 2020-11-12 14:00 | NUR ---
#16 VINICIO HAMMONDS DD.
[2020-11-12 14:10] LABS: BASOPHILS # (AUTO) 0.1 10^3/uL (0.0-0.1); BASOPHILS % (AUTO) 1 % (0-10); EOSINOPHILS # (AUTO) 0.1 10^3/uL (0.0-0.3); EOSINOPHILS % (AUTO) 1 % (0-10); HEMATOCRIT 26 % (35-52); HEMOGLOBIN 8.4 g/dL (11.5-16.0); LYMPHOCYTES # (AUTO) 1.4 10^3/uL (1.0-4.0); LYMPHOCYTES % (AUTO) 12 % (12-44); MEAN CORPUSCULAR HEMOGLOBIN 31 pg (25-34); MEAN CORPUSCULAR HGB CONC 32 g/dL (32-36); MEAN CORPUSCULAR VOLUME 97 fL (80-99); MEAN PLATELET VOLUME 9.5 fL (9.0-12.2); MONOCYTES # (AUTO) 0.9 10^3/uL (0.0-1.0); MONOCYTES % (AUTO) 7 % (0-12); NEUTROPHILS # (AUTO) 8.7 10^3/uL (1.8-7.8); NEUTROPHILS % (AUTO) 72 % (42-75); PLATELET COUNT 389 10^3/uL (130-400)
[2020-11-12] MEDS: NS IV 1000 ML 1,000 ML IV SCH (14:17)
[2020-11-12] MEDS: MEROPENEM 500 MG in WATER (STERILE) FOR INJECTION 10 ML IV SCH ×2 (14:20→21:29)
[2020-11-12] MEDS: HYDROmorphone 2 MG/ML VIAL (DILAUDID) IVP PRN ×2 (14:21→21:38)
[2020-11-12] MEDS: ENOXAPARIN 40 MG/0.4 ML (LOVENOX) SYR SC SCH (14:21)
[2020-11-12 14:29] LABS: ALANINE AMINOTRANSFERASE 20 U/L (0-55); ALBUMIN 2.1 GM/DL (3.2-4.5); ALKALINE PHOSPHATASE 139 U/L (40-136); BILIRUBIN,TOTAL 0.3 MG/DL (0.1-1.0); BUN/CREATININE RATIO 27; CARBON DIOXIDE 22 MMOL/L (21-32); CHLORIDE 103 MMOL/L (98-107); GFR ESTIMATED > 60; GLUCOSE 121 MG/DL (70-105); POTASSIUM 4.3 MMOL/L (3.6-5.0); SODIUM 133 MMOL/L (135-145); TOTAL PROTEIN 4.5 GM/DL (6.4-8.2)
[2020-11-12] MEDS ORDERED: IOHEXOL 350 MG/ML 100 ML (OMNIPAQUE 350) VIAL IV ONE (14:30)
[2020-11-12] MEDS ORDERED: CATHETER FLUSH 10 ML SYR IV PRN (14:30)
[2020-11-12] MEDS ORDERED: NS 100 ML (IVPB) BAG IV ONE (14:30)
[2020-11-12] MEDS ORDERED: HOLD METFORMIN - RECEIVED CONTRAST 20 ML VIAL IV SCH (14:30)
--- NOTE | 2020-11-12 14:35 | NUR ---
TO CT PER WC.
[2020-11-12 14:40] LABS: BAND NEUTROPHILS 13 %; BASOPHILS % (MANUAL) 0 %; EOSINOPHILS % (MANUAL) 3 %; LYMPHOCYTES % (MANUAL) 12 %; METAMYELOCYTES % 1 %; MONOCYTES % (MANUAL) 5 %; MYELOCYTES % 1 %; NEUTROPHILS % (MANUAL) 65 %
[2020-11-12 14:41] LABS: NUCLEATED RED BLOOD CELLS 2; POLYCHROMASIA SLIGHT; TOXIC GRANULATION/VACUOLAZATIO 2+
--- NOTE | 2020-11-12 15:18 | Diagnostic Imaging Report ---
EXAMINATION: CT Chest, Abdomen and Pelvis with intravenous contrast. TECHNIQUE: Multiple contiguous axial images were obtained through the chest, abdomen and pelvis after the uneventful administration of intravenous contrast. All CT scans use one or more of the following dose optimizing techniques: automated exposure control, MA and/or KvP adjustment based on a patient size and exam type, or iterative reconstruction. HISTORY: Abdominal pain. COMPARISON: 11/03/2020. FINDINGS: There is no edema or pneumonia. There are moderate bilateral pleural effusions, similar to prior exam. There is mild overlying atelectasis. No pneumothorax. No suspicious nodules. There is no axillary or supraclavicular lymphadenopathy. There is no mediastinal lymphadenopathy. Left-sided peripherally inserted central catheter is present. Heart size is normal. There are severe coronary artery calcifications. No pericardial effusion. Aorta is normal in caliber. The liver is normal without focal lesion. There is no biliary ductal dilation. Gallbladder is not well seen with drainage catheter near the gallbladder fossa. Pancreas is mostly replaced by fluid collection with no enhancing pancreatic parenchyma in the midportion of the pancreas. A fluid collection measures 10.0 x 4.4 cm, likely representing walled-off necrosis related to pancreatitis. 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 There is no pseudoaneurysm. There is mass effect on the splenic vein but it remains patent. There is extensive mesenteric edema. Adrenal glands are normal. Simple cyst is seen in the right kidney. There are no suspicious renal lesions. There is no hydronephrosis. Urinary bladder is decompressed by Galeano catheter. Visualized bowel is normal in caliber without obstruction or inflammation. No free fluid or air. No abdominal or pelvic lymphadenopathy. Aorta is normal in caliber without aneurysm. There are no suspicious osseous lesions. IMPRESSION: 1. Nonenhancement of the pancreatic body which is replaced by large fluid collection, likely reflecting walled-off necrosis from prior pancreatitis. 2. Moderate pleural effusions with overlying atelectasis. 3. Small splenic infarct. Dictated by: Dictated on workstation # [id number]
[2020-11-12 16:16] VITALS: BP 147/78
[2020-11-12] MEDS ORDERED: SODIUM ACETATE IV SCH ×11 (17:00)
[2020-11-12] MEDS ORDERED: [UNRECOGNIZED DRUG - OTHER] IV SCH ×11 (17:00)
[2020-11-12] MEDS ORDERED: SODIUM CHLORIDE IV SCH ×11 (17:00)
[2020-11-12 20:12] VITALS: BP 126/71
[2020-11-12 23:35] VITALS: BP 119/66
[2020-11-13 04:00] VITALS: BP 138/79
[2020-11-13 05:47] LABS: BASOPHILS # (AUTO) 0.1 10^3/uL (0.0-0.1); BASOPHILS % (AUTO) 1 % (0-10); EOSINOPHILS # (AUTO) 0.3 10^3/uL (0.0-0.3); EOSINOPHILS % (AUTO) 2 % (0-10); HEMATOCRIT 24 % (35-52); LYMPHOCYTES # (AUTO) 1.3 10^3/uL (1.0-4.0); LYMPHOCYTES % (AUTO) 12 % (12-44); MEAN CORPUSCULAR HEMOGLOBIN 31 pg (25-34); MEAN CORPUSCULAR HGB CONC 33 g/dL (32-36); MEAN CORPUSCULAR VOLUME 95 fL (80-99); MEAN PLATELET VOLUME 9.6 fL (9.0-12.2); MONOCYTES # (AUTO) 0.9 10^3/uL (0.0-1.0); MONOCYTES % (AUTO) 9 % (0-12); NEUTROPHILS # (AUTO) 7.2 10^3/uL (1.8-7.8); NEUTROPHILS % (AUTO) 68 % (42-75); PLATELET COUNT 351 10^3/uL (130-400); WHITE BLOOD COUNT 10.5 10^3/uL (4.3-11.0)
[2020-11-13 06:06] LABS: ALANINE AMINOTRANSFERASE 21 U/L (0-55); ALBUMIN 1.8 GM/DL (3.2-4.5); ALKALINE PHOSPHATASE 134 U/L (40-136); BILIRUBIN,TOTAL 0.3 MG/DL (0.1-1.0); BUN/CREATININE RATIO 25; CALCIUM 7.7 MG/DL (8.5-10.1); CARBON DIOXIDE 20 MMOL/L (21-32); CHLORIDE 106 MMOL/L (98-107); CREATININE SERUM 0.56 MG/DL (0.60-1.30); GFR ESTIMATED > 60; GLUCOSE 115 MG/DL (70-105); POTASSIUM 4.5 MMOL/L (3.6-5.0); SODIUM 134 MMOL/L (135-145)
[2020-11-13] MEDS: MEROPENEM 500 MG in WATER (STERILE) FOR INJECTION 10 ML IV SCH ×3 (06:31→22:27)
[2020-11-13] MEDS: NS IV 1000 ML 1,000 ML IV SCH ×2 (06:49→09:01)
[2020-11-13 07:25] VITALS: BP 114/70
--- NOTE | 2020-11-13 08:20 | Progress Note - Surgery ---
BROOKS MARIN MED STUDENT 11/13/20 0820: Subjective Date Seen by a Provider: Nov 13, 2020 Time Seen by a Provider: 08:00 Subjective/Events-last exam Pt is a 80 yo female that got moved to 4th floor due to increasing abdominal pain and no longer being able to participate in rehab. The reasons that she failed rehab were declining health due to advanced age and being unable to maintain nutritional requirements, requiring TPN. Upon entering the room this morning the patient was sitting up in bed looking around in a very confused state of mind. Pt told me that she had a "big surgery" yesterday and was confused as to which day it was. Throughout the night she requested 1 pain pill and had no complaints of pain in the abdomen or anywhere else when questioned. The CHRISTA drain continues to leak around the skin opening requiring the nurses to replace the dressings often. There was minimal serous fluid inside the CHRISTA drain itself this morning. The swelling, as well as the cellulitis, in her right arm has declined since last seeing her 2 day ago. She had 1 BM last night that was loose. She hasn't gotten out of bed since yesterday so Pt was incontinent throughout the evening and night. She is on 1.5L of O2 and stated that she isn't having any difficulty breathing or SOB. Review of Systems General: Fatigue, Appetite Pulmonary: Dyspnea Cardiovascular: Edema (pedal) Neurological: Weakness, Confusion Focused Exam Respiratory: Chest Non Tender, Lungs Clear (superior lobes), No Accessory Muscle Use, No Respiratory Distress, Decreased Breath Sounds Cardiovascular: Regular Rate, Rhythm, No Gallop, No Murmur, Normal Peripheral Pulses Skin: normal color, warm/dry, other (mild swelling and cellulitis in right upper extremity) Objective Exam Vital Signs Date Time Temp Pulse Resp B/P (MAP) Pulse Ox O2 Delivery O2 Flow Rate FiO2 11/13/20 07:25 36.9 93 22 114/70 (85) 98 Nasal Cannula 1.50 11/13/20 04:00 37.0 102 18 138/79 (98) 99 Nasal Cannula 1.50 11/12/20 23:35 36.8 98 16 119/66 (83) 97 Nasal Cannula 2.00 11/12/20 21:30 Nasal Cannula 2.00 11/12/20 21:30 Nasal Cannula 2.00 11/12/20 20:12 37.1 115 20 126/71 (89) 93 Nasal Cannula 2.00 11/12/20 16:16 37.1 112 16 147/78 (101) 97 Nasal Cannula 2.00 11/12/20 15:45 97 Room Air 11/12/20 12:45 36.7 100 20 136/82 (100) 97 Room Air I & O 11/13/20 07:00 Intake Total 0 ml Output Total 1545 ml Balance -1545 ml Capillary Refill : Less Than 3 Seconds General Appearance: No Apparent Distress, Anxious, Chronically ill, Thin, Other (frail) HEENT: PERRL/EOMI Neck: Normal Inspection, Non Tender, Supple Respiratory: Lungs Clear (superior lobes), No Accessory Muscle Use, No Respiratory Distress, Decreased Breath Sounds Cardiovascular: Regular Rate, Rhythm, No Gallop, No Murmur, Normal Peripheral Pulses Gastrointestinal: normal bowel sounds, non tender, soft, no organomegaly, no pulsatile mass Extremity: Normal Capillary Refill, Non Tender, No Calf Tenderness, Pedal Edema, Swelling (right upper extremity mild swelling), Other (cellulitis on right proximal forearm near prior picc line location) Neurologic/Psychiatric: Alert, Depressed Affect, Disoriented (to time and place) Skin: Normal Color, Warm/Dry Lymphatic: No Adenopathy (axila, inguinal, or cervical) Results Lab Laboratory Tests 11/12/20 14:00: White Blood Count 12.0H, Red Blood Count 2.73L, Hemoglobin 8.4L, Hematocrit 26L, Mean Corpuscular Volume 97, Mean Corpuscular Hemoglobin 31, Mean Corpuscular Hemoglobin Concent 32, Red Cell Distribution Width 14.2, Platelet Count 389, Mean Platelet Volume 9.5, Immature Granulocyte % (Auto) 7, Neutrophils (%) (Auto) 72, Lymphocytes (%) (Auto) 12, Monocytes (%) (Auto) 7, Eosinophils (%) (Auto) 1, Basophils (%) (Auto) 1, Neutrophils # (Auto) 8.7H, Lymphocytes # (Auto) 1.4, Monocytes # (Auto) 0.9, Eosinophils # (Auto) 0.1, Basophils # (Auto) 0.1, Immature Granulocyte # (Auto) 0.9H, Neutrophils % (Manual) 65, Lymphocytes % (Manual) 12, Monocytes % (Manual) 5, Eosinophils % (Manual) 3, Basophils % (Manual) 0, Metamyelocytes % 1, Myelocytes % 1, Band Neutrophils 13, Nucleated Red Blood Cells 2, Toxic Granulation 2+, Polychromasia SLIGHT, Sodium Level 133L , Potassium Level 4.3, Chloride Level 103, Carbon Dioxide Level 22, Anion Gap 8, Blood Urea Nitrogen 16, Creatinine 0.60, Estimat Glomerular Filtration Rate > 60, BUN/Creatinine Ratio 27, Glucose Level 121H, Calcium Level 8.0L, Corrected Calcium 9.5, Total Bilirubin 0.3, Aspartate Amino Transf (AST/SGOT) 36H, Alanine Aminotransferase (ALT/SGPT) 20, Alkaline Phosphatase 139H, Total Protein 4.5L, Albumin 2.1L 11/13/20 05:35: White Blood Count 10.5, Red Blood Count 2.56L, Hemoglobin 8.0L, Hematocrit 24L, Mean Corpuscular Volume 95, Mean Corpuscular Hemoglobin 31, Mean Corpuscular Hemoglobin Concent 33, Red Cell Distribution Width 14.4, Platelet Count 351, Mean Platelet Volume 9.6, Immature Granulocyte % (Auto) 8, Neutrophils (%) (Auto) 68, Lymphocytes (%) (Auto) 12, Monocytes (%) (Auto) 9, Eosinophils (%) (Auto) 2, Basophils (%) (Auto) 1, Neutrophils # (Auto) 7.2, Lymphocytes # (Auto) 1.3, Monocytes # (Auto) 0.9, Eosinophils # (Auto) 0.3, Basophils # (Auto) 0.1, Immature Granulocyte # (Auto) 0.9H, Sodium Level 134L, Potassium Level 4.5, Chloride Level 106, Carbon Dioxide Level 20L, Anion Gap 8, Blood Urea Nitrogen 14, Creatinine 0.56L, Estimat Glomerular Filtration Rate > 60, BUN/Creatinine Ratio 25, Glucose Level 115H, Calcium Level 7.7L, Corrected Calcium 9.5, Total Bilirubin 0.3, Aspartate Amino Transf (AST/SGOT) 32, Alanine Aminotransferase (ALT/SGPT) 21, Alkaline Phosphatase 134, Total Protein 4.0L, Albumin 1.8L 11/13/20 05:36: Glucometer 113H Assessment/Plan Assessment/Plan Admission Diagonsis failing rehab Assessment/Plan Assessment: confusion bilateral pleural effusion CT performed yesterday showed: 1. Nonenhancement of the pancreatic body which is replaced by large fluid collection, likely reflecting walled-off necrosis from prior pancreatitis. 2. Moderate pleural effusions with overlying atelectasis. 3. Small splenic infarct. Plan: continue pain medications as needed continue TPN JV SAEED DO 11/13/20 1119: Subjective Time Seen by a Provider: 09:58 Subjective/Events-last exam Pt seen and examined, states she feels great today and was eating without problems. However, as I stayed in the room she became more and more tired and then complained of being tired and stomach pain. 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 I think a long discussion with family is i mportant right now and in the meantime she can be encouraged to eat. Supervisory-Addendum Brief Verification & Attestation Participated in pt care: history, MDM, physical Personally performed: exam, history, MDM Care discussed with: Medical Student Procedures: n/a Verification and Attestation of Medical Student E/M Service A medical student performed and documented this service. I then reviewed and verified all information documented by the medical student and made modifications to such information, when appropriate. I personally performed a physical exam, medical decision making and then discussed any differences between the notes and made revisions as necessary to create one note. Jv Saeed , 11/13/20 , 11:19 BROOKS MARIN MED STUDENT Nov 13, 2020 08:20 JV SAEED DO Nov 13, 2020 11:19
--- NOTE | 2020-11-13 11:14 | Progress Note - Hospitalist ---
Subjective HPI/CC On Admission Date Seen by Provider: Nov 13, 2020 Time Seen by Provider: 11:00 CC: Abdominal pain HPI: This is an 80yoWF who has a h/o critical illness due to hemorrhagic pancreatitis who presents to the med-surg floor with increasing abdominal pain and could no longer participate in IRF. Daughter was updated on this fact and prepared her for a decline in status due to advanced age and unable to maintain nutritional requirements requiring TPN. CT scan was ordered along with pain meds. Patient has had intermittent confusion throughout IRF course. Patient appears to be very frail. Subjective/Events-last exam Patient seen and examined TPN maintained Pain controlled Oxycodone added since she reported the Dilaudid made her too drowsy Updated daughter in-depth regarding the exterminator termite plan for the patient Patient so frail and not a candidate for aggressive pancreatic surgery She mentions again that she is "at the end" and she "can't get any better." Review of Systems General: Malaise Gastrointestinal: Abdominal Pain Objective Exam Vital Signs Vital Signs Date Time Temp Pulse Resp B/P (MAP) Pulse Ox O2 Delivery O2 Flow Rate FiO2 11/13/20 20:15 37.0 97 20 132/75 (94) 98 Nasal Cannula 1.50 Capillary Refill : Less Than 3 Seconds General Appearance: No Apparent Distress, WD/WN, Chronically ill, Cachetic, Thin Respiratory: Lungs Clear Cardiovascular: Regular Rate, Rhythm Results/Procedures Lab Laboratory Tests 11/13/20 05:35 Patient resulted labs reviewed. Assessment/Plan Assessment and Plan Assess & Plan/Chief Complaint Assessment: Worsened abdominal pain due to necrotic pancreas Failed IRF Confusion Frail status Unable to maintain nutrition on TPN Plan: Pain meds TPN CT scan Dr Díaz consult 11/13/20: Pain control TPN PT OT NH for exterminator termite care CONNOR BUSTAMANTE DO Nov 13, 2020 11:14
--- NOTE | 2020-11-13 11:45 | NUR ---
CM/SS: Visited with pt as per her current status and her plan for discharge. Plan: Pt is from home and wants to be able to return there. Summary: Pt reports she is ok and has felt better. She does indicate that is from home and wants to be able to return there. She does give this worker permission to call her daughter to obtain some additional information. Pt reports she has not been at an assisted living or a skilled facility. Pt continues to express a desire to return home. Telephone Call to Daughter - Liban- [phone] - She reports living one block from the pt's home. She would like to have pt home if at all possible. She reports she is able to care for pt, as she lost her job during the pandemic. Liban reports that pt has not been at an assisted living or skilled facility. This worker will follow up with daughter once more information is known.
[2020-11-13 12:00] VITALS: BP 119/67
[2020-11-13] MEDS ORDERED: oxyCODONE/APAP 5/325MG (PERCOCET 5) TABLET ONE (13:00)
[2020-11-13] MEDS: oxyCODONE/APAP 5/325MG (PERCOCET 5) TABLET PO PRN (13:04)
--- NOTE | 2020-11-13 13:30 | NUR ---
"RD ASSESSMENT PMHx: CAD; HTN; pancreatitis; hiatal hernia; PT INTERACTION: Received dietary consult for MST score. Note pt has AMS, per chart review. Pt states current appetite is poor. Note pt had been eating poorly while in ARU, per chart review. Pt states some issues with diarrhea. Note last BM was 11/13, and pt not currently on bowel regimen, per chart review. Upon visual assessment, pt appears frail, with a BMI of 24.5 (Normal BMI for age). Given PO intake and visual assessment, pt meets criteria for malnutrition per ASPEN guidelines. Note pt currently receiving TPN, providing 980 kcal (66% of est needs) and 75 g (100% of est needs), per visual assessment of TPN bag. Est. kcal needs: 7184-9526 kcal | 25-30 kcal/kg Est. Pro needs: 70-83 g Pro | 1.2-1.4 g Pro/kg PES STATEMENT: Inadequate oral intake (NI-2.1) related to loss of appetite, and diarrhea, as evidenced by pt interview, and avg PO intake <25% meals. INTERVENTION: Continue with current diet order of Regular diet. Encouraged pt to eat when able. Continue with TPN regimen, but increase to provide 1475 kcal and 70 g Pro to help meet pt's nutritional needs. Will continue to follow and reassess as pt needs, intake, and status change. Charla DAVIDSON, RD LD [phone] cell"
[2020-11-13] MEDS: ENOXAPARIN 40 MG/0.4 ML (LOVENOX) SYR SC SCH (14:45)
[2020-11-13] MEDS: VANCOMYCIN 750 MG/NS 250 ML IVPB IV SCH ×2 (14:46)
--- NOTE | 2020-11-13 15:06 | NUR ---
Swing Bed Note: Swing Bed evaluation order received. Patient does not qualify for swing bed at this time. Surgical documentation noted "I am not sure how much benefit pt will receive from draining her pseudocyst; if it needs to be done then she will need transfer to a center that does Cyst-Gastrostomies, preferably by EGD. I think a long discussion with family is important right now and in the meantime she can be encouraged to eat." It appears that patient continues to have c/o abdominal pain et unsure if she can participate in therapies at this time. After therapy has evaluated and family discussions are had then swing bed could be a possibility. Will continue to follow along.
--- NOTE | 2020-11-13 15:08 | Physical Therapy Progress Note ---
Therapy Progress Note Order for PT evaluation received. Patient refuses therapy at this time. She says she is just tired and doesn't want to do it. Patient was transferred to the medical floor from rehab recently. She has 9/10 abdominal pain. Will check back in the morning. KRISHNA GUERRIER PT Nov 13, 2020 15:08
--- NOTE | 2020-11-13 15:36 | NUR ---
[facility] is [facility]. visited and prayed w/ pt/.
--- NOTE | 2020-11-13 15:41 | Occupational Therapy Eval ---
OT Evaluation-General/PLF Medical Diagnosis Admission Date Nov 12, 2020 at 12:45 Medical Diagnosis: Debility Onset Date: Oct 24, 2020 Therapy Diagnosis Therapy Diagnosis: Decreased ADL status Height/Weight Height (Feet): 5 Height (Inches): 1.00 Weight (Pounds): 105 Weight (Ounces): 0.0 Precautions Precautions/Isolations: Fall Prevention, Standard Precautions Weight Bear Status Weight Bearing Restriction: Weight Bearing/Tolerated Referral Physician: Rolando Referral Reason: Activity Tolerance, Self Care, Evaluation/Treatment, Strengthening/ROM Medical History Pertinent Medical History: CABG, CAD, HTN Current History ER with N/V 10/24/20. ARU 11/06/20-11/12/20. Reviewed History: Yes Social History Home: Single Level Current Living Status: Alone Entry Into Home: Stairs With Railing Steps Into Home: 4 ADL-Prior Level of Function SCALE: Activities may be completed with or without assistive devices. 4-Swaqioywer-gtkulmg completes the activity by him/herself with no assistance from a helper. 5-Set-up or Clean-up Assistance-helper sets up or cleans up; patient completes activity. [place] assists only prior to or following the activity. 4-Supervision or Touching Assistance-helper provides verbal cues and/or touching/steadying and/or contact guard assistance as patient completes activity. Assistance may be provided throughout the activity or intermittently. 3-Partial/Moderate Assistance-helper does LESS THAN HALF the effort. [place] lifts, holds or supports trunk or limbs, but provides less than half the effort. 2-Substantial/Maximal Assistance-helper does MORE THAN HALF the effort. [place] lifts or holds trunk or limbs and provides more than half the effort. 9-Hsikqqtbu-crvxkc does ALL the effort. Patient does none of the effort to complete the activity. Or, the assistance of 2 or more helpers is required for the patient to complete the activity. If activity was not attempted, code reason: 7-Patient Refused. 9-Not Applicable-not attempted and the patient did not perform the activity before the current illness, exacerbation or injury. 10-Not Attempted due to Environmental Limitations-(lack of equipment, weather restraints, etc.). 88-Not Attempted due to Medical Conditions or Safety Concerns. ADL PLOF Comments IND with I/ADLs without use of AD. Self Care: Independent Functional Cognition: Independent DME/Equipment: Tub/Shower Occupation: retired. Drive Self: Yes OT Current Status Subjective Pt seen in bed/ supine. Pt states 3/10 pain in abdomen. Fatigued, oriented. Pt agrees to OT eval/ treat. States need for BM. Pt states confusion/frustration on continued surgeries. Pt states she does not want any more surgeries, desires to see family. Mental Status/Objective Patient Orientation: Person, Place, Situation Attachments: [place] Catheter, IV, Oxygen Current Glasses/Contacts: Yes Hearing Aids: No Dentures/Partials: No Hand Dominance: Right Upper Extremity ROM WFL BUE Upper Extremity Coordination WFL BUE Upper Extremity Sensation WFL BUE Upper Extremity Strength Decreased bilaterally, increased pain. Edema: yes ADL-Treatment Eating (QC): 6 On/Off Footwear (QC): 4 (Increased time. ) Toileting Hygiene (QC): 2 (max A with pt stance at walker.) Other Treatments Pt in bed. Bed mob supine to sit with increased time/ CGA. Pt sit to stand and ambulation with CGA to bathroom. Completes BM, denies donning briefs at this time (completed with max A, threading of catheter) sit to stand with SBA and is wiped with max A. Returns to bed with SBA. All needs met call light in reach. Education OT Patient Education: Correct positioning, Progress toward Goal/Update tx plan, Purpose of tx/functional activities, Safety issues, Transfer techniques Teaching Recipient: Patient Teaching Methods: Demonstration, Discussion Response to Teaching: Verbalize Understanding, Return Demonstration OT Care Home Goals Emergency Department Manager Goals Time Frame: Nov 27, 2020 Eating (QC): 6 Oral Hygiene (QC): 6 Toileting Hygiene (QC): 4 Shower/Bathe Self (QC): 5 Upper Body Dressing (QC): 5 Lower Body Dressing (QC): 4 On/Off Footwear (QC): 4 Additional Goals: 1-Demonstrate ADL Tasks, 2-Verbalize Understanding, 3- ImproveStrength/Yanick 1=Demonstrate adherence to instructed precautions during ADL tasks. 2=Patient will verbalize/demonstrate understanding of assistive devices/modifications for ADL. 3=Patient will improve strength/tolerance for activity to enable patient to perform ADL's. OT Education/Plan Problem List/Assessment Assessment: Decreased Activ Tolerance, Decreased UE Strength, Dependent Transfers, Edema, Impaired I ADL's, Impaired Self-Care Skills Discharge Recommendations Plan/Recommendations: Continue POC Therapy Discharge Recommendati: Scheduled Assistance, Home & Family, Post Acute OT Treatment Plan/Plan of Care Treatment,Training & Education: Yes Patient would benefit from OT for education, treatment and training to promote independence in ADL's, mobility, safety and/or upper extremity function for ADL's. Plan of Care: ADL Retraining, Caregiver Training, Concurrent Therapy, Functional Mobility, UE Funct Exercise/Act Treatment Duration: Nov 27, 2020 Frequency: 5 times per week Estimated Hrs Per Day: .25 hour per day Agreement: Yes Rehab Potential: Guarded Time/GCodes Start Time: 15:06 Stop Time: 15:27 Total Time Billed (hr/min): 21 Billed Treatment Time 1, GRIFFIN SHELBY OTR Nov 13, 2020 15:41
--- NOTE | 2020-11-13 15:43 | NUR ---
TPN: TPN infusing at 53 ml/hr providing 1380 kcal with 75 grams pro. Na 134, CO2 20, BS 115. PLAN; Increase kcal to 1550, continue protein at 75 gm, adjust Na Acetate. TPN will infuse at 54 ml/hr.
[2020-11-13 15:54] VITALS: BP 132/82
[2020-11-13] MEDS ORDERED: [UNRECOGNIZED DRUG - OTHER] IV SCH ×11 (17:00)
[2020-11-13] MEDS ORDERED: SODIUM ACETATE IV SCH ×11 (17:00)
[2020-11-13] MEDS ORDERED: SODIUM CHLORIDE IV SCH ×11 (17:00)
[2020-11-13 20:15] VITALS: BP 132/75
[2020-11-14] VITALS: BP 152/87
[2020-11-14] MEDS: oxyCODONE/APAP 5/325MG (PERCOCET 5) TABLET PO PRN ×4 (02:30→20:52)
[2020-11-14] MEDS: NS IV 1000 ML 1,000 ML IV SCH (02:46)
[2020-11-14 03:50] VITALS: BP 138/74
--- NOTE | 2020-11-14 05:09 | Progress Note - Hospitalist ---
Subjective HPI/CC On Admission Date Seen by Provider: Nov 14, 2020 Time Seen by Provider: 09:00 CC: Abdominal pain HPI: This is an 80yoWF who has a h/o critical illness due to hemorrhagic pancreatitis who presents to the med-surg floor with increasing abdominal pain and could no longer participate in IRF. Daughter was updated on this fact and prepared her for a decline in status due to advanced age and unable to maintain nutritional requirements requiring TPN. CT scan was ordered along with pain meds. Patient has had intermittent confusion throughout IRF course. Patient appears to be very frail. Subjective/Events-last exam Patient not eating Sitting in chair Very flat Talks about the end a lot Pain still present at times Checked meds and labs Review of Systems General: Fatigue, Malaise Gastrointestinal: Abdominal Pain Objective Exam Vital Signs Vital Signs Date Time Temp Pulse Resp B/P (MAP) Pulse Ox O2 Delivery O2 Flow Rate FiO2 11/15/20 04:23 35.6 104 18 128/73 (91) 96 Nasal Cannula 2.00 Capillary Refill : Less Than 3 Seconds General Appearance: No Apparent Distress, WD/WN, Chronically ill, Thin Respiratory: Chest Non Tender, Lungs Clear, Normal Breath Sounds, No Accessory Muscle Use, No Respiratory Distress Cardiovascular: Regular Rate, Rhythm, No Edema, No Gallop, No JVD, No Murmur, Normal Peripheral Pulses Neurologic/Psychiatric: Alert, Oriented x3, Disoriented Results/Procedures Lab Patient resulted labs reviewed. 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
[2020-11-14] MEDS: MEROPENEM 500 MG in WATER (STERILE) FOR INJECTION 10 ML IV SCH ×3 (06:05→22:31)
[2020-11-14 06:06] LABS: BASOPHILS # (AUTO) 0.1 10^3/uL (0.0-0.1); BASOPHILS % (AUTO) 1 % (0-10); EOSINOPHILS # (AUTO) 0.4 10^3/uL (0.0-0.3); EOSINOPHILS % (AUTO) 4 % (0-10); HEMATOCRIT 25 % (35-52); HEMOGLOBIN 8.1 g/dL (11.5-16.0); LYMPHOCYTES # (AUTO) 1.3 10^3/uL (1.0-4.0); LYMPHOCYTES % (AUTO) 14 % (12-44); MEAN CORPUSCULAR HEMOGLOBIN 31 pg (25-34); MEAN CORPUSCULAR HGB CONC 32 g/dL (32-36); MEAN CORPUSCULAR VOLUME 96 fL (80-99); MEAN PLATELET VOLUME 9.9 fL (9.0-12.2); MONOCYTES # (AUTO) 0.7 10^3/uL (0.0-1.0); MONOCYTES % (AUTO) 8 % (0-12); NEUTROPHILS # (AUTO) 6.3 10^3/uL (1.8-7.8); NEUTROPHILS % (AUTO) 65 % (42-75); PLATELET COUNT 356 10^3/uL (130-400); WHITE BLOOD COUNT 9.7 10^3/uL (4.3-11.0)
[2020-11-14 06:23] LABS: CHLORIDE 109 MMOL/L (98-107); POTASSIUM 4.3 MMOL/L (3.6-5.0); SODIUM 136 MMOL/L (135-145)
[2020-11-14 06:24] LABS: CALCIUM 7.7 MG/DL (8.5-10.1)
[2020-11-14 06:25] LABS: GLUCOSE 152 MG/DL (70-105); TOTAL PROTEIN 4.2 GM/DL (6.4-8.2)
[2020-11-14 06:26] LABS: CARBON DIOXIDE 20 MMOL/L (21-32)
[2020-11-14 06:27] LABS: BILIRUBIN,TOTAL 0.2 MG/DL (0.1-1.0)
[2020-11-14 06:29] LABS: ALKALINE PHOSPHATASE 181 U/L (40-136); CREATININE SERUM 0.59 MG/DL (0.60-1.30); GFR ESTIMATED > 60
[2020-11-14 06:30] LABS: BUN/CREATININE RATIO 20
[2020-11-14 06:32] LABS: ALANINE AMINOTRANSFERASE 19 U/L (0-55)
[2020-11-14 08:00] VITALS: BP 142/76
--- NOTE | 2020-11-14 08:45 | Physical Therapy Evaluation ---
PT Evaluation-General Medical Diagnosis Admission Date Nov 12, 2020 at 12:45 Medical Diagnosis: Debility Onset Date: Oct 24, 2020 Therapy Diagnosis Therapy Diagnosis: Deblity/weakness Height/Weight Height (Feet): 5 Height (Inches): 1.00 Weight (Pounds): 105 Weight (Ounces): 0.0 Precautions Precautions/Isolations: Fall Prevention, Standard Precautions Weight Bear Status Full Weight Bearing Full Weight Bearing Referral Physician: Rolando Reason for Referral: Evaluation/Treatment Medical History Pertinent Medical History: CABG, CAD, HTN Reviewed History: Yes Social History Home: Single Level Current Living Status: Alone Entry Into Home: Stairs With Railing PT Steps Into Home: 4 Prior Prior Level of Function SCALE: Activities may be completed with or without assistive devices. 7-Mggrzejgpj-mllezco completes the activity by him/herself with no assistance from a helper. 5-Set-up or Clean-up Assistance-helper sets up or cleans up; patient completes activity. [place] assists only prior to or following the activity. 4-Supervision or Touching Assistance-helper provides verbal cues and/or touching/steadying and/or contact guard assistance as patient completes activity. Assistance may be provided throughout the activity or intermittently. 3-Partial/Moderate Assistance-helper does LESS THAN HALF the effort. [place] lifts, holds or supports trunk or limbs, but provides less than half the effort. 2-Substantial/Maximal Assistance-helper does MORE THAN HALF the effort. [place] lifts or holds trunk or limbs and provides more than half the effort. 9-Ryhxouvev-fsnbad does ALL the effort. Patient does none of the effort to c omplete the activity. Or, the assistance of 2 or more helpers is required for the patient to complete the activity. If activity was not attempted, code reason: 7-Patient Refused. 9-Not Applicable-not attempted and the patient did not perform the activity before the current illness, exacerbation or injury. 10-Not Attempted due to Environmental Limitations-(lack of equipment, weather restraints, etc.). 88-Not Attempted due to Medical Conditions or Safety Concerns. Bed Mobility: 6 Transfers (B,C,W/C): 6 Gait: 6 Stairs: 6 PT Evaluation-Current Subjective Pt presents sitting up in chair upon arrival to room, she states that initially this morning she woke up and felt good; however, now she has c/o 10/ abdominal pain. Finally agrees to stand at chair to put robe on. Pt/Family Goals Return home Objective Patient Orientation: Person, Place, Situation Attachments: Oxygen, [place]ale[place] Catheter ROM/Strength ROM Lower Extremities Grossly WFL Strength Upper Extremities Strength Lower Extremities grossly 3/5 with functional activity Integumentary/Posture Integumentary refer to nursing notes Bladder Incontinence: Galeano Cath Posture kyphotic posture, forward head, rounded shoulders Sensory Hand Dominance: Right Transfers Sit to Stand (QC): 4 Pt stood at edge of chair for approx 1 minute and was able to don house robe without assistance and with no gross LOB. Pt then returned to seated quickly, requiring cueing for slow descent into chair. Gait Does the Patient Walk?: Yes Balance Sitting Static: Normal Sitting Dynamic: Normal Standing Static: Normal Assessment/Needs Pt has increased abdominal pain following surgery which limits her overall activity tolerance, functional mobility, and safety. Pt would benefit from skilled PT to address above mentioned limitations and ensure safety upon dc from hospital. Rehab Potential: Fair PT Detention Goals Detention Goals PT [employer] Goals Time Frame: Nov 28, 2020 Sit to Stand (QC): 6 Chair/Pnx-pt-Txatr Xfer(QC): 6 Does the Patient Walk: Yes Walk 10 feet (QC): 6 Walk 50ft with 2 Turns (QC): 6 Walk 150 ft (QC): 5 4 Steps (QC): 6 PT Plan Problem List Problem List: Activity Tolerance, Functional Strength, Safety, Balance, Gait, Transfer, Bed Mobility, ROM Treatment/Plan Treatment Plan: Continue Plan of Care Treatment Plan: Bed Mobility, Education, Functional Activity Yanick, Functional Strength, Gait, Safety, Therapeutic Exercise, Transfers Treatment Duration: Nov 28, 2020 Frequency: 6 times per week Estimated Hrs Per Day: .25 hour per day Patient and/or Family Agrees t: Yes Time/GCodes Time In: 822 Time Out: 832 Total Billed Treatment Time: 10 Total Billed Treatment 1 visit Eval Moderate Complexity (10') KENDAL EASON PT Nov 14, 2020 08:45
--- NOTE | 2020-11-14 09:14 | Progress Note - Surgery ---
DIANA MARINLAN MED STUDENT 11/14/20 0914: Subjective Date Seen by a Provider: Nov 14, 2020 Time Seen by a Provider: 08:15 Subjective/Events-last exam Pt was sitting up in her chair alert and oriented with breakfast in front of her when I entered the room. She only ate part of her muffin and was sipping on her coffee this morning. She stated that she was not doing good. When asked why she wasn't doing good she stated that when she woke up she had no pain and wanted to call her daughter but once she figured out her phone the pain in the epigastric region was so bad that she didn't feel like talking on the phone anymore. Pt was in a lot of pain upon questioning and had a very distended and firm abdomen. According to the nurse, PT/OT was attempted yesterday but Pt was in too much pain to participate. Her CHRISTA drain continues to drain requiring the nurses to replace the dressings frequently. There was a moderate amount of serious fluid in the CHRISTA drain itself. Pt had a BM earlier this morning and continues to just go into her briefs. At the end of talking with her today she asked that I get out of the room because she needed to have a BM and stated to not get the nurses because it takes her a long time to go anyways. Her right arm continues to be slightly swollen but appears to be less than yesterday.Pt was on room air and had no complaints of dyspnea or SOB. Pain medication is being requested about every 4 hours. Review of Systems General: Appetite Gastrointestinal: Abdominal Pain Genitourinary: Incontinence Neurological: Weakness Focused Exam Time of Focused Exam: 08:15 Respiratory: Chest Non Tender, Lungs Clear (superior lobes), No Accessory Muscle Use, No Respiratory Distress, Decreased Breath Sounds Cardiovascular: Regular Rate, Rhythm, No Gallop, No Murmur, Normal Peripheral Pulses Skin: normal color, warm/dry, other (slightly swollen right upper extremity) Objective Exam Vital Signs Date Time Temp Pulse Resp B/P (MAP) Pulse Ox O2 Delivery O2 Flow Rate FiO2 11/14/20 08:17 Nasal Cannula 2.00 11/14/20 08:00 36.4 96 28 142/76 (98) 99 Nasal Cannula 1.50 11/14/20 03:50 36.4 98 20 138/74 (95) 99 Nasal Cannula 1.50 11/14/20 00:00 37.1 111 20 152/87 (108) 97 Nasal Cannula 1.50 11/13/20 20:15 37.0 97 20 132/75 (94) 98 Nasal Cannula 1.50 11/13/20 20:12 Nasal Cannula 2.00 11/13/20 15:54 37.1 103 20 132/82 (99) 98 Nasal Cannula 1.50 11/13/20 12:00 36.5 98 20 119/67 (84) 100 Nasal Cannula 1.50 11/13/20 09:52 95 High Flow N/C 2.00 I & O 11/14/20 07:00 Intake Total 3442.0 ml Output Total 2947 ml Balance 495.0 ml Capillary Refill : Less Than 3 Seconds General Appearance: Chronically ill, Cachetic, Mild Distress, Thin HEENT: PERRL/EOMI Neck: Normal Inspection, Non Tender, Supple Respiratory: Chest Non Tender, Lungs Clear (superior lobes), No Accessory Muscle Use, No Respiratory Distress, Decreased Breath Sounds Cardiovascular: Regular Rate, Rhythm, No Gallop, No Murmur, Normal Peripheral Pulses Gastrointestinal: normal bowel sounds, distended (abdomen firm to palpation), tenderness Extremity: Normal Capillary Refill, Normal Inspection, Non Tender, No Calf Tenderness, Pedal Edema, Swelling (right upper extremity mild swelling) Neurologic/Psychiatric: Alert, Oriented x3, Depressed Affect, Motor Weakness Skin: Normal Color, Warm/Dry Lymphatic: No Adenopathy (axila, inguinal, or cervical) Results Lab Laboratory Tests 11/14/20 05:25: White Blood Count 9.7, Red Blood Count 2.64L, Hemoglobin 8.1L, Hematocrit 25L, Mean Corpuscular Volume 96, Mean Corpuscular Hemoglobin 31, Mean Corpuscular Hemoglobin Concent 32, Red Cell Distribution Width 14.6H, Platelet Count 356, Mean Platelet Volume 9.9, Immature Granulocyte % (Auto) 9, Neutrophils (%) (Auto) 65, Lymphocytes (%) (Auto) 14, Monocytes (%) (Auto) 8, Eosinophils (%) (Auto) 4, Basophils (%) (Auto) 1, Neutrophils # (Auto) 6.3, Lymphocytes # (Auto) 1.3, Monocytes # (Auto) 0.7, Eosinophils # (Auto) 0.4H, Basophils # (Auto) 0.1, Immature Granulocyte # (Auto) 0.9H, Sodium Level 136, Potassium Level 4.3, Chloride Level 109H, Carbon Dioxide Level 20L, Anion Gap 7, Blood Urea Nitrogen 12, Creatinine 0.59L, Estimat Glomerular Filtration Rate > 60, BUN/Creatinine Ratio 20, Glucose Level 152H, Calcium Level 7.7L, Corrected Calcium 9.3, Total Bilirubin 0.2, Aspartate Amino Transf (AST/SGOT) 29, Alanine Aminotransferase (ALT/SGPT) 19, Alkaline Phosphatase 181H, Total Protein 4.2L, Albumin 2.0L 11/14/20 06:04: Glucometer 157H Microbiology 11/12/20 Blood Culture - Preliminary, Resulted No growth Assessment/Plan Assessment/Plan Assessment/Plan 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 I think a long discussion with family is important right now and in the meantime she can be encouraged to eat. abdomen firm and distended continue pain medications as needed continue PT/OT if Pt is able and willing MAIKEL SAEED DO 11/14/20 1243: Subjective Time Seen by a Provider: 10:55 Subjective/Events-last exam Pt seen and examined, she is up to chair and states she thinks she is doing ok today. She is asking to be cleaned up. Review of Systems General: Fatigue, Malaise, Appetite Pulmonary: Dyspnea; No Cough Cardiovascular: No: Chest Pain, Palpitations Gastrointestinal: Abdominal Pain Genitourinary: Incontinence Objective Exam General Appearance: No Apparent Distress, Chronically ill, Cachetic HEENT: PERRL/EOMI, Other (poor dentition) Respiratory: Lungs Clear (superior lobes), No Accessory Muscle Use, No Respiratory Distress, Decreased Breath Sounds (at bases with dullness to percussion) Cardiovascular: Regular Rate, Rhythm, No Murmur Gastrointestinal: no organomegaly, distended, tenderness Neurologic/Psychiatric: Depressed Affect Assessment/Plan Assessment/Plan Assessment/Plan Large Pancreatic Pseudocyst vs. Breakdown from necrosis B/L pleural effusion Right upper extremity edema Encourage PO, pain meds as needed, encourage ambulation and continue current care. Supervisory-Addendum Brief Verification & Attestation Participated in pt care: history, MDM, physical Personally performed: exam, history, MDM Care discussed with: Medical Student Procedures: n/a Verification and Attestation of Medical Student E/M Service A medical student performed and documented this service. I then reviewed and verified all information documented by the medical student and made modifications to such information, when appropriate. I personally performed a physical exam, medical decision making and then discussed any differences between the notes and made revisions as necessary to create one note. Maikel Saeed , 11/14/20 , 12:43 BROOKS MARIN MED STUDENT Nov 14, 2020 09:14 MAIKEL SAEED DO Nov 14, 2020 12:43
[2020-11-14 12:00] VITALS: BP 118/76
[2020-11-14] MEDS: VANCOMYCIN 750 MG/NS 250 ML IVPB IV SCH ×2 (13:39)
[2020-11-14] MEDS: ENOXAPARIN 40 MG/0.4 ML (LOVENOX) SYR SC SCH (13:40)
[2020-11-14 16:00] VITALS: BP 130/73
--- NOTE | 2020-11-14 16:57 | NUR ---
PATIENT REFUSING POSITION CHANGE DESPITE EDUCATION BY NURSING ON SKIN BREAKDOWN. AGREEABLE TO WEAR SCDS. EDEMATOUS RIGHT ARM CONT ELEVATION WITH PILLOW. PATIENT FREQUENTLY ENCOURAGED TO EAT. BITES ONLY. OFFERED ENSURE. DENIES NEEDS OR C/O AT THIS TIME. CONT TO MONITOR.
[2020-11-14] MEDS ORDERED: SODIUM ACETATE IV SCH ×10 (17:00)
[2020-11-14] MEDS ORDERED: [UNRECOGNIZED DRUG - OTHER] IV SCH ×10 (17:00)
[2020-11-14] MEDS ORDERED: POTASSIUM CHLORIDE IV SCH ×10 (17:00)
[2020-11-14] MEDS ORDERED: SODIUM PHOSPHATE IV SCH ×10 (17:00)
[2020-11-14 19:52] VITALS: BP 131/82
[2020-11-15] VITALS: BP 133/75
[2020-11-15 04:23] VITALS: BP 128/73
[2020-11-15] MEDS: MEROPENEM 500 MG in WATER (STERILE) FOR INJECTION 10 ML IV SCH ×3 (05:49→21:18)
[2020-11-15 06:34] LABS: BASOPHILS # (AUTO) 0.1 10^3/uL (0.0-0.1); BASOPHILS % (AUTO) 0 % (0-10); EOSINOPHILS # (AUTO) 0.4 10^3/uL (0.0-0.3); EOSINOPHILS % (AUTO) 3 % (0-10); HEMATOCRIT 25 % (35-52); HEMOGLOBIN 8.2 g/dL (11.5-16.0); LYMPHOCYTES # (AUTO) 1.6 10^3/uL (1.0-4.0); LYMPHOCYTES % (AUTO) 14 % (12-44); MEAN CORPUSCULAR HEMOGLOBIN 31 pg (25-34); MEAN CORPUSCULAR HGB CONC 33 g/dL (32-36); MEAN CORPUSCULAR VOLUME 94 fL (80-99); MEAN PLATELET VOLUME 10.1 fL (9.0-12.2); MONOCYTES % (AUTO) 9 % (0-12); NEUTROPHILS # (AUTO) 7.9 10^3/uL (1.8-7.8); NEUTROPHILS % (AUTO) 67 % (42-75); PLATELET COUNT 342 10^3/uL (130-400); WHITE BLOOD COUNT 11.7 10^3/uL (4.3-11.0)
[2020-11-15 06:46] LABS: CHLORIDE 107 MMOL/L (98-107); POTASSIUM 4.2 MMOL/L (3.6-5.0); SODIUM 134 MMOL/L (135-145)
[2020-11-15 06:47] LABS: CALCIUM 7.6 MG/DL (8.5-10.1)
[2020-11-15 06:48] LABS: GLUCOSE 125 MG/DL (70-105); TOTAL PROTEIN 4.2 GM/DL (6.4-8.2)
[2020-11-15 06:49] LABS: CARBON DIOXIDE 21 MMOL/L (21-32)
[2020-11-15 06:50] LABS: BILIRUBIN,TOTAL 0.2 MG/DL (0.1-1.0)
[2020-11-15 06:51] LABS: ALKALINE PHOSPHATASE 165 U/L (40-136)
[2020-11-15 06:52] LABS: CREATININE SERUM 0.54 MG/DL (0.60-1.30); GFR ESTIMATED > 60
[2020-11-15 06:53] LABS: BUN/CREATININE RATIO 24
[2020-11-15 06:55] LABS: ALANINE AMINOTRANSFERASE 19 U/L (0-55)
[2020-11-15 08:00] VITALS: BP 129/80
--- NOTE | 2020-11-15 08:01 | Progress Note - Hospitalist ---
Subjective HPI/CC On Admission Date Seen by Provider: Nov 15, 2020 Time Seen by Provider: 11:30 CC: Abdominal pain HPI: This is an 80yoWF who has a h/o critical illness due to hemorrhagic pancreatitis who presents to the med-surg floor with increasing abdominal pain and could no longer participate in IRF. Daughter was updated on this fact and prepared her for a decline in status due to advanced age and unable to maintain nutritional requirements requiring TPN. CT scan was ordered along with pain meds. Patient has had intermittent confusion throughout IRF course. Patient appears to be very frail. Subjective/Events-last exam Not eating Talks about eating then when has the food she does not eat it CT guided procedure may be possible I conferred with Dr Jose and he will evaluate if tomorrow IV abx maintained Cachexia noted Patient near terminal Asks every day who I am after taking care of her for 1.5 weeks and seeing her every day starting in IRF Review of Systems General: Fatigue, Malaise Gastrointestinal: Abdominal Pain Neurological: Confusion Focused Exam Time of Focused Exam: 08:15 Objective Exam Vital Signs Vital Signs Date Time Temp Pulse Resp B/P (MAP) Pulse Ox O2 Delivery O2 Flow Rate FiO2 11/15/20 19:16 36.8 108 20 131/80 (97) 95 Room Air 11/15/20 12:00 2.00 Capillary Refill : Less Than 3 Seconds General Appearance: No Apparent Distress, WD/WN, Chronically ill, Thin Respiratory: Lungs Clear Cardiovascular: Regular Rate, Rhythm Neurologic/Psychiatric: Alert, Disoriented Results/Procedures Lab Laboratory Tests 11/15/20 06:21 Patient resulted labs reviewed. Assessment/Plan Assessment and Plan Assess & Plan/Chief Complaint Assessment: Worsened abdominal pain due to necrotic pancreas Failed IRF Confusion Frail status Unable to maintain nutrition on TPN Plan: Pain meds TPN CT scan Dr Díaz consult 11/13/20: Pain control TPN PT OT NH for intermediate designer care 11/14/20: Pain control Cognition is not improving TPN 11/15/20: CT guided procedure? Appreciate Dr Jose attempting to evaluate for that procedure CONNOR BUSTAMANTE DO Nov 15, 2020 08:01
[2020-11-15] MEDS: oxyCODONE/APAP 5/325MG (PERCOCET 5) TABLET PO PRN ×2 (08:08→14:39)
[2020-11-15 10:12] LABS: PHOSPHORUS 2.8 MG/DL (2.3-4.7)
--- NOTE | 2020-11-15 10:50 | NUR ---
TPN: TPN running at 55 ml/hr, providing 1550 kcal with 75 gm protein. Continue same. Unexplained MG level of 4, will leave mg out of TPN pending further labs.
--- NOTE | 2020-11-15 11:06 | Progress Note - Surgery ---
BROOKS MARIN MED STUDENT 11/15/20 1106: Subjective Date Seen by a Provider: Nov 15, 2020 Time Seen by a Provider: 09:45 Subjective/Events-last exam Pt was laying in her bed playing with her phone in a confused state of mind this morning upon entering the room. She thought that she was at [facility] and that it was November 04. She also was very concerned that someone was trying to call her on her private cell phone and stated that it kept ringing but the phone was turned off when I looked at it. Pt stated that she was in minimal pain. She denied SOB but stated that she feels labored when breathing sometimes, currently on 2L of O2. Last night she requested pain meds twice to control the pain.Nursing staff continues to have to replace the dressings surrounding her leaking CHRISTA drain multiple times a day. Pt is not eating and has stay in her bed only the last couple of days. Review of Systems Gastrointestinal: Abdominal Pain Genitourinary: Incontinence Neurological: Weakness, Confusion Focused Exam Time of Focused Exam: 08:15 Respiratory: Chest Non Tender, Lungs Clear (superior lobes), No Accessory Muscle Use, No Respiratory Distress, Decreased Breath Sounds Cardiovascular: Regular Rate, Rhythm, No Gallop, No Murmur, Normal Peripheral Pulses Skin: normal color, warm/dry Objective Exam Vital Signs Date Time Temp Pulse Resp B/P (MAP) Pulse Ox O2 Delivery O2 Flow Rate FiO2 11/15/20 08:00 Nasal Cannula 2.00 11/15/20 08:00 35.8 100 20 129/80 (96) 99 Nasal Cannula 2.00 11/15/20 04:23 35.6 104 18 128/73 (91) 96 Nasal Cannula 2.00 11/15/20 00:00 35.9 101 16 133/75 (94) 99 Nasal Cannula 2.00 11/14/20 20:05 Nasal Cannula 2.00 11/14/20 19:52 37.1 108 20 131/82 (98) 99 Nasal Cannula 2.00 11/14/20 16:00 36.5 112 18 130/73 (92) 95 Nasal Cannula 2.00 11/14/20 12:00 35.6 98 20 118/76 (90) 99 Nasal Cannula 1.50 I & O 11/15/20 07:00 Intake Total 2050 ml Output Total 2065 ml Balance -15 ml Capillary Refill : Less Than 3 Seconds General Appearance: No Apparent Distress, Chronically ill, Thin HEENT: PERRL/EOMI, Other (poor dentition) Neck: Normal Inspection, Non Tender, Supple Respiratory: Chest Non Tender, Lungs Clear (superior lobes ), No Accessory Muscle Use, No Respiratory Distress, Decreased Breath Sounds Cardiovascular: Regular Rate, Rhythm, No Gallop, No Murmur, Normal Peripheral Pulses Peripheral Pulses: 0 Carotid (R), 0 Carotid (L), 0 Femoral (R), 0 Femoral (L), 0 Dorsalis Pedis (R), 0 Left Dors-Pedis (L), 0 Radial Pulses (R), 0 Radial Pulses (L) Gastrointestinal: normal bowel sounds, no organomegaly, distended, tenderness (to palpation in epigastric region) Extremity: Normal Capillary Refill, Normal Inspection, Non Tender, No Calf Tenderness, Pedal Edema, Swelling (right upper extremity mild swelling) Neurologic/Psychiatric: Alert, Disoriented Skin: Normal Color, Warm/Dry Lymphatic: No Adenopathy (axila, inguinal, or cervical) Results Lab Laboratory Tests 11/14/20 15:22: Glucometer 121H 11/14/20 20:04: Glucometer 128H 11/15/20 05:23: Glucometer 136H 11/15/20 06:21: White Blood Count 11.7H, Red Blood Count 2.65L, Hemoglobin 8.2L, Hematocrit 25L, Mean Corpuscular Volume 94, Mean Corpuscular Hemoglobin 31, Mean Corpuscular Hemoglobin Concent 33, Red Cell Distribution Width 14.6H, Platelet Count 342, Mean Platelet Volume 10.1, Immature Granulocyte % (Auto) 6, Neutrophils (%) (Auto) 67, Lymphocytes (%) (Auto) 14, Monocytes (%) (Auto) 9, Eosinophils (%) (Auto) 3, Basophils (%) (Auto) 0, Neutrophils # (Auto) 7.9H, Lymphocytes # (Auto) 1.6, Monocytes # (Auto) 1.0, Eosinophils # (Auto) 0.4H, Basophils # (Auto) 0.1, Immature Granulocyte # (Auto) 0.8H, Sodium Level 134L, Potassium Level 4.2, Chloride Level 107, Carbon Dioxide Level 21, Anion Gap 6, Blood Urea Nitrogen 13, Creatinine 0.54L, Estimat Glomerular Filtration Rate > 60, BUN/Creatinine Ratio 24, Glucose Level 125H, Calcium Level 7.6L, Corrected Calcium 9.2, Phosphorus Level 2.8, Magnesium Level 4.0H, Total Bilirubin 0.2, A spartate Amino Transf (AST/SGOT) 28, Alanine Aminotransferase (ALT/SGPT) 19, Alkaline Phosphatase 165H, Total Protein 4.2L, Albumin 2.0L Microbiology 11/12/20 Blood Culture - Preliminary, Resulted No growth Assessment/Plan Assessment/Plan Assessment/Plan Large Pancreatic Pseudocyst vs. Breakdown from necrosis B/L pleural effusion Right upper extremity edema Encourage PO, pain meds as needed, encourage ambulation and continue current care. WBC elevated from 9.7 yesterday to 11.7 today JV SAEED DO 11/15/20 1714: Subjective Time Seen by a Provider: 15:34 Subjective/Events-last exam Pt seen and examined, no new changes. Pt still has abdominal pain and doesn't think she is getting better. Review of Systems General: Fatigue, Malaise Cardiovascular: No: Chest Pain Gastrointestinal: Abdominal Pain Genitourinary: Incontinence Neurological: Weakness, Confusion Objective Exam General Appearance: No Apparent Distress, Chronically ill Respiratory: Lungs Clear (superior lobes ), No Accessory Muscle Use, No Respiratory Distress, Decreased Breath Sounds Cardiovascular: Regular Rate, Rhythm Gastrointestinal: distended (slightly firm), tenderness (to palpation in epigastric region), other (serous drainage coming out around, appx 120ml past 24 hrs in bulb) Neurologic/Psychiatric: Alert, Disoriented Assessment/Plan Assessment/Plan Assessment/Plan Large Pancreatic Pseudocyst vs. Breakdown from necrosis B/L pleural effusion Right upper extremity edema Encourage PO, pain meds as needed, encourage ambulation and continue current care. WBC elevated from 9.7 yesterday to 11.7 today, will continue to monitor. Supervisory-Addendum Brief Verification & Attestation Participated in pt care: history, MDM, physical Personally performed: exam, history, MDM Care discussed with: Medical Student Procedures: n/a Verification and Attestation of Medical Student E/M Service A medical student performed and documented this service. I then reviewed and verified all information documented by the medical student and made modifications to such information, when appropriate. I personally performed a physical exam, medical decision making and then discussed any differences between the notes and made revisions as necessary to create one note. Jv Saeed , 11/15/20 , 17:14 BROOKS MARIN MED STUDENT Nov 15, 2020 11:06 JV SAEED DO Nov 15, 2020 17:14
[2020-11-15] MEDS: NS IV 1000 ML 1,000 ML IV SCH (11:34)
[2020-11-15] MEDS: HYDROmorphone 2 MG/ML VIAL (DILAUDID) IVP PRN (11:34)
[2020-11-15 12:00] VITALS: BP 150/74
[2020-11-15] MEDS ORDERED: TROUGH ORDER-PHARMACY XX NR (13:00)
[2020-11-15] MEDS: VANCOMYCIN 750 MG/NS 250 ML IVPB IV SCH ×2 (14:20)
[2020-11-15] MEDS: ENOXAPARIN 40 MG/0.4 ML (LOVENOX) SYR SC SCH (14:20)
[2020-11-15 15:33] VITALS: BP 136/77
[2020-11-15] MEDS ORDERED: [UNRECOGNIZED DRUG - OTHER] IV SCH ×9 (17:00)
[2020-11-15] MEDS ORDERED: SODIUM PHOSPHATE IV SCH ×9 (17:00)
[2020-11-15] MEDS ORDERED: POTASSIUM CHLORIDE IV SCH ×9 (17:00)
[2020-11-15] MEDS ORDERED: SODIUM ACETATE IV SCH ×9 (17:00)
[2020-11-15 19:16] VITALS: BP 131/80
[2020-11-16 00:49] VITALS: BP 123/69
[2020-11-16] MEDS: NS IV 1000 ML 1,000 ML IV SCH ×3 (01:32→21:05)
[2020-11-16 04:00] VITALS: BP 130/73
[2020-11-16] MEDS: MEROPENEM 500 MG in WATER (STERILE) FOR INJECTION 10 ML IV SCH ×3 (05:08→22:16)
[2020-11-16] MEDS: oxyCODONE/APAP 5/325MG (PERCOCET 5) TABLET PO PRN ×2 (05:28→09:38)
[2020-11-16 05:52] LABS: BASOPHILS # (AUTO) 0.1 10^3/uL (0.0-0.1); BASOPHILS % (AUTO) 1 % (0-10); EOSINOPHILS # (AUTO) 0.4 10^3/uL (0.0-0.3); EOSINOPHILS % (AUTO) 3 % (0-10); HEMATOCRIT 25 % (35-52); HEMOGLOBIN 7.9 g/dL (11.5-16.0); LYMPHOCYTES # (AUTO) 1.8 10^3/uL (1.0-4.0); LYMPHOCYTES % (AUTO) 15 % (12-44); MEAN CORPUSCULAR HEMOGLOBIN 31 pg (25-34); MEAN CORPUSCULAR HGB CONC 32 g/dL (32-36); MEAN CORPUSCULAR VOLUME 96 fL (80-99); MONOCYTES # (AUTO) 0.8 10^3/uL (0.0-1.0); MONOCYTES % (AUTO) 7 % (0-12); NEUTROPHILS # (AUTO) 8.2 10^3/uL (1.8-7.8); NEUTROPHILS % (AUTO) 69 % (42-75); PLATELET COUNT 374 10^3/uL (130-400); WHITE BLOOD COUNT 11.9 10^3/uL (4.3-11.0)
[2020-11-16 06:00] LABS: ALBUMIN 1.9 GM/DL (3.2-4.5)
[2020-11-16 06:01] LABS: CHLORIDE 107 MMOL/L (98-107); POTASSIUM 4.4 MMOL/L (3.6-5.0); SODIUM 135 MMOL/L (135-145)
[2020-11-16 06:02] LABS: CALCIUM 7.7 MG/DL (8.5-10.1)
[2020-11-16 06:03] LABS: GLUCOSE 130 MG/DL (70-105); TOTAL PROTEIN 4.2 GM/DL (6.4-8.2)
[2020-11-16 06:04] LABS: CARBON DIOXIDE 22 MMOL/L (21-32)
[2020-11-16 06:05] LABS: BILIRUBIN,TOTAL 0.2 MG/DL (0.1-1.0)
[2020-11-16 06:06] LABS: ALKALINE PHOSPHATASE 155 U/L (40-136)
[2020-11-16 06:07] LABS: CREATININE SERUM 0.53 MG/DL (0.60-1.30); GFR ESTIMATED > 60
[2020-11-16 06:08] LABS: BUN/CREATININE RATIO 25
[2020-11-16 06:09] LABS: ALANINE AMINOTRANSFERASE 18 U/L (0-55)
--- NOTE | 2020-11-16 07:21 | Progress Note - Surgery ---
TANIABROOKS MED STUDENT 11/16/20 0721: Subjective Date Seen by a Provider: Nov 16, 2020 Time Seen by a Provider: 06:30 Subjective/Events-last exam Pt was alert and confused laying in bed this morning. She stated that she had aching abdominal pain that was constant. Last night she requested pain m edication twice. Pt denied SOB and was not on any supplemental O2. The drain had just just been emptied but according to the nurse the fluid was serous and leaks out into the dressing requiring frequent dressing changes. Abdomen was tender to palpation localized primarily to the epigastric region. She continues to be bed ridden and not eat but a couple bites of each meal. Patient appeared more pale than usual. Review of Systems General: Fatigue, Appetite Cardiovascular: Edema Gastrointestinal: Abdominal Pain Neurological: Weakness, Confusion Focused Exam Time of Focused Exam: 06:30 Respiratory: Chest Non Tender, Lungs Clear (superior lobes), No Accessory Muscle Use, No Respiratory Distress, Decreased Breath Sounds Cardiovascular: Regular Rate, Rhythm, No Gallop, No Murmur, Normal Peripheral Pulses Skin: warm/dry, pallor Objective Exam Vital Signs Date Time Temp Pulse Resp B/P (MAP) Pulse Ox O2 Delivery O2 Flow Rate FiO2 11/16/20 04:00 36.1 108 16 130/73 (92) 98 Room Air 11/16/20 00:49 36.7 111 17 123/69 (87) 98 Room Air 11/15/20 20:02 95 Room Air 11/15/20 19:16 36.8 108 20 131/80 (97) 95 Room Air 11/15/20 15:33 36.6 101 20 136/77 (96) 95 Room Air 11/15/20 12:00 35.0 103 20 150/74 (99) 97 Nasal Cannula 2.00 11/15/20 08:00 Nasal Cannula 2.00 11/15/20 08:00 35.8 100 20 129/80 (96) 99 Nasal Cannula 2.00 I & O 11/16/20 07:00 Intake Total 2401.5 ml Output Total 2520 ml Balance -118.5 ml Capillary Refill : Less Than 3 Seconds General Appearance: No Apparent Distress, Chronically ill, Thin HEENT: PERRL/EOMI, Other (poor dentition) Neck: Normal Inspection, Non Tender, Supple Respiratory: Chest Non Tender, Lungs Clear (superior lobes), No Accessory Muscle Use, No Respiratory Distress, Decreased Breath Sounds Cardiovascular: Regular Rate, Rhythm, No Gallop, No Murmur, Normal Peripheral Pulses Peripheral Pulses: 0 Carotid (R), 0 Carotid (L), 0 Femoral (R), 0 Femoral (L), 0 Dorsalis Pedis (R), 0 Left Dors-Pedis (L), 0 Radial Pulses (R), 0 Radial Pulses (L) Gastrointestinal: normal bowel sounds, distended (slightly firm), tenderness (to palpation in epigastric region), other (serous drainage coming out around) Extremity: Normal Capillary Refill, Normal Inspection, Non Tender, No Calf Tenderness, Pedal Edema, Swelling (right upper extremity moderate swelling) Neurologic/Psychiatric: Alert, Disoriented Skin: Warm/Dry, Pallor Lymphatic: No No Adenopathy (axila, inguinal, or cervical) Results Lab Laboratory Tests 11/15/20 13:03: Vancomycin Level Trough 4.5L 11/16/20 05:16: White Blood Count 11.9H, Red Blood Count 2.59L, Hemoglobin 7.9L, Hematocrit 25L, Mean Corpuscular Volume 96, Mean Corpuscular Hemoglobin 31, Mean Corpuscular Hemoglobin Concent 32, Red Cell Distribution Width 14.8H, Platelet Count 374, Mean Platelet Volume 10.0, Immature Granulocyte % (Auto) 6, Neutrophils (%) (Auto) 69, Lymphocytes (%) (Auto) 15, Monocytes (%) (Auto) 7, Eosinophils (%) (Auto) 3, Basophils (%) (Auto) 1, Neutrophils # (Auto) 8.2H, Lymphocytes # (Auto) 1.8, Monocytes # (Auto) 0.8, Eosinophils # (Auto) 0.4H, Basophils # (Auto) 0.1, Immature Granulocyte # (Auto) 0.7H, Sodium Level 135, Potassium Level 4.4, Chloride Level 107, Carbon Dioxide Level 22, Anion Gap 6, Blood Urea Nitrogen 13, Creatinine 0.53L, Estimat Glomerular Filtration Rate > 60, BUN/Creatinine Ratio 25, Glucose Level 130H, Calcium Level 7.7L, Corrected Calcium 9.4, Total Bilirubin 0.2, Aspartate Amino Transf (AST/SGOT) 28, Alanine Aminotransferase (ALT/SGPT) 18, Alkaline Phosphatase 155H, Total Protein 4.2L, Albumin 1.9L, Procalcitonin 0.27H 11/16/20 05:17: Glucometer 134H Microbiology 11/12/20 Blood Culture - Preliminary, Resulted No growth Assessment/Plan Assessment/Plan Assessment/Plan 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 WBC elevated from 11.7 yesterday to 11.9 today, will continue to monitor. MAIKEL DÍAZ DO 11/16/202027: Subjective Time Seen by a Provider: 15:30 Subjective/Events-last exam Pt seen and examined, no changes. Still complains of abdominal pain; but she was sleeping without difficulty when I walked in and was easily arousable. Nurse states she is not eating much. 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 Supervisory-Addendum Brief Verification & Attestation Participated in pt care: history, MDM, physical Personally performed: exam, history, MDM Care discussed with: Medical Student Procedures: n/a Verification and Attestation of Medical Student E/M Service A medical student performed and documented this service. I then reviewed and verified all information documented by the medical student and made modifications to such information, when appropriate. I personally performed a physical exam, medical decision making and then discussed any differences between the notes and made revisions as necessary to create one note. Maikel Díaz , 11/16/20 , 20:28 BROOKS MARIN MED STUDENT Nov 16, 2020 07:21 MAIKEL DÍAZ DO Nov 16, 2020 20:28
[2020-11-16] MEDS: VANCOMYCIN 750 MG/NS 250 ML IVPB IV SCH ×4 (08:24→21:05)
[2020-11-16 08:33] VITALS: BP 128/77
[2020-11-16 09:55] LABS: MAGNESIUM 1.8 MG/DL (1.6-2.4); PHOSPHORUS 2.7 MG/DL (2.3-4.7)
--- NOTE | 2020-11-16 10:10 | Progress Note ---
Subjective Date Seen by a Provider: Nov 16, 2020 Time Seen by a Provider: 09:30 Subjective/Events-last exam I had radiology interventional type Dr. Jose review the case and there is no clear pathway to drain the pseudocyst Maintain antibiotics Discharge back home on hospice or the jail Denies any significant new issues Barely eating anything TPN maintained Review of Systems General: Fatigue, Malaise Neurological: Weakness Focused Exam Time of Focused Exam: 06:30 Objective Exam Last Set of Vital Signs Vital Signs Date Time Temp Pulse Resp B/P (MAP) Pulse Ox O2 Delivery O2 Flow Rate FiO2 11/16/20 08:33 36.8 103 20 128/77 (94) 95 Room Air 11/15/20 12:00 2.00 Capillary Refill : Less Than 3 Seconds I&O Intake and Output 11/16/20 00:00 Intake Total 2321.5 ml Output Total 2350 ml Balance -28.5 ml Intake Oral 740 ml IV Total 1581.5 ml Output Urine Total 2050 ml Drainage Total 300 ml # Bowel Movements 3 General: Alert, Cooperative, No Acute Distress, Other (confused) Lungs: Clear to Auscultation Heart: Regular Rate Results Lab Laboratory Tests 11/15/20 13:03: Vancomycin Level Trough 4.5L 11/16/20 05:16: White Blood Count 11.9H, Red Blood Count 2.59L, Hemoglobin 7.9L, Hematocrit 25L, Mean Corpuscular Volume 96, Mean Corpuscular Hemoglobin 31, Mean Corpuscular Hemoglobin Concent 32, Red Cell Distribution Width 14.8H, Platelet Count 374, Mean Platelet Volume 10.0, Immature Granulocyte % (Auto) 6, Neutrophils (%) (Auto) 69, Lymphocytes (%) (Auto) 15, Monocytes (%) (Auto) 7, Eosinophils (%) (Auto) 3, Basophils (%) (Auto) 1, Neutrophils # (Auto) 8.2H, Lymphocytes # (Auto) 1.8, Monocytes # (Auto) 0.8, Eosinophils # (Auto) 0.4H, Basophils # (Auto) 0.1, Immature Granulocyte # (Auto) 0.7H, Sodium Level 135, Potassium Level 4.4, Chloride Level 107, Carbon Dioxide Level 22, Anion Gap 6, Blood Urea Nitrogen 13, Creatinine 0.53L, Estimat Glomerular Filtration Rate > 60, BUN/Creatinine Ratio 25, Glucose Level 130H, Calcium Level 7.7L, Corrected Calcium 9.4, Phosphorus Level 2.7, Magnesium Level 1.8, Total Bilirubin 0.2, Aspartate Amino Transf (AST/SGOT) 28, Alanine Aminotransferase (ALT/SGPT) 18, Alkaline Phosphatase 155H, Total Protein 4.2L, Albumin 1.9L, Procalcitonin 0.27H 11/16/20 05:17: Glucometer 134H Microbiology 11/12/20 Blood Culture - Preliminary, Resulted No growth Assessment/Plan Assessment/Plan Assess & Plan/Chief Complaint Assessment: Worsened abdominal pain due to necrotic pancreas Failed IRF Confusion Frail status Unable to maintain nutrition on TPN Plan: Pain meds TPN CT scan Dr Díaz consult 11/13/20: Pain control TPN 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 Appreciate Dr Jose attempting to evaluate for that procedure 11/16/20: No possibility for IR to drain cyst Updated daughter Patient not eating TPN maintained CONNOR BUSTAMANTE DO Nov 16, 2020 10:10
--- NOTE | 2020-11-16 10:36 | Physical Therapy Daily Note ---
PT Daily Note-Current Subjective Patient c/o 10/10 abdominal pain. RN is aware. Mental Status Patient Orientation: Person, Time Attachments: Central Line, [place] Catheter Transfers SCALE: Activities may be completed with or without assistive devices. 3-Digjstwhws-sjmpjyv completes the activity by him/herself with no assistance from a helper. 5-Set-up or Clean-up Assistance-helper sets up or cleans up; patient completes activity. Johnston assists only prior to or following the activity. 4-Supervision or Touching Assistance-helper provides verbal cues and/or touching/steadying and/or contact guard assistance as patient completes activi ty. Assistance may be provided throughout the activity or intermittently. 3-Partial/Moderate Assistance-helper does LESS THAN HALF the effort. Johnston lifts, holds or supports trunk or limbs, but provides less than half the effort. 2-Substantial/Maximal Assistance-helper does MORE THAN HALF the effort. Johnston lifts or holds trunk or limbs and provides more than half the effort. 3-Dtmujrntb-pvawgy does ALL the effort. Patient does none of the effort to complete the activity. Or, the assistance of 2 or more helpers is required for the patient to complete the activity. If activity was not attempted, code reason: 7-Patient Refused. 9-Not Applicable-not attempted and the patient did not perform the activity before the current illness, exacerbation or injury. 10-Not Attempted due to Environmental Limitations-(lack of equipment, weather restraints, etc.). 88-Not Attempted due to Medical Conditions or Safety Concerns. Sit to Stand (QC): 4 Weight Bearing Full Weight Bearing Full Weight Bearing Gait Training Does the Patient Walk?: Yes Distance: 225' Walk 10 feet (QC): 4 Walk 50 ft with 2 Turns(QC): 4 Walk 150 ft (QC): 4 Gait Assistive Device: FWW kyphotic posture with slow, steady gait sequence Exercises Seated Therapy Exercises: Ankle pumps, Long arc quads Seated Reps: 12 Assessment Patient remains up in recliner with needs met. Patient requires encouragement to participate with perform increase activity. PT Correction Goals Correction Goals PT Correction Goals Time Frame: Nov 28, 2020 Sit to Stand (QC): 6 Chair/Pvr-fo-[place] Xfer(QC): 6 Does the Patient Walk: Yes Walk 10 feet (QC): 6 Walk 50ft with 2 Turns (QC): 6 Walk 150 ft (QC): 5 4 Steps (QC): 6 PT Plan Treatment/Plan Treatment Plan: Continue Plan of Care Treatment Plan: Bed Mobility, Education, Functional Activity [place], Functional Strength, Gait, Safety, Therapeutic Exercise, Transfers Treatment Duration: Nov 28, 2020 Frequency: 6 times per week Estimated Hrs Per Day: .25 hour per day Patient and/or Family Agrees t: Yes Time/GCodes Time In: 1010 Time Out: 1021 Total Billed Treatment Time: 11 Total Billed Treatment 1 visit FA 11 min LI RITCHIE PT Nov 16, 2020 10:36
--- NOTE | 2020-11-16 10:46 | Progress Note ---
CARIDAD JACQUES MED STUDENT 11/16/20 1046: Progress Note Ms. 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 Daughter was updated on this fact and prepared her for a decline in status due to advanced age and inability to maintain nutritional requirements requiring TPN. CT scan was ordered along with pain meds. Pseudocyst was found on CT and general surgery was consulted but unable to operate. Dr. Jose was also cons ulted for possible CT-guided procedure to drain the cyst but he is unable to do this. Patient has had intermittent confusion throughout IRF course. Patient appears to be very frail. She has refused to participate in PT/OT frequently throughout her stay and increasingly denies food at mealtime. Pt routinely states her feelings of hopelessness with her situation and makes comments about not wanting to continue and being ready to give up. Daughter was called again on 11/16/20 to discuss updates and social work will be contacting her to talk about end-of-life care options. Assessment: Worsened abdominal pain due to necrotic pancreas Failed IRF Confusion Frail status Unable to maintain nutrition on TPN Plan: Pain control TPN PT/OT Social work to discuss end-of-life care LIANNA BUSTAMANTE DO 11/17/20 0546: Supervisory-Addendum Brief Verification & Attestation Participated in pt care: history, MDM, physical Personally performed: exam, history, MDM, supervision of care Care discussed with: Medical Student Procedures: n/a Results interpretation: Verified all documentation Verification and Attestation of Medical Student E/M Service A medical student performed and documented this service in my presence. I reviewed and verified all information documented by the medical student and made modifications to such information, when appropriate. I personally performed the physical exam and medical decision making. Lianna Bustamante, Nov 17, 2020,05:46 CARIDAD JACQUES MED STUDENT Nov 16, 2020 10:46 LIANNA BUSTAMANTE DO Nov 17, 2020 05:46
[2020-11-16 11:58] VITALS: BP 140/76
--- NOTE | 2020-11-16 12:52 | NUR ---
CM/SS: Visited with pt as to plan for discharge and next steps after her discharge from hospital. Plan: Undetermined at this time. All options discussed. Plan for home with home care/ and or hospice and or intermediate care are discussed with pt and daughter via phone. Both pt and daughter want to think about the best options prior to making a decision. Summary: Talk with both pt and family - daughter Liban - and give them all of the options related to care. Both pt and daughter Liban are unsure as to what option they want to pursue at this time . They both want to give them some thought, and we can further discuss on tomorrow. Pt does indicate she is not getting better and does not have an appetite at this time. She is encouraged to eat by her daughter. This worker will follow up.
[2020-11-16] MEDS: ENOXAPARIN 40 MG/0.4 ML (LOVENOX) SYR SC SCH (13:07)
[2020-11-16] MEDS: HYDROmorphone 2 MG/ML VIAL (DILAUDID) IVP PRN ×2 (13:13→21:08)
[2020-11-16 16:29] VITALS: BP 122/51
[2020-11-16] MEDS: SODIUM PHOSPHATE IV SCH ×10 (17:10)
[2020-11-16] MEDS: [UNRECOGNIZED DRUG - OTHER] IV SCH ×10 (17:10)
[2020-11-16] MEDS: SODIUM ACETATE IV SCH ×10 (17:10)
[2020-11-16] MEDS: POTASSIUM CHLORIDE IV SCH ×10 (17:10)
[2020-11-16 19:52] VITALS: BP 129/76
[2020-11-17 00:40] VITALS: BP 175/77
[2020-11-17 04:49] VITALS: BP 120/72
[2020-11-17] MEDS: MEROPENEM 500 MG in WATER (STERILE) FOR INJECTION 10 ML IV SCH ×3 (05:04→21:56)
[2020-11-17] MEDS ORDERED: TROUGH ORDER-PHARMACY XX NR (07:00)
[2020-11-17 07:33] LABS: HEMOGLOBIN 8.3 g/dL (11.5-16.0); MEAN PLATELET VOLUME 9.7 fL (9.0-12.2); WHITE BLOOD COUNT 13.6 10^3/uL (4.3-11.0)
[2020-11-17 08:00] VITALS: BP 142/82
--- NOTE | 2020-11-17 08:09 | Progress Note - Surgery ---
BROOKS MARIN MED STUDENT 11/17/20 0809: Subjective Date Seen by a Provider: Nov 17, 2020 Time Seen by a Provider: 07:30 Subjective/Events-last exam Pt was laying in bed confused but alert this morning. She denied pain at the moment but required 1 pain pill throughout the night. Pt right upper extremity was swollen and tender to palpation. There was minimal serous fluid in the drain itself but the CHRISTA drain continue to leak into the dressings and has to be changed. Abdominal exam was significant for distended abdomen that was firm with localized tenderness in the epigastric region to palpation. She is not eating but a few bite of every meal and stated that she didn't even want her coffee this morning. She is receiving TPN. Pt is incontinent with with 1 loose stool during the night, Pt denies SOB or dyspnea. Review of Systems General: Fatigue, Appetite Genitourinary: Incontinence Musculoskeletal: arm pain Neurological: Weakness, Confusion Focused Exam Time of Focused Exam: 07:30 Respiratory: Chest Non Tender, Lungs Clear (superior lobes), No Accessory Muscle Use, No Respiratory Distress, Decreased Breath Sounds Cardiovascular: Regular Rate, Rhythm, No Gallop, No Murmur, Normal Peripheral Pulses Skin: warm/dry, pallor Objective Exam Vital Signs Date Time Temp Pulse Resp B/P (MAP) Pulse Ox O2 Delivery O2 Flow Rate FiO2 11/17/20 04:49 36.5 96 20 120/72 (88) 95 Room Air 11/17/20 00:40 36.8 102 20 175/77 (109) 96 Room Air 11/16/20 20:00 94 Room Air 3.00 11/16/20 19:52 37.0 116 20 129/76 (93) 95 Room Air 11/16/20 16:29 37.1 106 18 122/51 (74) 98 Room Air 11/16/20 11:58 36.6 97 20 140/76 (97) 97 Room Air 11/16/20 08:33 36.8 103 20 128/77 (94) 95 Room Air I & O 11/17/20 07:00 Intake Total 2442.5 ml Output Total 1860 ml Balance 582.5 ml Capillary Refill : Less Than 3 Seconds General Appearance: Chronically ill, Thin HEENT: PERRL/EOMI, Other (poor dentition) Neck: Normal Inspection, Non Tender, Supple Respiratory: Chest Non Tender, Lungs Clear (superior lobes), No Accessory Muscle Use, No Respiratory Distress, Decreased Breath Sounds Cardiovascular: Regular Rate, Rhythm, No Gallop, No Murmur, Normal Peripheral Pulses Peripheral Pulses: 0 Carotid (R), 0 Carotid (L), 0 Femoral (R), 0 Femoral (L), 0 Dorsalis Pedis (R), 0 Left Dors-Pedis (L), 0 Radial Pulses (R), 0 Radial Pulses (L) Gastrointestinal: normal bowel sounds, distended (moderately firm), tenderness (to palpation in epigastric region), other (serous drainage coming out around CHRISTA) Extremity: Normal Capillary Refill, Normal Inspection, Non Tender, No Calf Tenderness, Pedal Edema, Swelling (right upper extremity moderate swelling) Neurologic/Psychiatric: Alert, Disoriented, Motor Weakness Skin: Warm/Dry, Pallor Lymphatic: No Adenopathy (axila, inguinal, or cervical) Results Lab Laboratory Tests 11/17/20 05:12: Glucometer 133H 11/17/20 07:04: White Blood Count 13.6H, Red Blood Count 2.66L, Hemoglobin 8.3L, Hematocrit 25L, Mean Corpuscular Volume 96, Mean Corpuscular Hemoglobin 31, Mean Corpuscular Hemoglobin Concent 33, Red Cell Distribution Width 14.8H, Platelet Count 400, Mean Platelet Volume 9.7, Vancomycin Level Trough 12.5 Microbiology 11/12/20 Blood Culture - Preliminary, Resulted No growth Assessment/Plan Assessment/Plan Assessment/Plan Assessment: Worsened abdominal pain with distention in epigastric region due to necrotic pancreas Confusion swollen right upper extremity tender to palpation CHRISTA drain leaking serous fluid into dressing WBC elevated to 13.6 today from 11.9 yesterday Plan: continue pain medication as needed continue TPN US of right upper extremity SULMAJENNIFERMAIKEL B DO 11/17/20 1925: Subjective Time Seen by a Provider: 11:56 Subjective/Events-last exam Pt seen and examined, stated she's having a bad day today. Feels tired and having pain in abdomen. Review of Systems General: Fatigue, Appetite (decreased) Pulmonary: No Dyspnea, No Cough Cardiovascular: No: Chest Pain, Palpitations Gastrointestinal: Abdominal Pain; No: Nausea, Vomiting Neurological: Weakness, Confusion Objective Exam General Appearance: Chronically ill, Thin HEENT: PERRL/EOMI Respiratory: Chest Non Tender, Lungs Clear (superior lobes), No Accessory Muscle Use, No Respiratory Distress, Decreased Breath Sounds Cardiovascular: Regular Rate, Rhythm, No Murmur Gastrointestinal: normal bowel sounds, distended (moderately firm - about same as yesterday), tenderness (diffusely), other (serous drainage coming out around CHRISTA) Assessment/Plan Assessment/Plan Assessment/Plan 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 I believe care plan for pt is to send her home, possibly on hospice. Unfortunately, I don't think there is anything surgical to be done that will help her; especially not in town and I am not sure she is a good candidate to go out of town, nor do I believe that is what she wants. Supervisory-Addendum Brief Verification & Attestation Participated in pt care: history, MDM, physical Personally performed: exam, history, MDM Care discussed with: Medical Student Procedures: n/a Verification and Attestation of Medical Student E/M Service A medical student performed and documented this service. I then reviewed and verified all information documented by the medical student and made modifications to such information, when appropriate. I personally performed a physical exam, medical decision making and then discussed any differences between the notes and made revisions as necessary to create one note. Maikel Saeed , 11/17/20 , 19:25 BROOKS MARIN MED STUDENT Nov 17, 2020 08:09 MAIKEL SAEED DO Nov 17, 2020 19:25
[2020-11-17 08:23] LABS: BILIRUBIN,TOTAL 0.2 MG/DL (0.1-1.0); CALCIUM 7.9 MG/DL (8.5-10.1); CHLORIDE 106 MMOL/L (98-107); POTASSIUM 4.4 MMOL/L (3.6-5.0); SODIUM 135 MMOL/L (135-145)
[2020-11-17] MEDS: VANCOMYCIN 750 MG/NS 250 ML IVPB IV SCH ×4 (08:35→19:48)
[2020-11-17 08:44] LABS: CARBON DIOXIDE 20 MMOL/L (21-32); TOTAL PROTEIN 4.3 GM/DL (6.4-8.2)
--- NOTE | 2020-11-17 08:50 | NUR ---
VANCOMYCIN DOSING TROUGH LEVEL 12.5 AFTER 2ND DOSE - CONTINUE CURRENT DOSE OF VANC 750 MG Q12H
[2020-11-17 08:58] LABS: ALANINE AMINOTRANSFERASE 25 U/L (0-55); ALBUMIN 1.9 GM/DL (3.2-4.5); ALKALINE PHOSPHATASE 148 U/L (40-136); BUN/CREATININE RATIO 29; CREATININE SERUM 0.52 MG/DL (0.60-1.30); GFR ESTIMATED > 60; GLUCOSE 117 MG/DL (70-105)
--- NOTE | 2020-11-17 09:23 | Occupational Ther Daily Note ---
OT Current Status-Daily Note Subjective OT daily note for 11/16/20. Pt AxO, slightly confused statements at times. Pt agrees to tx, food placed in front of pt though states not hungry. Pt states immense pain, nursing notified. Mental Status/Objective Patient Orientation: Person, Place, Situation Attachments: Drains, Galeano Catheter, IV ADL-Treatment Therapy Code Descriptions/Definitions Functional [place] Measure: 0=Not Assessed/NA 4=Minimal Assistance 1=Total Assistance 5=Supervision or Setup 2=Maximal Assistance 6=Modified [place] 3=Moderate Assistance 7=Complete IndependenceSCALE: Activities may be completed with or without assistive devices. 1-Cggrvoprly-eolqbem completes the activity by him/herself with no assistance from a helper. 5-Set-up or Clean-up Assistance-helper sets up or cleans up; patient completes activity. [place] assists only prior to or following the activity. 4-Supervision or Touching Assistance-helper provides verbal cues and/or touching/steadying and/or contact guard assistance as patient completes activity. Assistance may be provided throughout the activity or intermittently. 3-Partial/Moderate Assistance-helper does LESS THAN HALF the effort. [place] lifts, holds or supports trunk or limbs, but provides less than half the effort. 2-Substantial/Maximal Assistance-helper does MORE THAN HALF the effort. [place] lifts or holds trunk or limbs and provides more than half the effort. 7-Fejfizvea-qjfzxm does ALL the effort. Patient does none of the effort to complete the activity. Or, the assistance of 2 or more helpers is required for the patient to complete the activity. If activity was not attempted, code reason: 7-Patient Refused. 9-Not Applicable-not attempted and the patient did not perform the activity before the current illness, exacerbation or injury. 10-Not Attempted due to Environmental Limitations-(lack of equipment, weather restraints, etc.). 88-Not Attempted due to Medical Conditions or Safety Concerns. Eating (QC): 4 (SBA for coffee drinking. R UE propped for edema management and assist with shoulder flexion for easier drinking/ feeding once in recliner. ) Lower Body Dressing (QC): 2 (max A threading and max A over hips due to pain. ) Toileting Hygiene (QC): 2 (max A while in stance, pt denies attempting at this time.) Toilet Transfer (QC): 4 (CGA for transfer to BSC. ) Other Treatment Pt completes bed mob with increased time, sits EOB to relax prior to transfer to BSC. Pt sit to stand/ transfers with CGA and OT manipulates lines. Completes minimal loose BM. Pt requires increased time, stating she doesn't know if she's done. Pt completes sit to stand CGA and OT threads/ dons briefs and completes toilet hygiene due to increased pain. Pt positioned in recliner with RUE propped, all needs met, call light in reach, nursing present for pain management needs. Education OT Patient Education: Correct positioning, Energy conservation, Modified ADL techniques, Purpose of tx/functional activities, Safety issues Teaching Recipient: Patient Teaching Methods: Demonstration, Discussion Response to Teaching: Verbalize Understanding, Return Demonstration, Reinforcement Needed OT [facility] Goals [facility] Goals Time Frame: Nov 27, 2020 Eating (QC): 6 Oral Hygiene (QC): 6 Toileting Hygiene (QC): 4 Shower/Bathe Self (QC): 5 Upper Body Dressing (QC): 5 Lower Body Dressing (QC): 4 On/Off Footwear (QC): 4 Additional Goals: 1-Demonstrate ADL Tasks, 2-Verbalize Understanding, 3- ImproveStrength/Yanick 1=Demonstrate adherence to instructed precautions during ADL tasks. 2=Patient will verbalize/demonstrate understanding of assistive devices/modifications for ADL. 3=Patient will improve strength/tolerance for activity to enable patient to perform ADL's. OT Education/Plan Problem List/Assessment Assessment: Decreased Activ Tolerance, Decreased UE Strength, Dependent Transfers, Edema (RUE), Impaired Cognition, Impaired I ADL's, Impaired Self-Care Skills Discharge Recommendations Plan/Recommendations: Continue POC Therapy Discharge Recommendati: 24 Hour Supervision, Home & Family, Post Acute OT Treatment Plan/Plan of Care Treatment,Training & Education: Yes Patient would benefit from OT for education, treatment and training to promote independence in ADL's, mobility, safety and/or upper extremity function for ADL's. Plan of Care: ADL Retraining, Caregiver Training, Concurrent Therapy, Functional Mobility, UE Funct Exercise/Act Treatment Duration: Nov 27, 2020 Frequency: 5 times per week Estimated Hrs Per Day: .25 hour per day Agreement: Yes Rehab Potential: Fair Time/GCodes Start Time: 09:20 Stop Time: 09:41 Total Time Billed (hr/min): 21 Billed Treatment Time 1, ADL (21) OT daily note for 11/16/20. GRIFFIN BORJA OTR Nov 17, 2020 09:23
--- NOTE | 2020-11-17 09:53 | Progress Note ---
Subjective Date Seen by a Provider: Nov 17, 2020 Time Seen by a Provider: 09:30 Subjective/Events-last exam Pt still having no significant change Wont even attempt to eat anymore Will decrease TPN and IV fluids since she will be discharging either home on hospice or correction on hospice No other possibility of regaining function especially due to her cognitive difficulties that she has had since her critical illness I update Dr. Hanley's office Mary Barajas and told her the entire hospital course and she will update Dr. Hanley regarding this Review of Systems Gastrointestinal: Abdominal Pain Neurological: Confusion Focused Exam Time of Focused Exam: 07:30 Objective Exam Last Set of Vital Signs Vital Signs Date Time Temp Pulse Resp B/P (MAP) Pulse Ox O2 Delivery O2 Flow Rate FiO2 11/17/20 08:00 37.8 100 28 142/82 (102) 97 Room Air 11/16/20 20:00 3.00 Capillary Refill : Less Than 3 Seconds I&O Intake and Output 11/17/20 00:00 Intake Total 2617.5 ml Output Total 2080 ml Balance 537.5 ml Intake Oral 1030 ml IV Total 1587.5 ml Output Urine Total 1825 ml Drainage Total 255 ml # Bowel Movements 2 General: Alert, Oriented X3, Cooperative, No Acute Distress Lungs: Clear to Auscultation, Normal Air Movement Heart: Regular Rate, Normal S1, Normal S2, No Murmurs Results Lab Laboratory Tests 11/17/20 05:12: Glucometer 133H 11/17/20 07:04: White Blood Count 13.6H, Red Blood Count 2.66L, Hemoglobin 8.3L, Hematocrit 25L, Mean Corpuscular Volume 96, Mean Corpuscular Hemoglobin 31, Mean Corpuscular Hemoglobin Concent 33, Red Cell Distribution Width 14.8H, Platelet Count 400, Mean Platelet Volume 9.7, Sodium Level 135, Potassium Level 4.4, Chloride Level 106, Carbon Dioxide Level 20L, Anion Gap 9, Blood Urea Nitrogen 15, Creatinine 0.52L, Estimat Glomerular Filtration Rate > 60, BUN/Creatinine Ratio 29, Glucose Level 117H, Calcium Level 7.9L, Corrected Calcium 9.6, Total Bilirubin 0.2, Aspartate Amino Transf (AST/SGOT) 29, Alanine Aminotransferase (ALT/SGPT) 25, Alkaline Phosphatase 148H, Total Protein 4.3L, Albumin 1.9L, Vancomycin Level Trough 12.5 Microbiology 11/12/20 Blood Culture - Preliminary, Resulted No growth Assessment/Plan Assessment/Plan Assess & Plan/Chief Complaint Assessment: 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 Appreciate Dr Jose attempting to evaluate for that procedure 11/16/20: No possibility for IR to drain cyst Updated daughter Patient not eating TPN maintained 11/17/20: Pain control TPN HI tomorrow Hospice CONNOR BUSTAMANTE DO Nov 17, 2020 09:53
[2020-11-17] MEDS: oxyCODONE/APAP 5/325MG (PERCOCET 5) TABLET PO PRN (09:59)
--- NOTE | 2020-11-17 10:01 | NUR ---
PERCOCET PO FOR GENERAL DISCOMFORT.
--- NOTE | 2020-11-17 10:31 | Occupational Ther Daily Note ---
OT Current Status-Daily Note Subjective Pt grimacing while in supine/ in bed this am. Pt expresses 10/10 pain, nursing notified. Pt agrees to get out of bed this am/ complete sponge bath. Pt states, "I don't want to do this," and, "I feel like if I took a nap, and didn't wake up, I would be fine." Mental Status/Objective Patient Orientation: Person, Place, Situation Attachments: Drains, Galeano Catheter, IV ADL-Treatment Therapy Code Descriptions/Definitions Functional [place] Measure: 0=Not Assessed/NA 4=Minimal Assistance 1=Total Assistance 5=Supervision or Setup 2=Maximal Assistance 6=Modified [place] 3=Moderate Assistance 7=Complete IndependenceSCALE: Activities may be completed with or without assistive devices. 3-Kyufwdfjoj-fzipewc completes the activity by him/herself with no assistance from a helper. 5-Set-up or Clean-up Assistance-helper sets up or cleans up; patient completes activity. [place] assists only prior to or following the activity. 4-Supervision or Touching Assistance-helper provides verbal cues and/or touching/steadying and/or contact guard assistance as patient completes activity. Assistance may be provided throughout the activity or intermittently. 3-Partial/Moderate Assistance-helper does LESS THAN HALF the effort. [place] lifts, holds or supports trunk or limbs, but provides less than half the effort. 2-Substantial/Maximal Assistance-helper does MORE THAN HALF the effort. [place] lifts or holds trunk or limbs and provides more than half the effort. 7-Pmejnrirv-pvnchq does ALL the effort. Patient does none of the effort to complete the activity. Or, the assistance of 2 or more helpers is required for the patient to complete the activity. If activity was not attempted, code reason: 7-Patient Refused. 9-Not Applicable-not attempted and the patient did not perform the activity before the current illness, exacerbation or injury. 10-Not Attempted due to Environmental Limitations-(lack of equipment, weather restraints, etc.). 88-Not Attempted due to Medical Conditions or Safety Concerns. Eating (QC): 7 Bathing Location: L Arm, R Arm Shower/Bathe Self (QC): 2 (Pt completes UB/ face, though denies doffing gown and limits full sponge bath. Pt's LE and bottom completed with max A.) Upper Body Dressing (QC): 7 Lower Body Dressing (QC): 2 (OT threads RLE due to catheter threading and pt completes LLE. Pt then stands, OT completes bottom care and hikes over hips. Based on pt's pain, OT completes all tasks pt does not feel she can safely complete at this time.) On/Off Footwear: 1 Toileting Hygiene (QC): 2 Other Treatment Pt expresses immense pain, though readily agrees to get to chair. Bed mob with SBA/ increased time and pain. Pants threaded EOB, good balance. Pt sit to stand with walker and bottom care/ pants hiked. Pt ambulates to chair, grimaces with pain, pain management techniques addressed/ educated. Pt's LE's elevated/ pillow placed. Pt states agreement to sponge bath. Items gathered, upon reentry, pt states, "Are you familiar?" OT addresses items completed prior and plan for tx. Pt completes face/ UEs in sit, though denies doffing gown/ completing any other areas. OT completes LE's with sang Mei. Pt's LEs slightly edematous. RUE propped with pillow, all needs met, call light in reach, left with nursing end of session. Education OT Patient Education: Correct positioning, Purpose of tx/functional activities, Safety issues, Other (pain management. ) Teaching Recipient: Patient Teaching Methods: Demonstration, Discussion Response to Teaching: Verbalize Understanding, Return Demonstration OT Group Home Goals [employer] Goals Time Frame: Nov 27, 2020 Eating (QC): 6 Oral Hygiene (QC): 6 Toileting Hygiene (QC): 4 Shower/Bathe Self (QC): 5 Upper Body Dressing (QC): 5 Lower Body Dressing (QC): 4 On/Off Footwear (QC): 4 Additional Goals: 1-Demonstrate ADL Tasks, 2-Verbalize Understanding, 3-ImproveStrength/Yanick 1=Demonstrate adherence to instructed precautions during ADL tasks. 2=Patient will verbalize/demonstrate understanding of assistive devices/modifications for ADL. 3=Patient will improve strength/tolerance for activity to enable patient to perform ADL's. OT Education/Plan Problem List/Assessment Assessment: Decreased Activ Tolerance, Dependent Transfers, Impaired I ADL's, Impaired Self-Care Skills Discharge Recommendations Plan/Recommendations: Continue POC Therapy Discharge Recommendati: 24 Hour Supervision, Home & Family, Post Acute OT Treatment Plan/Plan of Care Treatment,Training & Education: Yes Patient would benefit from OT for education, treatment and training to promote independence in ADL's, mobility, safety and/or upper extremity function for ADL's. Plan of Care: ADL Retraining, Caregiver Training, Concurrent Therapy, Functional Mobility, UE Funct Exercise/Act Treatment Duration: Nov 27, 2020 Frequency: 5 times per week Estimated Hrs Per Day: .25 hour per day Agreement: Yes Rehab Potential: Fair Time/GCodes Start Time: 09:37 Stop Time: 09:54 Total Time Billed (hr/min): 17 Billed Treatment Time 1, ADL (17) GRIFFIN BORJA OTR Nov 17, 2020 10:31
--- NOTE | 2020-11-17 11:22 | Physical Therapy Daily Note ---
PT Daily Note-Current Subjective Patient is very tearful and c/o 10/10 abdominal pain with bowel incontinence. Pain Numeric Pain Scale: 10-Worst Possible Pain Location: Lower Location Body Site: Abdomen Pain Description: Pressure, Sharp Comment: RN aware Mental Status Attachments: Galeano Catheter, IV Transfers SCALE: Activities may be completed with or without assistive devices. 5-Nnhmirgtbd-zakdfqy completes the activity by him/herself with no assistance from a helper. 5-Set-up or Clean-up Assistance-helper sets up or cleans up; patient completes activity. [place] assists only prior to or following the activity. 4-Supervision or Touching Assistance-helper provides verbal cues and/or touching/steadying and/or contact guard assistance as patient completes activi ty. Assistance may be provided throughout the activity or intermittently. 3-Partial/Moderate Assistance-helper does LESS THAN HALF the effort. [place] lifts, holds or supports trunk or limbs, but provides less than half the effort. 2-Substantial/Maximal Assistance-helper does MORE THAN HALF the effort. [place] lifts or holds trunk or limbs and provides more than half the effort. 5-Wqtahgtba-lkqwys does ALL the effort. Patient does none of the effort to complete the activity. Or, the assistance of 2 or more helpers is required for the patient to complete the activity. If activity was not attempted, code reason: 7-Patient Refused. 9-Not Applicable-not attempted and the patient did not perform the activity before the current illness, exacerbation or injury. 10-Not Attempted due to Environmental Limitations-(lack of equipment, weather restraints, etc.). 88-Not Attempted due to Medical Conditions or Safety Concerns. Sit to Lying (QC): 3 Sit to Stand (QC): 3 Chair/Nau-xz-Fcaei Xfer(QC): 3 Toilet Transfer (QC): 3 PT assist to cleanse after BM Weight Bearing Full Weight Bearing Full Weight Bearing Gait Training Does the Patient Walk?: Yes Distance: 10' Walk 10 feet (QC): 3 Gait Assistive Device: FWW kyphotic Assessment Per RN, patient will dismiss to home with family and hospice. PT Long-Term Goals Event Planning Manager Goals PT Long-Term Goals Time Frame: Nov 28, 2020 Sit to Stand (QC): 6 Chair/Brg-xc-Qppwh Xfer(QC): 6 Does the Patient Walk: Yes Walk 10 feet (QC): 6 Walk 50ft with 2 Turns (QC): 6 Walk 150 ft (QC): 5 4 Steps (QC): 6 PT Plan Treatment/Plan Treatment Plan: Continue Plan of Care Treatment Plan: Bed Mobility, Education, Functional Activity Yanick, Functional Strength, Gait, Safety, Therapeutic Exercise, Transfers Treatment Duration: Nov 28, 2020 Frequency: 6 times per week Estimated Hrs Per Day: .25 hour per day Patient and/or Family Agrees t: Yes Time/GCodes Time In: 1052 Time Out: 1105 Total Billed Treatment Time: 13 Total Billed Treatment 1 visit FA 13 min LI RITCHIE PT Nov 17, 2020 11:22
--- NOTE | 2020-11-17 11:46 | NUR ---
CM/SS: Visited with pt as to her current status. Pt reports she is not doing very well today as she is having some pain. This worker talks with pt briefly and lets pt know that she will call her daughter today and talk with her. Pt is ok with that.
[2020-11-17 12:00] VITALS: BP 152/85
--- NOTE | 2020-11-17 13:28 | NUR ---
CM/SS: Telephone call to daughter - Liban [phone] - she is unsure as to what plan she would like related to pt coming home with home care, hospice or for pt to go to the [facility]. Plan: Undetermined at this time - daughter to determine plan and next steps can be implemented. Summary: Victorina Louie is given detail information as to services related to home care, hospice and skilled facility. She would like to talk to the RN as to current functioning of pt. MIGNON Kinney is given the daughter's phone number to call to give an update. Gregoria reports she was able to talk with daughter and she determined that she wants pt to be on hospice. She may need to think about private caregivers if pt goes home or if she wants pt to go to a facility. Daughter wants to know the policy around end of life and visitors in facilities. - This worker makes contact with [facility] requested that they call daughter to provide some additional information on their end of life policy. This worker called daughter back to explain their process. Daughter also request that the caregiver list and the choice list be provided to her so that she can select a hospice. Information faxed to daughter.
[2020-11-17] MEDS: ENOXAPARIN 40 MG/0.4 ML (LOVENOX) SYR SC SCH (14:12)
--- NOTE | 2020-11-17 14:17 | NUR ---
CM/SS: Referral sent to [facility] for placement - faxed - [phone] - family will be private pay, not skilled placement.
[2020-11-17 15:30] VITALS: BP 144/82
[2020-11-17] MEDS: SODIUM ACETATE IV SCH ×10 (17:26)
[2020-11-17] MEDS: POTASSIUM CHLORIDE IV SCH ×10 (17:26)
[2020-11-17] MEDS: [UNRECOGNIZED DRUG - OTHER] IV SCH ×10 (17:26)
[2020-11-17] MEDS: SODIUM PHOSPHATE IV SCH ×10 (17:26)
[2020-11-17 20:33] VITALS: BP 125/77
[2020-11-17] MEDS: NS IV 1000 ML 1,000 ML IV SCH (23:44)
[2020-11-18] VITALS: BP 130/78
[2020-11-18] MEDS: HYDROmorphone 2 MG/ML VIAL (DILAUDID) IVP PRN (03:48)
[2020-11-18 04:00] VITALS: BP 146/83
[2020-11-18] MEDS: MEROPENEM 500 MG in WATER (STERILE) FOR INJECTION 10 ML IV SCH (05:26)
--- NOTE | 2020-11-18 07:17 | Progress Note - Surgery ---
BROOKS MARIN MED STUDENT 11/18/20 0717: Subjective Date Seen by a Provider: Nov 18, 2020 Time Seen by a Provider: 06:45 Subjective/Events-last exam Pt was laying in bed confused and lethargic this morning. She denied being in pain or experiencing SOB. Pt right upper extremity continues to be swollen and non tender, but it appears to be less swollen than yesterday. On abdominal exam it was significant for distension and moderate epigastric pain with palpation. The fluid from her CHRISTA drain is serous and continues to leak into the dressing requiring multiple dressing changes throughout the night. Pt does not have an appetite and only taking a few bites of each meal. Review of Systems General: Fatigue, Appetite Gastrointestinal: Abdominal Pain (epigastric pain to palpation) Genitourinary: Incontinence Neurological: Weakness, Confusion Focused Exam Time of Focused Exam: 06:45 Respiratory: Chest Non Tender, Lungs Clear (superior lobes), No Accessory Muscle Use, No Respiratory Distress, Decreased Breath Sounds Cardiovascular: Regular Rate, Rhythm, No Gallop, No Murmur, Normal Peripheral Pulses Skin: warm/dry, pallor Objective Exam Vital Signs Date Time Temp Pulse Resp B/P (MAP) Pulse Ox O2 Delivery O2 Flow Rate FiO2 11/18/20 04:00 36.6 109 18 146/83 (104) 95 Room Air 11/18/20 00:00 37.4 109 18 130/78 (95) 95 Room Air 11/17/20 20:33 37.4 113 18 125/77 (93) 98 Room Air 11/17/20 20:00 94 Room Air 11/17/20 15:30 37.2 103 18 144/82 (102) 97 Room Air 11/17/20 12:00 36.8 99 22 152/85 (107) 98 Room Air 11/17/20 08:00 37.8 100 28 142/82 (102) 97 Room Air 11/17/20 08:00 Room Air I & O 11/18/20 07:00 Intake Total 1767.5 ml Output Total 2220 ml Balance -452.5 ml Capillary Refill : General Appearance: Chronically ill, Thin HEENT: PERRL/EOMI Neck: Normal Inspection, Non Tender, Supple Respiratory: Chest Non Tender, Lungs Clear (superior lobes), No Accessory Muscle Use, No Respiratory Distress, Decreased Breath Sounds Cardiovascular: Regular Rate, Rhythm, No Gallop, No Murmur, Normal Peripheral Pulses Peripheral Pulses: 0 Carotid (R), 0 Carotid (L), 0 Femoral (R), 0 Femoral (L), 0 Dorsalis Pedis (R), 0 Left Dors-Pedis (L), 0 Radial Pulses (R), 0 Radial Pulses (L) Gastrointestinal: normal bowel sounds, distended (moderately firm ), tenderness (localized to epigastric region), other (serous drainage coming out around CHRISTA) Extremity: Normal Capillary Refill, Normal Inspection, Non Tender, No Calf Tenderness, Pedal Edema, Swelling (right upper extremity moderate swelling) Neurologic/Psychiatric: Alert, Disoriented, Motor Weakness Skin: Warm/Dry, Pallor Lymphatic: No Adenopathy (axila, inguinal, or cervical) Results Lab Laboratory Tests 11/18/20 05:02: Glucometer 84 Microbiology 11/12/20 Blood Culture - Final, Complete No growth Assessment/Plan Assessment/Plan Assessment/Plan Assessment: 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 Appreciate Dr Jose attempting to evaluate for that procedure 11/16/20: No possibility for IR to drain cyst Updated daughter Patient not eating TPN maintained 11/17/20: Pain control TPN DC tomorrow Hospice JV SAEED DO 11/18/20 1606: Subjective Time Seen by a Provider: 10:32 Subjective/Events-last exam Pt seen and examined, happy about getting out of the hospital today. Denies any significant changes. Review of Systems General: Fatigue, Appetite Pulmonary: No Dyspnea, No Cough Cardiovascular: No: Chest Pain, Palpitations Gastrointestinal: Abdominal Pain (epigastric pain to palpation); No: Nausea, Vomiting Objective Exam General Appearance: Chronically ill, Thin Respiratory: Chest Non Tender, Lungs Clear (superior lobes), No Accessory Muscle Use, No Respiratory Distress, Decreased Breath Sounds Cardiovascular: Regular Rate, Rhythm, No Murmur Gastrointestinal: distended (moderately firm ), tenderness (localized to epigastric region), other (serous drainage coming out around CHRISTA) Assessment/Plan Assessment/Plan Assessment/Plan 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 Supervisory-Addendum Brief Verification & Attestation Participated in pt care: history, MDM, physical Personally performed: exam, history, MDM Care discussed with: Medical Student Procedures: n/a Verification and Attestation of Medical Student E/M Service A medical student performed and documented this service. I then reviewed and verified all information documented by the medical student and made modifications to such information, when appropriate. I personally performed a physical exam, medical decision making and then discussed any differences between the notes and made revisions as necessary to create one note. Jv Saeed , 11/18/20 , 16:06 BROOKS MARIN MED STUDENT Nov 18, 2020 07:17 JV SAEED DO Nov 18, 2020 16:06
[2020-11-18 08:00] VITALS: BP 164/95
[2020-11-18] MEDS: oxyCODONE/APAP 5/325MG (PERCOCET 5) TABLET PO PRN (08:31)
--- NOTE | 2020-11-18 08:59 | Occupational Ther Daily Note ---
OT Current Status-Daily Note Subjective Pt on commode upon entry. AxO, though slight confusion. Pt agrees to tx. States desire to get to chair rather than bed to eat. Pt expresses pain that increases upon sitting on commode. Pt's nurse notified. Nursing states pt's pain increases while sitting upright. Upon reentry, pt denies getting to bed, stating she just got to the chair. Mental Status/Objective Patient Orientation: Person, Place, Situation Attachments: Drains, [place]ale[place] Catheter, IV ADL-Treatment Therapy Code Descriptions/Definitions Functional [place] Measure: 0=Not Assessed/NA 4=Minimal Assistance 1=Total Assistance 5=Supervision or Setup 2=Maximal Assistance 6=Modified [place] 3=Moderate Assistance 7=Complete IndependenceSCALE: Activities may be completed with or without assistive devices. 1-Yxsjaefwat-fuavhul completes the activity by him/herself with no assistance from a helper. 5-Set-up or Clean-up Assistance-helper sets up or cleans up; patient completes activity. [place] assists only prior to or following the activity. 4-Supervision or Touching Assistance-helper provides verbal cues and/or touching/steadying and/or contact guard assistance as patient completes acti vity. Assistance may be provided throughout the activity or intermittently. 3-Partial/Moderate Assistance-helper does LESS THAN HALF the effort. [place] lifts, holds or supports trunk or limbs, but provides less than half the effort. 2-Substantial/Maximal Assistance-helper does MORE THAN HALF the effort. [place] lifts or holds trunk or limbs and provides more than half the effort. 6-Dqwcdqtbj-opoqen does ALL the effort. Patient does none of the effort to complete the activity. Or, the assistance of 2 or more helpers is required for the patient to complete the activity. If activity was not attempted, code reason: 7-Patient Refused. 9-Not Applicable-not attempted and the patient did not perform the activity before the current illness, exacerbation or injury. 10-Not Attempted due to Environmental Limitations-(lack of equipment, weather restraints, etc.). 88-Not Attempted due to Medical Conditions or Safety Concerns. Eating (QC): 6 (pt able to manipulate items/ cut with increased time. Pt states hard to eat due to decreased appetite. Pt's RUE propped for assist for feeding and for edema management. ) Lower Body Dressing (QC): 3 (min A threading RLE (catheter) pt threads L and brings over hips with SBA. ) Toileting Hygiene (QC): 3 (min A for thoroughness. SBA throughout with s/u.) Toilet Transfer (QC): 4 (SBA, use of walker. ) Other Treatment Pt on commode. Desires to continue attempt. OT reentry after gathering of supplies (warm blankets for abdomen pain). Pt completes transfers as outlined/ bottom care and pant donning. Pt ambulates to chair SBA. Positioned for comfort. Pt states pain increased while on commode, desires pain meds at this time sta ting, "I know it won't go down on its own." Nursing notified. Pt's RUE propped and pt's food placed in front of pt. Pt states lack of desire to eat, though knows she needs to. Pt completes 2 bites with IND, denies assist for feeding by OT. Pt left in room with all needs met, call light in reach, pt's nurse knows of pain. Education OT Patient Education: Correct positioning, Purpose of tx/functional activities, Safety issues Teaching Recipient: Patient Teaching Methods: Demonstration, Discussion Response to Teaching: Verbalize Understanding, Return Demonstration OT Patent Prosecution Attorney Goals Senior Care Goals Time Frame: Nov 27, 2020 Eating (QC): 6 Oral Hygiene (QC): 6 Toileting Hygiene (QC): 4 Shower/Bathe Self (QC): 5 Upper Body Dressing (QC): 5 Lower Body Dressing (QC): 4 On/Off Footwear (QC): 4 Additional Goals: 1-Demonstrate ADL Tasks, 2-Verbalize Understanding, 3- ImproveStrength/Yanick 1=Demonstrate adherence to instructed precautions during ADL tasks. 2=Patient will verbalize/demonstrate understanding of assistive devices/modifications for ADL. 3=Patient will improve strength/tolerance for activity to enable patient to perform ADL's. OT Education/Plan Problem List/Assessment Assessment: Decreased Activ Tolerance, Decreased UE Strength, Edema, Impaired Cognition, Impaired I ADL's, Impaired Self-Care Skills Discharge Recommendations Plan/Recommendations: Continue POC Therapy Discharge Recommendati: 24 Hour Supervision, Home & Family Treatment Plan/Plan of Care Treatment,Training & Education: Yes Patient would benefit from OT for education, treatment and training to promote i ndependence in ADL's, mobility, safety and/or upper extremity function for ADL's. Plan of Care: ADL Retraining, Caregiver Training, Concurrent Therapy, Functional Mobility, UE Funct Exercise/Act Treatment Duration: Nov 27, 2020 Frequency: 5 times per week Estimated Hrs Per Day: .25 hour per day Agreement: Yes Rehab Potential: Fair Time/GCodes Start Time: 08:04 Stop Time: 08:29 Total Time Billed (hr/min): 25 Billed Treatment Time 1, ADL 2 (25) GRIFFIN BORJA OTR Nov 18, 2020 08:59
[2020-11-18] MEDS ORDERED: ONDA8TAB13 PO (09:21)
[2020-11-18] MEDS ORDERED: MORP20SO PO (09:21)
[2020-11-18] MEDS ORDERED: OXYC1TAB87 PO (09:21)
[2020-11-18] MEDS ORDERED: LORA2ORA PO (09:21)
--- NOTE | 2020-11-18 09:22 | Discharge Summary ---
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 Appreciate Dr Jose attempting to evaluate for that procedure 11/16/20: No possibility for IR to drain cyst Updated daughter Patient not eating TPN maintained 11/17/20: Pain control TPN DC tomorrow Hospice Discharge Summary Discharge Physical Examination Allergies: Coded Allergies: No Known Drug Allergies (Unverified , 11/12/20) Vitals & I&Os Vital Signs Date Time Temp Pulse Resp B/P (MAP) Pulse Ox O2 Delivery O2 Flow Rate FiO2 11/18/20 12:00 36.6 98 20 150/80 (103) 97 Room Air 11/16/20 20:00 3.00 General Appearance: Alert, Other (thin) Respiratory: Clear to Auscultation Cardiovascular: Regular Rate Hospital Course Was the Problem List Reviewed?: Yes Hospital course: Pt had a lengthy hospital course for nearly seven days after she failed inpatient rehab due to continued increasing abdominal pain and poor nutritional intake. 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 Multiple options were discussed with sub-specialist including general surgery and interventional radiology Dr. Jose and it indicated that there is no direct path in order to drain the pseudocyst to help with the pain. Pain was well controlled on Percocet but she refused to eat, Pt was weaned down off TPN and IV fluids and it was felt that she would be served with hospice services to provide end-of-life care and daughter chose to return her home for end-of-life care. Unsure how that will be managed since she appears to be a two- person assist and bed-bound. Labs (last 24 hrs) Laboratory Tests 11/12/20 14:00: White Blood Count 12.0H, Red Blood Count 2.73L, Hemoglobin 8.4L, Hematocrit 26L, Mean Corpuscular Volume 97, Mean Corpuscular Hemoglobin 31, Mean Corpuscular Hemoglobin Concent 32, Red Cell Distribution Width 14.2, Platelet Count 389, Mean Platelet Volume 9.5, Immature Granulocyte % (Auto) 7, Neutrophils (%) (A uto) 72, Lymphocytes (%) (Auto) 12, Monocytes (%) (Auto) 7, Eosinophils (%) (Auto) 1, Basophils (%) (Auto) 1, Neutrophils # (Auto) 8.7H, Lymphocytes # (Auto) 1.4, Monocytes # (Auto) 0.9, Eosinophils # (Auto) 0.1, Basophils # (Auto) 0.1, Immature Granulocyte # (Auto) 0.9H, Neutrophils % (Manual) 65, Lymphocytes % (Manual) 12, Monocytes % (Manual) 5, Eosinophils % (Manual) 3, Basophils % (Manual) 0, Metamyelocytes % 1, Myelocytes % 1, Band Neutrophils 13, Nucleated Red Blood Cells 2, Toxic Granulation 2+, Polychromasia SLIGHT, Sodium Level 133L , Potassium Level 4.3, Chloride Level 103, Carbon Dioxide Level 22, Anion Gap 8, Blood Urea Nitrogen 16, Creatinine 0.60, Estimat Glomerular Filtration Rate > 60, BUN/Creatinine Ratio 27, Glucose Level 121H, Calcium Level 8.0L, Corrected Calcium 9.5, Total Bilirubin 0.3, Aspartate Amino Transf (AST/SGOT) 36H, Alanine Aminotransferase (ALT/SGPT) 20, Alkaline Phosphatase 139H, Total Protein 4.5L, Albumin 2.1L 11/13/20 05:35: White Blood Count 10.5, Red Blood Count 2.56L, Hemoglobin 8.0L, Hematocrit 24L, Mean Corpuscular Volume 95, Mean Corpuscular Hemoglobin 31, Mean Corpuscular Hemoglobin Concent 33, Red Cell Distribution Width 14.4, Platelet Count 351, Mean Platelet Volume 9.6, Immature Granulocyte % (Auto) 8, Neutrophils (%) (Auto) 68, Lymphocytes (%) (Auto) 12, Monocytes (%) (Auto) 9, Eosinophils (%) (Auto) 2, Basophils (%) (Auto) 1, Neutrophils # (Auto) 7.2, Lymphocytes # (Auto) 1.3, Monocytes # (Auto) 0.9, Eosinophils # (Auto) 0.3, Basophils # (Auto) 0.1, Immature Granulocyte # (Auto) 0.9H, Sodium Level 134L, Potassium Level 4.5, Chloride Level 106, Carbon Dioxide Level 20L, Anion Gap 8, Blood Urea Nitrogen 14, Creatinine 0.56L, Estimat Glomerular Filtration Rate > 60, BUN/Creatinine Ratio 25, Glucose Level 115H, Calcium Level 7.7L, Corrected Calcium 9.5, Total Bilirubin 0.3, Aspartate Amino Transf (AST/SGOT) 32, Alanine Aminotransferase (ALT/SGPT) 21, Alkaline Phosphatase 134, Total Protein 4.0L, Albumin 1.8L, Phosphorus Level 3.0, Magnesium Level 2.0 11/13/20 05:36: Glucometer 113H 11/14/20 05:25: White Blood Count 9.7, Red Blood Count 2.64L, Hemoglobin 8.1L, Hematocrit 25L, Mean Corpuscular Volume 96, Mean Corpuscular Hemoglobin 31, Mean Corpuscular Hemoglobin Concent 32, Red Cell Distribution Width 14.6H, Platelet Count 356, Mean Platelet Volume 9.9, Immature Granulocyte % (Auto) 9, Neutrophils (%) (Auto) 65, Lymphocytes (%) (Auto) 14, Monocytes (%) (Auto) 8, Eosinophils (%) (Auto) 4, Basophils (%) (Auto) 1, Neutrophils # (Auto) 6.3, Lymphocytes # (Auto) 1.3, Monocytes # (Auto) 0.7, Eosinophils # (Auto) 0.4H, Basophils # (Auto) 0.1, Immature Granulocyte # (Auto) 0.9H, Sodium Level 136, Potassium Level 4.3, Chloride Level 109H, Carbon Dioxide Level 20L, Anion Gap 7, Blood Urea Nitrogen 12, Creatinine 0.59L, Estimat Glomerular Filtration Rate > 60, BUN/Creatinine Ratio 20, Glucose Level 152H, Calcium Level 7.7L, Corrected Calcium 9.3, Total Bilirubin 0.2, Aspartate Amino Transf (AST/SGOT) 29, Alanine Aminotransferase (ALT/SGPT) 19, Alkaline Phosphatase 181H, Total Protein 4.2L, Albumin 2.0L 11/14/20 06:04: Glucometer 157H 11/14/20 15:22: Glucometer 121H 11/14/20 20:04: Glucometer 128H 11/15/20 05:23: Glucometer 136H 11/15/20 06:21: White Blood Count 11.7H, Red Blood Count 2.65L, Hemoglobin 8.2L, Hematocrit 25L, Mean Corpuscular Volume 94, Mean Corpuscular Hemoglobin 31, Mean Corpuscular Hemoglobin Concent 33, Red Cell Distribution Width 14.6H, Platelet Count 342, Mean Platelet Volume 10.1, Immature Granulocyte % (Auto) 6, Neutrophils (%) (Auto) 67, Lymphocytes (%) (Auto) 14, Monocytes (%) (Auto) 9, Eosinophils (%) (Auto) 3, Basophils (%) (Auto) 0, Neutrophils # (Auto) 7.9H, Lymphocytes # (Auto) 1.6, Monocytes # (Auto) 1.0, Eosinophils # (Auto) 0.4H, Basophils # (Auto) 0.1, Immature Granulocyte # (Auto) 0.8H, Sodium Level 134L, Potassium Level 4.2, Chloride Level 107, Carbon Dioxide Level 21, Anion Gap 6, Blood Urea Nitrogen 13, Creatinine 0.54L, Estimat Glomerular Filtration Rate > 60, BUN/Creatinine Ratio 24, Glucose Level 125H, Calcium Level 7.6L, Corrected Calcium 9.2, Phosphorus Level 2.8, Magnesium Level 4.0H, Total Bilirubin 0.2, Aspartate Amino Transf (AST/SGOT) 28, Alanine Aminotransferase (ALT/SGPT) 19, Alkaline Phosphatase 165H, Total Protein 4.2L, Albumin 2.0L 11/15/20 13:03: Vancomycin Level Trough 4.5L 11/16/20 05:16: White Blood Count 11.9H, Red Blood Count 2.59L, Hemoglobin 7.9L, Hematocrit 25L, Mean Corpuscular Volume 96, Mean Corpuscular Hemoglobin 31, Mean Corpuscular Hemoglobin Concent 32, Red Cell Distribution Width 14.8H, Platelet Count 374, Mean Platelet Volume 10.0, Immature Granulocyte % (Auto) 6, Neutrophils (%) (Auto) 69, Lymphocytes (%) (Auto) 15, Monocytes (%) (Auto) 7, Eosinophils (%) (Auto) 3, Basophils (%) (Auto) 1, Neutrophils # (Auto) 8.2H, Lymphocytes # (Auto) 1.8, Monocytes # (Auto) 0.8, Eosinophils # (Auto) 0.4H, Basophils # (Auto) 0.1, Immature Granulocyte # (Auto) 0.7H, Sodium Level 135, Potassium Level 4.4, Chloride Level 107, Carbon Dioxide Level 22, Anion Gap 6, Blood Urea Nitrogen 13, Creatinine 0.53L, Estimat Glomerular Filtration Rate > 60, BUN/Creatinine Ratio 25, Glucose Level 130H, Calcium Level 7.7L, Corrected Calcium 9.4, Phosphorus Level 2.7, Magnesium Level 1.8, Total Bilirubin 0.2, Aspartate Amino Transf (AST/SGOT) 28, Alanine Aminotransferase (ALT/SGPT) 18, Alkaline Phosphatase 155H, Total Protein 4.2L, Albumin 1.9L, Prealbumin 9.7L, Procalcitonin 0.27H 11/16/20 05:17: Glucometer 134H 11/17/20 05:12: Glucometer 133H 11/17/20 07:04: White Blood Count 13.6H, Red Blood Count 2.66L, Hemoglobin 8.3L, Hematocrit 25L, Mean Corpuscular Volume 96, Mean Corpuscular Hemoglobin 31, Mean Corpuscular Hemoglobin Concent 33, Red Cell Distribution Width 14.8H, Platelet Count 400, Mean Platelet Volume 9.7, Sodium Level 135, Potassium Level 4.4, Chloride Level 106, Carbon Dioxide Level 20L, Anion Gap 9, Blood Urea Nitrogen 15, Creatinine 0.52L, Estimat Glomerular Filtration Rate > 60, BUN/Creatinine Ratio 29, Glucose Level 117H, Calcium Level 7.9L, Corrected Calcium 9.6, Total Bilirubin 0.2, Aspartate Amino Transf (AST/SGOT) 29, Alanine Aminotransferase (ALT/SGPT) 25, Alkaline Phosphatase 148H, Total Protein 4.3L, Albumin 1.9L, Vancomycin Level Trough 12.5 11/18/20 05:02: Glucometer 84 Microbiology 11/12/20 Blood Culture - Final, Complete No growth Pending Labs Microbiology Date/Time Source Procedure Growth Status 11/12/20 14:00 Peripheral Right Wrist Blood Culture - Final No growth Complete 11/12/20 13:47 Peripheral Rt Ac Blood Culture - Final No growth Complete Laboratory Tests 11/12/20 14:00: White Blood Count 12.0, Red Blood Count 2.73, Hemoglobin 8.4, Hematocrit 26, Mean Corpuscular Volume 97, Mean Corpuscular Hemoglobin 31, Mean Corpuscular Hemoglobin Concent 32, Red Cell Distribution Width 14.2, Platelet Count 389, Mean Platelet Volume 9.5, Immature Granulocyte % (Auto) 7, Neutrophils (%) (Auto) 72, Lymphocytes (%) (Auto) 12, Monocytes (%) (Auto) 7, Eosinophils (%) (Auto) 1, Basophils (%) (Auto) 1, Neutrophils # (Auto) 8.7, Lymphocytes # (Auto) 1.4, Monocytes # (Auto) 0.9, Eosinophils # (Auto) 0.1, Basophils # (Auto) 0.1, Immature Granulocyte # (Auto) 0.9, Neutrophils % (Manual) 65, Lymphocytes % (Manual) 12, Monocytes % (Manual) 5, Eosinophils % (Manual) 3, Basophils % (Manual) 0, Metamyelocytes % 1, Myelocytes % 1, Band Neutrophils 13, Nucleated Red Blood Cells 2, Toxic Granulation 2+, Polychromasia SLIGHT, Sodium Level 133, Potassium Level 4.3, Chloride Level 103, Carbon Dioxide Level 22, Anion Gap 8, Blood Urea Nitrogen 16, Creatinine 0.60, Estimat Glomerular Filtration Rate > 60, BUN/Creatinine Ratio 27, Glucose Level 121, Calcium Level 8.0, Corrected Calcium 9.5, Total Bilirubin 0.3, Aspartate Amino Transf (AST/SGOT) 36, Alanine Aminotransferase (ALT/SGPT) 20, Alkaline Phosphatase 139, Total Protein 4.5, Albumin 2.1 11/13/20 05:35: White Blood Count 10.5, Red Blood Count 2.56, Hemoglobin 8.0, Hematocrit 24, Mean Corpuscular Volume 95, Mean Corpuscular Hemoglobin 31, Mean Corpuscular Hemoglobin Concent 33, Red Cell Distribution Width 14.4, Platelet Count 351, Mean Platelet Volume 9.6, Immature Granulocyte % (Auto) 8, Neutrophils (%) (Auto) 68, Lymphocytes (%) (Auto) 12, Monocytes (%) (Auto) 9, Eosinophils (%) (Auto) 2, Basophils (%) (Auto) 1, Neutrophils # (Auto) 7.2, Lymphocytes # (Auto) 1.3, Monocytes # (Auto) 0.9, Eosinophils # (Auto) 0.3, Basophils # (Auto) 0.1, Immature Granulocyte # (Auto) 0.9, Sodium Level 134, Potassium Level 4.5, Chloride Level 106, Carbon Dioxide Level 20, Anion Gap 8, Blood Urea Nitrogen 14, Creatinine 0.56, Estimat Glomerular Filtration Rate > 60, BUN/Creatinine Ratio 25, Glucose Level 115, Calcium Level 7.7, Corrected Calcium 9.5, Total Bilirubin 0.3, Aspartate Amino Transf (AST/SGOT) 32, Alanine Aminotransferase (ALT/SGPT) 21, Alkaline Phosphatase 134, Total Protein 4.0, Albumin 1.8, Phosphorus Level 3.0, Magnesium Level 2.0 11/13/20 05:36: Glucometer 113 11/14/20 05:25: White Blood Count 9.7, Red Blood Count 2.64, Hemoglobin 8.1, Hematocrit 25, Mean Corpuscular Volume 96, Mean Corpuscular Hemoglobin 31, Mean Corpuscular Hemoglobin Concent 32, Red Cell Distribution Width 14.6, Platelet Count 356, Mean Platelet Volume 9.9, Immature Granulocyte % (Auto) 9, Neutrophils (%) (Auto) 65, Lymphocytes (%) (Auto) 14, Monocytes (%) (Auto) 8, Eosinophils (%) (Auto) 4, Basophils (%) (Auto) 1, Neutrophils # (Auto) 6.3, Lymphocytes # (Auto) 1.3, Monocytes # (Auto) 0.7, Eosinophils # (Auto) 0.4, Basophils # (Auto) 0.1, Immature Granulocyte # (Auto) 0.9, Sodium Level 136, Potassium Level 4.3, Chloride Level 109, Carbon Dioxide Level 20, Anion Gap 7, Blood Urea Nitrogen 12, Creatinine 0.59, Estimat Glomerular Filtration Rate > 60, BUN/Creatinine Ratio 20, Glucose Level 152, Calcium Level 7.7, Corrected Calcium 9.3, Total Bilirubin 0.2, Aspartate Amino Transf (AST/SGOT) 29, Alanine Aminotransferase (ALT/SGPT) 19, Alkaline Phosphatase 181, Total Protein 4.2, Albumin 2.0 11/14/20 06:04: Glucometer 157 11/14/20 15:22: Glucometer 121 11/14/20 20:04: Glucometer 128 11/15/20 05:23: Glucometer 136 11/15/20 06:21: White Blood Count 11.7, Red Blood Count 2.65, Hemoglobin 8.2, Hematocrit 25, Mean Corpuscular Volume 94, Mean Corpuscular Hemoglobin 31, Mean Corpuscular Hemoglobin Concent 33, Red Cell Distribution Width 14.6, Platelet Count 342, Mean Platelet Volume 10.1, Immature Granulocyte % (Auto) 6, Neutrophils (%) (Auto) 67, Lymphocytes (%) (Auto) 14, Monocytes (%) (Auto) 9, Eosinophils (%) (Auto) 3, Basophils (%) (Auto) 0, Neutrophils # (Auto) 7.9, Lymphocytes # (Auto) 1.6, Monocytes # (Auto) 1.0, Eosinophils # (Auto) 0.4, Basophils # (Auto) 0.1, Immature Granulocyte # (Auto) 0.8, Sodium Level 134, Potassium Level 4.2, Chloride Level 107, Carbon Dioxide Level 21, Anion Gap 6, Blood Urea Nitrogen 13, Creatinine 0.54, Estimat Glomerular Filtration Rate > 60, BUN/Creatinine Ratio 24, Glucose Level 125, Calcium Level 7.6, Corrected Calcium 9.2, Phosphorus Level 2.8, Magnesium Level 4.0, Total Bilirubin 0.2, Aspartate Amino Transf (AST/SGOT) 28, Alanine Aminotransferase (ALT/SGPT) 19, Alkaline Phosphatase 165, Total Protein 4.2, Albumin 2.0 11/15/20 13:03: Vancomycin Level Trough 4.5 11/16/20 05:16: White Blood Count 11.9, Red Blood Count 2.59, Hemoglobin 7.9, Hematocrit 25, Mean Corpuscular Volume 96, Mean Corpuscular Hemoglobin 31, Mean Corpuscular Hemoglobin Concent 32, Red Cell Distribution Width 14.8, Platelet Count 374, Mean Platelet Volume 10.0, Immature Granulocyte % (Auto) 6, Neutrophils (%) (Auto) 69, Lymphocytes (%) (Auto) 15, Monocytes (%) (Auto) 7, Eosinophils (%) (Auto) 3, Basophils (%) (Auto) 1, Neutrophils # (Auto) 8.2, Lymphocytes # (Auto) 1.8, Monocytes # (Auto) 0.8, Eosinophils # (Auto) 0.4, Basophils # (Auto) 0.1, Immature Granulocyte # (Auto) 0.7, Sodium Level 135, Potassium Level 4.4, Chloride Level 107, Carbon Dioxide Level 22, Anion Gap 6, Blood Urea Nitrogen 13, Creatinine 0.53, Estimat Glomerular Filtration Rate > 60, BUN/Creatinine Ratio 25, Glucose Level 130, Calcium Level 7.7, Corrected Calcium 9.4, Phosphorus Level 2.7, Magnesium Level 1.8, Total Bilirubin 0.2, Aspartate Amino Transf (AST/SGOT) 28, Alanine Aminotransferase (ALT/SGPT) 18, Alkaline Phosphatase 155, Total Protein 4.2, Albumin 1.9, Prealbumin 9.7, Procalcitonin 0.27 11/16/20 05:17: Glucometer 134 11/17/20 05:12: Glucometer 133 11/17/20 07:04: White Blood Count 13.6, Red Blood Count 2.66, Hemoglobin 8.3, Hematocrit 25, Mean Corpuscular Volume 96, Mean Corpuscular Hemoglobin 31, Mean Corpuscular Hemoglobin Concent 33, Red Cell Distribution Width 14.8, Platelet Count 400, Mean Platelet Volume 9.7, Sodium Level 135, Potassium Level 4.4, Chloride Level 106, Carbon Dioxide Level 20, Anion Gap 9, Blood Urea Nitrogen 15, Creatinine 0.52, Estimat Glomerular Filtration Rate > 60, BUN/Creatinine Ratio 29, Glucose Level 117, Calcium Level 7.9, Corrected Calcium 9.6, Total Bilirubin 0.2, Aspartate Amino Transf (AST/SGOT) 29, Alanine Aminotransferase (ALT/SGPT) 25, Alkaline Phosphatase 148, Total Protein 4.3, Albumin 1.9, Vancomycin Level Trough 12.5 11/18/20 05:02: Glucometer 84 Discharge Home Medications: Active Scripts Active Lorazepam Intensol (Lorazepam) 2 Mg/1 Ml Oral.conc 1 Mg PO Q2H PRN Morphine Sulfate 20 Mg/5 Ml Solution 20 Mg PO Q3HR Ondansetron Odt (Ondansetron) 8 Mg Tab.rapdis 8 Mg PO Q4H Percocet 5-325 mg Tablet (Oxycodone HCl/Acetaminophen) 1 Each Tablet 1 Tab PO Q4H PRN Instructions to patient/family Please see electronic discharge instructions given to patient. CONNOR BUSTAMANTE DO Nov 18, 2020 09:21
--- NOTE | 2020-11-18 11:03 | NUR ---
CM/SS: Telephone call from daughter -[phone] - Liban - she reports she wants pt to come home with [facility]. She has talked with Hospice and they will arrange equipment. Plan: Pt to go home today with [facility] Summary: Visited with pt and let her know that she would be going home today with hospice services. Pt is elated to be able to go home today. Pt does smile and reports she was able to eat a little breakfast this morning. Pt reports she tired very hard to eat today. Pt thanks this worker for working everything out. Pt is wished well. Telephone call to [facility] - [phone] - they are notified about the referral on pt. Information is faxed to [facility] [phone]. Call from [facility] - they are needed face sheet faxed. They are informed that the facesheet with was in the packet. Face sheet and packet are faxed again. Telephone call from Kaci - she reports that [facility] should be able to set up equipment between 12 and 1pm.
[2020-11-18 12:00] VITALS: BP 150/80
--- NOTE | 2020-11-18 14:20 | NUR ---
CM/SS: Telephone call to daughter - Liban - [phone] - checking to see if the equipment is in place at the home for pt so that EMS non emergent transport can be called. Daughter reports it will all be in place by 2:00pm. MIGNON Kinney is notified of the time frame related to when EMS can be called.
== END 2020-11-18 14:44 | disposition hospice, home (50) | DRG 439 ==
LOC: 4TH 12:45
PROVIDERS: ADMIT Internal Medicine; ATTEND Internal Medicine
DX: K86.3 Pseudocyst of pancreas (principal); J90 Pleural effusion, not elsewhere classified; J98.11 Atelectasis; L03.113 Cellulitis of right upper limb; K86.89 Other specified diseases of pancreas; R41.0 Disorientation, unspecified; R54 Age-related physical debility; R32 Unspecified urinary incontinence; Z66 Do not resuscitate; I25.10 Atherosclerotic heart disease of native coronary artery without angina pectoris; I10 Essential (primary) hypertension; M54.9 Dorsalgia, unspecified; D64.9 Anemia, unspecified; Z95.1 Presence of aortocoronary bypass graft; Z82.49 Family history of ischemic heart disease and other diseases of the circulatory system
CPT/HCPCS: 36415; 71260; 74177; 80053; 80202; 82962; 83735; 84100; 84134; 84145; 85007; 85025; 85027; 87040; 94760

== ENCOUNTER → 2020-12-19 | Outpatient (CLI) | payer MEDICARE ==
[~2020-12-19] MED LIST changes: +LORA2ORA PO; +MORP20SO PO; +ONDA8TAB13 PO; +OXYC1TAB87 PO; -RAMI2.5C2 PO; +RAMI2.5C54 PO
[2020-12-19 23:45] LABS: BILIRUBIN,URINE NEGATIVE (NEGATIVE); CLARITY,URINE CLOUDY; COLOR,URINE YELLOW; GLUCOSE, URINE (UA) NEGATIVE (NEGATIVE); KETONES,URINE 1+ (NEGATIVE); LEUKOCYTE ESTERASE ,URINE 3+ (NEGATIVE); NITRITE,URINE POSITIVE (NEGATIVE); PROTEIN,URINE 1+ (NEGATIVE)
[2020-12-19 23:57] LABS: BACTERIA,URINE LARGE /HPF; RBC,URINE 0-2 /HPF; WBC,URINE >100 /HPF
[2020-12-19 23:58] LABS: TRIPLE PHOSPHATE CRYSTAL,UR FEW /LPF
== END ==
LOC: HOSHH 23:00
PROVIDERS: ATTEND Internal Medicine
DX: R30.9 Painful micturition, unspecified (principal); R10.9 Unspecified abdominal pain
CPT/HCPCS: 81000; 87077; 87088; 87186

== ENCOUNTER → 2021-02-16 | Outpatient (CLI) | payer OTHER, MEDICARE ==
[~2021-02-16] MED LIST changes: +CATHETER FLUSH 10 ML SYR IV PRN; +HOLD METFORMIN - RECEIVED CONTRAST 20 ML VIAL IV SCH; +IOHEXOL 350 MG/ML 100 ML (OMNIPAQUE 350) VIAL IV ONE; +NS 100 ML (IVPB) BAG IV ONE
--- NOTE | 2021-02-16 10:22 | Diagnostic Imaging Report ---
PROCEDURE: CT chest, abdomen, and pelvis with contrast. TECHNIQUE: Multiple contiguous axial images were obtained through the chest, abdomen, and pelvis after the administration of intravenous contrast. Auto Exposure Controls were utilized during the CT exam to meet ALARA standards for radiation dose reduction. INDICATION: Pleural effusion, pain. COMPARISON: 11/12/2020. FINDINGS: CHEST: Bilateral pleural effusions, greater right, measure 4.5 cm on the right and 2.5 cm on the left, slightly increased from the previous exam. No evidence for its loculation. Some mild subjacent dependent partial atelectasis, greater right, has improved from the prior exam. No evidence for pneumonia or pulmonary edema. There is no pneumothorax. The aorta is patent and nonaneurysmal. There is no PE. There is no pericardial effusion. No acute chest wall abnormality. ABDOMEN/PELVIS: There is increasing moderate volume of abdominal/pelvic ascites. The fluid collection replacing the pancreatic body has decreased in size and today measures 5.7 x 2.7 cm, previously 10.0 x 4.5 cm. There is enhancement of portions of the pancreatic neck, head, and uncinate process. The remaining pancreatic parenchyma is either non-enhancing or hypoenhancing. The spleen is unremarkable. The liver is unremarkable. No bile duct dilatation. There are a few renal cortical and parapelvic cysts without hydronephrosis or change. There is no bowel obstruction. There is no free air. Some chronic uterine calcifications, presumed old fibroid, are stable. The rectosigmoid constipation has improved. No evidence for impaction or bowel obstruction. IMPRESSION: CHEST: Mild increased pleural effusions with improvements in atelectasis. No pneumothorax or vascular pathology. ABDOMEN/PELVIS: 1. The intraparenchymal pancreatic fluid collection has decreased with enhancement noted at portions of the pancreatic neck, head, and uncinate process. The remaining is hypo or nonenhancing, unchanged from the prior exam. 2. Increased ascites without new loculated collection. Reduction in constipation. No free air or abscess. No bowel obstruction. No acute hepatobiliary or urinary tract pathology. Dictated by: Dictated on workstation # [id number]
== END ==
LOC: RAD 08:53
PROVIDERS: ATTEND Internal Medicine
DX: J90 Pleural effusion, not elsewhere classified (principal); J98.11 Atelectasis; K59.00 Constipation, unspecified; R18.8 Other ascites
CPT/HCPCS: 71260; 74177